=== PATIENT | female | born 1980 | race Caucasian/White ===

== ENCOUNTER → 2016-05-17 | Outpatient (CLI) | payer OTHER, MEDICARE ==
[~2016-05-17] MED LIST: /AMIT10TA PO; /CELE20CA OR; /CELE20CA PO; /DIVA12TA OR; /ESCI20TA PO; /ESOM40CA PO; /FEXO18TA OR; /OMEP10CA OR; /QUET25TA OR; ABIL5TAB5 PO; ACET-654 PO; ADVAIR INH; ALBU83IN INH; ALBUPOW25 NEB; ALBUTEROL XX; ALLE12TA31 PO; AMIT10TA PO; AMIT1TAB10 PO; ASPI325T OR; ASPI81TA85 PO; ASPI81TA90 PO; ATIV2TAB PO; ATOR1TAB21 PO; ATOR40TA PO; Allegra-D PO; B-12100010 PO; BACL10TA PO; BACL10TA2 PO; CELE-19 PO; CELE40TA PO; CHOLPOW39 PO; CITA20TA4 PO; COLA50CA PO; DIAZ5TAB PO; DITR5TAB PO; DIVA500T9 PO; DOCU100C PO; DOCU10CA PO; EPIP0.3I2 IM; FEXO180T58 PO; HYDRPOW48 PO; IBUP800T PO; KEPP1000 PO; LIDO5DIS EX; LIPI20TA PO; LORTTAB5 PO; LYRI75CA PO; MACR100C3 PO; MAXA5TAB OR; MONT10TA2 PO; MORP15TA2 PO; MOVA1TAB2 PO; NAPR-26 PO; NAPR500T2 PO; NEXI40GR PO; NICO14PA EXT; NITR100C37 PO; OMEP20TA7 OR; OXYB5TAB80 PO; PERC10TA17 PO; PROP1TAB26 PO; PSYLPOW4 XX; ROBA750T4 PO; SENNA PO; SERO1TAB PO; SERO200T PO; SING10TA31 OR; SUMA100T2 PO; SUMATRIPTAN PO; SYMB16INH INH; SYNT25TA PO; TEMA30CA PO; TIZA4CAP3 PO; TOPA25TA10 PO; TOPA50TA7 PO; TOPAMAX INJ; TOPI25TA2 OR; TRAZADONE PO; TREX50TA PO; TYLE325T5 PO; ULTR50TA PO; VALI10TA PO; VALI5TAB PO; VENL100T PO; VENL75TA2 PO; VICO5TAB OR; VICO7.5T11 PO; VITA100037 PO; VITA10006 PO; VITA200T2 PO; ZANA4CAP OR; ZANT300T OR; ZONI100C2 PO; [UNRECOGNIZED DRUG - CODE] PO; [UNRECOGNIZED DRUG - CODE] PO; [UNRECOGNIZED DRUG - OTHER] INH; [UNRECOGNIZED DRUG - OTHER] INH; aspirin; astepro; epipen IM; mylicon PO; temazepam PO; xyzal PO
--- NOTE | 2016-06-05 01:55 | ECWPNPC ---
PATIENT NAME: PIYUSH FARNSWORTH : 1980 GENDER: FEMALE VISIT DATE: 05/17/2016 DISCHARGE DATE: 05/17/16 1003 VISIT LOCKED DATE TIME: PHYSICIAN: SHARON BRUCE RESOURCE: SHARON BRUCE REASON FOR APPOINTMENT 1. NECK/BACK HISTORY OF PRESENT ILLNESS HISTORY OF PRESENT ILLNESS: PAIN THE PATIENT DESCRIBES THE PAIN... FALL RISK SCREENING: SCREENING :NO FALLS IN THE PAST YEAR TODAY'S VISIT: NOTES: RATES PAIN TODAY 8/10. NOTES WORST PAIN OVER ENTIRE BACK. HAS BEEN HAVING SIGNIFIACNT COUGH AND THIS HAS AGGRAVATED PAIN. CURRENT MEDICATIONS TAKING LYRICA 150 MG CAPSULE 1 CAPSULE ORALLY THREE TIMES A DAY TAKING NEXIUM 40 MG CAPSULE DELAYED RELEASE 1 CAPSULE ORALLY TWICE A DAY TAKING SYNTHROID 25 50 TABLET 1 CAP ORAL DAILY TAKING ALBUTEROL SULFATE (2.5 MG/3ML) 0.083% NEBULIZATION SOLUTION 3 ML INHALATION THREE TIMES DAILY NEEDED TAKING ADVAIR DISKUS 100-50 MCG/DOSE AEROSOL POWDER BREATH ACTIVATED 1 PUFF INHALATION TWICE A DAY TAKING IMITREX 25 MG TABLET ORALLY DIRECTED TAKING TRAZODONE HCL 100 MG TABLET 2TABLETS AT BEDTIME ORALLY ONCE A DAY TAKING CYCLOBENZAPRINE HCL 10 MG TABLET 2 TABLET ORALLY BID TAKING FLUOXETINE 10 MG CAPSULE 3 CAPSULE IN THE MORNING ORALLY ONCE A DAY TAKING TOPAMAX 50 MG TABLET 1 TABLET ORALLY TWICE A DAY TAKING SUMATRIPTAN SUCCINATE 100 MG TABLET 1 TABLET NEEDED ORALLY DIRECTED TAKING SINGULAIR 10 MG TABLET 1 TABLET IN THE EVENING ORALLY ONCE A DAY TAKING EPIPEN 0.3 MG/0.3ML (1:1000) DEVICE INTRAMUSCULAR DIRECTED, NOTES: NONE TAKING LORATADINE 10 MG TABLET 1 TABLET ORALLY ONCE A DAY TAKING FLONASE 50 MCG/DOSE INHALER 2 SPRAY IN EACH NOSTRIL NASALLY ONCE A DAY TAKING CELEBREX 200 MG CAPSULE 1 CAPSULE ORALLY ONCE A DAY TAKING LIPITOR 40 MG TABLET 1 TABLET ORALLY ONCE A DAY TAKING MUCINEX 600 MG TABLET EXTENDED RELEASE 1 TABLET NEEDED ORALLY EVERY 12 HRS TAKING MOVANTIK 25 MG TABLET 1 TABLET IN THE MORNING ORALLY ONCE A DAY TAKING CYMBALTA 30 MG CAPSULE DELAYED RELEASE PARTICLES 1 CAPSULE ORALLY ONCE A DAY TAKING TESSALON PERLES 100 MG CAPSULE 1 CAPSULE NEEDED ORALLY THREE TIMES A DAY TAKING PERCOCET 10-325 MG TABLET 1 TABLET ORALLY EVERY 4 HRS PRN PAIN MDD = 6 TAKING SEROQUEL 300 MG TABLET 1 TABLET AT BEDTIME ORALLY ONCE A DAY NOT-TAKING ASPIRIN 81 MG TABLET 1 TABLET ORALLY ONCE A DAY NOT-TAKING TOPAMAX 50 MG TABLET 1 TABLET ORALLY TWICE A DAY NOT-TAKING CELEBREX 200 MG CAPSULE 1 CAPSULE ORALLY ONCE A DAY NOT-TAKING OXYBUTYNIN CHLORIDE 5 MG TABLET 1 TABLET ORALLY THREE TIMES A DAY NOT-TAKING AMITRIPTYLINE HCL 50 MG TABLET 1 TABLET AT BEDTIME ORALLY ONCE A DAY DISCONTINUED SEROQUEL 400 MG TABLET 1 TABLET ORALLY ONCE DAILY DISCONTINUED SEROQUEL XR 300 MG TABLET EXTENDED RELEASE 24 HOUR 1 TABLET IN THE EVENING ORALLY ONCE A DAY MEDICATION LIST REVIEWED AND RECONCILED WITH THE PATIENT PAST MEDICAL HISTORY HYPERTENSION HIGH CHOLESTEROL THYROID PROBLEM HERNIATED DISC DORSAL COLUMN STIMULATOR INTERSTIM BLADDER OAB EAR TUBES MASTOIDECTOMY X6 ALLERGIES PENICILLIN (FOR ALLERGIES USE ONLY): ANAPHALAXIS LEVAQUIN: ANAPHALAXIS AMOXICILLIN: ANAPHALAXIS MYRBETRIQ: BLISTERING MUSHROOMS: ANAPHALAXIS BEES: ANAPHALAXIS SOCIAL HISTORY GENERAL: TOBACCO USE ARE YOU A:CURRENT SMOKER HOW MANY CIGARETTES A DAY DO YOU SMOKE?5 OR LESS HOW SOON AFTER YOU WAKE UP DO YOU SMOKE YOUR FIRST CIGARETTE?AFTER 60 MIN HOW OFTEN DO YOU SMOKE CIGARETTES?SOME DAYS, BUT NOT EVERY DAY PATIENT COUNSELED ON THE DANGERS OF TOBACCO USE AND URGED TO QUIT: COUNCELED ON THE IMPORTANCE OF QUITTING--PATIENT STATES SHE IS NOT READY AT THIS TIME ARE YOU INTERESTED IN QUITTING?NOT READY TO QUIT LEARNING BARRIERS / SPECIAL NEEDS ORIENTED TO PLAN OF CARE: PATIENT, PAIN MANAGEMENT PATIENT, ORIENTED TO PLAN OF CARE: PATIENT, PAIN MANAGEMENT PATIENT. NEW PATIENT PAIN DIARY TODAY'S VISITNOTES FROM 0-10, WHAT LEVEL IS YOUR PAIN TODAY?0 PAIN CLINIC PFS, CLERGY, PUBLIC HEALTH REFERRALS PFS REFERRAL NEEDED?NO CLERGY REFERRAL NEEDED?NO PUBLIC HEALTH REFERRAL NEEDED?NO WAS THE PROVIDER NOTIFIED OF ANY PERTINENT INFO?NO PFS REFERRAL NEEDED?NO CLERGY REFERRAL NEEDED?NO PUBLIC HEALTH REFERRAL NEEDED?NO WAS THE PROVIDER NOTIFIED OF ANY PERTINENT INFO?NO REVIEW OF SYSTEMS CONSTITUTIONAL: ANY CHANGE IN YOUR MEDICAL CONDITION? NO . CHILLS NO . FEVER NO . INFECTION: DO YOU HAVE NEW INFECTIONS? NO . DO YOU HAVE HISTORY OF MRSA? NO . MUSCULOSKELETAL: ANY NEW PATTERNS OF PAIN OR NUMBNESS? NO . GASTROENTEROLOGY: ANY NEW CHANGE IN BOWEL CONTROL? NO . GENITOURINARY: ANY NEW CHANGE IN BLADDER CONTROL? NO . IS THERE A CHANCE YOU COULD BE ? NO . HEMATOLOGY/LYMPH: DO YOU TAKE ANY BLOOD THINNERS? (FOR EXAMPLE- COUMADIN, PLAVIX, AGGRENOX, PLATEL, PRADAXA, OR XARELTO) NO . WHEN WAS YOUR LAST DOSE? DATE: TIME: . NEUROLOGY: HAVE YOU FALLEN IN THE PAST 6 MONTHS? NO . ANY NEW EXTREMITY NUMBNESS OR WEAKNESS? NO . CARDIOLOGY: DO YOU HAVE A PACEMAKER OR DEFIBRILLATOR? NO . RESPIRATORY: HAVE YOU BEEN SICK IN THE PAST WEEK? YES COLD FOR APPROX 1 WEEK . FEVER NO . FLU LIKE SYMPTOMS? NO . COUGH YES, PRODUCTIVE RAISING GREEN MUCUS TREATED WITH Z PACK . INTEGUMENTARY: DO YOU HAVE ANY RASHES OR OPEN SORES? NO . ALLERGIC/IMMUNO: ARE YOU ALLERGIC TO SHELLFISH OR IV DYE? NO . ANY NEW ALLERGIES? NO . PSYCHIATRIC: DO YOU HAVE THOUGHTS OF HURTING YOURSELF OR SOMEONE ELSE? NO . ARE YOU ABUSED, NEGLECTED, OR IN AN UNSAFE ENVIRONMENT? NO . ENDOCRINOLOGY: ARE YOU DIABETIC? NO . OTHER: DO YOU NEED ANY PRESCRIPTIONS? NO . IF YES, PLEASE LIST: ____ . ANY NEW PROBLEMS WITH YOUR MEDICATIONS? NO . WHEN DID YOU LAST EAT? ____ . WHEN DID YOU LAST DRINK? ____ . WHAT DID YOU LAST DRINK? ____ . NAME OF PERSON DRIVING YOU HOME? ____ . DO YOU HAVE ANY OTHER QUESTIONS OR CONCERNS NO . PSYCHOLOGY: SLEEP DISTURBANCES BEING WEANED FROM SEROQUEL. NOT SLEEPING WELL DUE TO COUGH . REVIEWED BY: PROVIDER: SHARON HERNANDEZ . VITAL SIGNS WT 250 LBS, HT 67 IN, BMI 39.15 INDEX, BP 122/76 MM HG, HR 104 /MIN, RR 16 /MIN, TEMP 98.2 F, OXYGEN SAT % 96, REVIEWED BY: AD. EXAMINATION GENERAL EXAMINATION: PSYCHALERT , ORIENTED X 3 , APPROPRIATE MOOD AND AFFECT , APPEARS FATIGUED. LUNGS:BILATERAL WHEEZES AND RHONCHI. HEART:HEART RATE REGULAR. ABDOMEN:SOFT, BOWEL SOUNDS PRESENT, TENDER IN RIGHT UPPER QUADRANT. MUSCULOSKELETAL:MUSCLE STRENGTH TESTING 5/5 BILATERAL LOWER EXTREMITIES. , TRIGGER POINTS:, ELICITED WITH PALPATION OVER LUMBAR PARAVERTEBRAL MUSCLES AND INTO THE SECRUM. RESTRICTION OF ROM IN THIS AREA. . ASSESSMENTS CERVICAL DISC DISPLACEMENT - M50.20 (PRIMARY) MYALGIA - M79.1 CHRONICALLY ON OPIATE THERAPY - Z79.899 TREATMENT CERVICAL DISC DISPLACEMENT NOTES: CONTINUE CURRENT MEDS - CONSIDER CHANGE OF PAIN MEDS AT NEXT VISIT. CALL PRIMARY IF NOT GETTING BETTER WITH COUGH BY NEXT MONDAY.MUST BRING MEDS TO NEXT APPOINTMENT. CLINICAL NOTES: ISTOP REGISTRY REVIEWED AND DEMNOSTRATES COMPLLIANCE.LAST URINE TOXICOLOGY REVIEWED. NO UNAUTHORIZED MEDICATIONS. NO ILLICIT SUBSTANCES AND PRESCRIBED MEDICATIONS WERE PRESENT. PROCEDURE CODES FA211 ESTABILISHED PATIENT [facility] CHARGE DISPOSITION & COMMUNICATION FOLLOW UP BETWEEN 06/01- ELECTRONICALLY SIGNED BY DANNY GODFREY ON 06/02/2016 AT 02:01 PM EST DISCLAIMER : THIS IS A VISIT SUMMARY EXTRACTED FROM THE [employer] CHART. IT IS NOT A COPY OF THE [employer] PROGRESS NOTE. MARCIN
== END ==
LOC: M PAIN 09:00
PROVIDERS: ATTEND Nurse Practitioner Family
DX: Z09 Encounter for follow-up examination after completed treatment for conditions other than malignant neoplasm (principal); G89.29 Other chronic pain; M50.20 Other cervical disc displacement, unspecified cervical region; M79.1 Myalgia; I10 Essential (primary) hypertension; E78.00 Pure hypercholesterolemia, unspecified; E07.9 Disorder of thyroid, unspecified; F17.200 Nicotine dependence, unspecified, uncomplicated; Z88.0 Allergy status to penicillin; Z88.8 Allergy status to other drugs, medicaments and biological substances; Z88.3 Allergy status to other anti-infective agents; Z91.018 Allergy to other foods; Z91.030 Bee allergy status; Z79.891 Long term (current) use of opiate analgesic; Z79.899 Other long term (current) drug therapy

== ENCOUNTER → 2016-05-23 | Outpatient (REF) | payer OTHER, MEDICARE ==
[2016-05-23 16:54] LABS: ALBUMIN/GLOBULIN RATIO 1.21 (1.00-1.93); ALKALINE PHOSPHATASE 107 U/L (45-117); ALT/SGPT 40 U/L (12-78); ANION GAP 9 MEQ/L (8-16); AST/SGOT 24 U/L (15-37); BILIRUBIN,TOTAL 0.2 MG/DL (0.2-1.0); BLOOD UREA NITROGEN 11 MG/DL (7-18); CALCIUM LEVEL 8.9 MG/DL (8.5-10.1); CARBON DIOXIDE LEVEL 23 MEQ/L (21-32); CHLORIDE LEVEL 109 MEQ/L (98-107); CHOLESTEROL LEVEL 239 MG/DL (<200); CREATININE FOR GFR 1.02 MG/DL (0.55-1.02); GLOMERULAR FILTRATION RATE > 60.0 (>60); GLUCOSE, FASTING 92 MG/DL (70-105); POTASSIUM SERUM 3.8 MEQ/L (3.5-5.1); SODIUM LEVEL 141 MEQ/L (136-145); TOTAL PROTEIN 7.3 GM/DL (6.4-8.2); TRIGLYCERIDES LEVEL 524 MG/DL (<150)
== END | disposition home or self-care (01) ==
LOC: M LABDRAW1 15:41
PROVIDERS: ATTEND Family Medicine
DX: E78.2 Mixed hyperlipidemia (principal)

== ENCOUNTER → 2016-05-30 | Outpatient (REF) | payer OTHER | END | disposition home or self-care (01) | LOC: M LABDRAW1 12:07 | PROVIDERS: ATTEND Family Medicine | DX: R73.01 Impaired fasting glucose (principal) ==

== ENCOUNTER → 2016-06-03 | Outpatient (CLI) | payer OTHER, MEDICARE ==
--- NOTE | 2016-06-04 00:39 | ECWPNPC ---
PATIENT NAME: PIYUSH FARNSWORTH : 1980 GENDER: FEMALE VISIT DATE: 06/03/2016 DISCHARGE DATE: 06/03/16 1008 VISIT LOCKED DATE TIME: PHYSICIAN: SHARON BRUCE RESOURCE: SHARON BRUCE REASON FOR APPOINTMENT 1. NECK/BACK HISTORY OF PRESENT ILLNESS HISTORY OF PRESENT ILLNESS: PAIN THE PATIENT DESCRIBES THE PAIN... FALL RISK SCREENING: SCREENING :NO FALLS IN THE PAST YEAR TODAY'S VISIT: NOTES: RATES PAIN TODAY 7-8/10. PAIN IS CENTERED IN BASE OF NECK, BOTH ELBOWS AND FOREARMS, ACROSS LOW BACK AND INTO BOTH LEGS. FELL ONE WEEK AGO. AT THE END OF THE DAY CAN BARELY MOVE. LEGS GO NUMB IF SITS TOO LONG. HAS HAD RECURRENT UPPER RESPIRATORY INFECTION AND IS NOW ON ABX AND PREDNISONE. COUGH IS DEBILITATING BUT TESSALJUNIOR PERLES DO HELP. IS VERY WORRIED ABOUT WEIGHT AND THE EFFECT THSI HAS ON HER PAIN AND ABILITY TO FUNCTION. CURRENT MEDICATIONS TAKING LYRICA 150 MG CAPSULE 1 CAPSULE ORALLY THREE TIMES A DAY TAKING NEXIUM 40 MG CAPSULE DELAYED RELEASE 1 CAPSULE ORALLY TWICE A DAY TAKING SYNTHROID 25 25MCG TABLET 1 CAP ORAL DAILY TAKING ALBUTEROL SULFATE (2.5 MG/3ML) 0.083% NEBULIZATION SOLUTION 3 ML INHALATION THREE TIMES DAILY NEEDED TAKING ADVAIR DISKUS 100-50 MCG/DOSE AEROSOL POWDER BREATH ACTIVATED 1 PUFF INHALATION TWICE A DAY TAKING IMITREX 25 MG TABLET ORALLY DIRECTED TAKING TRAZODONE HCL 300 MG TABLET 1 TABLET AT BEDTIME ORALLY ONCE A DAY TAKING CYCLOBENZAPRINE HCL 10 MG TABLET 2 TABLET ORALLY BID TAKING FLUOXETINE 20 MG CAPSULE 2 CAPSULE IN THE MORNING ORALLY ONCE A DAY TAKING TOPAMAX 50 MG TABLET 1 TABLET ORALLY TWICE A DAY TAKING SUMATRIPTAN SUCCINATE 100 MG TABLET 1 TABLET NEEDED ORALLY DIRECTED TAKING SINGULAIR 10 MG TABLET 1 TABLET IN THE EVENING ORALLY ONCE A DAY TAKING EPIPEN 0.3 MG/0.3ML (1:1000) DEVICE INTRAMUSCULAR DIRECTED, NOTES: NONE TAKING LORATADINE 10 MG TABLET 1 TABLET ORALLY ONCE A DAY TAKING FLONASE 50 MCG/DOSE INHALER 2 SPRAY IN EACH NOSTRIL NASALLY ONCE A DAY TAKING CELEBREX 200 MG CAPSULE 1 CAPSULE ORALLY ONCE A DAY TAKING LIPITOR 40 MG TABLET 1 TABLET ORALLY ONCE A DAY TAKING MUCINEX 600 MG TABLET EXTENDED RELEASE 1 TABLET NEEDED ORALLY EVERY 12 HRS TAKING MOVANTIK 25 MG TABLET 1 TABLET IN THE MORNING ORALLY ONCE A DAY TAKING CYMBALTA 30 MG CAPSULE DELAYED RELEASE PARTICLES 1 CAPSULE ORALLY ONCE A DAY TAKING TESSALON PERLES 100 MG CAPSULE 1 CAPSULE NEEDED ORALLY THREE TIMES A DAY TAKING PERCOCET 10-325 MG TABLET 1 TABLET ORALLY EVERY 4 HRS PRN PAIN MDD = 6 TAKING SEROQUEL 200 MG TABLET 1 TABLET AT BEDTIME ORALLY ONCE A DAY TAKING PREDNISONE TAPER 1 TAB ORAL TAPERING DOSE OVER 3 WEEKS DIRECTED TAKING MELATONIN 3 MG TABLET 1 TABLET AT BEDTIME NEEDED WITH FOOD ORALLY ONCE A DAY NOT-TAKING ASPIRIN 81 MG TABLET 1 TABLET ORALLY ONCE A DAY NOT-TAKING TOPAMAX 50 MG TABLET 1 TABLET ORALLY TWICE A DAY NOT-TAKING CELEBREX 200 MG CAPSULE 1 CAPSULE ORALLY ONCE A DAY NOT-TAKING OXYBUTYNIN CHLORIDE 5 MG TABLET 1 TABLET ORALLY THREE TIMES A DAY NOT-TAKING AMITRIPTYLINE HCL 50 MG TABLET 1 TABLET AT BEDTIME ORALLY ONCE A DAY MEDICATION LIST REVIEWED AND RECONCILED WITH THE PATIENT PAST MEDICAL HISTORY HYPERTENSION HIGH CHOLESTEROL THYROID PROBLEM HERNIATED DISC DORSAL COLUMN STIMULATOR INTERSTIM BLADDER OAB EAR TUBES MASTOIDECTOMY X6 ALLERGIES PENICILLIN (FOR ALLERGIES USE ONLY): ANAPHALAXIS LEVAQUIN: ANAPHALAXIS AMOXICILLIN: ANAPHALAXIS MYRBETRIQ: BLISTERING MUSHROOMS: ANAPHALAXIS BEES: ANAPHALAXIS SOCIAL HISTORY GENERAL: TOBACCO USE VAPORYES LEARNING BARRIERS / SPECIAL NEEDS ORIENTED TO PLAN OF CARE: PATIENT, PAIN MANAGEMENT PATIENT, ORIENTED TO PLAN OF CARE: PATIENT, PAIN MANAGEMENT PATIENT. NEW PATIENT PAIN DIARY TODAY'S VISITNOTES FROM 0-10, WHAT LEVEL IS YOUR PAIN TODAY?0 PAIN CLINIC PFS, CLERGY, PUBLIC HEALTH REFERRALS PFS REFERRAL NEEDED?NO CLERGY REFERRAL NEEDED?NO PUBLIC HEALTH REFERRAL NEEDED?NO WAS THE PROVIDER NOTIFIED OF ANY PERTINENT INFO?NO PFS REFERRAL NEEDED?NO CLERGY REFERRAL NEEDED?NO PUBLIC HEALTH REFERRAL NEEDED?NO WAS THE PROVIDER NOTIFIED OF ANY PERTINENT INFO?NO REVIEW OF SYSTEMS CONSTITUTIONAL: LEVEL OF ENERGY WANTS TO LOSE WEIGHT, IS ON STRICT DIET BUT HAS NOT BEEN ABLE TO LOSE WEIGHT. DISCUSSED WITH PCP OPTION OF GASTRIC BYPASS BUT THE PCP WAS NOT IN FAVOR. . ANY CHANGE IN YOUR MEDICAL CONDITION? NO . CHILLS NO . FEVER NO . INFECTION: DO YOU HAVE NEW INFECTIONS? NO . DO YOU HAVE HISTORY OF MRSA? NO . MUSCULOSKELETAL: ANY NEW PATTERNS OF PAIN OR NUMBNESS? NO . GASTROENTEROLOGY: GENERAL CONSTIPATION UNDER GOOD CONTROL WITH MOVANTIK. STILL WITH RUQ ABD WALL WEAKNESS AND PAIN . ANY NEW CHANGE IN BOWEL CONTROL? NO . GENITOURINARY: ANY NEW CHANGE IN BLADDER CONTROL? NO . IS THERE A CHANCE YOU COULD BE ? NO . HEMATOLOGY/LYMPH: DO YOU TAKE ANY BLOOD THINNERS? (FOR EXAMPLE- COUMADIN, PLAVIX, AGGRENOX, PLATEL, PRADAXA, OR XARELTO) NO . WHEN WAS YOUR LAST DOSE? DATE: TIME: . NEUROLOGY: HAVE YOU FALLEN IN THE PAST 6 MONTHS? YES, FELL ON ICE 1 WEEK AGO, NO INJURY . ANY NEW EXTREMITY NUMBNESS OR WEAKNESS? YES, NUMBNESS AND PAIN LOW BACK GOING DOWN LEFT HIP AND LEG TO KNEE . CARDIOLOGY: DO YOU HAVE A PACEMAKER OR DEFIBRILLATOR? NO . RESPIRATORY: HAVE YOU BEEN SICK IN THE PAST WEEK? YES, URI--ON PREDNISONE TAPERING DOSE . FEVER NO . FLU LIKE SYMPTOMS? NO . COUGH YES, PRODUCTIVE, RAISING GREEN MUCUS . INTEGUMENTARY: DO YOU HAVE ANY RASHES OR OPEN SORES? NO . ALLERGIC/IMMUNO: ARE YOU ALLERGIC TO SHELLFISH OR IV DYE? NO . ANY NEW ALLERGIES? NO . PSYCHIATRIC: DO YOU HAVE THOUGHTS OF HURTING YOURSELF OR SOMEONE ELSE? NO . ARE YOU ABUSED, NEGLECTED, OR IN AN UNSAFE ENVIRONMENT? NO . ENDOCRINOLOGY: ARE YOU DIABETIC? NO - RECENT A1C = 5.4 . OTHER: DO YOU NEED ANY PRESCRIPTIONS? YES, NEW PAIN MEDS . IF YES, PLEASE LIST: ____ . ANY NEW PROBLEMS WITH YOUR MEDICATIONS? NO . WHEN DID YOU LAST EAT? ____ . WHEN DID YOU LAST DRINK? ____ . WHAT DID YOU LAST DRINK? ____ . NAME OF PERSON DRIVING YOU HOME? ____ . DO YOU HAVE ANY OTHER QUESTIONS OR CONCERNS NO . PSYCHOLOGY: SLEEP DISTURBANCES STILL IN PROCESS OF BEING WEANED FROM SEROQUEL AND SLEEP IS DISRUPTED . REVIEWED BY: PROVIDER: SHARON HERNANDEZ . VITAL SIGNS WT 259.2 LBS, HT 67 IN, BMI 40.59 INDEX, BP 130/74 MM HG, HR 109 /MIN, RR 18 /MIN, TEMP 96.0 F, OXYGEN SAT % 96, NA INITIALS TL 0913, REVIEWED BY: AD. EXAMINATION GENERAL EXAMINATION: PSYCHALERT , ORIENTED X 3 , TALKATIVE. STAYS ON SUBJECT WITHOUT DIFFICULTY. INTENSE AND FOCUSED. FACE:FLUSHED. LUNGS:BILATERAL RHONCHI, CLEARED WITH COUGH. DEEP BREATH INDUCES COUGH. HEART:HEART RATE REGULAR, RAPID. ABDOMEN:SOFT, BOWEL SOUNDS PRESENT, SOMEWHAT DISTENDED. MUSCULOSKELETAL:MUSCLE STRENGTH TESTING 5/5 BILATERAL UPPER AND LOWER EXTREMITIES. , TRIGGER POINTS:, ELICITED WITH PALPATION OVER CERVICAL SPINOUS PROCESSES AND ACROSS THE TRAPEZIUS MUSCLES BILATERALLY. RESTRICTION OF ROM IS NOTED. , ELICITED WITH PALPATION OVER MID THORACIC MUSCLES WITH RESTRICITON OF RESPIRATORY EXCURCIOM NOTED. , ELICITED WITH PALPATION OVER LUMBAR PARAVERTEBRAL MUSCLES AND INTO THE SECRUM. RESTRICTION OF ROM IN THIS AREA. SLOW TO RISE TO STANDING POSITION. GAIT SLOW, NONANTALGIC. TENDER WITH PALPATION OVER WRIST AND BILATERAL SHOULDER JOINTS. ROM MOVEMENT PRODUCES PAIN AT SHOULDER JOINTS.. NEUROLOGIC EXAM:HIGH FREQ TREMOR IN UPPER AND LOWER EXTREMITIES., CN'S II-XII GROSSLY INTACT. SPEACH CLEAR, NONDYSARTHRIC. EOMS INTACT WITHOUT NYSTAGMUS. ASSESSMENTS CERVICAL DISC DISPLACEMENT - M50.20 (PRIMARY) MYALGIA - M79.1 CHRONICALLY ON OPIATE THERAPY - Z79.899 TREATMENT CERVICAL DISC DISPLACEMENT START BUTRANS PATCH WEEKLY, 10 MCG/HR, 1 PATCH TO SKIN, TRANSDERMAL, APPLY 1 PATCH EVERY 7 DAYS MDD=1, 30 DAY(S), 4, REFILLS 1 REFILL PERCOCET TABLET, 10-325 MG, 1 TABLET, ORALLY, EVERY 4 HRS PRN PAIN MDD = 6, 30 DAY(S), 180, REFILLS 0 NOTES: REVIEWED WITH PIYUSH TO ALTERNATE PATCHES FROM SIDE TO SIDE EVERY WEEK. INSTRUCTED PT TO DECREASE PERCOCET TO MAX 4/DAY WITH BUTRANS IN PLACE. CLINICAL NOTES: ISTOP REGISTRY REVIEWED AND DEMNOSTRATES COMPLLIANCE. BRINGS IN MEDICATIONS WHICH IS APPROPRIATE FOR WHAT WAS DISPENSED. RECENT URINE TOXICOLOGY REVIEWED. NO UNAUTHORIZED MEDICATIONS. NO ILLICIT SUBSTANCES AND PRESCRIBED MEDICATIONS WERE PRESENT. REFERRAL TO:[facility] REASON:PERSISTANT URI'S. FAMILY HX OF HYPOGAMMAGLOBULINEMIA PROCEDURE CODES FA211 ESTABILISHED PATIENT THE [facility] FACILITY CHARGE DISPOSITION & COMMUNICATION FOLLOW UP 26-28 DAYS ELECTRONICALLY SIGNED BY DANNY GODFREY ON 06/03/2016 AT 11:55 AM EST DISCLAIMER : THIS IS A VISIT SUMMARY EXTRACTED FROM THE [employer] CHART. IT IS NOT A COPY OF THE [employer] PROGRESS NOTE. MTDD
== END ==
LOC: M PAIN 09:00
PROVIDERS: ATTEND Nurse Practitioner Family
DX: Z09 Encounter for follow-up examination after completed treatment for conditions other than malignant neoplasm (principal); G89.29 Other chronic pain; M50.20 Other cervical disc displacement, unspecified cervical region; M79.1 Myalgia; I10 Essential (primary) hypertension; E78.00 Pure hypercholesterolemia, unspecified; E07.9 Disorder of thyroid, unspecified; M51.26 Other intervertebral disc displacement, lumbar region; M54.14 Radiculopathy, thoracic region; M54.12 Radiculopathy, cervical region; M96.1 Postlaminectomy syndrome, not elsewhere classified; Z79.899 Other long term (current) drug therapy; Z79.51 Long term (current) use of inhaled steroids; Z91.018 Allergy to other foods; Z91.030 Bee allergy status; Z88.0 Allergy status to penicillin; Z88.1 Allergy status to other antibiotic agents; Z88.8 Allergy status to other drugs, medicaments and biological substances; F17.200 Nicotine dependence, unspecified, uncomplicated

== ENCOUNTER → 2016-06-23 | Outpatient (CLI) | payer OTHER, MEDICARE ==
--- NOTE | 2016-06-25 00:37 | ECWPNPC ---
PATIENT NAME: PIYUSH FARNSWORTH : 1980 GENDER: FEMALE VISIT DATE: 06/23/2016 DISCHARGE DATE: 06/23/16 0946 VISIT LOCKED DATE TIME: PHYSICIAN: SHARON BRUCE RESOURCE: SHARON BRUCE REASON FOR APPOINTMENT 1. NECK/BACK HISTORY OF PRESENT ILLNESS HISTORY OF PRESENT ILLNESS: PAIN THE PATIENT DESCRIBES THE PAIN... FALL RISK SCREENING: SCREENING :NO FALLS IN THE PAST YEAR TODAY'S VISIT: NOTES: REPORTS PAIN LEVEL OF PAIN IS 9/10. PAIN IS OVER ENTIRE BACK. IS INTERESTED IN MOVING FORWARD WITH DCS. TO SEE SENIOR DATABASE ADMINISTRATOR 06/28/16. HARSH COUGH WITH PRODUCTION. OXYCODONE HELPS KEEP PAIN MANAGED AND DENIES ANY ADVERSE REACTION. REPORTS MOVANTIK HAS CONTINUED TO HELP WITH ABDMINAL PAIN AND BLOATING.. . CURRENT MEDICATIONS TAKING LYRICA 150 MG CAPSULE 1 CAPSULE ORALLY THREE TIMES A DAY TAKING NEXIUM 40 MG CAPSULE DELAYED RELEASE 1 CAPSULE ORALLY TWICE A DAY TAKING SYNTHROID 25 25MCG TABLET 1 CAP ORAL DAILY TAKING ALBUTEROL SULFATE (2.5 MG/3ML) 0.083% NEBULIZATION SOLUTION 3 ML INHALATION THREE TIMES DAILY NEEDED TAKING ADVAIR DISKUS 100-50 MCG/DOSE AEROSOL POWDER BREATH ACTIVATED 1 PUFF INHALATION TWICE A DAY TAKING IMITREX 25 MG TABLET ORALLY DIRECTED TAKING TRAZODONE HCL 300 MG TABLET 1 TABLET AT BEDTIME ORALLY ONCE A DAY TAKING CYCLOBENZAPRINE HCL 10 MG TABLET 2 TABLET ORALLY BID TAKING FLUOXETINE 20 MG CAPSULE 2 CAPSULE IN THE MORNING ORALLY ONCE A DAY TAKING TOPAMAX 50 MG TABLET 1 TABLET ORALLY TWICE A DAY TAKING SUMATRIPTAN SUCCINATE 100 MG TABLET 1 TABLET NEEDED ORALLY DIRECTED TAKING SINGULAIR 10 MG TABLET 1 TABLET IN THE EVENING ORALLY ONCE A DAY TAKING EPIPEN 0.3 MG/0.3ML (1:1000) DEVICE INTRAMUSCULAR DIRECTED, NOTES: NONE TAKING LORATADINE 10 MG TABLET 1 TABLET ORALLY ONCE A DAY TAKING FLONASE 50 MCG/DOSE INHALER 2 SPRAY IN EACH NOSTRIL NASALLY ONCE A DAY TAKING CELEBREX 200 MG CAPSULE 1 CAPSULE ORALLY ONCE A DAY TAKING LIPITOR 40 MG TABLET 1 TABLET ORALLY ONCE A DAY TAKING MUCINEX 600 MG TABLET EXTENDED RELEASE 1 TABLET NEEDED ORALLY EVERY 12 HRS TAKING MOVANTIK 25 MG TABLET 1 TABLET IN THE MORNING ORALLY ONCE A DAY TAKING CYMBALTA 30 MG CAPSULE DELAYED RELEASE PARTICLES 1 CAPSULE ORALLY ONCE A DAY TAKING TESSALON PERLES 100 MG CAPSULE 1 CAPSULE NEEDED ORALLY THREE TIMES A DAY TAKING SEROQUEL 200 MG TABLET 1 TABLET AT BEDTIME ORALLY ONCE A DAY TAKING MELATONIN 3 MG TABLET 1 TABLET AT BEDTIME NEEDED WITH FOOD ORALLY ONCE A DAY TAKING PERCOCET 10-325 MG TABLET 1 TABLET ORALLY EVERY 4 HRS PRN PAIN MDD = 6 TAKING AZITHROMYCIN 250 MG TABLET 2 TABLETS ON THE FIRST DAY, THEN 1 TABLET DAILY FOR 4 DAYS ORALLY ONCE A DAY NOT-TAKING BUTRANS 10 MCG/HR PATCH WEEKLY 1 PATCH TO SKIN TRANSDERMAL APPLY 1 PATCH EVERY 7 DAYS MDD=1, NOTES: NEEDS AUTHORIZATION FROM INSURANCE NOT-TAKING ASPIRIN 81 MG TABLET 1 TABLET ORALLY ONCE A DAY NOT-TAKING TOPAMAX 50 MG TABLET 1 TABLET ORALLY TWICE A DAY NOT-TAKING CELEBREX 200 MG CAPSULE 1 CAPSULE ORALLY ONCE A DAY NOT-TAKING OXYBUTYNIN CHLORIDE 5 MG TABLET 1 TABLET ORALLY THREE TIMES A DAY NOT-TAKING AMITRIPTYLINE HCL 50 MG TABLET 1 TABLET AT BEDTIME ORALLY ONCE A DAY DISCONTINUED PREDNISONE TAPER 1 TAB ORAL TAPERING DOSE OVER 3 WEEKS DIRECTED MEDICATION LIST REVIEWED AND RECONCILED WITH THE PATIENT PAST MEDICAL HISTORY HYPERTENSION HIGH CHOLESTEROL THYROID PROBLEM HERNIATED DISC DORSAL COLUMN STIMULATOR INTERSTIM BLADDER OAB EAR TUBES MASTOIDECTOMY X6 ALLERGIES PENICILLIN (FOR ALLERGIES USE ONLY): ANAPHALAXIS LEVAQUIN: ANAPHALAXIS AMOXICILLIN: ANAPHALAXIS MYRBETRIQ: BLISTERING MUSHROOMS: ANAPHALAXIS BEES: ANAPHALAXIS SOCIAL HISTORY GENERAL: TOBACCO USE ARE YOU A:NONSMOKER LEARNING BARRIERS / SPECIAL NEEDS ORIENTED TO PLAN OF CARE: PATIENT, PAIN MANAGEMENT PATIENT, ORIENTED TO PLAN OF CARE: PATIENT, PAIN MANAGEMENT PATIENT. NEW PATIENT PAIN DIARY TODAY'S VISITNOTES FROM 0-10, WHAT LEVEL IS YOUR PAIN TODAY?0 PAIN CLINIC PFS, CLERGY, PUBLIC HEALTH REFERRALS PFS REFERRAL NEEDED?NO CLERGY REFERRAL NEEDED?NO PUBLIC HEALTH REFERRAL NEEDED?NO WAS THE PROVIDER NOTIFIED OF ANY PERTINENT INFO?NO PFS REFERRAL NEEDED?NO CLERGY REFERRAL NEEDED?NO PUBLIC HEALTH REFERRAL NEEDED?NO WAS THE PROVIDER NOTIFIED OF ANY PERTINENT INFO?NO REVIEW OF SYSTEMS CONSTITUTIONAL: ANY CHANGE IN YOUR MEDICAL CONDITION? YES CURRENTLY BEING TREATED FOR EAR INFECTION, BRONCHITIS WITH A Z-PACK,STARTED YESTERDAY . CHILLS NO . FEVER NO . INFECTION: DO YOU HAVE NEW INFECTIONS? YES EAR INFECTION, BRONCHITIS . DO YOU HAVE HISTORY OF MRSA? NO . MUSCULOSKELETAL: ANY NEW PATTERNS OF PAIN OR NUMBNESS? NO . GASTROENTEROLOGY: ANY NEW CHANGE IN BOWEL CONTROL? NO . GENITOURINARY: ANY NEW CHANGE IN BLADDER CONTROL? NO . IS THERE A CHANCE YOU COULD BE ? NO . HEMATOLOGY/LYMPH: DO YOU TAKE ANY BLOOD THINNERS? (FOR EXAMPLE- COUMADIN, PLAVIX, AGGRENOX, PLATEL, PRADAXA, OR XARELTO) NO . WHEN WAS YOUR LAST DOSE? DATE: TIME: . NEUROLOGY: HAVE YOU FALLEN IN THE PAST 6 MONTHS? NO . ANY NEW EXTREMITY NUMBNESS OR WEAKNESS? NO . CARDIOLOGY: DO YOU HAVE A PACEMAKER OR DEFIBRILLATOR? NO . RESPIRATORY: HAVE YOU BEEN SICK IN THE PAST WEEK? YES, ON ANTIBIOTICS FOR BRONCHITIS AND AN EAR INFECTION . FEVER NO . FLU LIKE SYMPTOMS? NO . COUGH YES . INTEGUMENTARY: DO YOU HAVE ANY RASHES OR OPEN SORES? NO . ALLERGIC/IMMUNO: ARE YOU ALLERGIC TO SHELLFISH OR IV DYE? NO . ANY NEW ALLERGIES? NO . PSYCHIATRIC: DO YOU HAVE THOUGHTS OF HURTING YOURSELF OR SOMEONE ELSE? NO . ARE YOU ABUSED, NEGLECTED, OR IN AN UNSAFE ENVIRONMENT? NO . ENDOCRINOLOGY: ARE YOU DIABETIC? NO . OTHER: DO YOU NEED ANY PRESCRIPTIONS? YES MOVANTIK . IF YES, PLEASE LIST: ____ . ANY NEW PROBLEMS WITH YOUR MEDICATIONS? NO . WHEN DID YOU LAST EAT? ____ . WHEN DID YOU LAST DRINK? ____ . WHAT DID YOU LAST DRINK? ____ . NAME OF PERSON DRIVING YOU HOME? ____ . DO YOU HAVE ANY OTHER QUESTIONS OR CONCERNS YES PT HAS BEEN UNABLE TO FILL PRESCRIPTION FOR BUTRANS. SHE HAS A QUESTION REGARDING THE NEED FOR PSYCH EVAL SINCE SHE HAD A DCS LAST YEAR . REVIEWED BY: PROVIDER: SHARON HERNANDEZ . VITAL SIGNS WT 255.4 LBS, HT 67 IN, BMI 40.00 INDEX, BP 127/75 MM HG, HR 110 /MIN, RR 16 /MIN, TEMP 96.4 F, OXYGEN SAT % 97%, SAFE IN ENV? (Y/N) YES, REVIEWED BY: JOYCE. EXAMINATION GENERAL EXAMINATION: PSYCHALERT , ORIENTED X 3 , TALKATIVE. STAYS ON SUBJECT WITHOUT DIFFICULTY. INTENSE AND FOCUSED. LUNGS:BILATERAL RHONCHI, CLEARED WITH COUGH. DEEP BREATH INDUCES COUGH. HEART:HEART RATE REGULAR, RAPID. ABDOMEN:SOFT, BOWEL SOUNDS PRESENT, SOMEWHAT DISTENDED. MUSCULOSKELETAL:MUSCLE STRENGTH TESTING 5/5 BILATERAL UPPER AND LOWER EXTREMITIES. , TRIGGER POINTS:, ELICITED WITH PALPATION OVER CERVICAL SPINOUS PROCESSES AND ACROSS THE TRAPEZIUS MUSCLES BILATERALLY. RESTRICTION OF ROM IS NOTED. , ELICITED WITH PALPATION OVER MID THORACIC MUSCLES WITH RESTRICITON OF RESPIRATORY EXCURCIOM NOTED. , ELICITED WITH PALPATION OVER LUMBAR PARAVERTEBRAL MUSCLES AND INTO THE SECRUM. RESTRICTION OF ROM IN THIS AREA. SLOW TO RISE TO STANDING POSITION. GAIT SLOW, NONANTALGIC. TENDER WITH PALPATION OVER WRIST AND BILATERAL SHOULDER JOINTS. ROM MOVEMENT PRODUCES PAIN AT SHOULDER JOINTS.. NEUROLOGIC EXAM:HIGH FREQ TREMOR IN UPPER AND LOWER EXTREMITIES., CN'S II-XII GROSSLY INTACT. SPEACH CLEAR, NONDYSARTHRIC. EOMS INTACT WITHOUT NYSTAGMUS. ASSESSMENTS CERVICAL DISC DISPLACEMENT - M50.20 (PRIMARY) MYALGIA - M79.1 CHRONICALLY ON OPIATE THERAPY - Z79.899 TREATMENT CERVICAL DISC DISPLACEMENT REFILL MOVANTIK TABLET, 25 MG, 1 TABLET IN THE MORNING, ORALLY, ONCE A DAY, 30 DAY(S), 30, REFILLS 2 NOTES: WILL CHECK ON PSYCH EVAL FOR DCS. PROCEDURE CODES FA211 ESTABILISHED PATIENT [facility] CHARGE DISPOSITION & COMMUNICATION FOLLOW UP 1 MONTH ELECTRONICALLY SIGNED BY DANNY GODFREY ON 06/24/2016 AT 06:24 PM EST DISCLAIMER : THIS IS A VISIT SUMMARY EXTRACTED FROM THE [employer] CHART. IT IS NOT A COPY OF THE [employer] PROGRESS NOTE. MTDD
== END ==
LOC: M PAIN 09:00
PROVIDERS: ATTEND Nurse Practitioner Family
DX: Z09 Encounter for follow-up examination after completed treatment for conditions other than malignant neoplasm (principal); G89.29 Other chronic pain; M50.20 Other cervical disc displacement, unspecified cervical region; M79.1 Myalgia; I10 Essential (primary) hypertension; E78.00 Pure hypercholesterolemia, unspecified; E07.9 Disorder of thyroid, unspecified; N32.81 Overactive bladder; H66.90 Otitis media, unspecified, unspecified ear; Z88.0 Allergy status to penicillin; Z88.1 Allergy status to other antibiotic agents; Z88.8 Allergy status to other drugs, medicaments and biological substances; Z91.030 Bee allergy status; Z91.018 Allergy to other foods; Z79.52 Long term (current) use of systemic steroids; Z79.891 Long term (current) use of opiate analgesic; Z79.2 Long term (current) use of antibiotics; Z79.899 Other long term (current) drug therapy

== ENCOUNTER → 2016-08-24 | Outpatient (REF) | payer OTHER, MEDICARE ==
[2016-08-24 16:03] LABS: BASO % 0.5 % (0.0-1.0); EOS # 0.1 K/mm3 (0.0-0.50); EOS % 2.4 % (0.0-3.0); LYMPH # 2.1 K/mm3 (1.5-4.5); LYMPH % 36.6 % (24.0-44.0); MEAN CORPUSCULAR HEMOGLOBIN 32.6 pg (27.0-33.0); MEAN CORPUSCULAR HGB CONC 34.8 g/dl (32.0-36.5); MEAN CORPUSCULAR VOLUME 93.6 fl (80.0-96.0); MONO # 0.3 K/mm3 (0.0-0.8); MONO % 5.5 % (0.0-5.0); NEUTROPHILS % 53.9 % (36.0-66.0); RED CELL DISTRIBUTION WIDTH 12.5 % (11.5-14.5); WHITE BLOOD COUNT 5.6 K/mm3 (4.0-10.0)
[2016-08-24 16:19] LABS: IMMUNOGLOBULIN G 977 MG/DL (681-1648); IMMUNOGLOBULIN M 74.8 MG/DL (40-230)
[2016-08-24 16:41] LABS: IMMUNOGLOBULIN E < 3.6 IU/ML (<100)
[2016-08-27 08:08] LABS: IgG SERUM (part of Subclasses) 936 mg/dL (700-1600); IgG Subclass 1 597 mg/dL (422-1292); IgG Subclass 2 226 mg/dL (117-747); IgG Subclass 3 132 mg/dL (41-129); IgG Subclass 4 16 mg/dL (1-291)
== END ==
LOC: M LABDRAW1 15:35
PROVIDERS: ATTEND Allergy & Immunology Allergy
DX: Z13.9 Encounter for screening, unspecified (principal)

== ENCOUNTER → 2016-09-06 | Outpatient (CLI) | payer OTHER, MEDICARE ==
--- NOTE | 2016-09-22 01:41 | ECWPNPC ---
PATIENT NAME: PIYUSH FARNSWORTH : 1980 GENDER: FEMALE VISIT DATE: 09/06/2016 DISCHARGE DATE: 09/06/16 1025 VISIT LOCKED DATE TIME: PHYSICIAN: SHARON BRUCE RESOURCE: SHARON BRUCE REASON FOR APPOINTMENT 1. NECK/BACK HISTORY OF PRESENT ILLNESS HISTORY OF PRESENT ILLNESS: PAIN THE PATIENT DESCRIBES THE PAIN... THE PATIENT DESCRIBES THE PAIN... PAIN THE PATIENT DESCRIBES THE PAIN... THE PATIENT DESCRIBES THE PAIN... FALL RISK SCREENING: SCREENING :NO FALLS IN THE PAST YEAR :NO FALLS IN THE PAST YEAR SCREENING :NO FALLS IN THE PAST YEAR :NO FALLS IN THE PAST YEAR TODAY'S VISIT: NOTES: RATES PAIN TODAYAS 8-10. REPORTS SHE IS HAVING SEVERE PAIN IN FEET, UP BACK AND AT BASE OF NECK. 2 1/2 WEEKS HAD NEW ONSET OF PAIN IN FEET. PAIN IS SHARP AND RADIATES UP THE FOOT WHEN FIRST STANDING UP. FEET WERE SWELLING. IS FEELING SHAKEY. IS DROPPING ITEMS FROM HANDS. NOTES INTENSE PAIN AND HEAVINESS ON RIGHT SIDE AND RIGHT ARM. SAW [employer] AND SHE DID LABS - STATES THE "TITERS" ARE LOW AND WANTS TO GIVE PT AN PNEUMONIA 23 INJECTION AND THE CHECK. IS EXCESSIVELY TIRED.. CURRENT MEDICATIONS TAKING LYRICA 150 MG CAPSULE 1 CAPSULE ORALLY THREE TIMES A DAY TAKING NEXIUM 40 MG CAPSULE DELAYED RELEASE 1 CAPSULE ORALLY TWICE A DAY TAKING SYNTHROID 25 25MCG TABLET 1 CAP ORAL DAILY TAKING ALBUTEROL SULFATE (2.5 MG/3ML) 0.083% NEBULIZATION SOLUTION 3 ML INHALATION THREE TIMES DAILY NEEDED TAKING ADVAIR DISKUS 100-50 MCG/DOSE AEROSOL POWDER BREATH ACTIVATED 1 PUFF INHALATION TWICE A DAY TAKING IMITREX 25 MG TABLET ORALLY DIRECTED TAKING TRAZODONE HCL 300 MG TABLET 1 TABLET AT BEDTIME ORALLY ONCE A DAY TAKING CYCLOBENZAPRINE HCL 10 MG TABLET 2 TABLET ORALLY BID TAKING FLUOXETINE 20 MG CAPSULE 2 CAPSULE IN THE MORNING ORALLY ONCE A DAY TAKING TOPAMAX 50 MG TABLET 1 TABLET ORALLY TWICE A DAY TAKING SUMATRIPTAN SUCCINATE 100 MG TABLET 1 TABLET NEEDED ORALLY DIRECTED TAKING SINGULAIR 10 MG TABLET 1 TABLET IN THE EVENING ORALLY ONCE A DAY TAKING EPIPEN 0.3 MG/0.3ML (1:1000) DEVICE INTRAMUSCULAR DIRECTED, NOTES: NONE TAKING LORATADINE 10 MG TABLET 1 TABLET ORALLY ONCE A DAY TAKING FLONASE 50 MCG/DOSE INHALER 2 SPRAY IN EACH NOSTRIL NASALLY ONCE A DAY TAKING LIPITOR 40 MG TABLET 1 TABLET ORALLY ONCE A DAY TAKING MUCINEX 600 MG TABLET EXTENDED RELEASE 1 TABLET NEEDED ORALLY EVERY 12 HRS TAKING CYMBALTA 30 MG CAPSULE DELAYED RELEASE PARTICLES 1 CAPSULE ORALLY ONCE A DAY TAKING TESSALON PERLES 100 MG CAPSULE 1 CAPSULE NEEDED ORALLY THREE TIMES A DAY TAKING SEROQUEL 200 MG TABLET 1 TABLET AT BEDTIME ORALLY ONCE A DAY TAKING MELATONIN 3 MG TABLET 1 TABLET AT BEDTIME NEEDED WITH FOOD ORALLY ONCE A DAY TAKING MOVANTIK 25 MG TABLET 1 TABLET IN THE MORNING ORALLY ONCE A DAY TAKING CELEBREX 200 MG CAPSULE 1 CAPSULE ORALLY ONCE A DAY TAKING PERCOCET 10-325 MG TABLET 1 TABLET ORALLY EVERY 4 HRS PRN PAIN MDD = 6 NOT-TAKING CLINDAMYCIN HCL 300 MG CAPSULE 1 CAPSULE ORALLY EVERY 8 HRS NOT-TAKING AZITHROMYCIN 250 MG TABLET 2 TABLETS ON THE FIRST DAY, THEN 1 TABLET DAILY FOR 4 DAYS ORALLY ONCE A DAY NOT-TAKING BUTRANS 10 MCG/HR PATCH WEEKLY 1 PATCH TO SKIN TRANSDERMAL APPLY 1 PATCH EVERY 7 DAYS MDD=1, NOTES: NEEDS AUTHORIZATION FROM INSURANCE NOT-TAKING ASPIRIN 81 MG TABLET 1 TABLET ORALLY ONCE A DAY NOT-TAKING TOPAMAX 50 MG TABLET 1 TABLET ORALLY TWICE A DAY NOT-TAKING CELEBREX 200 MG CAPSULE 1 CAPSULE ORALLY ONCE A DAY NOT-TAKING OXYBUTYNIN CHLORIDE 5 MG TABLET 1 TABLET ORALLY THREE TIMES A DAY NOT-TAKING AMITRIPTYLINE HCL 50 MG TABLET 1 TABLET AT BEDTIME ORALLY ONCE A DAY MEDICATION LIST REVIEWED AND RECONCILED WITH THE PATIENT PAST MEDICAL HISTORY HYPERTENSION HIGH CHOLESTEROL THYROID PROBLEM HERNIATED DISC DORSAL COLUMN STIMULATOR INTERSTIM BLADDER OAB EAR TUBES MASTOIDECTOMY X6 ALLERGIES PENICILLIN (FOR ALLERGIES USE ONLY): ANAPHALAXIS LEVAQUIN: ANAPHALAXIS AMOXICILLIN: ANAPHALAXIS MYRBETRIQ: BLISTERING MUSHROOMS: ANAPHALAXIS BEES: ANAPHALAXIS REVIEW OF SYSTEMS CONSTITUTIONAL: ANY CHANGE IN YOUR MEDICAL CONDITION? NO, NO . CHILLS NO, NO . FEVER NO, NO . INFECTION: DO YOU HAVE NEW INFECTIONS? NO, NO . DO YOU HAVE HISTORY OF MRSA? NO, NO . MUSCULOSKELETAL: ANY NEW PATTERNS OF PAIN OR NUMBNESS? YES . GASTROENTEROLOGY: ANY NEW CHANGE IN BOWEL CONTROL? NO, NO . GENITOURINARY: ANY NEW CHANGE IN BLADDER CONTROL? NO, NO . IS THERE A CHANCE YOU COULD BE ? NO, NO . HEMATOLOGY/LYMPH: DO YOU TAKE ANY BLOOD THINNERS? (FOR EXAMPLE- COUMADIN, PLAVIX, AGGRENOX, PLATEL, PRADAXA, OR XARELTO) NO, NO . WHEN WAS YOUR LAST DOSE? DATE: TIME: , DATE: TIME: . NEUROLOGY: HAVE YOU FALLEN IN THE PAST 6 MONTHS? YES . ANY NEW EXTREMITY NUMBNESS OR WEAKNESS? NO, NO . CARDIOLOGY: DO YOU HAVE A PACEMAKER OR DEFIBRILLATOR? NO, NO . RESPIRATORY: HAVE YOU BEEN SICK IN THE PAST WEEK? NO, NO . FEVER NO, NO . FLU LIKE SYMPTOMS? NO, NO . COUGH NO, NO . INTEGUMENTARY: DO YOU HAVE ANY RASHES OR OPEN SORES? NO, NO . ALLERGIC/IMMUNO: ARE YOU ALLERGIC TO SHELLFISH OR IV DYE? NO, NO . ANY NEW ALLERGIES? NO, NO . PSYCHIATRIC: DO YOU HAVE THOUGHTS OF HURTING YOURSELF OR SOMEONE ELSE? NO, NO . ARE YOU ABUSED, NEGLECTED, OR IN AN UNSAFE ENVIRONMENT? NO, NO . ENDOCRINOLOGY: ARE YOU DIABETIC? NO, NO . OTHER: DO YOU NEED ANY PRESCRIPTIONS? NO, NO . IF YES, PLEASE LIST: ____, ____ . ANY NEW PROBLEMS WITH YOUR MEDICATIONS? NO, NO . WHEN DID YOU LAST EAT? ____, ____ . WHEN DID YOU LAST DRINK? ____, ____ . WHAT DID YOU LAST DRINK? ____, ____ . NAME OF PERSON DRIVING YOU HOME? ____, ____ . DO YOU HAVE ANY OTHER QUESTIONS OR CONCERNS NO, NO . REVIEWED BY: PROVIDER: SHARON BRUCE PIN SETTER, . VITAL SIGNS WT 256.8 LBS, HT 67 IN, BMI 40.22 INDEX, BP 124/84 MM HG, HR 70 /MIN, RR 16 /MIN, TEMP 97.4 F, OXYGEN SAT % 95%, NA INITIALS TL 1000, REVIEWED BY: CL. EXAMINATION GENERAL EXAMINATION: PSYCHALERT , ORIENTED X 3 , TALKATIVE. STAYS ON SUBJECT WITHOUT DIFFICULTY. INTENSE AND FOCUSED. LUNGS:SCATTERED WHEEZES, NO RHONCHI. NO COUGH TODAY. HEART:HEART RATE REGULAR, RAPID. ABDOMEN:SOFT, BOWEL SOUNDS PRESENT,MINIMAL TENDERNESS RIGHT UPPER QUADRANT. MUSCULOSKELETAL:MUSCLE STRENGTH TESTING 5/5 BILATERAL UPPER AND LOWER EXTREMITIES. , TRIGGER POINTS:, ELICITED WITH PALPATION OVER CERVICAL SPINOUS PROCESSES AND ACROSS THE TRAPEZIUS MUSCLES BILATERALLY. RESTRICTION OF ROM IS NOTED. GAIT SLOW, NONANTALGIC. . NEUROLOGIC EXAM:HIGH FREQ TREMOR IN UPPER EXTREMITIES., CN'S II-XII GROSSLY INTACT. SPEACH CLEAR, NONDYSARTHRIC. EOMS INTACT WITHOUT NYSTAGMUS. ASSESSMENTS CERVICAL DISC DISPLACEMENT - M50.20 (PRIMARY) MYALGIA - M79.1 CHRONICALLY ON OPIATE THERAPY - Z79.899 TREATMENT CERVICAL DISC DISPLACEMENT NOTES: TAKE LORATADINE TWICE A DAY. DECREASE WATER TO NO MORE THAN 6 GLASSES PER DAY. DO PLANTAR FASCITIS STRETCHES. ICE TO FEET WHEN NEEDED. CALL WHEN MEDS NEEDED. STILL NEEDS TO DO PSYCH EVAL FOR DSC. STILL WISHES TO MOVE FORWARD WITH DORSAL COLUMN STIMULATOR. CLINICAL NOTES: ISTOP REGISTRY REVIEWED AND DEMNOSTRATES COMPLLIANCE. BRINGS IN MEDICATIONS WHICH IS APPROPRIATE FOR WHAT WAS DISPENSED. RECENT URINE TOXICOLOGY REVIEWED. NO UNAUTHORIZED MEDICATIONS. NO ILLICIT SUBSTANCES AND PRESCRIBED MEDICATIONS WERE PRESENT. PROCEDURE CODES FA211 ESTABILISHED PATIENT [facility] CHARGE DISPOSITION & COMMUNICATION FOLLOW UP 6 WEEKS ELECTRONICALLY SIGNED BY DANNY GODFREY ON 09/20/2016 AT 08:53 AM EDT DISCLAIMER : THIS IS A VISIT SUMMARY EXTRACTED FROM THE [employer] CHART. IT IS NOT A COPY OF THE [email or web address] PROGRESS NOTE. MTDD
== END ==
LOC: M PAIN 09:00
PROVIDERS: ATTEND Nurse Practitioner Family
DX: G89.29 Other chronic pain (principal); M50.20 Other cervical disc displacement, unspecified cervical region; M79.1 Myalgia; I10 Essential (primary) hypertension; E78.00 Pure hypercholesterolemia, unspecified; N32.81 Overactive bladder; M79.672 Pain in left foot; M79.671 Pain in right foot; E07.9 Disorder of thyroid, unspecified; Z88.0 Allergy status to penicillin; Z88.1 Allergy status to other antibiotic agents; Z79.51 Long term (current) use of inhaled steroids; Z79.891 Long term (current) use of opiate analgesic; Z91.030 Bee allergy status; Z91.018 Allergy to other foods; Z79.899 Other long term (current) drug therapy

== ENCOUNTER → 2016-10-24 | Outpatient (CLI) | payer OTHER ==
[~2016-10-24] MED LIST changes: +ABIL1TAB11 PO; -ABIL5TAB5 PO; -ACET-654 PO; +ACET1TAB17 PO; -ATOR40TA PO; +ATOR40TA75 PO; -BACL10TA PO; +BACL1TAB8 PO; -CELE-19 PO; +CELE1CAP4 PO; -DOCU100C PO; +DOCU100C16 PO; +KEPP10002 PO; -MACR100C3 PO; +MACR100C43 PO; -NAPR-26 PO; +NAPR500T3 PO; -NITR100C37 PO; +NITR100C39 PO; -PERC10TA17 PO; +PERC10TA26 PO; +TOPA1TAB PO; -TOPA25TA10 PO; -TOPA50TA7 PO; +TOPA50TA8 PO; +VITA100067 PO; +[UNRECOGNIZED DRUG - CODE] PO
[2016-10-29 18:14] LABS: STREP PNEUMO TYPE 12F <0.3 ug/mL (>1.3); STREP PNEUMO TYPE 18C 1.1 ug/mL (>1.3); STREP PNEUMO TYPE 19A 4.2 ug/mL (>1.3); STREP PNEUMO TYPE 19F 8.8 ug/mL (>1.3); STREP PNEUMO TYPE 23F 1.2 ug/mL (>1.3); STREP PNEUMO TYPE 6B 7.4 ug/mL (>1.3); STREP PNEUMO TYPE 7F 1.4 ug/mL (>1.3); STREP PNEUMO TYPE 9N 2.2 ug/mL (>1.3)
== END ==
LOC: M SMT 08:25
PROVIDERS: ATTEND Allergy & Immunology Allergy
DX: D84.9 Immunodeficiency, unspecified (principal)

== ENCOUNTER → 2016-10-25 | Outpatient (CLI) | payer OTHER, MEDICARE ==
--- NOTE | 2016-11-18 01:59 | ECWPNPC ---
PATIENT NAME: PIYUSH FARNSWORTH : 1980 GENDER: FEMALE VISIT DATE: 10/25/2016 DISCHARGE DATE: 10/25/16 1000 VISIT LOCKED DATE TIME: PHYSICIAN: SHARON BRUCE RESOURCE: SHARON BRUCE REASON FOR APPOINTMENT 1. FOLLOWUP HISTORY OF PRESENT ILLNESS HISTORY OF PRESENT ILLNESS: PAIN THE PATIENT DESCRIBES THE PAIN... FALL RISK SCREENING: SCREENING :NO FALLS IN THE PAST YEAR TODAY'S VISIT: NOTES: RATES PAIN TODAY 9/10. DESCRIBES PAIN CONSTANT, SHARP, STABBING, AND TROBBING. PAIN IS CENTERED AT NECK AND SHOULDERS, LOW BACK RIGHT SIDE AND IN THE FEET. HAS BEEN HAVING INTERMITTANT SEVERE RIGHT SCIATIC AREA PAIN. ABD PAIN HAS INCREASED SHE IS OUT OF MOVANTIK.. CURRENT MEDICATIONS TAKING LYRICA 150 MG CAPSULE 1 CAPSULE ORALLY THREE TIMES A DAY TAKING NEXIUM 40 MG CAPSULE DELAYED RELEASE 1 CAPSULE ORALLY TWICE A DAY TAKING SYNTHROID 25 25MCG TABLET 1 CAP ORAL DAILY TAKING ALBUTEROL SULFATE (2.5 MG/3ML) 0.083% NEBULIZATION SOLUTION 3 ML INHALATION THREE TIMES DAILY NEEDED TAKING ADVAIR DISKUS 100-50 MCG/DOSE AEROSOL POWDER BREATH ACTIVATED 1 PUFF INHALATION TWICE A DAY TAKING IMITREX 25 MG TABLET ORALLY DIRECTED TAKING TRAZODONE HCL 300 MG TABLET 1 TABLET AT BEDTIME ORALLY ONCE A DAY TAKING CYCLOBENZAPRINE HCL 10 MG TABLET 2 TABLET ORALLY BID TAKING FLUOXETINE 20 MG CAPSULE 2 CAPSULE IN THE MORNING ORALLY ONCE A DAY TAKING TOPAMAX 50 MG TABLET 1 TABLET ORALLY TWICE A DAY TAKING SUMATRIPTAN SUCCINATE 100 MG TABLET 1 TABLET NEEDED ORALLY DIRECTED TAKING SINGULAIR 10 MG TABLET 1 TABLET IN THE EVENING ORALLY ONCE A DAY TAKING EPIPEN 0.3 MG/0.3ML (1:1000) DEVICE INTRAMUSCULAR DIRECTED, NOTES: NONE TAKING LORATADINE 10 MG TABLET 1 TABLET ORALLY ONCE A DAY TAKING FLONASE 50 MCG/DOSE INHALER 2 SPRAY IN EACH NOSTRIL NASALLY ONCE A DAY TAKING LIPITOR 80 MG TABLET 1 TABLET ORALLY ONCE A DAY TAKING MUCINEX 600 MG TABLET EXTENDED RELEASE 1 TABLET NEEDED ORALLY EVERY 12 HRS TAKING CYMBALTA 30 MG CAPSULE DELAYED RELEASE PARTICLES 1 CAPSULE ORALLY ONCE A DAY TAKING TESSALON PERLES 100 MG CAPSULE 1 CAPSULE NEEDED ORALLY THREE TIMES A DAY TAKING SEROQUEL 100 MG TABLET 1 TABLET AT BEDTIME ORALLY ONCE A DAY TAKING MELATONIN 3 MG TABLET 1 TABLET AT BEDTIME NEEDED WITH FOOD ORALLY ONCE A DAY TAKING CELEBREX 200 MG CAPSULE 1 CAPSULE ORALLY ONCE A DAY TAKING PERCOCET 10-325 MG TABLET 1 TABLET ORALLY EVERY 4 HRS PRN PAIN MDD = 6 TAKING MOVANTIK 25 MG TABLET 1 TABLET IN THE MORNING ORALLY ONCE A DAY TAKING TOPAMAX 50 MG TABLET 1 TABLET ORALLY TWICE A DAY TAKING POTASSIUM CHLORIDE 20 MEQ TABLET EXTENDED RELEASE 1 CAPSULE WITH FOOD ORALLY TWICE A DAY NOT-TAKING CLINDAMYCIN HCL 300 MG CAPSULE 1 CAPSULE ORALLY EVERY 8 HRS NOT-TAKING AZITHROMYCIN 250 MG TABLET 2 TABLETS ON THE FIRST DAY, THEN 1 TABLET DAILY FOR 4 DAYS ORALLY ONCE A DAY NOT-TAKING BUTRANS 10 MCG/HR PATCH WEEKLY 1 PATCH TO SKIN TRANSDERMAL APPLY 1 PATCH EVERY 7 DAYS MDD=1, NOTES: NEEDS AUTHORIZATION FROM INSURANCE NOT-TAKING ASPIRIN 81 MG TABLET 1 TABLET ORALLY ONCE A DAY NOT-TAKING CELEBREX 200 MG CAPSULE 1 CAPSULE ORALLY ONCE A DAY NOT-TAKING OXYBUTYNIN CHLORIDE 5 MG TABLET 1 TABLET ORALLY THREE TIMES A DAY NOT-TAKING AMITRIPTYLINE HCL 50 MG TABLET 1 TABLET AT BEDTIME ORALLY ONCE A DAY MEDICATION LIST REVIEWED AND RECONCILED WITH THE PATIENT PAST MEDICAL HISTORY HYPERTENSION HIGH CHOLESTEROL THYROID PROBLEM HERNIATED DISC DORSAL COLUMN STIMULATOR INTERSTIM BLADDER OAB EAR TUBES MASTOIDECTOMY X6 ALLERGIES PENICILLIN (FOR ALLERGIES USE ONLY): ANAPHALAXIS LEVAQUIN: ANAPHALAXIS AMOXICILLIN: ANAPHALAXIS MYRBETRIQ: BLISTERING MUSHROOMS: ANAPHALAXIS BEES: ANAPHALAXIS REVIEW OF SYSTEMS REVIEWED BY: PROVIDER: SHARON HERNANDEZ . CONSTITUTIONAL: ANY CHANGE IN YOUR MEDICAL CONDITION? NO . CHILLS NO . FEVER NO . INFECTION: DO YOU HAVE NEW INFECTIONS? NO . DO YOU HAVE HISTORY OF MRSA? NO . MUSCULOSKELETAL: ANY NEW PATTERNS OF PAIN OR NUMBNESS? NO . GASTROENTEROLOGY: ANY NEW CHANGE IN BOWEL CONTROL? NO . ADDOMINAL PAIN INCREASED WITH BLOATING AND CONSTIPATIO WITH DELAY IN MED COMING FROM [place]. REPORTS MOVANTIK WORKS TO DECREASE PAIN IN ABD. . GENITOURINARY: ANY NEW CHANGE IN BLADDER CONTROL? NO . IS THERE A CHANCE YOU COULD BE ? NO . HEMATOLOGY/LYMPH: DO YOU TAKE ANY BLOOD THINNERS? (FOR EXAMPLE- COUMADIN, PLAVIX, AGGRENOX, PLATEL, PRADAXA, OR XARELTO) NO . WHEN WAS YOUR LAST DOSE? DATE: TIME: . NEUROLOGY: HAVE YOU FALLEN IN THE PAST 6 MONTHS? NO . ANY NEW EXTREMITY NUMBNESS OR WEAKNESS? NO . CARDIOLOGY: DO YOU HAVE A PACEMAKER OR DEFIBRILLATOR? NO . CHEST PAIN PATIENT DENIES . RESPIRATORY: HAVE YOU BEEN SICK IN THE PAST WEEK? NO . FEVER NO . FLU LIKE SYMPTOMS? NO . COUGH NO . INTEGUMENTARY: DO YOU HAVE ANY RASHES OR OPEN SORES? NO . ALLERGIC/IMMUNO: ARE YOU ALLERGIC TO SHELLFISH OR IV DYE? NO . ANY NEW ALLERGIES? NO . PSYCHIATRIC: DO YOU HAVE THOUGHTS OF HURTING YOURSELF OR SOMEONE ELSE? NO . ARE YOU ABUSED, NEGLECTED, OR IN AN UNSAFE ENVIRONMENT? NO . ENDOCRINOLOGY: ARE YOU DIABETIC? NO . OTHER: DO YOU NEED ANY PRESCRIPTIONS? YES . IF YES, PLEASE LIST: MOVANTAX, PERCOCET . ANY NEW PROBLEMS WITH YOUR MEDICATIONS? NO . WHEN DID YOU LAST EAT? ____ . WHEN DID YOU LAST DRINK? ____ . WHAT DID YOU LAST DRINK? ____ . NAME OF PERSON DRIVING YOU HOME? ____ . DO YOU HAVE ANY OTHER QUESTIONS OR CONCERNS NO . VITAL SIGNS WT 252.2 LBS, HT 67 IN, BMI 39.50 INDEX, BP 126/69 MM HG, HR 119 /MIN, RR 18 /MIN, TEMP 97.1 F, OXYGEN SAT % 94%, NA INITIALS SC 09:22, REVIEWED BY: NL. EXAMINATION GENERAL EXAMINATION: PSYCHALERT , ORIENTED X 3 , TALKATIVE. STAYS ON SUBJECT WITHOUT DIFFICULTY. INTENSE AND FOCUSED. LUNGS:SCATTERED WHEEZES, NO RHONCHI. NO COUGH TODAY. HEART:HEART RATE REGULAR, RAPID. ABDOMEN:SOFT, BOWEL SOUNDS PRESENT,MINIMAL TENDERNESS RIGHT UPPER QUADRANT. MUSCULOSKELETAL:MUSCLE STRENGTH TESTING 5/5 BILATERAL UPPER AND LOWER EXTREMITIES. , TRIGGER POINTS:, ELICITED WITH PALPATION OVER CERVICAL SPINOUS PROCESSES AND ACROSS THE TRAPEZIUS MUSCLES BILATERALLY. RESTRICTION OF ROM IS NOTED. GAIT SLOW, NONANTALGIC. . NEUROLOGIC EXAM:HIGH FREQ TREMOR IN UPPER EXTREMITIES., CN'S II-XII GROSSLY INTACT. SPEACH CLEAR, NONDYSARTHRIC. EOMS INTACT WITHOUT NYSTAGMUS. ASSESSMENTS CERVICAL DISC DISPLACEMENT - M50.20 (PRIMARY) ABDOMINAL PAIN - R10.9 CHRONIC PRESCRIPTION OPIATE USE - Z79.891 SACROILIITIS - M46.1 TREATMENT CERVICAL DISC DISPLACEMENT REFILL PERCOCET TABLET, 10-325 MG, 1 TABLET, ORALLY, EVERY 4 HRS PRN PAIN MDD = 6, 30 DAY(S), 180, REFILLS 0 REFILL MOVANTIK TABLET, 25 MG, 1 TABLET IN THE MORNING, ORALLY, ONCE A DAY, 15 DAYS, 15 TABLET, REFILLS 0 INJECTION ANESTHETIC SACROILIAC JOINTDOTTIESHARON ALFARO 10/25/2016 9:50:45 AM > RIGHT NOTES: UTOX TODAY. CONTINUE EXERCISES AND STRETCHES. CALL IF [place] SCRIPTS DO NOT COME,ANATOMY OF THE SACROILIAC JOINT MATERIAL WAS PRINTED. CLINICAL NOTES: ISTOP REGISTRY REVIEWED AND DEMNOSTRATES COMPLLIANCE. BRINGS IN MEDICATIONS WHICH IS APPROPRIATE FOR WHAT WAS DISPENSED. RECENT URINE TOXICOLOGY REVIEWED. NO UNAUTHORIZED MEDICATIONS. NO ILLICIT SUBSTANCES AND PRESCRIBED MEDICATIONS WERE PRESENT. PREVENTIVE MEDICINE DISCUSSED PRE PROCEDURE CARE WITH PT EXPRESSING UNDERSTANDING. PROCEDURE CODES FA211 ESTABILISHED PATIENT [facility] FACILITY CHARGE DISPOSITION & COMMUNICATION FOLLOW UP 1 MONTH (REASON: ABD PAIN/BACK PAIN) ELECTRONICALLY SIGNED BY DANNY GODFREY ON 11/17/2016 AT 06:31 PM EDT DISCLAIMER : THIS IS A VISIT SUMMARY EXTRACTED FROM THE [employer] CHART. IT IS NOT A COPY OF THE [facility] PROGRESS NOTE. MARCIN
== END ==
LOC: M PAIN 09:00
PROVIDERS: ATTEND Nurse Practitioner Family
DX: G89.29 Other chronic pain (principal); M50.20 Other cervical disc displacement, unspecified cervical region; R10.9 Unspecified abdominal pain; M46.1 Sacroiliitis, not elsewhere classified; I10 Essential (primary) hypertension; E78.00 Pure hypercholesterolemia, unspecified; E07.9 Disorder of thyroid, unspecified; N32.81 Overactive bladder; Z88.0 Allergy status to penicillin; Z88.1 Allergy status to other antibiotic agents; Z79.891 Long term (current) use of opiate analgesic; Z91.018 Allergy to other foods; Z91.030 Bee allergy status; Z88.8 Allergy status to other drugs, medicaments and biological substances; Z79.899 Other long term (current) drug therapy

== ENCOUNTER → 2016-11-04 | Outpatient (CLI) | payer OTHER, MEDICARE ==
[~2016-11-04] MED LIST changes: +BUPIVACAINE HCL 0.25% 30 ML VIAL As Ordered ONE; +ISOVUE-M 300 61% 15ML VIAL (Q9967) As Ordered ONE; +LIDOCAINE 1% SDV INJ 30 ML VIAL As Ordered ONE; +TRIAMCINOLONE ACETONIDE SUSP 40 MG/ML VIAL (J3301) As Ordered ONE; +diazePAM 5 MG TAB As Ordered ONE; +oxyCODONE 5MG TAB As Ordered ONE
--- NOTE | 2016-11-04 13:29 | REP ---
Bilateral SI joint: Four views. History: Injection procedure for pain. 22 seconds of fluoroscopy time is reported. Findings: A sequence of four fluoroscopically obtained last image hold spot radiographs of the SI joints document bilateral needle positions and contrast injections associated with SI joint injection procedure. A tubal ligation bands visible in the left pelvis and the patient is apparently status post embolotherapy for left gonadal vein. There is a transsacral nerve stimulator device on the right. Signed by Carlos Eduardo Pearce MD 11/04/2016 01:49 P
--- NOTE | 2016-11-13 23:29 | ECWPNPC ---
PATIENT NAME: PIYUSH FARNSWORTH : 1980 GENDER: FEMALE VISIT DATE: 11/04/2016 DISCHARGE DATE: 11/04/16 1306 VISIT LOCKED DATE TIME: PHYSICIAN: KRISTINA MAZARIEGOS RESOURCE: KRISTINA MAZARIEGOS REASON FOR APPOINTMENT 1. RKasey SIJ HISTORY OF PRESENT ILLNESS HISTORY OF PRESENT ILLNESS: PAIN THE PATIENT DESCRIBES THE PAIN... FALL RISK SCREENING: SCREENING :NO FALLS IN THE PAST YEAR CURRENT MEDICATIONS TAKING LYRICA 150 MG CAPSULE 1 CAPSULE ORALLY THREE TIMES A DAY, NOTES: 11-04-16629 TAKING SYNTHROID 25 25MCG TABLET 1 CAP ORAL DAILY, NOTES: 11-04-16629 TAKING ALBUTEROL SULFATE (2.5 MG/3ML) 0.083% NEBULIZATION SOLUTION 3 ML INHALATION THREE TIMES DAILY NEEDED, NOTES: NONE TAKING ADVAIR DISKUS 100-50 MCG/DOSE AEROSOL POWDER BREATH ACTIVATED 1 PUFF INHALATION TWICE A DAY, NOTES: 11-04-16629 TAKING IMITREX 25 MG TABLET ORALLY DIRECTED, NOTES: NONE TAKING TRAZODONE HCL 300 MG TABLET 1 TABLET AT BEDTIME ORALLY ONCE A DAY, NOTES: 11-03-162099 TAKING FLUOXETINE 20 MG CAPSULE 2 CAPSULE IN THE MORNING ORALLY ONCE A DAY, NOTES: 11-04-16629 TAKING TOPAMAX 50 MG TABLET 1 TABLET ORALLY TWICE A DAY, NOTES: 11-04-16629 TAKING SUMATRIPTAN SUCCINATE 100 MG TABLET 1 TABLET NEEDED ORALLY DIRECTED, NOTES: NONE TAKING SINGULAIR 10 MG TABLET 1 TABLET IN THE EVENING ORALLY ONCE A DAY, NOTES: 11-03-162099 TAKING EPIPEN 0.3 MG/0.3ML (1:1000) DEVICE INTRAMUSCULAR DIRECTED, NOTES: NONE TAKING LORATADINE 10 MG TABLET 1 TABLET ORALLY ONCE A DAY, NOTES: 11-03-162099 TAKING FLONASE 50 MCG/DOSE INHALER 2 SPRAY IN EACH NOSTRIL NASALLY ONCE A DAY, NOTES: 11-04-16629 TAKING LIPITOR 80 MG TABLET 1 TABLET ORALLY ONCE A DAY, NOTES: 11-04-16629 TAKING MUCINEX 600 MG TABLET EXTENDED RELEASE 1 TABLET NEEDED ORALLY EVERY 12 HRS, NOTES: NONE TAKING CYMBALTA 30 MG CAPSULE DELAYED RELEASE PARTICLES 1 CAPSULE ORALLY ONCE A DAY, NOTES: 11-04-16629 TAKING TESSALON PERLES 100 MG CAPSULE 1 CAPSULE NEEDED ORALLY THREE TIMES A DAY, NOTES: NONE TAKING MELATONIN 3 MG TABLET 1 TABLET AT BEDTIME NEEDED WITH FOOD ORALLY ONCE A DAY, NOTES: 11-03-162099 TAKING SEROQUEL 100 MG TABLET 1 TABLET AT BEDTIME ORALLY ONCE A DAY, NOTES: 11-03-162099 TAKING CELEBREX 200 MG CAPSULE 1 CAPSULE ORALLY ONCE A DAY, NOTES: 11-04-16629 TAKING POTASSIUM CHLORIDE 20 MEQ TABLET EXTENDED RELEASE 1 CAPSULE WITH FOOD ORALLY TWICE A DAY, NOTES: 11-04-16629 TAKING PERCOCET 10-325 MG TABLET 1 TABLET ORALLY EVERY 4 HRS PRN PAIN MDD = 6, NOTES: 11-03-162099 TAKING MOVANTIK 25 MG TABLET 1 TABLET IN THE MORNING ORALLY ONCE A DAY, NOTES: 11-04-16629 TAKING OMEPRAZOLE 40 MG CAPSULE DELAYED RELEASE 1 CAPSULE ORALLY TWICE A DAY, NOTES: 11-04-16629 NOT-TAKING CLINDAMYCIN HCL 300 MG CAPSULE 1 CAPSULE ORALLY EVERY 8 HRS NOT-TAKING AZITHROMYCIN 250 MG TABLET 2 TABLETS ON THE FIRST DAY, THEN 1 TABLET DAILY FOR 4 DAYS ORALLY ONCE A DAY NOT-TAKING BUTRANS 10 MCG/HR PATCH WEEKLY 1 PATCH TO SKIN TRANSDERMAL APPLY 1 PATCH EVERY 7 DAYS MDD=1, NOTES: NEEDS AUTHORIZATION FROM INSURANCE NOT-TAKING ASPIRIN 81 MG TABLET 1 TABLET ORALLY ONCE A DAY NOT-TAKING CELEBREX 200 MG CAPSULE 1 CAPSULE ORALLY ONCE A DAY NOT-TAKING OXYBUTYNIN CHLORIDE 5 MG TABLET 1 TABLET ORALLY THREE TIMES A DAY NOT-TAKING AMITRIPTYLINE HCL 50 MG TABLET 1 TABLET AT BEDTIME ORALLY ONCE A DAY DISCONTINUED NEXIUM 40 MG CAPSULE DELAYED RELEASE 1 CAPSULE ORALLY TWICE A DAY DISCONTINUED CYCLOBENZAPRINE HCL 10 MG TABLET 2 TABLET ORALLY BID DISCONTINUED TOPAMAX 50 MG TABLET 1 TABLET ORALLY TWICE A DAY MEDICATION LIST REVIEWED AND RECONCILED WITH THE PATIENT PAST MEDICAL HISTORY HYPERTENSION HIGH CHOLESTEROL THYROID PROBLEM HERNIATED DISC DORSAL COLUMN STIMULATOR INTERSTIM BLADDER OAB EAR TUBES MASTOIDECTOMY X6 ALLERGIES PENICILLIN (FOR ALLERGIES USE ONLY): ANAPHALAXIS LEVAQUIN: ANAPHALAXIS AMOXICILLIN: ANAPHALAXIS MUSHROOMS: ANAPHALAXIS BEES: ANAPHALAXIS SURGICAL HISTORY HYSTERECTOMY 2011 APENDIX OUT 2001 HEMROHDECTOMY 2011 BUNIONS REMOVED ON BOTH FEET 2013 RIGHT KNEE ARTHROSCOPY 1993 MULTIPLE LAPAROSCOPY FOR ENDOMETRIOSIS TONSILS AND ADNOIDS OUT 1979 KIDNEY STONES 08/2014 HOSPITALIZATION/MAJOR DIAGNOSTIC PROCEDURE SEIZURES PNEUMONIA MINI STROKE 2009 REVIEW OF SYSTEMS REVIEWED BY: PROVIDER: . CONSTITUTIONAL: ANY CHANGE IN YOUR MEDICAL CONDITION? NO . CHILLS NO . FEVER NO . INFECTION: DO YOU HAVE NEW INFECTIONS? NO . DO YOU HAVE HISTORY OF MRSA? NO . MUSCULOSKELETAL: ANY NEW PATTERNS OF PAIN OR NUMBNESS? YES, LEFT SIDE LOW BACK PAIN RADIATES UP INTO SHOULDER AND 2 FINGERS ON LEFT HAND NUMB. . GASTROENTEROLOGY: ANY NEW CHANGE IN BOWEL CONTROL? NO . GENITOURINARY: ANY NEW CHANGE IN BLADDER CONTROL? YES, INNER STIM FOR BLADDER- NOT WORKING? IS GOING TO SEE UROLOGISTS IN NOVEMBER, AND GOING TO HAVE THE [employer] CHECK THE STIM. . IS THERE A CHANCE YOU COULD BE ? NO . HEMATOLOGY/LYMPH: DO YOU TAKE ANY BLOOD THINNERS? (FOR EXAMPLE- COUMADIN, PLAVIX, AGGRENOX, PLATEL, PRADAXA, OR XARELTO) NO . WHEN WAS YOUR LAST DOSE? DATE: TIME: . NEUROLOGY: HAVE YOU FALLEN IN THE PAST 6 MONTHS? NO . ANY NEW EXTREMITY NUMBNESS OR WEAKNESS? NO . CARDIOLOGY: DO YOU HAVE A PACEMAKER OR DEFIBRILLATOR? NO . RESPIRATORY: HAVE YOU BEEN SICK IN THE PAST WEEK? NO . FEVER NO . FLU LIKE SYMPTOMS? NO . COUGH NO . INTEGUMENTARY: DO YOU HAVE ANY RASHES OR OPEN SORES? NO . ALLERGIC/IMMUNO: ARE YOU ALLERGIC TO SHELLFISH OR IV DYE? NO . ANY NEW ALLERGIES? NO . PSYCHIATRIC: DO YOU HAVE THOUGHTS OF HURTING YOURSELF OR SOMEONE ELSE? NO . ARE YOU ABUSED, NEGLECTED, OR IN AN UNSAFE ENVIRONMENT? NO . ENDOCRINOLOGY: ARE YOU DIABETIC? NO . OTHER: DO YOU NEED ANY PRESCRIPTIONS? NO . IF YES, PLEASE LIST: ____ . ANY NEW PROBLEMS WITH YOUR MEDICATIONS? NO . WHEN DID YOU LAST EAT? 11-03-161944 . WHEN DID YOU LAST DRINK? 11-04-16629 . WHAT DID YOU LAST DRINK? WATER . NAME OF PERSON DRIVING YOU HOME? HEATHER MITCHELL . DO YOU HAVE ANY OTHER QUESTIONS OR CONCERNS YES, &QUOT;WHAT CAN I TAKE FOR SPASMS AND MIGRAINES? . VITAL SIGNS WT 254.6 LBS, HT 67 IN, BMI 39.87 INDEX, BP 121/68 MM HG, HR 106 /MIN, RR 16 /MIN, TEMP 97.6 F, OXYGEN SAT % 96%, NA INITIALS TL 1036, REVIEWED BY: CM. ASSESSMENTS SACROILIITIS, NOT ELSEWHERE CLASSIFIED - M46.1 (PRIMARY) PROCEDURES PN SI PRE PROCEDURE DIAGNOSIS SACROILIITIS, SACROILIAC JOINT DYSFUNCTION POST PROCEDURE DIAGNOSIS SACROILIITIS, SACROILIAC JOINT DYSFUNCTION PROCEDURE BILATERAL SACROILIAC JOINT BLOCK SURGEON DR. KRISTINA MAZARIEGOS MEDIA MONITOR NONE ANESTHESIA LOCAL PRE PROCEDURE NOTE PATIENT WITH HISTORY OF CHRONIC LOW BACK PAIN. I EVALUATED THE PATIENT AND REVIEWED THE CHART. I WENT OVER THE RISKS, ALTERNATIVES, AND BENEFITS ASSOCIATED WITH THIS PROCEDURE. THE PATIENT WOULD LIKE TO PROCEED AND GAVE CONSENT TO PERFORM THE PROCEDURE. THE PATIENT DENIES UNEXPLAINABLE WEIGHT LOSS, FEVER, CHILLS, OR NEW CHANGES IN URINARY OR BOWEL CONTROL DESCRIPTION OF PROCEDURE THE PATIENT WAS BROUGHT TO THE PROCEDURE ROOM AND PLACED IN THE PRONE POSITION. THE LUMBOSACRAL AREA WAS CLEANED WITH CHLORAPREP SOLUTION AND DRAPED ASEPTICALLY. THE PROCEDURE WAS DONE UNDER STERILE CONDITIONS. I CHECKED LATERALITY AND THE LEVEL WHERE THE PROCEDURE WAS GOING TO BE PERFORMED WITH THE PATIENT AND THE SUPPORTING STAFF AT THE MOMENT OF THE TIME OUT IN THE PROCEDURE ROOM. UNDER FLUOROSCOPIC GUIDANCE, TARGET POINT WAS SELECTED AT THE LOWER BORDER OF THE RIGHT AND LEFT SACROILIAC JOINT. TARGET POINT WAS SELECTED AFTER MEDIAL ROTATION AND TILT OF THE MAGNIFIER OF THE C-ARM. LIDOCAINE WAS USED TO NUMB THE SKIN AND SUBCUTANEOUS TISSUE BELOW IT. A SPINAL NEEDLE, 22-GAUGE, WAS ADVANCED UNDER FLUOROSCOPIC GUIDANCE AND FOLLOWING PATIENT FEEDBACK UNTIL THE TARGET AREA WAS TOUCHED. THE POSITION OF THE NEEDLE WAS VERIFIED WITH AP AND LATERAL VIEWS. AFTER PROPER POSITION OF THE NEEDLE WAS ACHIEVED, ISOVUE M DYE 30%, 0.25 ML, WAS INJECTED SHOWING SPREAD OF THE DYE. THEN, A SOLUTION OF 20 MG OF KENALOG WAS INJECTED IN RIGHT JOINT WITH 3 ML OF BUPIVACAINE 0.125%. THERE WAS NO EVIDENCE OF BLOOD, PARESTHESIA OR CEREBROSPINAL FLUID DURING THE PROCEDURE. THE PATIENT WAS SENT TO THE RECOVERY ROOM. THE PATIENT WAS MOVING THE EXTREMITIES AND DOING WELL. THERE WAS NO COMPLICATION DURING THE PROCEDURE. FLUOROSCOPY TIME WAS 22 SECONDS POST PROCEDURE NOTE THE PATIENT WILL BE SEEN IN A FOLLOW UP IN THE NEXT FEW WEEKS. INSTRUCTIONS WERE GIVEN, QUESTIONS WERE ANSWERED, AND THE PATIENT EXPRESSED UNDERSTANDING AND AGREED WITH THE PLAN. I, HALLE BARRIOS, DOCUMENTED THE ABOVE INFORMATION ACTING A SCRIBE FOR DR. MAZARIEGOS. I HAVE REVIEWED THE ABOVE DOCUMENT, WRITTEN BY HALLE AMIN AND I VERIFY THAT IT IS [facility] FLUORO GUIDANCE (PAIN)[id number] PROCEDURE CODES 18862 INJECT SACROILIAC JOINT 6045F RADXPS IN END [id number] PXD DISPOSITION & COMMUNICATION FOLLOW UP 3 WEEKS ELECTRONICALLY SIGNED BY KRISTINA MAZARIEGOS MD ON 11/13/2016 AT 08:06 PM EDT DISCLAIMER : THIS IS A VISIT SUMMARY EXTRACTED FROM THE [employer] CHART. IT IS NOT A COPY OF THE [employer] PROGRESS NOTE. MTDD
== END ==
LOC: M PAIN 10:20
PROVIDERS: ATTEND Anesthesiology
DX: G89.29 Other chronic pain (principal); M46.1 Sacroiliitis, not elsewhere classified; I10 Essential (primary) hypertension; E78.00 Pure hypercholesterolemia, unspecified; E07.9 Disorder of thyroid, unspecified; N32.81 Overactive bladder; Z88.0 Allergy status to penicillin; Z88.1 Allergy status to other antibiotic agents; Z91.030 Bee allergy status; Z91.018 Allergy to other foods
CPT/HCPCS: G0260; J3301; Q9967

== ENCOUNTER → 2016-12-09 | Outpatient (CLI) | payer OTHER, MEDICARE ==
[~2016-12-09] MED LIST changes: -BUPIVACAINE HCL 0.25% 30 ML VIAL As Ordered ONE; -ISOVUE-M 300 61% 15ML VIAL (Q9967) As Ordered ONE; -LIDOCAINE 1% SDV INJ 30 ML VIAL As Ordered ONE; -TRIAMCINOLONE ACETONIDE SUSP 40 MG/ML VIAL (J3301) As Ordered ONE; -diazePAM 5 MG TAB As Ordered ONE; -oxyCODONE 5MG TAB As Ordered ONE
== END ==
LOC: M PAIN 11:15
PROVIDERS: ATTEND Nurse Practitioner Family
DX: G89.29 Other chronic pain (principal)

== ENCOUNTER → 2016-12-28 | Outpatient (CLI) | payer OTHER, MEDICARE ==
--- NOTE | 2017-01-12 00:41 | ECWPNPC ---
PATIENT NAME: PIYUSH FARNSWORTH : 1980 GENDER: FEMALE VISIT DATE: 12/28/2016 DISCHARGE DATE: 12/28/16 1419 VISIT LOCKED DATE TIME: PHYSICIAN: SHARON BRUCE RESOURCE: SHARON BRUCE REASON FOR APPOINTMENT 1. POST PROCEDURE HISTORY OF PRESENT ILLNESS FALL RISK SCREENING: SCREENING :NO FALLS IN THE PAST YEAR PAIN SCREENING: PATIENT HAS A COMPLAINT OF ACUTE OR CHRONIC PAIN :YES TODAY'S VISIT: NOTES: S/P BILATERAL SIJ COMPLETED ON 11/04/16. NOTES PAIN IN THIS AREA HAS IMPROVED 50-75% AND IS STILL AT A 4/10. SOME NIGHTS THIS AREA CAN INCREASE ESPECIALLY IF ON FEET ALL DAY. NOTES HER WORST PAIN AREA IS AT THE NECK AND SHOULDERS AND SHE IS RATING THIS A 8/10.CAN TUR HEAD BUT EVERYTHING HURTS. HAD CERVICAL EPIDURAL 1 YEAR AGO.HAS BEEN HAVING SWELLING AND PAIN IN BACK OF WRIST AND LEFT HAND. WAS SEEN IN ER WHO WAS CONCERNED ABOUT CELLULITIS.STILL WITH SOME SWELLING BUT NO CURRENT REDDNESS.. CURRENT MEDICATIONS TAKING LYRICA 150 MG CAPSULE 1 CAPSULE ORALLY THREE TIMES A DAY TAKING SYNTHROID 25 25MCG TABLET 1 CAP ORAL DAILY TAKING ALBUTEROL SULFATE (2.5 MG/3ML) 0.083% NEBULIZATION SOLUTION 3 ML INHALATION THREE TIMES DAILY NEEDED TAKING ADVAIR DISKUS 100-50 MCG/DOSE AEROSOL POWDER BREATH ACTIVATED 1 PUFF INHALATION TWICE A DAY TAKING IMITREX 25 MG TABLET ORALLY DIRECTED TAKING TRAZODONE HCL 100 MG TABLET 5 TABLET AT BEDTIME ORALLY ONCE A DAY TAKING FLUOXETINE 20 MG CAPSULE 3 CAPSULE IN THE MORNING ORALLY ONCE A DAY TAKING TOPAMAX 50 MG TABLET 1 TABLET ORALLY TWICE A DAY TAKING SUMATRIPTAN SUCCINATE 100 MG TABLET 1 TABLET NEEDED ORALLY DIRECTED TAKING SINGULAIR 10 MG TABLET 1 TABLET IN THE EVENING ORALLY ONCE A DAY TAKING EPIPEN 0.3 MG/0.3ML (1:1000) DEVICE INTRAMUSCULAR DIRECTED TAKING LORATADINE 10 MG TABLET 1 TABLET ORALLY ONCE A DAY TAKING FLONASE 50 MCG/DOSE INHALER 2 SPRAY IN EACH NOSTRIL NASALLY ONCE A DAY TAKING LIPITOR 80 MG TABLET 1 TABLET ORALLY ONCE A DAY TAKING MUCINEX 600 MG TABLET EXTENDED RELEASE 1 TABLET NEEDED ORALLY EVERY 12 HRS TAKING CYMBALTA 30 MG CAPSULE DELAYED RELEASE PARTICLES 1 CAPSULE ORALLY ONCE A DAY TAKING TESSALON PERLES 100 MG CAPSULE 1 CAPSULE NEEDED ORALLY THREE TIMES A DAY TAKING MELATONIN 3 MG TABLET 1 TABLET AT BEDTIME NEEDED WITH FOOD ORALLY ONCE A DAY TAKING CELEBREX 200 MG CAPSULE 1 CAPSULE ORALLY ONCE A DAY TAKING POTASSIUM CHLORIDE 20 MEQ TABLET EXTENDED RELEASE 1 CAPSULE WITH FOOD ORALLY TWICE A DAY TAKING MOVANTIK 25 MG TABLET 1 TABLET IN THE MORNING ORALLY ONCE A DAY TAKING PERCOCET 10-325 MG TABLET 1 TABLET ORALLY EVERY 4 HRS PRN PAIN MDD = 6 TAKING OXYBUTYNIN CHLORIDE ER 10 MG TABLET EXTENDED RELEASE 24 HOUR 1 TABLET ORALLY BID TAKING LANSOPRAZOLE 15 MG CAPSULE DELAYED RELEASE 1 CAPSULE ORALLY ONCE A DAY NOT-TAKING SEROQUEL 100 MG TABLET 1 TABLET AT BEDTIME ORALLY ONCE A DAY NOT-TAKING OMEPRAZOLE 40 MG CAPSULE DELAYED RELEASE 1 CAPSULE ORALLY TWICE A DAY NOT-TAKING CLINDAMYCIN HCL 300 MG CAPSULE 1 CAPSULE ORALLY EVERY 8 HRS NOT-TAKING AZITHROMYCIN 250 MG TABLET 2 TABLETS ON THE FIRST DAY, THEN 1 TABLET DAILY FOR 4 DAYS ORALLY ONCE A DAY NOT-TAKING BUTRANS 10 MCG/HR PATCH WEEKLY 1 PATCH TO SKIN TRANSDERMAL APPLY 1 PATCH EVERY 7 DAYS MDD=1, NOTES: NEEDS AUTHORIZATION FROM INSURANCE NOT-TAKING ASPIRIN 81 MG TABLET 1 TABLET ORALLY ONCE A DAY NOT-TAKING CELEBREX 200 MG CAPSULE 1 CAPSULE ORALLY ONCE A DAY NOT-TAKING OXYBUTYNIN CHLORIDE 5 MG TABLET 1 TABLET ORALLY THREE TIMES A DAY NOT-TAKING AMITRIPTYLINE HCL 50 MG TABLET 1 TABLET AT BEDTIME ORALLY ONCE A DAY MEDICATION LIST REVIEWED AND RECONCILED WITH THE PATIENT PAST MEDICAL HISTORY HYPERTENSION HIGH CHOLESTEROL THYROID PROBLEM HERNIATED DISC DORSAL COLUMN STIMULATOR INTERSTIM BLADDER OAB EAR TUBES MASTOIDECTOMY X6 ALLERGIES PENICILLIN (FOR ALLERGIES USE ONLY): ANAPHALAXIS LEVAQUIN: ANAPHALAXIS AMOXICILLIN: ANAPHALAXIS MUSHROOMS: ANAPHALAXIS BEES: ANAPHALAXIS SOCIAL HISTORY GENERAL: TOBACCO USE ARE YOU A:CURRENT SMOKER PATIENT COUNSELED ON THE DANGERS OF TOBACCO USE AND URGED TO QUIT:12/28/2016 ARE YOU INTERESTED IN QUITTING?NOT READY TO QUIT COUNSELED THE PATIENT ON SMOKING EFFECTS, EDUCATION [id number] CAFFEINE CAFFEINE USE?YES HOW OFTEN AND HOW MUCH? 2 CUPS PER DAY LEARNING BARRIERS / SPECIAL NEEDS CHANGE FROM LAST VISIT?NO BARRIERS TO LEARNING?NO READINESS TO LEARN?YES INDUSTRIAL MAINTENANCE MANAGER NEEDED?NO PAIN CLINIC PFS, CLERGY, PUBLIC HEALTH REFERRALS PFS REFERRAL NEEDED?NO CLERGY REFERRAL NEEDED?NO PUBLIC HEALTH REFERRAL NEEDED?NO WAS THE PROVIDER NOTIFIED OF ANY PERTINENT INFO?YES HAS THE PATIENT BEEN EDUCATED REGARDING HIS/HER PLAN OF CARE?YES HAS THE PATIENT BEEN EDUCATED REGARDING PAIN, THE RISK FOR PAIN, THE IMPORTANCE OF EFFECTIVE PAIN MANAGEMENT, AND THE PAIN ASSESSMENT PROCESS?YES REVIEWED BY: JOAO. PATIENT: ____. REVIEW OF SYSTEMS REVIEWED BY: PROVIDER: SHARON HERNANDEZ . CONSTITUTIONAL: ANY CHANGE IN YOUR MEDICAL CONDITION? NO . CHILLS NO . FEVER NO . INFECTION: DO YOU HAVE NEW INFECTIONS? NO . DO YOU HAVE HISTORY OF MRSA? NO . MUSCULOSKELETAL: ANY NEW PATTERNS OF PAIN OR NUMBNESS? NO . SYTEMIC LUPUS NO . GASTROENTEROLOGY: ANY NEW CHANGE IN BOWEL CONTROL? NO . BARRETTS ESOPHAGUS NO . CIRRHOSIS NO . HEPATITIS NO . LIVER FAILURE NO . ACID REFLUX NO . UNEXPLAINED WEIGHT LOSS NO . GENITOURINARY: ANY NEW CHANGE IN BLADDER CONTROL? NO . IS THERE A CHANCE YOU COULD BE ? NO . HEMATOLOGY/LYMPH: DO YOU TAKE ANY BLOOD THINNERS? (FOR EXAMPLE- COUMADIN, PLAVIX, AGGRENOX, PLATEL, PRADAXA, OR XARELTO) NO . WHEN WAS YOUR LAST DOSE? DATE: TIME: . LOW PLATELET COUNT NO . SICKLE CELL DISEASE NO . VON WILLIEBRANDS NO . FACTOR V LEIDEN NO . THALLASEMIA NO . ANEMIA NO . EASY BRUISING NO . NEUROLOGY: HAVE YOU FALLEN IN THE PAST 6 MONTHS? NO . ANY NEW EXTREMITY NUMBNESS OR WEAKNESS? NO . HEAD INJURY NO . DEMENTIA NO . CEREBRAL PALSY NO . MULTIPLE SCLEROSIS NO . DIZZINESS NO . HEADACHE NO . STROKES NO . VERTIGO NO . CARDIOLOGY: DO YOU HAVE A PACEMAKER OR DEFIBRILLATOR? NO . ANGINA NO . HEART ATTACK NO . HEART SURGERY NO . CONGESTIVE HEART FAILURE/FLUID OVERLOAD NO . CHEST PAIN NO . HIGH BLOOD PRESSURE NO . IRREGULAR HEART BEAT NO . RESPIRATORY: HAVE YOU BEEN SICK IN THE PAST WEEK? NO . FEVER NO . FLU LIKE SYMPTOMS? NO . CPAP NO . BYPAP NO . ASTHMA NO . EMPHYSEMA NO . CHRONIC LUNG DISEASES NO . SHORTNESS OF BREATH ON EXERTION NO . COUGH NO . SNORING NO . INTEGUMENTARY: DO YOU HAVE ANY RASHES OR OPEN SORES? NO . ALLERGIC/IMMUNO: ARE YOU ALLERGIC TO SHELLFISH OR IV DYE? NO . ANY NEW ALLERGIES? NO . PSYCHIATRIC: DO YOU HAVE THOUGHTS OF HURTING YOURSELF OR SOMEONE ELSE? NO . ARE YOU ABUSED, NEGLECTED, OR IN AN UNSAFE ENVIRONMENT? NO . ENDOCRINOLOGY: ARE YOU DIABETIC? NO . THYROID DISORDER NO . OTHER: DO YOU NEED ANY PRESCRIPTIONS? NO . IF YES, PLEASE LIST: ____ . ANY NEW PROBLEMS WITH YOUR MEDICATIONS? NO . WHEN DID YOU LAST EAT? ____ . WHEN DID YOU LAST DRINK? ____ . WHAT DID YOU LAST DRINK? ____ . NAME OF PERSON DRIVING YOU HOME? ____ . DO YOU HAVE ANY OTHER QUESTIONS OR CONCERNS PT STATES THAT SHE IS A CURRENT SMOKER, REFUSING ANY SMOKING CESSATION COUSELING AT THIS TIME. . VITAL SIGNS WT 252 LBS, HT 67 IN, BMI 39.46 INDEX, BP 128/82 MM HG, HR 115 /MIN, RR 16 /MIN, TEMP 98.4 F, OXYGEN SAT % 96%, SAFE IN ENV? (Y/N) Y, NA INITIALS [id number], REVIEWED BY: JOAO. EXAMINATION GENERAL EXAMINATION: PSYCHALERT , ORIENTED X 3 , APPROPRIATE MOOD AND AFFECT , GOOD EYE CONTACT. HEART:RAPID, REGULAR . ABDOMEN:SOME DISTENSION, BOWEL SOUNDS ACTIVE, TENDER OVER RIGHT UPPER QUADRANT. MUSCULOSKELETAL:POINT TENDERNESS OVER CERVICAL SPINOUS PROCESSES. , TRIGGER POINTS AND TIGHT FIBROUS BANDS OVER BILATERAL TRAPEZIUS MUSCLES AND OVER THE MIDTHORACIC PARAVERTEBRAL MUSCLES.TENDER TO PALPATION OVER LUMBOSACRAL AXIS.. ASSESSMENTS CERVICAL DISC DISPLACEMENT - M50.20 (PRIMARY) MYALGIA - M79.1 CHRONICALLY ON OPIATE THERAPY - Z79.899 LUMBAR DISC DISPLACEMENT WITHOUT MYELOPATHY - M51.26 TREATMENT CERVICAL DISC DISPLACEMENT CERVICAL EPIDURAL SHARON SINGER 12/28/2016 1:56:54 PM > PER DR MAZARIEGOS - NEEDS IV SEDATION NOTES: CONTINUE CURRENT MEDS. CALL IF SCRIPTS NEEDED. CLINICAL NOTES: ISTOP REGISTRY REVIEWED AND DEMNOSTRATES COMPLLIANCE. (#[id number]) BRINGS IN MEDICATIONS WHICH IS APPROPRIATE FOR WHAT WAS DISPENSED. RECENT URINE TOXICOLOGY REVIEWED. NO UNAUTHORIZED MEDICATIONS. NO ILLICIT SUBSTANCES AND PRESCRIBED MEDICATIONS WERE PRESENT. PROCEDURE CODES FA211 ESTABILISHED PATIENT [facility] FACILITY CHARGE DISPOSITION & COMMUNICATION FOLLOW UP AFTER INJECTION (REASON: CHECK AUTH FOR CERVICAL STEVEN WITH IV SEDATION, AIDAN - GET RECENT XRAYS RIGHT HAND/ARM FROM [facility]) ELECTRONICALLY SIGNED BY DANNY GODFREY ON 01/11/2017 AT 01:11 PM EDT DISCLAIMER : THIS IS A VISIT SUMMARY EXTRACTED FROM THE [employer] CHART. IT IS NOT A COPY OF THE [employer] PROGRESS NOTE. MARCIN
== END ==
LOC: M PAIN 13:00
PROVIDERS: ATTEND Nurse Practitioner Family
DX: G89.29 Other chronic pain (principal); M50.20 Other cervical disc displacement, unspecified cervical region; M51.26 Other intervertebral disc displacement, lumbar region; M79.1 Myalgia; I10 Essential (primary) hypertension; E78.00 Pure hypercholesterolemia, unspecified; E07.9 Disorder of thyroid, unspecified; F17.200 Nicotine dependence, unspecified, uncomplicated; Z88.0 Allergy status to penicillin; Z88.1 Allergy status to other antibiotic agents; Z91.09 Other allergy status, other than to drugs and biological substances; Z91.030 Bee allergy status; Z79.891 Long term (current) use of opiate analgesic; Z79.899 Other long term (current) drug therapy

== ENCOUNTER → 2017-01-11 | Outpatient (CLI) | payer OTHER, MEDICARE ==
[~2017-01-11] MED LIST changes: +ISOVUE-M 300 61% 15ML VIAL (Q9967) As Ordered ONE; +LIDOCAINE 1% SDV INJ 30 ML VIAL As Ordered ONE; +MIDAZOLAM INJ 2 MG/2 ML VIAL (J2250) As Ordered ONE; +fentaNYL 100 MCG/2 ML INJECTION (J3010) As Ordered ONE; +methylPREDNISolone SUSP 40 MG/ML (DEPO-medrol) VIAL (J1030) As Ordered ONE
--- NOTE | 2017-01-12 09:10 | REP ---
CERVICAL EPIDURAL INJECTION: All imaging was reviewed with Dr. Goldman prior to dictation. The portable C-arm was provided in the OR for Dr. Chavez for fluoroscopic guidance. One intraoperative fluoroscopic spot film was obtained using last image hold technology for needle placement verification for cervical epidural injection. The films are on the PACS system and are available for review. 16 seconds of fluoroscopy time were utilized for this procedure. Reviewed by ODALIS Mckeon 01/12/2017 09:46 AEdited and Signed by Corey Goldman MD 01/12/2017 08:00 P
--- NOTE | 2017-01-24 01:12 | ECWPNPC ---
PATIENT NAME: PIYUSH FARNSWORTH : 1980 GENDER: FEMALE VISIT DATE: 01/11/2017 DISCHARGE DATE: 01/11/17 1619 VISIT LOCKED DATE TIME: PHYSICIAN: KRISTINA MAZARIEGOS RESOURCE: KRISTINA MAZARIEGOS REASON FOR APPOINTMENT 1. JAMES/IV SED HISTORY OF PRESENT ILLNESS HISTORY OF PRESENT ILLNESS: PAIN THE PATIENT DESCRIBES THE PAIN... THE PATIENT DESCRIBES THE PAIN... PAIN THE PATIENT DESCRIBES THE PAIN... THE PATIENT DESCRIBES THE PAIN... FALL RISK SCREENING: SCREENING :NO FALLS IN THE PAST YEAR :NO FALLS IN THE PAST YEAR SCREENING :NO FALLS IN THE PAST YEAR :NO FALLS IN THE PAST YEAR CURRENT MEDICATIONS TAKING LYRICA 150 MG CAPSULE 1 CAPSULE ORALLY THREE TIMES A DAY, NOTES: 01-11-17799 TAKING SYNTHROID 25 25MCG TABLET 1 CAP ORAL DAILY, NOTES: 01-11-17799 TAKING ALBUTEROL SULFATE (2.5 MG/3ML) 0.083% NEBULIZATION SOLUTION 3 ML INHALATION THREE TIMES DAILY NEEDED, NOTES: NOTNLATELY TAKING ADVAIR DISKUS 100-50 MCG/DOSE AEROSOL POWDER BREATH ACTIVATED 1 PUFF INHALATION TWICE A DAY, NOTES: 01-11-17799 TAKING IMITREX 25 MG TABLET ORALLY DIRECTED, NOTES: 21-00 TAKING TRAZODONE HCL 100 MG TABLET 5 TABLET AT BEDTIME ORALLY ONCE A DAY, NOTES: 01-10-172099 TAKING FLUOXETINE 20 MG CAPSULE 3 CAPSULE IN THE MORNING ORALLY ONCE A DAY, NOTES: 01-11-17799 TAKING TOPAMAX 50 MG TABLET 1 TABLET ORALLY TWICE A DAY, NOTES: 01-11-17799 TAKING SUMATRIPTAN SUCCINATE 100 MG TABLET 1 TABLET NEEDED ORALLY DIRECTED, NOTES: COUPLE WEEKS TAKING SINGULAIR 10 MG TABLET 1 TABLET IN THE EVENING ORALLY ONCE A DAY, NOTES: 01-11-17799 TAKING EPIPEN 0.3 MG/0.3ML (1:1000) DEVICE INTRAMUSCULAR DIRECTED TAKING LORATADINE 10 MG TABLET 1 TABLET ORALLY ONCE A DAY, NOTES: 01-11-17 TAKING FLONASE 50 MCG/DOSE INHALER 2 SPRAY IN EACH NOSTRIL NASALLY ONCE A DAY, NOTES: 01-11-17799 TAKING LIPITOR 80 MG TABLET 1 TABLET ORALLY ONCE A DAY, NOTES: 01-10-172099 TAKING MUCINEX 600 MG TABLET EXTENDED RELEASE 1 TABLET NEEDED ORALLY EVERY 12 HRS, NOTES: NOT LSTELY TAKING CYMBALTA 30 MG CAPSULE DELAYED RELEASE PARTICLES 1 CAPSULE ORALLY ONCE A DAY, NOTES: 01-10-172099 TAKING TESSALON PERLES 100 MG CAPSULE 1 CAPSULE NEEDED ORALLY THREE TIMES A DAY, NOTES: NOT LATELY TAKING MELATONIN 3 MG TABLET 1 TABLET AT BEDTIME NEEDED WITH FOOD ORALLY ONCE A DAY, NOTES: 01-10-172099 TAKING CELEBREX 200 MG CAPSULE 1 CAPSULE ORALLY ONCE A DAY, NOTES: 01-10-172099 TAKING POTASSIUM CHLORIDE 20 MEQ TABLET EXTENDED RELEASE 1 CAPSULE WITH FOOD ORALLY TWICE A DAY, NOTES: 01-11-17799 TAKING MOVANTIK 25 MG TABLET 1 TABLET IN THE MORNING ORALLY ONCE A DAY, NOTES: 01-11-17799 TAKING PERCOCET 10-325 MG TABLET 1 TABLET ORALLY EVERY 4 HRS PRN PAIN MDD = 6, NOTES: 01-11-17799 TAKING OXYBUTYNIN CHLORIDE ER 10 MG TABLET EXTENDED RELEASE 24 HOUR 1 TABLET ORALLY BID, NOTES: 01-11-17899 TAKING LANSOPRAZOLE 15 MG CAPSULE DELAYED RELEASE 1 CAPSULE ORALLY ONCE A DAY, NOTES: 01-11-17799 NOT-TAKING SEROQUEL 100 MG TABLET 1 TABLET AT BEDTIME ORALLY ONCE A DAY NOT-TAKING OMEPRAZOLE 40 MG CAPSULE DELAYED RELEASE 1 CAPSULE ORALLY TWICE A DAY NOT-TAKING CLINDAMYCIN HCL 300 MG CAPSULE 1 CAPSULE ORALLY EVERY 8 HRS NOT-TAKING AZITHROMYCIN 250 MG TABLET 2 TABLETS ON THE FIRST DAY, THEN 1 TABLET DAILY FOR 4 DAYS ORALLY ONCE A DAY NOT-TAKING BUTRANS 10 MCG/HR PATCH WEEKLY 1 PATCH TO SKIN TRANSDERMAL APPLY 1 PATCH EVERY 7 DAYS MDD=1, NOTES: NEEDS AUTHORIZATION FROM INSURANCE NOT-TAKING ASPIRIN 81 MG TABLET 1 TABLET ORALLY ONCE A DAY NOT-TAKING CELEBREX 200 MG CAPSULE 1 CAPSULE ORALLY ONCE A DAY NOT-TAKING OXYBUTYNIN CHLORIDE 5 MG TABLET 1 TABLET ORALLY THREE TIMES A DAY NOT-TAKING AMITRIPTYLINE HCL 50 MG TABLET 1 TABLET AT BEDTIME ORALLY ONCE A DAY MEDICATION LIST REVIEWED AND RECONCILED WITH THE PATIENT PAST MEDICAL HISTORY HYPERTENSION HIGH CHOLESTEROL THYROID PROBLEM HERNIATED DISC DORSAL COLUMN STIMULATOR INTERSTIM BLADDER OAB EAR TUBES MASTOIDECTOMY X6 ALLERGIES PENICILLIN (FOR ALLERGIES USE ONLY): ANAPHALAXIS LEVAQUIN: ANAPHALAXIS AMOXICILLIN: ANAPHALAXIS MUSHROOMS: ANAPHALAXIS BEES: ANAPHALAXIS SURGICAL HISTORY HYSTERECTOMY 2011 APENDIX OUT 2001 HEMROHDECTOMY 2011 BUNIONS REMOVED ON BOTH FEET 2013 RIGHT KNEE ARTHROSCOPY 1993 MULTIPLE LAPAROSCOPY FOR ENDOMETRIOSIS TONSILS AND ADNOIDS OUT 1979 KIDNEY STONES 08/2014 HOSPITALIZATION/MAJOR DIAGNOSTIC PROCEDURE SEIZURES PNEUMONIA MINI STROKE 2008 REVIEW OF SYSTEMS REVIEWED BY: PROVIDER: , . CONSTITUTIONAL: ANY CHANGE IN YOUR MEDICAL CONDITION? NO, NO . CHILLS NO, NO . FEVER NO, NO . INFECTION: DO YOU HAVE NEW INFECTIONS? NO, NO . DO YOU HAVE HISTORY OF MRSA? NO, NO . MUSCULOSKELETAL: ANY NEW PATTERNS OF PAIN OR NUMBNESS? NO, NO . GASTROENTEROLOGY: ANY NEW CHANGE IN BOWEL CONTROL? NO, NO . GENITOURINARY: ANY NEW CHANGE IN BLADDER CONTROL? NO, NO . IS THERE A CHANCE YOU COULD BE ? NO, NO . HEMATOLOGY/LYMPH: DO YOU TAKE ANY BLOOD THINNERS? (FOR EXAMPLE- COUMADIN, PLAVIX, AGGRENOX, PLATEL, PRADAXA, OR XARELTO) NO, NO . WHEN WAS YOUR LAST DOSE? DATE: TIME: , DATE: TIME: . NEUROLOGY: HAVE YOU FALLEN IN THE PAST 6 MONTHS? NO, NO . ANY NEW EXTREMITY NUMBNESS OR WEAKNESS? NO, NO . CARDIOLOGY: DO YOU HAVE A PACEMAKER OR DEFIBRILLATOR? NO, NO . RESPIRATORY: HAVE YOU BEEN SICK IN THE PAST WEEK? NO, NO . FEVER NO, NO . FLU LIKE SYMPTOMS? NO, NO . COUGH NO, NO . INTEGUMENTARY: DO YOU HAVE ANY RASHES OR OPEN SORES? NO, NO . ALLERGIC/IMMUNO: ARE YOU ALLERGIC TO SHELLFISH OR IV DYE? NO, NO . ANY NEW ALLERGIES? NO, NO . PSYCHIATRIC: DO YOU HAVE THOUGHTS OF HURTING YOURSELF OR SOMEONE ELSE? NO, NO . ARE YOU ABUSED, NEGLECTED, OR IN AN UNSAFE ENVIRONMENT? NO, NO . ENDOCRINOLOGY: ARE YOU DIABETIC? NO, NO . OTHER: DO YOU NEED ANY PRESCRIPTIONS? NO, NO . IF YES, PLEASE LIST: ____, ____ . ANY NEW PROBLEMS WITH YOUR MEDICATIONS? NO, NO . WHEN DID YOU LAST EAT? ____, ____LAST NIGHT AT 945 PM . WHEN DID YOU LAST DRINK? ____, ____WATER . WHAT DID YOU LAST DRINK? ____, ____THIS MORNING AT 1045 . NAME OF PERSON DRIVING YOU HOME? ____, ____KEIRY FARNSWORTH . DO YOU HAVE ANY OTHER QUESTIONS OR CONCERNS NO, NO . VITAL SIGNS WT 249.8 LBS, HT 67 IN, BMI 39.12 INDEX, BP 109/58 MM HG, HR 113 /MIN, RR 116 /MIN, TEMP 98.7 F, OXYGEN SAT % 93, NA INITIALS MP 1417. ASSESSMENTS CERVICAL DISC DISORDER WITH RADICULOPATHY OF CERVICOTHORACIC REGION - M50.13 (PRIMARY) PROCEDURES PN CERVICAL EPIDURAL PRE PROCEDURE DIAGNOSIS CERVICAL DISC DISORDER WITH RADICULOPATHY POST PROCEDURE DIAGNOSIS CERVICAL DISC DISORDER WITH RADICULOPATHY PROCEDURE CERVICAL EPIDURAL STEROID INJECTION UNDER FLUOROSCOPIC GUIDANCE SURGEON DR. KRISTINA MAZARIEGOS STEAMFITTER APPRENTICE NONE ANESTHESIA LOCAL WITH IV SEDATION PRE PROCEDURE NOTE THE PATIENT HAS A HISTORY OF CHRONIC CERVICAL PAIN. I EVALUATE THE PATIENT AND REVIEWED THE CHART. I WENT OVER THE RISKS, ALTERNATIVES, AND BENEFITS ASSOCIATED WITH THIS PROCEDURE. THE PATIENT WANTS TO HAVE IV SEDATION DUE TO ANXIETY AND DISCOMFORT THAT THIS PROCEDURE WILL CAUSE TO HER. THE PATIENT WOULD LIKE TO PROCEED AND GIVE CONSENT TO PERFORMED THE PROCEDURE. THE PATIENT DENIES UNEXPLAINABLE WEIGHT LOSS, FEVER, CHILLS, OR NEW CHANGES IN URINARY OR BOWEL CONTROL DESCRIPTION OF PROCEDURE THE PATIENT WAS BROUGHT TO THE PROCEDURE ROOM AND PLACED IN THE PRONE POSITION. THE CERVICOTHORACIC AREA WAS CLEANED WITH BETADINE SOLUTION AND DRAPED ASEPTICALLY. THE PROCEDURE WAS DONE UNDER STERILE CONDITIONS. I CHECKED LATERALITY AND THE LEVEL WHERE THE PROCEDURE WAS GOING TO BE PERFORMED WITH THE PATIENT AND THE SUPPORTING STAFF AT THE MOMENT OF THE TIME OUT IN THE PROCEDURE ROOM. UNDER FLUOROSCOPIC GUIDANCE, THE TARGET WAS SELECTED AT THE INTERLAMINAR LEVEL OF C7-T1. LIDOCAINE WAS USED TO NUMB THE SKIN AND THE SUBCUTANEOUS TISSUE BELOW IT. EPIDURAL TUOHY NEEDLE 17-GAUGE WAS ADVANCED UNDER FLUOROSCOPIC GUIDANCE AND FOLLOWING PATIENT FEEDBACK UNTIL THE EPIDURAL SPACE WAS REACHED 6 CM DEEP INTO THE SKIN BY THE LOSS OF RESISTANCE TECHNIQUE. ISOVUE M DYE 30%, 0.25 ML, WAS INJECTED SHOWING ADEQUATE SPREAD OF THE DYE. THEN, A SOLUTION OF 3 ML OF NORMAL SALINE WITH DEPO-MEDROL 60 MG WAS INJECTED SLOWLY FOLLOWING PATIENT FEEDBACK. THE PATIENT RECEIVED FENTANYL 200 MCG IV AND VERSED 2 MG IV IN DIVIDED DOSES. THERE WAS NO EVIDENCE OF BLOOD, PARESTHESIA OR CEREBROSPINAL FLUID DURING THE PROCEDURE. THE PATIENT WAS SENT TO THE RECOVERY ROOM. THE PATIENT WAS MOVING THE EXTREMITIES AND DOING WELL. THERE WAS NO COMPLICATION DURING THE PROCEDURE. FLUOROSCOPY TIME WAS 16 SECONDS. FACE TO FACE TIME WAS 22 MINUTES POST PROCEDURE NOTE THE PATIENT WILL BE SEEN IN A FOLLOW UP IN THE NEXT FEW WEEKS. INSTRUCTIONS WERE GIVEN, QUESTIONS WERE ANSWERED, AND THE PATIENT EXPRESSED UNDERSTANDING AND AGREES WITH THE PLAN. I, HALLE BARRIOS, DOCUMENTED THE ABOVE INFORMATION ACTING A SCRIBE FOR DR. MAZARIEGOS. I, DR. MAZARIEGOS, HAVE REVIEWED THE ABOVE DOCUMENT, SCRIBED BY HALLE BARRIOS, AND I VERIFY THAT IT IS ACCURATE DIAGNOSTIC IMAGING [facility] FLUORO GUIDE SPINE INJECTION (PAIN)[id number] PROCEDURE CODES 32451 CERVICAL/THORACIC W/ IMAGING 6045F RADXPS IN END [id number] PXD [id number] MOD SED SAME PHYS/QHP 5/>YRS DISPOSITION & COMMUNICATION FOLLOW UP 3 WEEKS ELECTRONICALLY SIGNED BY KRISTINA MAZARIEGOS MD ON 01/23/2017 AT 03:36 PM EDT DISCLAIMER : THIS IS A VISIT SUMMARY EXTRACTED FROM THE [employer] CHART. IT IS NOT A COPY OF THE [employer] PROGRESS NOTE. ELIJAHD
== END ==
LOC: M PAIN 14:00
PROVIDERS: ATTEND Anesthesiology
DX: G89.29 Other chronic pain (principal); M50.13 Cervical disc disorder with radiculopathy, cervicothoracic region; I10 Essential (primary) hypertension; E78.00 Pure hypercholesterolemia, unspecified; E07.9 Disorder of thyroid, unspecified; Z88.0 Allergy status to penicillin; Z88.1 Allergy status to other antibiotic agents; Z88.8 Allergy status to other drugs, medicaments and biological substances; Z91.030 Bee allergy status; Z91.018 Allergy to other foods; Z79.891 Long term (current) use of opiate analgesic; Z79.899 Other long term (current) drug therapy
CPT/HCPCS: 62321; 99152; J1030; J2250; J3010; Q9967

== ENCOUNTER → 2017-02-28 | Outpatient (CLI) | payer OTHER, MEDICARE ==
[~2017-02-28] MED LIST changes: +CYMB1CAP4 PO; -ISOVUE-M 300 61% 15ML VIAL (Q9967) As Ordered ONE; -LIDOCAINE 1% SDV INJ 30 ML VIAL As Ordered ONE; -MIDAZOLAM INJ 2 MG/2 ML VIAL (J2250) As Ordered ONE; +PROZ20CA11 PO; +TRAZ300T2 PO; -fentaNYL 100 MCG/2 ML INJECTION (J3010) As Ordered ONE; -methylPREDNISolone SUSP 40 MG/ML (DEPO-medrol) VIAL (J1030) As Ordered ONE
--- NOTE | 2017-03-16 01:25 | ECWPNPC ---
PATIENT NAME: PIYUSH FARNSWORTH : 1980 GENDER: FEMALE VISIT DATE: 02/28/2017 DISCHARGE DATE: 02/28/17 0933 VISIT LOCKED DATE TIME: PHYSICIAN: SHARON BRUCE RESOURCE: SHARON BRUCE REASON FOR APPOINTMENT 1. POST PROCEDURE HISTORY OF PRESENT ILLNESS HISTORY OF PRESENT ILLNESS: PAIN THE PATIENT DESCRIBES THE PAIN... FALL RISK SCREENING: SCREENING :NO FALLS IN THE PAST YEAR TODAY'S VISIT: NOTES: RATES PAIN TODAY 8/10. NOTES PAIN IS CENTERED FROM BASE OF NECK ACROSS THE SHOULDERS AND ALONG THE SPINE TO THE LOW BACK. IS S/P CESB COMPLETED ON 01/11/17. NOTES THAT THIS PROVIDED 50% RELIEF BUT AT RTC IS NOTING PAIN AT NEAR RETURN TO BASELINE. NO SPECIFIC WEAKNESS.IS HAVING NUMBNESS IN LEFT LOWER EXTREMITY FROM INSTEP TO BACK OF CALF. IS ALSO REPORTING INTENSE BILATERAL SCIATIC PAIN. CURRENT MEDICATIONS TAKING LYRICA 150 MG CAPSULE 1 CAPSULE ORALLY THREE TIMES A DAY TAKING SYNTHROID 25 25MCG TABLET 1 CAP ORAL DAILY TAKING ALBUTEROL SULFATE (2.5 MG/3ML) 0.083% NEBULIZATION SOLUTION 3 ML INHALATION THREE TIMES DAILY NEEDED TAKING ADVAIR DISKUS 100-50 MCG/DOSE AEROSOL POWDER BREATH ACTIVATED 1 PUFF INHALATION TWICE A DAY TAKING IMITREX 25 MG TABLET ORALLY DIRECTED TAKING TRAZODONE HCL 100 MG TABLET 5 TABLET AT BEDTIME ORALLY ONCE A DAY TAKING FLUOXETINE 20 MG CAPSULE 3 CAPSULE IN THE MORNING ORALLY ONCE A DAY TAKING TOPAMAX 50 MG TABLET 1 TABLET ORALLY TWICE A DAY TAKING SUMATRIPTAN SUCCINATE 100 MG TABLET 1 TABLET NEEDED ORALLY DIRECTED TAKING SINGULAIR 10 MG TABLET 1 TABLET IN THE EVENING ORALLY ONCE A DAY TAKING EPIPEN 0.3 MG/0.3ML (1:1000) DEVICE INTRAMUSCULAR DIRECTED TAKING LORATADINE 10 MG TABLET 1 TABLET ORALLY ONCE A DAY TAKING FLONASE 50 MCG/DOSE INHALER 2 SPRAY IN EACH NOSTRIL NASALLY ONCE A DAY TAKING LIPITOR 80 MG TABLET 1 TABLET ORALLY ONCE A DAY TAKING MUCINEX 600 MG TABLET EXTENDED RELEASE 1 TABLET NEEDED ORALLY EVERY 12 HRS TAKING CYMBALTA 30 MG CAPSULE DELAYED RELEASE PARTICLES 1 CAPSULE ORALLY ONCE A DAY TAKING TESSALON PERLES 100 MG CAPSULE 1 CAPSULE NEEDED ORALLY THREE TIMES A DAY TAKING MELATONIN 3 MG TABLET 1 TABLET AT BEDTIME NEEDED WITH FOOD ORALLY ONCE A DAY TAKING CELEBREX 200 MG CAPSULE 1 CAPSULE ORALLY ONCE A DAY TAKING POTASSIUM CHLORIDE 20 MEQ TABLET EXTENDED RELEASE 1 CAPSULE WITH FOOD ORALLY TWICE A DAY TAKING MOVANTIK 25 MG TABLET 1 TABLET IN THE MORNING ORALLY ONCE A DAY TAKING OXYBUTYNIN CHLORIDE ER 10 MG TABLET EXTENDED RELEASE 24 HOUR 1 TABLET ORALLY BID TAKING LANSOPRAZOLE 15 MG CAPSULE DELAYED RELEASE 1 CAPSULE ORALLY ONCE A DAY TAKING PERCOCET 10-325 MG TABLET 1 TABLET ORALLY EVERY 4 HRS PRN PAIN MDD = 6 UNKNOWN SEROQUEL 100 MG TABLET 1 TABLET AT BEDTIME ORALLY ONCE A DAY UNKNOWN OMEPRAZOLE 40 MG CAPSULE DELAYED RELEASE 1 CAPSULE ORALLY TWICE A DAY UNKNOWN CLINDAMYCIN HCL 300 MG CAPSULE 1 CAPSULE ORALLY EVERY 8 HRS UNKNOWN AZITHROMYCIN 250 MG TABLET 2 TABLETS ON THE FIRST DAY, THEN 1 TABLET DAILY FOR 4 DAYS ORALLY ONCE A DAY UNKNOWN BUTRANS 10 MCG/HR PATCH WEEKLY 1 PATCH TO SKIN TRANSDERMAL APPLY 1 PATCH EVERY 7 DAYS MDD=1, NOTES: NEEDS AUTHORIZATION FROM INSURANCE UNKNOWN ASPIRIN 81 MG TABLET 1 TABLET ORALLY ONCE A DAY UNKNOWN CELEBREX 200 MG CAPSULE 1 CAPSULE ORALLY ONCE A DAY UNKNOWN OXYBUTYNIN CHLORIDE 5 MG TABLET 1 TABLET ORALLY THREE TIMES A DAY UNKNOWN AMITRIPTYLINE HCL 50 MG TABLET 1 TABLET AT BEDTIME ORALLY ONCE A DAY MEDICATION LIST REVIEWED AND RECONCILED WITH THE PATIENT PAST MEDICAL HISTORY HYPERTENSION HIGH CHOLESTEROL THYROID PROBLEM HERNIATED DISC DORSAL COLUMN STIMULATOR INTERSTIM BLADDER OAB EAR TUBES MASTOIDECTOMY X6 ALLERGIES PENICILLIN (FOR ALLERGIES USE ONLY): ANAPHALAXIS LEVAQUIN: ANAPHALAXIS AMOXICILLIN: ANAPHALAXIS MUSHROOMS: ANAPHALAXIS BEES: ANAPHALAXIS SOCIAL HISTORY GENERAL: TOBACCO USE ARE YOU A:CURRENT SMOKER ARE YOU INTERESTED IN QUITTING?READY TO QUIT COUNSELED THE PATIENT ON TOBACCO USE, CESSATION [id number]/14/2017 HOW SOON AFTER YOU WAKE UP DO YOU SMOKE YOUR FIRST CIGARETTE? PT HAS NOT SMOKED IN 4 MONTHS!! PATIENT COUNSELED ON THE DANGERS OF TOBACCO USE AND URGED TO QUIT:12/28/2016 CAFFEINE CAFFEINE USE?YES HOW OFTEN AND HOW MUCH? 2 CUPS PER DAY CONFUCIANISM [id number] NONE NO UATSDIN BELIEFS THAT WOULD IMPACT HEALTH CARE. 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 PATIENT: ____. ADVANCE DIRECTIVES HEALTH CARE PROXY?YES NAME OF HCP KEIRY FARNSWORTH DO YOU HAVE A COPY WITH YOU?NO LIVING WILL?YES DO YOU HAVE A COPY WITH YOU?NO REVIEW OF SYSTEMS REVIEWED BY: PROVIDER: . CONSTITUTIONAL: ANY CHANGE IN YOUR MEDICAL CONDITION? QUIT SMOKING 4 MONTHS AGO AND HAS LOST WEIGHT!! . CHILLS NO . FEVER NO . INFECTION: DO YOU HAVE NEW INFECTIONS? NO . DO YOU HAVE HISTORY OF MRSA? NO . MUSCULOSKELETAL: ANY NEW PATTERNS OF PAIN OR NUMBNESS? NO - TO SEE GASTROENTEROLOGY AT THE [place]. [facility] CONTINUE TO WORK WELL . GASTROENTEROLOGY: ANY NEW CHANGE IN BOWEL CONTROL? NO . GENITOURINARY: ANY NEW CHANGE IN BLADDER CONTROL? NO . IS THERE A CHANCE YOU COULD BE ? NO . HEMATOLOGY/LYMPH: DO YOU TAKE ANY BLOOD THINNERS? (FOR EXAMPLE- COUMADIN, PLAVIX, AGGRENOX, PLATEL, PRADAXA, OR XARELTO) NO . WHEN WAS YOUR LAST DOSE? DATE: TIME: . NEUROLOGY: HAVE YOU FALLEN IN THE PAST 6 MONTHS? NO . ANY NEW EXTREMITY NUMBNESS OR WEAKNESS? LEFT LEG AND FOOT . HEADACHE TO SEE NEUROLOGY AT [facility] IN [place]ARCH . CARDIOLOGY: DO YOU HAVE A PACEMAKER OR DEFIBRILLATOR? NO - HAS 30 DAY HOLTER MONITOR FOR FURTHER EVAL OF RAPID HEART RATE . RESPIRATORY: HAVE YOU BEEN SICK IN THE PAST WEEK? NO . FEVER NO . FLU LIKE SYMPTOMS? NO . COUGH NO . INTEGUMENTARY: DO YOU HAVE ANY RASHES OR OPEN SORES? NO . ALLERGIC/IMMUNO: ARE YOU ALLERGIC TO SHELLFISH OR IV DYE? NO . ANY NEW ALLERGIES? NO . PSYCHIATRIC: DO YOU HAVE THOUGHTS OF HURTING YOURSELF OR SOMEONE ELSE? NO . ARE YOU ABUSED, NEGLECTED, OR IN AN UNSAFE ENVIRONMENT? NO . ENDOCRINOLOGY: ARE YOU DIABETIC? NO . OTHER: DO YOU NEED ANY PRESCRIPTIONS? YES . IF YES, PLEASE LIST: MOVANTIX . ANY NEW PROBLEMS WITH YOUR MEDICATIONS? NO . WHEN DID YOU LAST EAT? ____ . WHEN DID YOU LAST DRINK? ____ . WHAT DID YOU LAST DRINK? ____ . NAME OF PERSON DRIVING YOU HOME? ____ . DO YOU HAVE ANY OTHER QUESTIONS OR CONCERNS NO . HEENT: GENERAL FOR FULL MOUTH EXODONTIA IN MARCH . VITAL SIGNS WT 243.8 LBS, HT 67 IN, BMI 38.18 INDEX, BP 134/93 MM HG, HR 121 /MIN, RR 18 /MIN, TEMP 96.3 F, OXYGEN SAT % 98%, NA INITIALS SC 08:59, REVIEWED BY: NL. EXAMINATION GENERAL EXAMINATION: MUSCULOSKELETAL:LEFT PLANTAR WEAKNESS, PAIN WITH HIP FLEXION. . ASSESSMENTS CERVICAL DISC DISPLACEMENT - M50.20 (PRIMARY) MYALGIA - M79.1 CHRONICALLY ON OPIATE THERAPY - Z79.899 LUMBAR DISC DISPLACEMENT WITHOUT MYELOPATHY - M51.26 TREATMENT CERVICAL DISC DISPLACEMENT REFILL MOVANTIK TABLET, 25 MG, 1 TABLET IN THE MORNING, ORALLY, ONCE A DAY, 30 DAY(S), 30 TABLET, REFILLS 2 NOTES: EMG/NCS DO AT [facility] NEUROLOGY. PROCEDURE CODES FA211 ESTABILISHED PATIENT [facility] CHARGE DISPOSITION & COMMUNICATION FOLLOW UP MID APR (REASON: NECK AND BACK PAIN) ELECTRONICALLY SIGNED BY DANNY GODFREY ON 03/14/2017 AT 08:49 AM EST DISCLAIMER : THIS IS A VISIT SUMMARY EXTRACTED FROM THE [employer] CHART. IT IS NOT A COPY OF THE [email or web address] PROGRESS NOTE. MARCIN
== END | disposition home or self-care (01) ==
LOC: M PAIN 08:45
PROVIDERS: ATTEND Nurse Practitioner Family
DX: G89.29 Other chronic pain (principal); M50.20 Other cervical disc displacement, unspecified cervical region; M79.1 Myalgia; M51.26 Other intervertebral disc displacement, lumbar region; I10 Essential (primary) hypertension; E78.00 Pure hypercholesterolemia, unspecified; E07.9 Disorder of thyroid, unspecified; Z96.9 Presence of functional implant, unspecified; N32.81 Overactive bladder; Z79.899 Other long term (current) drug therapy; Z79.51 Long term (current) use of inhaled steroids; Z88.0 Allergy status to penicillin; Z88.1 Allergy status to other antibiotic agents; Z91.018 Allergy to other foods; Z91.030 Bee allergy status; F17.210 Nicotine dependence, cigarettes, uncomplicated

== ENCOUNTER 2017-03-05 16:18 | Emergency (ER) | payer MEDICARE, OTHER ==
[~2017-03-05] VITALS: Ht 170.2 cm; Wt 108.2 kg
[~2017-03-05 16:18] MED LIST changes: -CYMB1CAP4 PO; -PROZ20CA11 PO; -TRAZ300T2 PO
[2017-03-05] MEDS ORDERED: CYMB1CAP4 PO (16:33)
[2017-03-05] MEDS ORDERED: TRAZ300T2 PO (16:33)
[2017-03-05] MEDS ORDERED: MOVA1TAB2 PO (16:33)
[2017-03-05] MEDS ORDERED: PROZ20CA11 PO (16:33)
[2017-03-05 19:09] VITALS: BP 122/86
--- NOTE | 2017-03-06 06:38 | REP ---
LEFT ANKLE, FOUR VIEWS: There is no evidence of an acute fracture, dislocation or intrinsic bone disease. The ankle mortise is anatomic. IMPRESSION: No fracture or dislocation. Signed by Corey Goldman MD 03/06/2017 09:06 A
--- NOTE | 2017-03-06 06:39 | REP ---
LEFT FOOT: Four views of the left foot performed. There is no acute fracture or dislocation. Two metallic pins are seen in the distal first metatarsal. IMPRESSION: No acute fracture or dislocation. Signed by Corey Goldman MD 03/06/2017 09:07 A
== END 2017-03-05 19:13 | disposition home or self-care (01) ==
LOC: M ED 16:18
DX: M65.872 Other synovitis and tenosynovitis, left ankle and foot (principal); I10 Essential (primary) hypertension; J45.909 Unspecified asthma, uncomplicated; G40.909 Epilepsy, unspecified, not intractable, without status epilepticus; E03.9 Hypothyroidism, unspecified; E78.00 Pure hypercholesterolemia, unspecified; F17.210 Nicotine dependence, cigarettes, uncomplicated; G83.84 Todd's paralysis (postepileptic); F33.9 Major depressive disorder, recurrent, unspecified; F41.9 Anxiety disorder, unspecified; F43.10 Post-traumatic stress disorder, unspecified; Z79.899 Other long term (current) drug therapy; Z79.82 Long term (current) use of aspirin; Z91.030 Bee allergy status; Z88.0 Allergy status to penicillin; Z88.1 Allergy status to other antibiotic agents; Z91.018 Allergy to other foods; L23.1 Allergic contact dermatitis due to adhesives; Z96.9 Presence of functional implant, unspecified; Z87.820 Personal history of traumatic brain injury

== ENCOUNTER 2017-04-11 14:08 | Emergency (ER) | payer MEDICARE, OTHER ==
[~2017-04-11] VITALS: Ht 170.2 cm; Wt 110.2 kg
[~2017-04-11 14:08] MED LIST changes: +CYMB1CAP4 PO; +PROZ20CA11 PO; +TRAZ300T2 PO
[2017-04-11 14:09] VITALS: BP 132/68
== END 2017-04-11 16:57 | disposition left against medical advice (07) ==
LOC: M ED 14:08
DX: Z53.21 Procedure and treatment not carried out due to patient leaving prior to being seen by health care provider (principal)

== ENCOUNTER → 2017-05-02 | Outpatient (CLI) | payer OTHER, MEDICARE | LOC: M PAIN 08:45 | DX: M50.20 Other cervical disc displacement, unspecified cervical region (principal); M79.1 Myalgia; M51.26 Other intervertebral disc displacement, lumbar region; I10 Essential (primary) hypertension; E78.00 Pure hypercholesterolemia, unspecified; E03.9 Hypothyroidism, unspecified; F17.210 Nicotine dependence, cigarettes, uncomplicated; Z79.891 Long term (current) use of opiate analgesic; Z79.899 Other long term (current) drug therapy | CPT/HCPCS: G0463 ==

== ENCOUNTER → 2017-05-27 | Outpatient (REF) | payer OTHER, MEDICARE ==
[2017-05-27 14:43] LABS: INFLUENZA A AMPLIFICATION NEGATIVE (NEGATIVE); INFLUENZA B AMPLIFICATION NEGATIVE (NEGATIVE); RSV AMPLIFICATION NEGATIVE (NEGATIVE)
== END ==
LOC: M LAB REF 13:38
DX: J11.1 Influenza due to unidentified influenza virus with other respiratory manifestations (principal)

== ENCOUNTER → 2017-07-21 | Outpatient (CLI) | payer OTHER, MEDICARE | LOC: M PAIN 10:15 | DX: M50.20 Other cervical disc displacement, unspecified cervical region (principal); M79.1 Myalgia; M51.26 Other intervertebral disc displacement, lumbar region; K59.03 Drug induced constipation; I10 Essential (primary) hypertension; E78.00 Pure hypercholesterolemia, unspecified; E07.9 Disorder of thyroid, unspecified; Z79.891 Long term (current) use of opiate analgesic; Z79.899 Other long term (current) drug therapy; Z88.0 Allergy status to penicillin; Z88.1 Allergy status to other antibiotic agents; Z88.8 Allergy status to other drugs, medicaments and biological substances; Z91.030 Bee allergy status; Z91.018 Allergy to other foods | CPT/HCPCS: G0463 ==

== ENCOUNTER → 2017-10-16 | Outpatient (CLI) | payer OTHER, MEDICARE | LOC: M PAIN 08:30 | DX: M79.1 Myalgia (principal); M51.26 Other intervertebral disc displacement, lumbar region; M54.12 Radiculopathy, cervical region; I10 Essential (primary) hypertension; E78.00 Pure hypercholesterolemia, unspecified; E07.9 Disorder of thyroid, unspecified; F17.210 Nicotine dependence, cigarettes, uncomplicated; Z79.891 Long term (current) use of opiate analgesic; Z79.899 Other long term (current) drug therapy; Z88.0 Allergy status to penicillin; Z88.8 Allergy status to other drugs, medicaments and biological substances; Z91.018 Allergy to other foods; Z91.030 Bee allergy status | CPT/HCPCS: G0463 ==

== ENCOUNTER → 2017-11-30 | Outpatient (CLI) | payer OTHER, MEDICARE | LOC: M PAIN 10:15 | DX: M50.20 Other cervical disc displacement, unspecified cervical region (principal); M79.1 Myalgia; M51.26 Other intervertebral disc displacement, lumbar region; Z79.891 Long term (current) use of opiate analgesic; I10 Essential (primary) hypertension; E78.00 Pure hypercholesterolemia, unspecified; N32.81 Overactive bladder; G43.909 Migraine, unspecified, not intractable, without status migrainosus; E07.9 Disorder of thyroid, unspecified; Z79.899 Other long term (current) drug therapy; Z88.0 Allergy status to penicillin; Z88.1 Allergy status to other antibiotic agents; Z91.030 Bee allergy status; Z91.018 Allergy to other foods | CPT/HCPCS: G0463 ==

== ENCOUNTER → 2018-02-14 | Outpatient (CLI) | payer OTHER, MEDICARE | LOC: M PAIN 13:30 | DX: M50.20 Other cervical disc displacement, unspecified cervical region (principal); M79.18 Myalgia, other site; M51.26 Other intervertebral disc displacement, lumbar region; I10 Essential (primary) hypertension; E78.00 Pure hypercholesterolemia, unspecified; E07.9 Disorder of thyroid, unspecified; G43.909 Migraine, unspecified, not intractable, without status migrainosus; F17.210 Nicotine dependence, cigarettes, uncomplicated; R56.9 Unspecified convulsions; Z88.0 Allergy status to penicillin; Z88.1 Allergy status to other antibiotic agents; Z88.8 Allergy status to other drugs, medicaments and biological substances; Z91.030 Bee allergy status; Z91.018 Allergy to other foods; Z79.891 Long term (current) use of opiate analgesic; Z79.899 Other long term (current) drug therapy; Z86.73 Personal history of transient ischemic attack (TIA), and cerebral infarction without residual deficits | CPT/HCPCS: G0463 ==

== ENCOUNTER → 2018-07-16 | Outpatient (CLI) | payer OTHER ==
[~2018-07-16] MED LIST changes: -ACET1TAB17 PO; +ACET1TAB55 PO; +NAPR-885 PO; -NAPR500T3 PO; +TIZA4CAP PO; -TIZA4CAP3 PO
--- NOTE | 2018-07-19 21:08 | SLEEPCENT ---
DATE OF PROCEDURE: 07/16/2018 ORDERED BY: Dr. Arizmendi Nocturnal polysomnography was performed for evaluation of sleep physiology in this patient with a history of excessive somnolence, irregular breathing in sleep and nonrestorative sleep. 8 hours and 3 minutes of data were reviewed. There were 437 minutes of sleep identified. Sleep latency was normal at 8.5 minutes. Rapid eye movement (REM) sleep was delayed at 350 minutes. Sleep architecture showed poor progression with minimal fragmentation. There were two REM cycles noted. Overall sleep efficiency was 91%. The electrocardiogram showed a sinus rhythm with an average heart rate of 70 beats per minute. EEG was normal for sleep and wake. There were only 10 obstructive respiratory events identified of 10 seconds in duration or greater for an apnea-hypopnea index within normal limits at 1.4. Significant snoring was noted; however, respiratory related arousals in total occurred one time per hour. There were no significant oxygen desaturations. There was some minor limb activity. Limb movement arousal index was 2.2 per hour. IMPRESSION: Normal nocturnal polysomnography with snoring.
== END ==
LOC: M SLEEP 19:58
PROVIDERS: ATTEND Internal Medicine Pulmonary Disease
DX: R06.83 Snoring (principal)

== ENCOUNTER → 2018-08-07 | Outpatient (CLI) | payer OTHER, MEDICARE ==
[~2018-08-07] MED LIST changes: -/AMIT10TA PO; -/CELE20CA OR; -/CELE20CA PO; -/DIVA12TA OR; -/ESCI20TA PO; -/ESOM40CA PO; -/QUET25TA OR; +CELE1CAP4 OR; -CITA20TA4 PO; +CITA20TA6 PO; +DEPA1TAB OR; +LEXA1TAB2 PO; +NEXI1CAP3 PO; +NICO14DI20 EXT; -NICO14PA EXT; +SERO1TAB3 OR
--- NOTE | 2018-08-08 02:01 | ECWPNPC ---
PATIENT NAME: PIYUSH FARNSWORTH : 1980 GENDER: FEMALE VISIT DATE: 08/07/2018 DISCHARGE DATE: 08/07/18 1035 VISIT LOCKED DATE TIME: PHYSICIAN: DM PAN RESOURCE: DM PAN REASON FOR APPOINTMENT 1. BACK HISTORY OF PRESENT ILLNESS HISTORY OF PRESENT ILLNESS: PAIN THE PATIENT DESCRIBES THE PAIN... 38 YR OLD FEMALE HERE FOR F/U ON CHRONIC LOWER BACK, NECK AND SHOULDER PAIN.PATIENT ALSO STATES SHE HAS NOTICED NUMBNESS AT THE LEFT SHOULDER, THAT TRAVELS DOWN TO HER FINGERS. SHE SAYS SHE HAS HAD THESE SYMPTOMS SINCE LAST YEAR.VAS 8/10 TODAY. SHE HAS REFILLS ON HER MEDICATIONS. FALL RISK SCREENING: SCREENING :NO FALLS REPORTED IN THE LAST YEAR CURRENT MEDICATIONS TAKING LYRICA 150 MG CAPSULE 1 CAPSULE ORALLY THREE TIMES A DAY TAKING SYNTHROID 25 25MCG TABLET 1 CAP ORAL DAILY TAKING ALBUTEROL SULFATE (2.5 MG/3ML) 0.083% NEBULIZATION SOLUTION 3 ML INHALATION THREE TIMES DAILY NEEDED TAKING TRAZODONE HCL 100 MG TABLET 4 TABLET AT BEDTIME ORALLY ONCE A DAY TAKING SUMATRIPTAN SUCCINATE 100 MG TABLET 1 TABLET NEEDED ORALLY DIRECTED TAKING EPIPEN 0.3 MG/0.3ML (1:1000) DEVICE INTRAMUSCULAR DIRECTED TAKING FLONASE 50 MCG/DOSE INHALER 2 SPRAY IN EACH NOSTRIL NASALLY ONCE A DAY TAKING MUCINEX 600 MG TABLET EXTENDED RELEASE 1 TABLET NEEDED ORALLY EVERY 12 HRS TAKING POTASSIUM CHLORIDE 20 MEQ TABLET EXTENDED RELEASE 1 CAPSULE WITH FOOD ORALLY TID TAKING IMITREX 6 MG/0.5ML SOLUTION 0.5 ML NEEDED SUBCUTANEOUS TWICE A DAY TAKING NEXIUM 40 MG CAPSULE DELAYED RELEASE 1 CAPSULE ORALLY TWICE A DAY TAKING ROSUVASTATIN CALCIUM 40 MG TABLET 1 CAP ORALLY DAILY TAKING NARCAN 4 MG/0.1ML LIQUID DIRECTED NASALLY FOR SYMPTOMS OF OVERDOSE OR RESP DEPRESSION - CALL 911 TAKING MOVANTIK 25 MG TABLET 1 TABLET IN THE MORNING ORALLY ONCE A DAY TAKING CARISOPRODOL 350 MG TABLET 1 TABLET NEEDED ORALLY BID FOR SEVERE SPASM MDD=2 CODE D CHRONIC PAIN TAKING TROSPIUM CHLORIDE 20 MG TABLET 1 TABLET AT BEDTIME ON AN EMPTY STOMACH ORALLY ONCE A DAY TAKING CYMBALTA 60 MG CAPSULE DELAYED RELEASE PARTICLES 1 CAPSULE ORALLY ONCE A DAY TAKING CELEBREX 200 MG CAPSULE 1 CAPSULE ORALLY ONCE A DAY TAKING TOPAMAX 50 MG TABLET 1 TABLET ORALLY TWICE A DAY TAKING PERCOCET 10-325 MG TABLET 1 TABLET ORALLY EVERY 4 HRS PRN PAIN MDD = 6 TAKING ASMANEX 120 METERED DOSES 220 MCG/INH AEROSOL POWDER BREATH ACTIVATED 1 PUFF IN THE EVENING INHALATION BID TAKING CLARITIN 10 MG TABLET 1 TABLET ORALLY ONCE A DAY TAKING RANITIDINE 1 TAB ORAL DAILY TAKING BUSPIRONE HCL 15 MG TABLET 1 TABLET ORALLY TWICE A DAY TAKING HYDROXYZINE HCL 25 MG TABLET 1 TABLET ORALLY DAILY TAKING PREDNISONE TAPER 1 TAB ORAL TAKING CEFDINIR 300 MG CAPSULE DIRECTED ORALLY BID NOT-TAKING FLUOXETINE 20 MG CAPSULE 2 CAPSULE IN THE MORNING ORALLY ONCE A DAY NOT-TAKING SINGULAIR 10 MG TABLET 1 TABLET IN THE EVENING ORALLY ONCE A DAY NOT-TAKING ADVAIR DISKUS 100-50 MCG/DOSE AEROSOL POWDER BREATH ACTIVATED 1 PUFF INHALATION TWICE A DAY NOT-TAKING LORATADINE 10 MG TABLET 1 TABLET ORALLY ONCE A DAY NOT-TAKING TESSALON PERLES 100 MG CAPSULE 1 CAPSULE NEEDED ORALLY THREE TIMES A DAY MEDICATION LIST REVIEWED AND RECONCILED WITH THE PATIENT PAST MEDICAL HISTORY HYPERTENSION HIGH CHOLESTEROL THYROID PROBLEM HERNIATED DISC DORSAL COLUMN STIMULATOR INTERSTIM BLADDER OAB EAR TUBES MASTOIDECTOMY X6 MIGRAINES ASTHMA ALLERGIES PENICILLIN (FOR ALLERGIES USE ONLY): ANAPHALAXIS - ALLERGY LEVAQUIN: ANAPHALAXIS - ALLERGY AMOXICILLIN: ANAPHALAXIS - ALLERGY MUSHROOMS: ANAPHALAXIS - ALLERGY BEES: ANAPHALAXIS - ALLERGY SURGICAL HISTORY HYSTERECTOMY 2011 APENDIX OUT 2001 HEMROHDECTOMY 2010 BUNIONS REMOVED ON BOTH FEET 2013 RIGHT KNEE ARTHROSCOPY 1993 MULTIPLE LAPAROSCOPY FOR ENDOMETRIOSIS TONSILS AND ADNOIDS OUT 1979 KIDNEY STONES 08/2014 FAMILY HISTORY FATHER: ALIVE, DIAGNOSED WITH HYPERTENSION, CANCER MOTHER: ALIVE, OTHER, HYPERTENSION, CANCER 2 SON(S) , 1 DAUGHTER(S) . SON WITH SEVERE CROHNS DISEASE AND PYLODERMA GANGERINEOSA\NDAD-PROSTATE CA\NMOM-HIGH CHOLESTEROL AND BREAST CA. SOCIAL HISTORY GENERAL: TOBACCO USE ARE YOU A:CURRENT SMOKER ARE YOU INTERESTED IN QUITTING?READY TO QUIT STATES CUTTING BACK, IN THE PROCESS OF CUTTING BACK. COUNSELED THE PATIENT ON TOBACCO USE, CESSATION [id number]/2019 HOW MANY CIGARETTES A DAY DO YOU SMOKE?6-10 PATIENT COUNSELED ON THE DANGERS OF TOBACCO USE AND URGED TO QUIT:08/07/2018 SMOKING CESSATION INFORMATION GIVEN03/19/2018 LATEX QUESTIONNAIRE LATEX ALLERGY : HAVE YOU EVER DEVELOPED ANY TYPE OF REACTION AFTER HANDLING LATEX PRODUCTS SUCH RUBBER GLOVES, CONDOMS, DIAPHRAGMS, BALLOONS, SOCKS, OR UNDERWEAR?NO LATEX ALLERGY : HAVE YOU EVER DEVELOPED ANY TYPE OF REACTION DURING OR AFTER DENTAL APPOINTMENT, VAGINAL/RECTAL EXAMINATION, SURGICAL PROCEDURE, OR ANY OTHER EXPOSURE?NO LATEX RISK : HAVE YOU EVER HAD ANY DIFFICULTY BREATHING OR HIVES AFTER EATING OR HANDLING ANY FRUITS, OR VEGETABLES; SUCH KIWI, BANANAS, STONE FRUITS, OR CHESTNUTSNO LATEX RISK : DO YOU HAVE A PREVIOUS PERSONAL HISTORY OF MORE THAN NINE SURGERIES, SPINA BIFIDA, OR REPEATED CATHERTIZATIONS? YES - PLEASE INDICATE : > 9 SURGERIES LATEX RISK : ARE YOU FREQUENTLY EXPOSED TO LATEX PRODUCTS IN YOUR OCCUPATION?NO DATE ASKED : 08/07/2018 BMI CARE GOAL FOLLOW-UP ABOVE NORMAL BMI FOLLOW-UPDIETARY MANAGEMENT EDUCATION, GUIDANCE, AND COUNSELING ALCOHOL SCREENING DID YOU HAVE A DRINK CONTAINING ALCOHOL IN THE PAST YEAR?NO POINTS0 INTERPRETATIONNEGATIVE RECREATIONAL DRUG USE DRUG USE?NO CAFFEINE CAFFEINE USE?YES HOW OFTEN AND HOW MUCH? 2 CUPS PER DAY SEXUAL HX HAD SEX IN THE LAST 12 MONTHS (VAGINAL, ORAL, OR ANAL)?YES WITHMEN ONLY USE PROTECTION?NO HAVE YOU EVER HAD AN STD?YES CHLAMYDIA?YES HIV / HEP-C SCREENING HIV TEST OFFERED TO PATIENT:YES DATE OFFERED:03/19/2018 TEST ACCEPTED:NO HEP-C TEST OFFERED TO PATIENT:NO REASON:PATIENT DECLINED BROCHURE PROVIDED TO PATIENTYES BUDDHIST [id number] NONE LANGUAGE LANGUAGES SPOKEN:CAPE VERDEAN EDUCATION LEVEL OF EDUCATION:COLLEGE LEARNING BARRIERS / SPECIAL NEEDS CHANGE FROM LAST VISIT?NO BARRIERS TO LEARNING?NO HEARING IMPAIRED?NO VISION IMPAIRED?NO COGNITIVELY IMPAIRED?NO READINESS TO LEARN?YES LEARNING PREFERENCES?NO LEARNING CAPABILITIES PRESENT?YES EMOTIONAL BARRIERS?NO SPECIAL DEVICES?NO ELECTROLYSIS ENGINEER NEEDED?NO DOMESTIC VIOLENCE DO YOU FEEL SAFE IN YOUR ENVIRONMENT?YES OCCUPATION: RETIRED. DIET: REGULAR. EXERCISE: NO REGULAR EXERCISE. MARITAL STATUS: . OTHERS AT HOME: SPOUSE, CHILDREN. PAIN CLINIC PFS, CLERGY, PUBLIC HEALTH REFERRALS PFS REFERRAL NEEDED?NO CLERGY REFERRAL NEEDED?NO PUBLIC HEALTH REFERRAL NEEDED?NO WAS THE PROVIDER NOTIFIED OF ANY PERTINENT INFO?NO N/A HAS THE PATIENT BEEN EDUCATED REGARDING HIS/HER PLAN OF CARE?YES HAS THE PATIENT BEEN EDUCATED REGARDING PAIN, THE RISK FOR PAIN, THE IMPORTANCE OF EFFECTIVE PAIN MANAGEMENT, AND THE PAIN ASSESSMENT PROCESS?YES ADVANCE DIRECTIVE ADVANCE DIRECTIVE DISCUSSED WITH PATIENT:YES HCP--KEIRY FARNSWORTH [phone] REVIEWED WITH PATIENT 08/07/18 0943 JS. HOSPITALIZATION/MAJOR DIAGNOSTIC PROCEDURE SEIZURES PNEUMONIA MINI STROKE 2009 REVIEW OF SYSTEMS REVIEWED BY: PROVIDER: ANA . CONSTITUTIONAL: ANY CHANGE IN YOUR MEDICAL CONDITION? NO . CHILLS NO . FEVER NO . INFECTION: DO YOU HAVE NEW INFECTIONS? YES, STATES EAR AND SINUS INFECTION, STILL TAKING THE ANTIBIOTICS, HAS A FEW DAYS LEFT . DO YOU HAVE HISTORY OF MRSA? NO . MUSCULOSKELETAL: ANY NEW PATTERNS OF PAIN OR NUMBNESS? NO . GASTROENTEROLOGY: ANY NEW CHANGE IN BOWEL CONTROL? NO . GENITOURINARY: ANY NEW CHANGE IN BLADDER CONTROL? YES, INTERSTIM IN BLADDER NOT WORKING PROPERLY . IS THERE A CHANCE YOU COULD BE ? NO . HEMATOLOGY/LYMPH: DO YOU TAKE ANY BLOOD THINNERS? (FOR EXAMPLE- COUMADIN, PLAVIX, AGGRENOX, PLATEL, PRADAXA, OR XARELTO) NO . WHEN WAS YOUR LAST DOSE? DATE: TIME: . NEUROLOGY: HAVE YOU FALLEN IN THE PAST 12 MONTHS? YES, STATES FALL IN JUNE WALKING DOWN THE STAIRS. STATES NO INJURIES, NO ED VISIT . ANY NEW EXTREMITY NUMBNESS OR WEAKNESS? NO . CARDIOLOGY: DO YOU HAVE A PACEMAKER OR DEFIBRILLATOR? NO . RESPIRATORY: HAVE YOU BEEN SICK IN THE PAST WEEK? YES, EAR AND SINUS INFECTION . FEVER NO . FLU LIKE SYMPTOMS? NO . COUGH NO . INTEGUMENTARY: DO YOU HAVE ANY RASHES OR OPEN SORES? NO . ALLERGIC/IMMUNO: ARE YOU ALLERGIC TO IV DYE? NO . ANY NEW ALLERGIES? NO . PSYCHIATRIC: DO YOU HAVE THOUGHTS OF HURTING YOURSELF OR SOMEONE ELSE? NO . ARE YOU ABUSED, NEGLECTED, OR IN AN UNSAFE ENVIRONMENT? NO . ENDOCRINOLOGY: ARE YOU DIABETIC? NO . OTHER: DO YOU NEED ANY PRESCRIPTIONS? YES . IF YES, PLEASE LIST: ____MOVANTIK . ANY NEW PROBLEMS WITH YOUR MEDICATIONS? NO . WHEN DID YOU LAST EAT? ____ . WHEN DID YOU LAST DRINK? ____ . WHAT DID YOU LAST DRINK? ____ . NAME OF PERSON DRIVING YOU HOME? ____ . DO YOU HAVE ANY OTHER QUESTIONS OR CONCERNS NO . VITAL SIGNS WT 260.4 LBS, HT 67 IN, BMI 40.78 INDEX, BP 121/88 MM HG, HR 107 /MIN, RR 18 /MIN, TEMP 98.2 F, OXYGEN SAT % 97%, SAFE IN ENV? (Y/N) YES, REVIEWED BY: JS. EXAMINATION GENERAL EXAMINATION: GENERAL APPEARANCE:NO ACUTE DISTRESS, WELL NOURISHED AND HYDRATED. PSYCHAPPROPRIATE MOOD AND AFFECT . NECK:LIMITED ROM TRIGGER POINT ALONG PARACERVICAL MUSCLES BANDS OF TISSUE NOTED TENDER ALONG THE TRAPEZIUS SPURLING TEST L SIDE +. LUNGS:CLEAR TO AUSCULTATION BILATERALLY, NO WHEEZES, RHONCHI, RALES. HEART:NO MURMURS, REGULAR RATE AND RHYTHM. BACK: LIMITED ROM , LUMBAR PARASPINAL TENDERNESS TRIGGER POINT AND BANDS OF TISSUE ON LUMBAR SPINE. PAIN WITH EXTENSION AND ROTATION OF LUMBAR SPINE. 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 CLINICAL NOTES: ISTOP REGISTRY REVIEWED AND DEMONSTRATES COMPLLIANCE. (REF # [id number]) BRINGS IN MEDICATIONS WHICH IS APPROPRIATE FOR WHAT WAS DISPENSED. RECENT URINE TOXICOLOGY REVIEWED. NO UNAUTHORIZED MEDICATIONS. NO ILLICIT SUBSTANCES AND PRESCRIBED MEDICATIONS WERE PRESENT. , [facility] NARCOTIC AGREEMENT WAS REVIEWED AND SIGNED TODAY BY THE PATIENT. SEE ATTACHED DOCUMENT FOR FULL DETAILS; SPECIFIC ISSUES WERE REVIEWED: 1) KEEP PAIN MEDS IN THEIR ORIGINAL BOTTLES AND ANY WEEKLY PLANNERS ARE TO BE BROUGHT TO THE PAIN CENTER AT EVERY VISIT. 2) THE PATIENT IS NOT TO INCREASE DOSING OR TIMING OF THEIR PAIN MEDICATION WITHOUT SPECIFIC DIRECTION OF THEIR PAIN CENTERPROVIDER (NOT ER OR OTHER PROVIDERS). 3) ALL PAIN MEDS ARE TO BE KEPT SECURED, IN A LOCKED BOX. 4) NO PAIN MEDS ARE TO BE SHARED WITH ANY OTHER PERSON FOR ANY REASON. 5) NO PAIN MEDS MAY BE TAKEN FROM ANY FRIENDS OR RELATIVES FOR ANY REASON 6) NO MEDS OR SUBSTANCES WHICH ARE NOT LEGAL ARE TO BE USED- NO MARIJUANA, NO COCAINE, AMPHETAMINES, HEROIN, OR OTHERS ARE EVER TO BE USED. 7)URINE TESTING IS DONE TO ACCOUNT FOR MEDS AND SUBSTANCES BEING TAKEN AND WILL BE DONE RANDOMLY.URINE TOX TODAY. POSTLAMINECTOMY SYNDROME, NOT ELSEWHERE CLASSIFIED CONTINUE MOVANTIK TABLET, 25 MG, 1 TABLET IN THE MORNING, ORALLY, ONCE A DAY, 90 DAYS, 90 TABLET, REFILLS 0 CERVICAL DISC DISORDER WITH RADICULOPATHY OF CERVICOTHORACIC REGION [facility] CT SPINE,CERVICAL W/O [id number] CLINICAL NOTES: REFERRAL TO NEUROLOGY- DR FUNEZ . LUMBAR DISC DISPLACEMENT WITHOUT MYELOPATHY CLINICAL NOTES: TPI LUMBAR SPINE AND NECK/SHOULDERS. PREVENTIVE MEDICINE PAIN CLINIC TEACHING: PROCEDURE TEACHING PRINTED AND REVIEWED INFORMATION ON TRIGGER POINT INJECTION PROCEDURE WITH PATIENT. ALSO REVIEWED PRE-PROCEDURE INSTRUCTIONS. PATIENT VERBALIZED AN UNDERSTANDING. AUSTIN VAIL 08/07/2018 10:36:06 AM > . PROCEDURE CODES FA211 ESTABILISHED PATIENT [facility] CHARGE DISPOSITION & COMMUNICATION FOLLOW UP POST PROCEDURE (REASON: TPI LUMBAR SPINE AND NECK/SHOULDERS) ELECTRONICALLY SIGNED BY MARY ARRIOLA ON 08/07/2018 AT 04:14 PM EDT DISCLAIMER : THIS IS A VISIT SUMMARY EXTRACTED FROM THE [employer] CHART. IT IS NOT A COPY OF THE [employer] PROGRESS NOTE. MARCIN
== END ==
LOC: M PAIN 09:15
PROVIDERS: ATTEND Nurse Practitioner Family
DX: M79.10 Myalgia, unspecified site (principal); M96.1 Postlaminectomy syndrome, not elsewhere classified; M50.13 Cervical disc disorder with radiculopathy, cervicothoracic region; M51.26 Other intervertebral disc displacement, lumbar region; I10 Essential (primary) hypertension; E78.00 Pure hypercholesterolemia, unspecified; J45.909 Unspecified asthma, uncomplicated; F17.210 Nicotine dependence, cigarettes, uncomplicated; E66.01 Morbid (severe) obesity due to excess calories; Z68.41 Body mass index [BMI] 40.0-44.9, adult; Z79.891 Long term (current) use of opiate analgesic; Z79.899 Other long term (current) drug therapy; Z88.0 Allergy status to penicillin; Z88.1 Allergy status to other antibiotic agents; Z88.8 Allergy status to other drugs, medicaments and biological substances; Z91.030 Bee allergy status; Z91.018 Allergy to other foods; Z86.69 Personal history of other diseases of the nervous system and sense organs

== ENCOUNTER 2018-09-05 11:50 | Emergency (ER) | payer OTHER, MEDICARE ==
[~2018-09-05] VITALS: Ht 175.3 cm; Wt 117.7 kg
[2018-09-05] MEDS ORDERED: ALBUTEROL SULFATE 2.5 MG/0.5 ML INH NEB SOLN INH ONE (12:45)
[2018-09-05] MEDS ORDERED: dexameTHASONE 20 MG/5 ML VIAL (J1100) IV ONE (12:45)
[2018-09-05] MEDS ORDERED: NS 1,000 ML IV ONE (12:45)
[2018-09-05] MEDS ORDERED: IPRATROPIUM 0.5MG/ALBUTEROL 2.5MG INH SOL UD 3ML (DUONEB)(J7620) NEB ONE (12:45)
[2018-09-05 13:05] LABS: BASO # 0.1 10^3/uL (0.0-0.2); BASO % 0.4 % (0.0-1.0); EOS # 0.2 10^3/uL (0.0-0.50); EOS % 1.1 % (0.0-3.0); HEMOGLOBIN 13.1 g/dl (12.0-15.5); LYMPH # 2.4 10^3/uL (1.5-4.5); LYMPH % 17.3 % (24.0-44.0); MEAN CORPUSCULAR HEMOGLOBIN 30.6 pg (27.0-33.0); MEAN CORPUSCULAR HGB CONC 33.6 g/dl (32.0-36.5); MEAN CORPUSCULAR VOLUME 91.1 fl (80.0-96.0); MONO # 0.9 10^3/uL (0.0-0.8); MONO % 6.2 % (0.0-5.0); NEUTROPHILS # 10.4 10^3/uL (1.8-7.7); NEUTROPHILS % 74.6 % (36.0-66.0); PLATELET COUNT, AUTOMATED 306 10^3/uL (150-450); RED BLOOD COUNT 4.28 10^6/uL (4.00-5.40); WHITE BLOOD COUNT 13.9 10^3/uL (4.0-10.0)
[2018-09-05 13:19] LABS: INR 0.91; PROTHROMBIN TIME 12.4 SECONDS (12.1-14.4)
--- NOTE | 2018-09-05 13:34 | REP ---
Clinical: cough and dyspnea. Comparison: 08/02/2018. Findings: The mediastinum and cardiac silhouette are stable and within normal limits for portable technique. The lung alfaro are clear without acute consolidation, effusion, or pneumothorax. Skeletal structures are intact. Impression: No acute cardiopulmonary process appreciated. Electronically Signed by Estiven Montenegro MD 09/05/2018 01:26 P
[2018-09-05 13:37] LABS: ALBUMIN 3.8 GM/DL (3.2-5.2); ALT/SGPT 36 U/L (12-78); BILIRUBIN,DIRECT < 0.1 MG/DL (0.0-0.2); BILIRUBIN,TOTAL 0.2 MG/DL (0.2-1.0); BLOOD UREA NITROGEN 8 MG/DL (7-18); CALCIUM LEVEL 8.9 MG/DL (8.5-10.1); CARBON DIOXIDE LEVEL 25 MEQ/L (21-32); CHLORIDE LEVEL 106 MEQ/L (98-107); CPK CREATINE PHOSPHOKINASE 193 U/L (26-192); CREATININE FOR GFR 1.01 MG/DL (0.55-1.30); GLOMERULAR FILTRATION RATE > 60.0 (>58); GLUCOSE, FASTING 110 MG/DL (70-100); MB/CK RELATIVE INDEX 0.67 (< OR =4); POTASSIUM SERUM 4.2 MEQ/L (3.5-5.1); SODIUM LEVEL 139 MEQ/L (136-145); TROPONIN I < 0.02 NG/ML (< 0.10)
[2018-09-05 13:39] LABS: INFLUENZA A AMPLIFICATION NEGATIVE (NEGATIVE); INFLUENZA B AMPLIFICATION NEGATIVE (NEGATIVE)
[2018-09-05 14:26] LABS: D-DIMER QUANT 675.95 ng/ml (<500)
[2018-09-05] MEDS ORDERED: KETOROLAC 30 MG/ML VIAL (J1885) IV ONE (14:30)
[2018-09-05 14:53] LABS: VENOUS BASE EXCESS -6.1 (-2.0-2.0); VENOUS HCO3 19.1 MEQ/L (23.0-27.0); VENOUS O2 SATURATION 97.1 % (60.0-80.0); VENOUS PARTIAL PRESSURE CO2 36.8 mmHg (38.0-50.0); VENOUS PARTIAL PRESSURE O2 91.8 mmHg (30.0-50.0); VENOUS PH 7.333 UNITS (7.330-7.430); VENOUS STANDARD HCO3 19.5 MEQ/L; VENOUS TOTAL CO2 20.2 MEQ/L (24.0-28.0)
[2018-09-05] MEDS ORDERED: ISOVUE-370 76% 100ML VIAL (Q9967) As Ordered ONE (15:14)
--- NOTE | 2018-09-05 15:40 | REP ---
Clinical: Shortness of breath. Technique: Axial contrast enhanced images from the thoracic inlet to the upper abdomen with multiplanar re-formations using 100 ml Isovue 370 intravenous contrast material. Findings: Suboptimal enhancement of the pulmonary vasculature may be secondary to timing of image acquisition in relation to the contrast bolus. Evaluation for pulmonary emboli is significantly limited, but no obvious main or second order pulmonary emboli are not definitively identified. Thoracic aorta is normal in appearance and without aneurysm or dissection. Heart and pericardium are normal. The bilateral lung alfaro are relatively well aerated and without consolidation, nodule or mass. No effusion. No pneumothorax. Tracheobronchial tree is patent. No obvious adenopathy. Musculoskeletal structures are intact. Impression: 1. Suboptimal evaluation for pulmonary embolus. No obvious main or second order pulmonary emboli identified. 2. No acute mediastinal or pleuroparenchymal process appreciated. Electronically Signed by Estiven Montenegro MD 09/05/2018 03:32 P
[2018-09-05] MEDS ORDERED: AZIT500T2 PO (16:38)
[2018-09-05] MEDS ORDERED: PRED20TA PO (16:38)
[2018-09-05] MEDS ORDERED: AZITHROMYCIN 250 MG TAB PO ONE (16:45)
[2018-09-05 17:12] VITALS: BP 131/76
--- NOTE | 2018-09-06 07:20 | ECGEPIP ---
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
== END 2018-09-05 17:08 | disposition home or self-care (01) ==
LOC: M ED 11:50
DX: J98.01 Acute bronchospasm (principal); J44.0 Chronic obstructive pulmonary disease with (acute) lower respiratory infection; J45.909 Unspecified asthma, uncomplicated; K21.9 Gastro-esophageal reflux disease without esophagitis; Z79.899 Other long term (current) drug therapy; Z88.0 Allergy status to penicillin; Z88.1 Allergy status to other antibiotic agents; Z91.018 Allergy to other foods; Z91.030 Bee allergy status; Z91.048 Other nonmedicinal substance allergy status; F17.210 Nicotine dependence, cigarettes, uncomplicated
CPT/HCPCS: 36415; 71045; 71275; 80048; 80076; 82550; 82553; 82803; 84484; 85025; 85379; 85610; 87040; 87070; 87205; 87502; 93005; 93041; 94640; 96361; 96374; 96375; 99285; J1100; J1885; Q9967

== ENCOUNTER → 2018-09-17 | Outpatient (REF) | payer OTHER, MEDICARE ==
[~2018-09-17] MED LIST changes: +ADV500INH; +AZIT500T2 PO; +BENZ-18; +BUSP15TA47; +CARI1TAB7; +FLUT1BLS6; +HYDR-3363 PO; +LORA-674; +PRED20TA PO; +RANI150T14; +ROSU40TA4 PO; +SPIR1AER; +SULF1TAB93; +TROS20TA3 PO
[2018-09-17 17:26] LABS: HEMATOCRIT 42.4 % (36.0-47.0); HEMOGLOBIN 13.5 g/dl (12.0-15.5); MEAN CORPUSCULAR HEMOGLOBIN 30.7 pg (27.0-33.0); MEAN CORPUSCULAR HGB CONC 31.8 g/dl (32.0-36.5); MEAN CORPUSCULAR VOLUME 96.4 fl (80.0-96.0); PLATELET COUNT, AUTOMATED 301 10^3/uL (150-450)
[2018-09-17 17:36] LABS: WHITE BLOOD COUNT 17.4 10^3/uL (4.0-10.0)
[2018-09-17 21:08] LABS: ATYPICAL LYMPH 3 % (0-5); EOSINOPHILS 1 % (0-5); LYMPHOCYTES 34 % (16-52); MONOCYTES 5 % (0-8); NEUTROPHILS 57 % (35-75); PLATELET ESTIMATE NORMAL (NORMAL)
== END ==
LOC: M SFHCLERA 12:54
PROVIDERS: ATTEND Nurse Practitioner Family
DX: J45.901 Unspecified asthma with (acute) exacerbation (principal)
CPT/HCPCS: 85025; 96372; G0463; J1885

== ENCOUNTER → 2018-09-19 | Outpatient (CLI) | payer OTHER, MEDICARE ==
[~2018-09-19] MED LIST changes: -ADV500INH; -BENZ-18; -BUSP15TA47; -CARI1TAB7; -FLUT1BLS6; -HYDR-3363 PO; -LORA-674; -RANI150T14; -ROSU40TA4 PO; -SPIR1AER; -SULF1TAB93; -TROS20TA3 PO
== END ==
LOC: M LAB 09:28
PROVIDERS: ATTEND Nurse Practitioner Family
DX: D72.820 Lymphocytosis (symptomatic) (principal)

== ENCOUNTER 2018-09-24 19:31 | Emergency (ER) | payer OTHER, MEDICARE ==
[~2018-09-24] VITALS: Ht 170.2 cm; Wt 118.2 kg
[2018-09-24 19:32] VITALS: BP 130/67
== END 2018-09-24 21:54 | disposition left against medical advice (07) ==
LOC: M ED 19:31
DX: Z53.29 Procedure and treatment not carried out because of patient's decision for other reasons (principal)

== ENCOUNTER → 2018-09-27 | Outpatient (REF) | payer OTHER, MEDICARE ==
[2018-09-27 17:17] LABS: BASO # 0.1 10^3/uL (0.0-0.2); BASO % 0.5 % (0.0-1.0); EOS # 0.3 10^3/uL (0.0-0.50); EOS % 3.4 % (0.0-3.0); HEMATOCRIT 40.8 % (36.0-47.0); LYMPH # 3.4 10^3/uL (1.5-4.5); LYMPH % 36.7 % (24.0-44.0); MEAN CORPUSCULAR HEMOGLOBIN 30.4 pg (27.0-33.0); MEAN CORPUSCULAR HGB CONC 31.9 g/dl (32.0-36.5); MEAN CORPUSCULAR VOLUME 95.6 fl (80.0-96.0); MONO # 0.5 10^3/uL (0.0-0.8); MONO % 5.7 % (0.0-5.0); NEUTROPHILS # 4.9 10^3/uL (1.8-7.7); NEUTROPHILS % 53.2 % (36.0-66.0); PLATELET COUNT, AUTOMATED 261 10^3/uL (150-450); RED BLOOD COUNT 4.27 10^6/uL (4.00-5.40); WHITE BLOOD COUNT 9.3 10^3/uL (4.0-10.0)
== END ==
LOC: M SFHCLERA 11:00
PROVIDERS: ATTEND Nurse Practitioner Family
DX: D72.829 Elevated white blood cell count, unspecified (principal)

== ENCOUNTER → 2018-10-02 | Outpatient (CLI) | payer OTHER ==
--- NOTE | 2018-10-03 08:45 | REP ---
Maxillofacial CT study without contrast: History: Sinusitis. Comparison is made with head CT images from a April. Findings: The patient is edentulous. The frontal sinuses are small and clear. Ethmoid and sphenoid aeration is normal. The maxillary sinuses are clear. The patient is status post left mastoidectomy. The right mastoid sinus is aerated, although small. No other petrous bone abnormality is appreciated. No intraorbital abnormality is seen. The visualized intracranial and deep facial soft tissues are unremarkable. Nasal turbinate soft tissues are normal and symmetric. There is no evidence of nasal polyp. Bony nasal septum is midline. Ostiomeatal complexes are patent. Impression: Patient status post left mastoidectomy. Otherwise normal maxillofacial CT study. Electronically Signed by Carlos Eduardo Pearce MD 10/03/2018 08:37 A
== END ==
LOC: M RAD 16:55
PROVIDERS: ATTEND Internal Medicine Pulmonary Disease
DX: Z87.09 Personal history of other diseases of the respiratory system (principal); Z86.69 Personal history of other diseases of the nervous system and sense organs

== ENCOUNTER → 2018-10-11 | Outpatient (CLI) | payer OTHER ==
[~2018-10-11] MED LIST changes: +ADV500INH; +BENZ-18; +BUSP15TA47; +CARI1TAB7; +FLUT1BLS6; +HYDR-3363 PO; +LORA-674; +RANI150T14; +ROSU40TA3 PO; +SPIR1AER; +SULF1TAB93; +TROS20TA3 PO
--- NOTE | 2018-10-11 09:51 | REP ---
Clinical: Cough . Comparison: 09/05/2018 . Technique: PA and lateral. Findings: The mediastinum and cardiac silhouette are normal. The lung alfaro are clear and without acute consolidation, effusion, or pneumothorax. The skeletal structures are intact and normal. Impression: 1. No acute cardiopulmonary process. Electronically Signed by Estiven Montenegro MD 10/11/2018 09:41 A
== END ==
LOC: M LAB 09:15
PROVIDERS: ATTEND Internal Medicine Pulmonary Disease
DX: R05 Cough (principal)

== ENCOUNTER 2018-10-12 15:46 | Emergency (ER) | payer OTHER ==
[~2018-10-12] VITALS: Ht 172.7 cm; Wt 119.7 kg
[~2018-10-12 15:46] MED LIST changes: -ADV500INH; -AZIT500T2 PO; +AZIT500T5 PO; -BENZ-18; -BUSP15TA47; -CARI1TAB7; -FLUT1BLS6; -HYDR-3363 PO; -LORA-674; -RANI150T14; -ROSU40TA3 PO; -SPIR1AER; -SULF1TAB93; -TROS20TA3 PO; +ZONI100C17 PO
[2018-10-12] MEDS ORDERED: HYDR-3363 PO (16:18)
[2018-10-12] MEDS ORDERED: RANI150T14 (16:18)
[2018-10-12] MEDS ORDERED: LORA-674 (16:18)
[2018-10-12] MEDS ORDERED: FLUT1BLS6 (16:18)
[2018-10-12] MEDS ORDERED: BUSP15TA47 (16:18)
[2018-10-12] MEDS ORDERED: SULF1TAB93 (16:18)
[2018-10-12] MEDS ORDERED: TROS20TA3 PO (16:18)
[2018-10-12] MEDS ORDERED: SPIR1AER (16:18)
[2018-10-12] MEDS ORDERED: CARI1TAB7 (16:18)
[2018-10-12] MEDS ORDERED: ADV500INH (16:18)
[2018-10-12] MEDS ORDERED: ROSU40TA4 PO (16:18)
[2018-10-12] MEDS ORDERED: BENZ-18 (16:18)
--- NOTE | 2018-10-12 16:20 | REP ---
CT of the brain without IV contrast: Comparisons are 03/25/2010 and 05/05/2014. There is no hemorrhage. There is no edema, mass effect or midline shift. The cortical stripe is unremarkable. Ventricles are normal size and midline. The visualized paranasal sinuses are unremarkable. The mastoids are sclerotic bilaterally, however this is unchanged from both prior studies. There is a left mastoidectomy. This is unchanged from both prior studies. Impression: There is no hemorrhage, acute infarct or mass. The mastoids are chronically sclerotic, unchanged. There is a left mastoidectomy, unchanged. Electronically Signed by Corey Ford MD 10/12/2018 04:12 P
[2018-10-12] MEDS ORDERED: KETOROLAC 30 MG/ML VIAL (J1885) IV ONE (16:30)
[2018-10-12] MEDS ORDERED: METOCLOPRAMIDE INJ 10MG/2ML VIAL (J2765) IV ONE (16:30)
[2018-10-12 17:49] VITALS: BP 112/58
[2019-02-08] MEDS ORDERED: NEXI20CA PO (11:32)
[2019-02-08] MEDS ORDERED: VITA-199 PO (11:32)
== END 2018-10-12 17:54 | disposition home or self-care (01) ==
LOC: M ED 15:46
DX: G43.109 Migraine with aura, not intractable, without status migrainosus (principal); G89.29 Other chronic pain; M54.12 Radiculopathy, cervical region; I10 Essential (primary) hypertension; N80.9 Endometriosis, unspecified; J45.909 Unspecified asthma, uncomplicated; E66.9 Obesity, unspecified; E07.9 Disorder of thyroid, unspecified; F32.9 Major depressive disorder, single episode, unspecified; F41.9 Anxiety disorder, unspecified; Z87.442 Personal history of urinary calculi; Z88.0 Allergy status to penicillin; Z88.8 Allergy status to other drugs, medicaments and biological substances; Z91.018 Allergy to other foods; Z91.030 Bee allergy status; Z91.048 Other nonmedicinal substance allergy status; Z79.899 Other long term (current) drug therapy; Z79.51 Long term (current) use of inhaled steroids; Z96.9 Presence of functional implant, unspecified
CPT/HCPCS: 70450; 96374; 96375; 99284; J1885; J2765

== ENCOUNTER → 2018-10-12 | Outpatient (REF) | payer OTHER | LOC: M LAB REF 11:57 | PROVIDERS: ATTEND Internal Medicine Pulmonary Disease | DX: R05 Cough (principal) ==

== ENCOUNTER → 2018-11-14 | Outpatient (REF) | payer OTHER, MEDICARE ==
[~2018-11-14] MED LIST changes: +ADV500INH; +AZIT500T2 PO; -AZIT500T5 PO; +BENZ-18; +BUSP15TA47; +CARI1TAB7; +FLUT1BLS6; +HYDR-3363 PO; +LORA-674; +RANI150T14; +ROSU40TA4 PO; +SPIR1AER; +SULF1TAB93; +TROS20TA3 PO; -ZONI100C17 PO
[2018-11-14 12:58] LABS: BASO # 0.1 10^3/uL (0.0-0.2); BASO % 0.8 % (0.0-1.0); EOS # 0.3 10^3/uL (0.0-0.50); EOS % 3.6 % (0.0-3.0); HEMATOCRIT 38.8 % (36.0-47.0); HEMOGLOBIN 12.9 g/dl (12.0-15.5); LYMPH % 39.6 % (24.0-44.0); MEAN CORPUSCULAR HEMOGLOBIN 30.8 pg (27.0-33.0); MEAN CORPUSCULAR HGB CONC 33.2 g/dl (32.0-36.5); MEAN CORPUSCULAR VOLUME 92.6 fl (80.0-96.0); MONO # 0.7 10^3/uL (0.0-0.8); MONO % 9.1 % (0.0-5.0); NEUTROPHILS # 3.5 10^3/uL (1.8-7.7); NEUTROPHILS % 46.5 % (36.0-66.0); PLATELET COUNT, AUTOMATED 289 10^3/uL (150-450); RED BLOOD COUNT 4.19 10^6/uL (4.00-5.40); WHITE BLOOD COUNT 7.6 10^3/uL (4.0-10.0)
[2018-11-14 13:13] LABS: ALBUMIN 3.5 GM/DL (3.2-5.2); ALT/SGPT 35 U/L (12-78); BILIRUBIN,TOTAL 0.1 MG/DL (0.2-1.0); BLOOD UREA NITROGEN 10 MG/DL (7-18); CALCIUM LEVEL 8.6 MG/DL (8.5-10.1); CARBON DIOXIDE LEVEL 26 MEQ/L (21-32); CHLORIDE LEVEL 109 MEQ/L (98-107); CHOLESTEROL LEVEL 165 MG/DL (<200); CHOLESTEROL RISK RATIO 4.714 (<5); CREATININE FOR GFR 0.93 MG/DL (0.55-1.30); FREE T4 0.89 NG/DL (0.76-1.46); GLOMERULAR FILTRATION RATE > 60.0 (>58); GLUCOSE, FASTING 108 MG/DL (70-100); HDL CHOLESTEROL 35 MG/DL (>40); LDL CHOLESTEROL 69 MG/DL (<100); NON-HDL-C 130 MG/DL; POTASSIUM SERUM 3.9 MEQ/L (3.5-5.1); SODIUM LEVEL 140 MEQ/L (136-145); TOTAL 25(OH) VITAMIN D 26.2 NG/ML (30.0-100.0); TOTAL PROTEIN 6.9 GM/DL (6.4-8.2); TRIGLYCERIDES LEVEL 306 MG/DL (<150)
== END ==
LOC: M SFHCLERA 08:36
PROVIDERS: ATTEND Nurse Practitioner Family
DX: Z13.220 Encounter for screening for lipoid disorders (principal); Z13.1 Encounter for screening for diabetes mellitus; E03.9 Hypothyroidism, unspecified; Z86.39 Personal history of other endocrine, nutritional and metabolic disease

== ENCOUNTER → 2018-12-06 | Outpatient (CLI) | payer OTHER, MEDICARE ==
--- NOTE | 2018-12-07 16:32 | REP ---
LEFT SHOULDER SERIES: Left shoulder series performed, three total views obtained. The study is performed 12/06/2018 at 12:06 pm and is submitted for interpretation at 4:00 pm 12/07/2018 for reasons unknown to me. There is no acute fracture or dislocation. There is mild narrowing of the acromioclavicular joint. No bone lesions are seen. IMPRESSION: Mild degenerative changes AC joint. Electronically Signed by Corey Goldman MD 12/09/2018 11:06 P
== END ==
LOC: M LRY 11:42
PROVIDERS: ATTEND Nurse Practitioner Family
DX: M19.011 Primary osteoarthritis, right shoulder (principal)

== ENCOUNTER → 2018-12-11 | Outpatient (REF) | payer MEDICARE, OTHER | LOC: M SFHCLERA 09:10 | PROVIDERS: ATTEND Nurse Practitioner Family | DX: Z01.419 Encounter for gynecological examination (general) (routine) without abnormal findings (principal) ==

== ENCOUNTER → 2018-12-12 | Outpatient (CLI) | payer OTHER, MEDICARE ==
[~2018-12-12] MED LIST changes: +BUPIVACAINE HCL 0.25% 10 ML VIAL As Ordered ONE; +BUPIVACAINE HCL 0.25% 30 ML VIAL As Ordered ONE; +TRIAMCINOLONE ACETONIDE SUSP 40 MG/ML VIAL (J3301) As Ordered ONE; +diazePAM 5 MG TAB As Ordered ONE
--- NOTE | 2018-12-20 02:16 | ECWPNPC ---
PATIENT NAME: PIYUSH FARNSWORTH : 1980 GENDER: FEMALE VISIT DATE: 12/12/2018 DISCHARGE DATE: 12/12/18 1123 VISIT LOCKED DATE TIME: PHYSICIAN: KRISTINA MAZARIEGOS MD RESOURCE: KRISTINA MAZARIEGOS MD REASON FOR APPOINTMENT 1. TPI NECK/SHOULDERS/THORACIC HISTORY OF PRESENT ILLNESS HISTORY OF PRESENT ILLNESS: PAIN THE PATIENT DESCRIBES THE PAIN... FALL RISK SCREENING: SCREENING :NO FALLS REPORTED IN THE LAST YEAR CURRENT MEDICATIONS TAKING LYRICA 150 MG CAPSULE 1 CAPSULE ORALLY THREE TIMES A DAY TAKING SYNTHROID 25 25MCG TABLET 1 CAP ORAL DAILY TAKING ALBUTEROL SULFATE (2.5 MG/3ML) 0.083% NEBULIZATION SOLUTION 3 ML INHALATION EVERY 4 HOURS NEEDED TAKING TRAZODONE HCL 100 MG TABLET 4 TABLET AT BEDTIME ORALLY ONCE A DAY TAKING SUMATRIPTAN SUCCINATE 100 MG TABLET 1 TABLET NEEDED ORALLY DIRECTED TAKING EPIPEN 0.3 MG/0.3ML (1:1000) DEVICE INTRAMUSCULAR DIRECTED TAKING FLONASE 50 MCG/DOSE INHALER 2 SPRAY IN EACH NOSTRIL NASALLY ONCE A DAY TAKING POTASSIUM CHLORIDE 20 MEQ TABLET EXTENDED RELEASE 1 CAPSULE WITH FOOD ORALLY TID TAKING IMITREX 6 MG/0.5ML SOLUTION 0.5 ML NEEDED SUBCUTANEOUS TWICE A DAY TAKING NEXIUM 40 MG CAPSULE DELAYED RELEASE 1 CAPSULE ORALLY TWICE A DAY TAKING ROSUVASTATIN CALCIUM 40 MG TABLET 1 CAP ORALLY DAILY TAKING NARCAN 4 MG/0.1ML LIQUID DIRECTED NASALLY FOR SYMPTOMS OF OVERDOSE OR RESP DEPRESSION - CALL 911 TAKING TROSPIUM CHLORIDE 20 MG TABLET 1 TABLET AT BEDTIME ON AN EMPTY STOMACH ORALLY BID, NOTES: [facility] TAKING CYMBALTA 60 MG CAPSULE DELAYED RELEASE PARTICLES 1 CAPSULE ORALLY TWICE A DAY, NOTES: [facility] T[facility]ING CELEBREX 200 MG CAPSULE 1 CAPSULE ORALLY ONCE A DAY TAKING TOPAMAX 50 MG TABLET 1 TABLET ORALLY TWICE A DAY TAKING CLARITIN 10 MG TABLET 1 TABLET ORALLY ONCE A DAY TAKING RANITIDINE 1 TAB ORAL DAILY TAKING BUSPIRONE HCL 15 MG TABLET 1 TABLET ORALLY TWICE A DAY TAKING HYDROXYZINE HCL 25 MG TABLET 1 TABLET ORALLY DAILY TAKING MOVANTIK 25 MG TABLET 1 TABLET IN THE MORNING ORALLY ONCE A DAY TAKING ADVAIR DISKUS 500-50 MCG/DOSE MISCELLANEOUS 1 PUFF INHALATION TWICE A DAY TAKING CARISOPRODOL 350 MG TABLET 1 TABLET NEEDED ORALLY BID FOR SEVERE SPASM MDD=2 CODE D CHRONIC PAIN TAKING SPIRIVA HANDIHALER 1 CAPSULE INHALATION TWICE A DAY TAKING PERCOCET 10-325 MG TABLET 1 TABLET ORALLY EVERY 4 HRS PRN PAIN MDD = 6 NOT-TAKING MUCINEX 600 MG TABLET EXTENDED RELEASE 1 TABLET NEEDED ORALLY EVERY 12 HRS NOT-TAKING PREDNISONE 10 MG TABLET 4TAB X 3DAYS, 3TABS X 3DAYS, 2TABS X 3DAYS, 1TAB X 3DAYS ORALLY ONCE A DAY NOT-TAKING TESSALON PERLES 100 MG CAPSULE 1 CAPSULE NEEDED ORALLY BEFORE BEDTIME NOT-TAKING DOXYCYCLINE MONOHYDRATE 100 MG CAPSULE 1 CAPSULE ORALLY BID NOT-TAKING ASMANEX 120 METERED DOSES 220 MCG/INH AEROSOL POWDER BREATH ACTIVATED 1 PUFF IN THE EVENING INHALATION BID NOT-TAKING PREDNISONE 20 MG TABLET 1 TABLET ORALLY BID FOR 5 DAYS, NOTES: 09-06-18 NOT-TAKING AZITHROMYCIN (5 DAY) 250 MG TABLET 2 TABLET ORALLY ONCE A DAY/ 4 DAYS, NOTES: 09-06-18 NOT-TAKING PREDNISONE TAPER 1 TAB ORAL NOT-TAKING CEFDINIR 300 MG CAPSULE DIRECTED ORALLY BID NOT-TAKING FLUOXETINE 20 MG CAPSULE 2 CAPSULE IN THE MORNING ORALLY ONCE A DAY NOT-TAKING SINGULAIR 10 MG TABLET 1 TABLET IN THE EVENING ORALLY ONCE A DAY NOT-TAKING ADVAIR DISKUS 100-50 MCG/DOSE AEROSOL POWDER BREATH ACTIVATED 1 PUFF INHALATION TWICE A DAY NOT-TAKING LORATADINE 10 MG TABLET 1 TABLET ORALLY ONCE A DAY NOT-TAKING TESSALON PERLES 100 MG CAPSULE 1 CAPSULE NEEDED ORALLY THREE TIMES A DAY MEDICATION LIST REVIEWED AND RECONCILED WITH THE PATIENT PAST MEDICAL HISTORY HYPERTENSION HIGH CHOLESTEROL THYROID PROBLEM HERNIATED DISC DORSAL COLUMN STIMULATOR INTERSTIM BLADDER OAB EAR TUBES MASTOIDECTOMY X6 MIGRAINES ASTHMA ALLERGIES PENICILLIN (FOR ALLERGIES USE ONLY): ANAPHALAXIS - ALLERGY LEVAQUIN: ANAPHALAXIS - ALLERGY AMOXICILLIN: ANAPHALAXIS - ALLERGY MUSHROOMS: ANAPHALAXIS - ALLERGY BEES: ANAPHALAXIS - ALLERGY DOXYCYCLINE: RASH - ALLERGY SURGICAL HISTORY HYSTERECTOMY 2011 APENDIX OUT 2001 HEMROHDECTOMY 2010 BUNIONS REMOVED ON BOTH FEET 2013 RIGHT KNEE ARTHROSCOPY 1993 MULTIPLE LAPAROSCOPY FOR ENDOMETRIOSIS TONSILS AND ADNOIDS OUT 1979 KIDNEY STONES 08/2014 FAMILY HISTORY FATHER: ALIVE, DIAGNOSED WITH HYPERTENSION, CANCER MOTHER: ALIVE, OTHER, HYPERTENSION, CANCER 2 SON(S) , 1 DAUGHTER(S) . SON WITH SEVERE CROHNS DISEASE AND PYLODERMA GANGERINEOSA\NDAD-PROSTATE CA\NMOM-HIGH CHOLESTEROL AND BREAST CA. SOCIAL HISTORY GENERAL: TOBACCO USE ARE YOU A:CURRENT SMOKER HOW MANY CIGARETTES A DAY DO YOU SMOKE?6-10 HOW SOON AFTER YOU WAKE UP DO YOU SMOKE YOUR FIRST CIGARETTE?6-30 MIN HOW OFTEN DO YOU SMOKE CIGARETTES?SOME DAYS, BUT NOT EVERY DAY PATIENT COUNSELED ON THE DANGERS OF TOBACCO USE AND URGED TO QUIT:12/12/2018 SMOKING CESSATION INFORMATION GIVEN12/11/2018 HIV / HEP-C SCREENING HIV TEST OFFERED TO PATIENT:YES DATE OFFERED:03/19/2018 TEST ACCEPTED:NO HEP-C TEST OFFERED TO PATIENT:NO REASON:PATIENT DECLINED BROCHURE PROVIDED TO PATIENTYES OTHERS AT HOME: SPOUSE, CHILDREN. EDUCATION LEVEL OF EDUCATION:COLLEGE DIET: REGULAR. LANGUAGE LANGUAGES SPOKEN:MICRONESIAN DOMESTIC VIOLENCE DO YOU FEEL SAFE IN YOUR ENVIRONMENT?YES BMI CARE GOAL FOLLOW-UP ABOVE NORMAL BMI FOLLOW-UPDIETARY MANAGEMENT EDUCATION, GUIDANCE, AND COUNSELING RECREATIONAL DRUG USE DRUG USE?NO EXERCISE: NO REGULAR EXERCISE. LEARNING BARRIERS / SPECIAL NEEDS CHANGE FROM LAST VISIT?NO BARRIERS TO LEARNING?NO HEARING IMPAIRED?NO VISION IMPAIRED?NO COGNITIVELY IMPAIRED?NO READINESS TO LEARN?YES LEARNING PREFERENCES?NO LEARNING CAPABILITIES PRESENT?YES EMOTIONAL BARRIERS?NO SPECIAL DEVICES?NO UNIFORM CAP OPERATOR NEEDED?NO PAIN CLINIC PFS, CLERGY, PUBLIC HEALTH REFERRALS PFS REFERRAL NEEDED?NO CLERGY REFERRAL NEEDED?NO PUBLIC HEALTH REFERRAL NEEDED?NO WAS THE PROVIDER NOTIFIED OF ANY PERTINENT INFO?NO N/A HAS THE PATIENT BEEN EDUCATED REGARDING HIS/HER PLAN OF CARE?YES HAS THE PATIENT BEEN EDUCATED REGARDING PAIN, THE RISK FOR PAIN, THE IMPORTANCE OF EFFECTIVE PAIN MANAGEMENT, AND THE PAIN ASSESSMENT PROCESS?YES LATEX QUESTIONNAIRE LATEX ALLERGY : HAVE YOU EVER DEVELOPED ANY TYPE OF REACTION AFTER HANDLING LATEX PRODUCTS SUCH RUBBER GLOVES, CONDOMS, DIAPHRAGMS, BALLOONS, SOCKS, OR UNDERWEAR?NO LATEX ALLERGY : HAVE YOU EVER DEVELOPED ANY TYPE OF REACTION DURING OR AFTER DENTAL APPOINTMENT, VAGINAL/RECTAL EXAMINATION, SURGICAL PROCEDURE, OR ANY OTHER EXPOSURE?NO DATE ASKED : 08/07/2018 LATEX RISK : HAVE YOU EVER HAD ANY DIFFICULTY BREATHING OR HIVES AFTER EATING OR HANDLING ANY FRUITS, OR VEGETABLES; SUCH KIWI, BANANAS, STONE FRUITS, OR CHESTNUTSNO LATEX RISK : DO YOU HAVE A PREVIOUS PERSONAL HISTORY OF MORE THAN NINE SURGERIES, SPINA BIFIDA, OR REPEATED CATHERIZATIONS? YES - PLEASE INDICATE : > 9 SURGERIES LATEX RISK : ARE YOU FREQUENTLY EXPOSED TO LATEX PRODUCTS IN YOUR OCCUPATION?NO CAFFEINE CAFFEINE USE?YES HOW OFTEN AND HOW MUCH? 2 CUPS PER DAY ADVANCE DIRECTIVE ADVANCE DIRECTIVE DISCUSSED WITH PATIENT:YES HCP--KEIRY FARNSWORTH [phone] MANDAEN [id number] NONE MARITAL STATUS: . ALCOHOL SCREENING DID YOU HAVE A DRINK CONTAINING ALCOHOL IN THE PAST YEAR?NO POINTS0 INTERPRETATIONNEGATIVE OCCUPATION: RETIRED. SEXUAL HX HAD SEX IN THE LAST 12 MONTHS (VAGINAL, ORAL, OR ANAL)?YES WITHMEN ONLY USE PROTECTION?NO HAVE YOU EVER HAD AN STD?YES CHLAMYDIA?YES REVIEWED WITH PATIENT 08/07/18 0964 JS. HOSPITALIZATION/MAJOR DIAGNOSTIC PROCEDURE SEIZURES PNEUMONIA MINI STROKE 2009 REVIEW OF SYSTEMS REVIEWED BY: PROVIDER: . CONSTITUTIONAL: ANY CHANGE IN YOUR MEDICAL CONDITION? YES, NOT SURE, MAYBE ENVIRONMENTAL ALLERGIES? . CHILLS NO . FEVER NO . INFECTION: DO YOU HAVE NEW INFECTIONS? NO . DO YOU HAVE HISTORY OF MRSA? NO . MUSCULOSKELETAL: ANY NEW PATTERNS OF PAIN OR NUMBNESS? YES, LEFT ARM PAIN . GASTROENTEROLOGY: ANY NEW CHANGE IN BOWEL CONTROL? YES, INCONTINENCE, PCP AWARE, HAS APPT W GASTRO THIS MONTH . GENITOURINARY: ANY NEW CHANGE IN BLADDER CONTROL? YES, INCONTINENCE, PCP AWARE . IS THERE A CHANCE YOU COULD BE ? NO . HEMATOLOGY/LYMPH: DO YOU TAKE ANY BLOOD THINNERS? (FOR EXAMPLE- COUMADIN, PLAVIX, AGGRENOX, PLATEL, PRADAXA, OR XARELTO) NO . WHEN WAS YOUR LAST DOSE? DATE: TIME: . NEUROLOGY: HAVE YOU FALLEN IN THE PAST 12 MONTHS? NO . ANY NEW EXTREMITY NUMBNESS OR WEAKNESS? YES, LEFT ARM . CARDIOLOGY: DO YOU HAVE A PACEMAKER OR DEFIBRILLATOR? YES, INTERSTIM FOR BLADDER . RESPIRATORY: HAVE YOU BEEN SICK IN THE PAST WEEK? NO . FEVER NO . FLU LIKE SYMPTOMS? NO . COUGH NO . INTEGUMENTARY: DO YOU HAVE ANY RASHES OR OPEN SORES? NO . ALLERGIC/IMMUNO: ARE YOU ALLERGIC TO IV DYE? NO . ANY NEW ALLERGIES? NO . PSYCHIATRIC: DO YOU HAVE THOUGHTS OF HURTING YOURSELF OR SOMEONE ELSE? NO . ARE YOU ABUSED, NEGLECTED, OR IN AN UNSAFE ENVIRONMENT? NO . ENDOCRINOLOGY: ARE YOU DIABETIC? BORDERLINE, FS 12/12/18 @ 0800 77 . OTHER: DO YOU NEED ANY PRESCRIPTIONS? NO . IF YES, PLEASE LIST: ____ . ANY NEW PROBLEMS WITH YOUR MEDICATIONS? NO . WHEN DID YOU LAST EAT? 12/11/18 1930 . WHEN DID YOU LAST DRINK? 12/12/18 0600 . WHAT DID YOU LAST DRINK? WATER . NAME OF PERSON DRIVING YOU HOME? KEIRY . DO YOU HAVE ANY OTHER QUESTIONS OR CONCERNS NO . VITAL SIGNS WT 271.6 LBS, HT 67 IN, BMI 42.53 INDEX, BP 136/82 MM HG, HR 113 /MIN, RR 18 /MIN, TEMP 96.9 F, OXYGEN SAT % 97%, NA INITIALS SC 09:27, REVIEWED BY: EM. ASSESSMENTS MYALGIA, OTHER SITE - M79.18 (PRIMARY) PROCEDURES PN TRIGGER POINT INJECTION WITH STEROIDS PRE PROCEDURE DIAGNOSIS 1. MYALGIA 2. PAIN AT BILATERAL NECK AREA, BILATERAL SHOULDER AREA, AND BILATERAL THORACIC AREA. POST PROCEDURE DIAGNOSIS 1. MYALGIA 2. PAIN AT BILATERAL NECK AREA, BILATERAL SHOULDER AREA, AND BILATERAL THORACIC AREA. PROCEDURE TRIGGER POINT INJECTION AT RIGHT AND LEFT NECK AREA, RIGHT AND LEFT SHOULDER AREA, AND RIGHT AND LEFT THORACIC AREA. SURGEON DR. KRISTINA MAZARIEGOS LEASING SALES CONSULTANT NONE ANESTHESIA LOCAL PRE PROCEDURE NOTE THE PATIENT HAS A HISTORY OF CHRONIC PAIN AT THE RIGHT AND LEFT NECK AREA, RIGHT AND LEFT SHOULDER AREA, AND RIGHT AND LEFT THORACIC AREA. I EVALUATED THE PATIENT AND REVIEWED THE CHART. THERE IS EVIDENCE OF BANDS OF TISSUE WITH RESTRICTION OF MOVEMENT AND PRESENCE OF TRIGGER POINT AT THE AFFECTED AREA. I WENT OVER THE RISKS, ALTERNATIVES, AND BENEFITS ASSOCIATED WITH THIS PROCEDURE. THE PATIENT WOULD LIKE TO PROCEED AND GIVES CONSENT TO PERFORM THE PROCEDURE. THE PATIENT DENIES UNEXPLAINABLE WEIGHT LOSS, FEVER, CHILLS, OR NEW CHANGES IN URINARY OR BOWEL CONTROL DESCRIPTION OF PROCEDURE THE PATIENT WAS BROUGHT TO THE PROCEDURE ROOM AND PLACED IN THE SITTING POSITION. THE AREA WAS CLEANED WITH ALCOHOL. THE PROCEDURE WAS DONE USING ASEPTIC STERILE TECHNIQUE. I CHECKED LATERALITY AND THE LEVEL WHERE THE PROCEDURE WAS GOING TO BE PERFORMED WITH THE PATIENT AND THE SUPPORTING STAFF AT THE MOMENT OF THE TIME OUT IN THE PROCEDURE ROOM. USING A 25-GAUGE NEEDLE, TRIGGER POINTS WERE INJECTED AT THE RIGHT AND LEFT NECK AREA, RIGHT AND LEFT SHOULDER AREA, AND RIGHT AND LEFT THORACIC AREA WITH A TOTAL OF 40 ML OF BUPIVACAINE 0.25% AND KENALOG 40 MG. THERE WAS NO EVIDENCE OF BLOOD, PARESTHESIA OR CEREBROSPINAL FLUID DURING THE PROCEDURE. THE PATIENT WAS SENT TO THE RECOVERY ROOM. THE PATIENT WAS MOVING THE EXTREMITIES AND DOING WELL. THERE WAS NO COMPLICATION DURING THE PROCEDURE POST PROCEDURE NOTE THE PATIENT WILL BE SEEN IN A FOLLOW UP IN THE NEXT FEW WEEKS. INSTRUCTIONS WERE GIVEN, QUESTIONS WERE ANSWERED, AND THE PATIENT EXPRESSED UNDERSTANDING AND AGREES WITH THE PLAN. I, JACOB BARRERA, DOCUMENTED THE ABOVE INFORMATION ACTING A SCRIBE FOR DR. MAZARIEGOS. I HAVE REVIEWED THE ABOVE DOCUMENT, WRITTEN BY JACOB BARRERA SCRIBParveen AND I VERIFY THAT IT IS ACCURATE. PROCEDURE CODES [id number] INJECT TRIGGER POINTS 3/> DISPOSITION & COMMUNICATION FOLLOW UP 3 WEEKS ELECTRONICALLY SIGNED BY KRISTINA MAZARIEGOS MD, MD ON 12/19/2018 AT 04:21 PM EDT DISCLAIMER : THIS IS A VISIT SUMMARY EXTRACTED FROM THE [employer] CHART. IT IS NOT A COPY OF THE [employer] PROGRESS NOTE. MARCIN
== END ==
LOC: M PAIN 09:30
PROVIDERS: ATTEND Anesthesiology
DX: G89.29 Other chronic pain (principal); M79.18 Myalgia, other site; M54.2 Cervicalgia; M54.6 Pain in thoracic spine; M25.519 Pain in unspecified shoulder; F17.210 Nicotine dependence, cigarettes, uncomplicated; Z79.891 Long term (current) use of opiate analgesic; Z79.899 Other long term (current) drug therapy; Z91.018 Allergy to other foods; Z91.030 Bee allergy status
CPT/HCPCS: 20553; J3301

== ENCOUNTER → 2018-12-20 | Outpatient (CLI) | payer OTHER, MEDICARE ==
[~2018-12-20] MED LIST changes: -AZIT500T2 PO; +AZIT500T5 PO; -BUPIVACAINE HCL 0.25% 10 ML VIAL As Ordered ONE; -BUPIVACAINE HCL 0.25% 30 ML VIAL As Ordered ONE; +FASE30IN SC; +NEXI20CA PO; -TRIAMCINOLONE ACETONIDE SUSP 40 MG/ML VIAL (J3301) As Ordered ONE; +VITA-199 PO; +ZONI100C17 PO; -diazePAM 5 MG TAB As Ordered ONE
--- NOTE | 2018-12-27 02:05 | ECWPNPC ---
PATIENT NAME: PIYUSH FARNSWORTH : 1980 GENDER: FEMALE VISIT DATE: 12/20/2018 DISCHARGE DATE: 12/20/18 1200 VISIT LOCKED DATE TIME: PHYSICIAN: MEHREEN DONNELLY RESOURCE: MEHREEN DONNELLY REASON FOR APPOINTMENT 1. POST TPI LUMBAR SPINE AND NECK/SHOULDERS HISTORY OF PRESENT ILLNESS HISTORY OF PRESENT ILLNESS: PAIN THE PATIENT DESCRIBES THE PAIN... 38-YEAR-OLD FEMALE IN FOR POST TPI FOLLOW-UP. SHE FEELS THE PROCEDURE WORKED WELL SHE RATED HER PAIN PREPROCEDURE AT A 9 OUT OF 10 AND POSTPROCEDURE AT A 5-6 OUT OF 10. SHE RATES HER PAIN CURRENTLY AT AN 8/10 AND DESCRIBES IT SHARP, STABBING, SORE, TENDER, AND THROBBING. PATIENT DOES ADMIT TO INCREASED PAIN IN HER THORACIC AND LOW BACK AND IS QUESTIONING IF SHE CAN GET TRIGGER POINT INJECTIONS IN THESE LOCATIONS. SHE ALSO ADMITS TO RADICULAR SYMPTOMS IN HER LEFT ARM. FALL RISK SCREENING: SCREENING :NO FALLS REPORTED IN THE LAST YEAR CURRENT MEDICATIONS TAKING LYRICA 150 MG CAPSULE 1 CAPSULE ORALLY THREE TIMES A DAY TAKING SYNTHROID 25 25MCG TABLET 1 CAP ORAL DAILY TAKING ALBUTEROL SULFATE (2.5 MG/3ML) 0.083% NEBULIZATION SOLUTION 3 ML INHALATION EVERY 4 HOURS NEEDED TAKING TRAZODONE HCL 100 MG TABLET 4 TABLET AT BEDTIME ORALLY ONCE A DAY TAKING SUMATRIPTAN SUCCINATE 100 MG TABLET 1 TABLET NEEDED ORALLY DIRECTED TAKING EPIPEN 0.3 MG/0.3ML (1:1000) DEVICE INTRAMUSCULAR DIRECTED TAKING FLONASE 50 MCG/DOSE INHALER 2 SPRAY IN EACH NOSTRIL NASALLY ONCE A DAY TAKING POTASSIUM CHLORIDE 20 MEQ TABLET EXTENDED RELEASE 1 CAPSULE WITH FOOD ORALLY TID TAKING IMITREX 6 MG/0.5ML SOLUTION 0.5 ML NEEDED SUBCUTANEOUS TWICE A DAY TAKING NEXIUM 40 MG CAPSULE DELAYED RELEASE 1 CAPSULE ORALLY TWICE A DAY TAKING ROSUVASTATIN CALCIUM 40 MG TABLET 1 CAP ORALLY DAILY TAKING NARCAN 4 MG/0.1ML LIQUID DIRECTED NASALLY FOR SYMPTOMS OF OVERDOSE OR RESP DEPRESSION - CALL 911 TAKING CYMBALTA 60 MG CAPSULE DELAYED RELEASE PARTICLES 1 CAPSULE ORALLY TWICE A DAY, NOTES: CT CLINIC TAKING CELEBREX 200 MG CAPSULE 1 CAPSULE ORALLY ONCE A DAY TAKING TOPAMAX 50 MG TABLET 1 TABLET ORALLY TWICE A DAY TAKING CLARITIN 10 MG TABLET 1 TABLET ORALLY ONCE A DAY TAKING RANITIDINE 1 TAB ORAL DAILY TAKING BUSPIRONE HCL 15 MG TABLET 1 TABLET ORALLY TWICE A DAY TAKING HYDROXYZINE HCL 25 MG TABLET 1 TABLET ORALLY DAILY TAKING MOVANTIK 25 MG TABLET 1 TABLET IN THE MORNING ORALLY ONCE A DAY TAKING ADVAIR DISKUS 500-50 MCG/DOSE MISCELLANEOUS 1 PUFF INHALATION TWICE A DAY TAKING CARISOPRODOL 350 MG TABLET 1 TABLET NEEDED ORALLY BID FOR SEVERE SPASM MDD=2 CODE D CHRONIC PAIN TAKING SPIRIVA HANDIHALER 1 CAPSULE INHALATION TWICE A DAY TAKING PERCOCET 10-325 MG TABLET 1 TABLET ORALLY EVERY 4 HRS PRN PAIN MDD = 6 TAKING VITAMIN D (ERGOCALCIFEROL) 07450 UNIT CAPSULE 1 CAPSULE ORALLY WEEKLY TAKING TOBRADEX 0.3-0.1 % OINTMENT 1 APPLICATION OPHTHALMIC BEFORE BEDTIME NOT-TAKING TROSPIUM CHLORIDE 20 MG TABLET 1 TABLET AT BEDTIME ON AN EMPTY STOMACH ORALLY BID, NOTES: CT CLINIC NOT-TAKING MUCINEX 600 MG TABLET EXTENDED RELEASE 1 TABLET NEEDED ORALLY EVERY 12 HRS NOT-TAKING PREDNISONE 10 MG TABLET 4TAB X 3DAYS, 3TABS X 3DAYS, 2TABS X 3DAYS, 1TAB X 3DAYS ORALLY ONCE A DAY NOT-TAKING TESSALON PERLES 100 MG CAPSULE 1 CAPSULE NEEDED ORALLY BEFORE BEDTIME NOT-TAKING DOXYCYCLINE MONOHYDRATE 100 MG CAPSULE 1 CAPSULE ORALLY BID NOT-TAKING ASMANEX 120 METERED DOSES 220 MCG/INH AEROSOL POWDER BREATH ACTIVATED 1 PUFF IN THE EVENING INHALATION BID NOT-TAKING PREDNISONE 20 MG TABLET 1 TABLET ORALLY BID FOR 5 DAYS, NOTES: 09-06-18 NOT-TAKING AZITHROMYCIN (5 DAY) 250 MG TABLET 2 TABLET ORALLY ONCE A DAY/ 4 DAYS, NOTES: 09-06-18 NOT-TAKING PREDNISONE TAPER 1 TAB ORAL NOT-TAKING CEFDINIR 300 MG CAPSULE DIRECTED ORALLY BID NOT-TAKING FLUOXETINE 20 MG CAPSULE 2 CAPSULE IN THE MORNING ORALLY ONCE A DAY NOT-TAKING SINGULAIR 10 MG TABLET 1 TABLET IN THE EVENING ORALLY ONCE A DAY NOT-TAKING ADVAIR DISKUS 100-50 MCG/DOSE AEROSOL POWDER BREATH ACTIVATED 1 PUFF INHALATION TWICE A DAY NOT-TAKING LORATADINE 10 MG TABLET 1 TABLET ORALLY ONCE A DAY NOT-TAKING TESSALON PERLES 100 MG CAPSULE 1 CAPSULE NEEDED ORALLY THREE TIMES A DAY MEDICATION LIST REVIEWED AND RECONCILED WITH THE PATIENT PAST MEDICAL HISTORY HYPERTENSION HIGH CHOLESTEROL THYROID PROBLEM HERNIATED DISC DORSAL COLUMN STIMULATOR INTERSTIM BLADDER OAB EAR TUBES MASTOIDECTOMY X6 MIGRAINES ASTHMA ALLERGIES PENICILLIN (FOR ALLERGIES USE ONLY): ANAPHALAXIS - ALLERGY LEVAQUIN: ANAPHALAXIS - ALLERGY AMOXICILLIN: ANAPHALAXIS - ALLERGY MUSHROOMS: ANAPHALAXIS - ALLERGY BEES: ANAPHALAXIS - ALLERGY DOXYCYCLINE: RASH - ALLERGY SURGICAL HISTORY HYSTERECTOMY 2011 APENDIX OUT 2001 HEMROHDECTOMY 2010 BUNIONS REMOVED ON BOTH FEET 2013 RIGHT KNEE ARTHROSCOPY 1993 MULTIPLE LAPAROSCOPY FOR ENDOMETRIOSIS TONSILS AND ADNOIDS OUT 1979 KIDNEY STONES 08/2014 FAMILY HISTORY FATHER: ALIVE, DIAGNOSED WITH HYPERTENSION, CANCER MOTHER: ALIVE, HYPERTENSION, CANCER, OTHER 2 SON(S) , 1 DAUGHTER(S) . SON WITH SEVERE CROHNS DISEASE AND PYLODERMA GANGERINEOSA\\NDAD-PROSTATE CA\\NMOM-HIGH CHOLESTEROL AND BREAST CA. SOCIAL HISTORY GENERAL: TOBACCO USE ARE YOU A:CURRENT SMOKER HOW MANY CIGARETTES A DAY DO YOU SMOKE?6-10 HOW SOON AFTER YOU WAKE UP DO YOU SMOKE YOUR FIRST CIGARETTE?6-30 MIN HOW OFTEN DO YOU SMOKE CIGARETTES?SOME DAYS, BUT NOT EVERY DAY PATIENT COUNSELED ON THE DANGERS OF TOBACCO USE AND URGED TO QUIT:12/12/2018 SMOKING CESSATION INFORMATION GIVEN12/20/2018 HIV / HEP-C SCREENING HIV TEST OFFERED TO PATIENT:YES DATE OFFERED:03/19/2018 TEST ACCEPTED:NO HEP-C TEST OFFERED TO PATIENT:NO REASON:PATIENT DECLINED BROCHURE PROVIDED TO PATIENTYES OTHERS AT HOME: SPOUSE, CHILDREN. EDUCATION LEVEL OF EDUCATION:COLLEGE DIET: REGULAR. LANGUAGE LANGUAGES SPOKEN:GREENLANDIC DOMESTIC VIOLENCE DO YOU FEEL SAFE IN YOUR ENVIRONMENT?YES BMI CARE GOAL FOLLOW-UP ABOVE NORMAL BMI FOLLOW-UPDIETARY MANAGEMENT EDUCATION, GUIDANCE, AND COUNSELING RECREATIONAL DRUG USE DRUG USE?NO EXERCISE: NO REGULAR EXERCISE. LEARNING BARRIERS / SPECIAL NEEDS CHANGE FROM LAST VISIT?NO BARRIERS TO LEARNING?NO HEARING IMPAIRED?NO VISION IMPAIRED?NO COGNITIVELY IMPAIRED?NO READINESS TO LEARN?YES LEARNING PREFERENCES?NO LEARNING CAPABILITIES PRESENT?YES EMOTIONAL BARRIERS?NO SPECIAL DEVICES?NO REGISTERED MAIL CLERK NEEDED?NO PAIN CLINIC PFS, CLERGY, PUBLIC HEALTH REFERRALS PFS REFERRAL NEEDED?NO CLERGY REFERRAL NEEDED?NO PUBLIC HEALTH REFERRAL NEEDED?NO WAS THE PROVIDER NOTIFIED OF ANY PERTINENT INFO?NO N/A HAS THE PATIENT BEEN EDUCATED REGARDING HIS/HER PLAN OF CARE?YES HAS THE PATIENT BEEN EDUCATED REGARDING PAIN, THE RISK FOR PAIN, THE IMPORTANCE OF EFFECTIVE PAIN MANAGEMENT, AND THE PAIN ASSESSMENT PROCESS?YES LATEX QUESTIONNAIRE LATEX ALLERGY : HAVE YOU EVER DEVELOPED ANY TYPE OF REACTION AFTER HANDLING LATEX PRODUCTS SUCH RUBBER GLOVES, CONDOMS, DIAPHRAGMS, BALLOONS, SOCKS, OR UNDERWEAR?NO LATEX ALLERGY : HAVE YOU EVER DEVELOPED ANY TYPE OF REACTION DURING OR AFTER DENTAL APPOINTMENT, VAGINAL/RECTAL EXAMINATION, SURGICAL PROCEDURE, OR ANY OTHER EXPOSURE?NO DATE ASKED : 08/07/2018 LATEX RISK : HAVE YOU EVER HAD ANY DIFFICULTY BREATHING OR HIVES AFTER EATING OR HANDLING ANY FRUITS, OR VEGETABLES; SUCH KIWI, BANANAS, STONE FRUITS, OR CHESTNUTSNO LATEX RISK : DO YOU HAVE A PREVIOUS PERSONAL HISTORY OF MORE THAN NINE SURGERIES, SPINA BIFIDA, OR REPEATED CATHERIZATIONS? YES - PLEASE INDICATE : > 9 SURGERIES LATEX RISK : ARE YOU FREQUENTLY EXPOSED TO LATEX PRODUCTS IN YOUR OCCUPATION?NO CAFFEINE CAFFEINE USE?YES HOW OFTEN AND HOW MUCH? 2 CUPS PER DAY ADVANCE DIRECTIVE ADVANCE DIRECTIVE DISCUSSED WITH PATIENT:YES HCP--KEIRY FARNSWORTH [phone] ISLAM [id number] NONE MARITAL STATUS: . ALCOHOL SCREENING DID YOU HAVE A DRINK CONTAINING ALCOHOL IN THE PAST YEAR?NO POINTS0 INTERPRETATIONNEGATIVE OCCUPATION: RETIRED. SEXUAL HX HAD SEX IN THE LAST 12 MONTHS (VAGINAL, ORAL, OR ANAL)?YES WITHMEN ONLY USE PROTECTION?NO HAVE YOU EVER HAD AN STD?YES CHLAMYDIA?YES REVIEWED WITH PATIENT 08/07/18 0943 JSREVIEWED WITH PATIENT 12/20/18 1123 [facility], [facility]. HOSPITALIZATION/MAJOR DIAGNOSTIC PROCEDURE SEIZURES PNEUMONIA MINI STROKE 2008 REVIEW OF SYSTEMS REVIEWED BY: PROVIDER: RAFA HERNANDEZ-Ignacio . CONSTITUTIONAL: ANY CHANGE IN YOUR MEDICAL CONDITION? NO . CHILLS NO . FEVER NO . INFECTION: DO YOU HAVE NEW INFECTIONS? NO . DO YOU HAVE HISTORY OF MRSA? NO . MUSCULOSKELETAL: ANY NEW PATTERNS OF PAIN OR NUMBNESS? YES- STATES TPI WORKED " FOR WHERE THEY WERE PUT" STATES UPPER BACK FEELS GREAT, STATES SHE HAS BACK THORACIC BACK TO LUMBAR BACK AND HER LOWER NECK AND BETWEEN SHOULDER BLADES HURTS REALLY BAD, STATES SHE HAS NUMBNESS AND TINGLING DOWN LEFT ARM . GASTROENTEROLOGY: ANY NEW CHANGE IN BOWEL CONTROL? NO . GENITOURINARY: ANY NEW CHANGE IN BLADDER CONTROL? YES- HAS OVERACTIVE BLADDER, HAS AN INTERSTIM, BUT STATES SHE IS HAVING INCONTINENCE RIGHT NOW, WILL BE HAVING TESTING REALTED TO INCONTINENCE AND INTERSTIM . IS THERE A CHANCE YOU COULD BE ? NO . HEMATOLOGY/LYMPH: DO YOU TAKE ANY BLOOD THINNERS? (FOR EXAMPLE- COUMADIN, PLAVIX, AGGRENOX, PLATEL, PRADAXA, OR XARELTO) NO . WHEN WAS YOUR LAST DOSE? DATE: TIME: . NEUROLOGY: HAVE YOU FALLEN IN THE PAST 12 MONTHS? NO . ANY NEW EXTREMITY NUMBNESS OR WEAKNESS? YES- STATES SHE HAS WEAKNESS AND NUMBNESS/TINGLING IN LEFT ARM . CARDIOLOGY: DO YOU HAVE A PACEMAKER OR DEFIBRILLATOR? YES- HAS AN INTERSTIM IN HER BLADDER . RESPIRATORY: HAVE YOU BEEN SICK IN THE PAST WEEK? NO . FEVER NO . FLU LIKE SYMPTOMS? NO . COUGH YES- STATES SHE HAS HAD A COUGH FOR A COULE OF ONTHS AND IS UNDER THE CARE OF PULMONOLOGY . INTEGUMENTARY: DO YOU HAVE ANY RASHES OR OPEN SORES? NO . ALLERGIC/IMMUNO: ARE YOU ALLERGIC TO IV DYE? NO . ANY NEW ALLERGIES? NO . PSYCHIATRIC: DO YOU HAVE THOUGHTS OF HURTING YOURSELF OR SOMEONE ELSE? NO . ARE YOU ABUSED, NEGLECTED, OR IN AN UNSAFE ENVIRONMENT? NO . ENDOCRINOLOGY: ARE YOU DIABETIC? NO . OTHER: DO YOU NEED ANY PRESCRIPTIONS? YES . IF YES, PLEASE LIST: ____MOVNATIK, TOPAMAX, CELEBREX, SOMA- NEED THEM CALLED INTO MAIL ORDER WITH [employer] . ANY NEW PROBLEMS WITH YOUR MEDICATIONS? NO . WHEN DID YOU LAST EAT? ____ . WHEN DID YOU LAST DRINK? ____ . WHAT DID YOU LAST DRINK? ____ . NAME OF PERSON DRIVING YOU HOME? ____ . DO YOU HAVE ANY OTHER QUESTIONS OR CONCERNS YES- STATES SHE WOULD LIKE TO KNOW IF SHE CAN GET TPI IN LOWER BACK, AND WHY ARE NERVE TESTINGS NOT GETTING DONE? . VITAL SIGNS WT 269.4 LBS, HT 67 IN, BMI 42.19 INDEX, BP 123/79 MM HG, HR 96 /MIN, RR 18 /MIN, TEMP 96.3 F, OXYGEN SAT % 93%, SAFE IN ENV? (Y/N) YES, NA INITIALS CT 11:19, REVIEWED BY: QING. EXAMINATION GENERAL EXAMINATION: GENERALNO ACUTE DISTRESS, WELL NOURISHED AND HYDRATED. PSYCHAPPROPRIATE MOOD AND AFFECT . LUNGS:CLEAR TO AUSCULTATION BILATERALLY, NO WHEEZES, RHONCHI, RALES. HEART:NO MURMURS, REGULAR RATE AND RHYTHM. BACK: POINT TENDER OVER THORACIC AND LOW BACK, SURROUNDING SKIN SHOWS NO ERYTHEMA, ECCHYMOSIS, INCREASED WARMTH, AND/OR SKIN ERUPTIONS. . ASSESSMENTS MYALGIA, OTHER SITE - M79.18 (PRIMARY) CERVICAL DISC DISPLACEMENT - M50.20 POSTLAMINECTOMY SYNDROME, NOT ELSEWHERE CLASSIFIED - M96.1 TREATMENT CERVICAL DISC DISPLACEMENT REFILL CELEBREX CAPSULE, 200 MG, 1 CAPSULE, ORALLY, ONCE A DAY, 90 DAY(S), 90 CAPSULE, REFILLS 1 REFILL CARISOPRODOL TABLET, 350 MG, 1 TABLET NEEDED, ORALLY, BID FOR SEVERE SPASM MDD=2 CODE D CHRONIC PAIN, 90 DAY(S), 180, REFILLS 0 POSTLAMINECTOMY SYNDROME, NOT ELSEWHERE CLASSIFIED REFILL MOVANTIK TABLET, 25 MG, 1 TABLET IN THE MORNING, ORALLY, ONCE A DAY, 90 DAYS, 90 TABLET, REFILLS 0 OTHERS REFILL TOPAMAX TABLET, 50 MG, 1 TABLET, ORALLY, TWICE A DAY, 90 DAY(S), 180 TABLET, REFILLS 1 NOTES: TPI BILATERAL THORACIC AND LOW BACK. CLINICAL NOTES: 38-YEAR-OLD FEMALE IN FOR POST TPI FOLLOW-UP. GIVEN PRESENTING SYMPTOMS AND RESULTED PHYSICAL EXAMINATION RECOMMENDED TPI OF THE THORACIC AND LOW BACK BILATERALLY WITH FOLLOW-UP. DISCUSSED PATIENT'S LEFT ARM RADICULAR SYMPTOMS AND SHE STATES SHE WILL BE SEEING ORTHOPEDICS FOR THIS. PATIENT HAS EXPRESSED UNDERSTANDING OF AND WAS IN AGREEMENT WITH TREATMENT PLAN. GIVEN TIME TO ASK QUESTIONS AND EXPRESS CONCERNS., ISTOP REGISTRY REVIEWED AND DEMONSTRATES COMPLLIANCE. (REF __# [id number] ) BRINGS IN MEDICATIONS WHICH IS APPROPRIATE FOR WHAT WAS DISPENSED. RECENT URINE TOXICOLOGY REVIEWED. NO UNAUTHORIZED MEDICATIONS. NO ILLICIT SUBSTANCES AND PRESCRIBED MEDICATIONS WERE PRESENT. PREVENTIVE MEDICINE PAIN CLINIC TEACHING: PROCEDURE TEACHING TRIGGER POINT INJECTION INFORMATION PRINTED AND REVIEWED WITH PATIENT 12/20/18 1154 NLJ. PROCEDURE CODES FA211 ESTABILISHED PATIENT [facility] CHARGE DISPOSITION & COMMUNICATION FOLLOW UP POSTPROCEDURE (REASON: TPI BILATERAL THORACIC AND LOW BACK) ELECTRONICALLY SIGNED BY MARY CARLIN ON 12/21/2018 AT 08:46 AM EDT DISCLAIMER : THIS IS A VISIT SUMMARY EXTRACTED FROM THE [employer] CHART. IT IS NOT A COPY OF THE [employer] PROGRESS NOTE. MTDD
== END ==
LOC: M PAIN 11:00
PROVIDERS: ATTEND Family Medicine
DX: M79.18 Myalgia, other site (principal); M50.20 Other cervical disc displacement, unspecified cervical region; M96.1 Postlaminectomy syndrome, not elsewhere classified; I10 Essential (primary) hypertension; E78.00 Pure hypercholesterolemia, unspecified; G43.909 Migraine, unspecified, not intractable, without status migrainosus; J45.909 Unspecified asthma, uncomplicated; F17.210 Nicotine dependence, cigarettes, uncomplicated; Z88.0 Allergy status to penicillin; Z88.1 Allergy status to other antibiotic agents; Z88.8 Allergy status to other drugs, medicaments and biological substances; Z91.018 Allergy to other foods; Z91.040 Latex allergy status; E66.01 Morbid (severe) obesity due to excess calories; Z68.41 Body mass index [BMI] 40.0-44.9, adult; Z79.891 Long term (current) use of opiate analgesic; Z79.899 Other long term (current) drug therapy

== ENCOUNTER 2018-12-24 16:06 | Outpatient (CLI) | payer OTHER, MEDICARE ==
[~2018-12-24] VITALS: Ht 170.2 cm; Wt 120.9 kg
[~2018-12-24 16:06] MED LIST changes: +AZIT500T2 PO; -AZIT500T5 PO; -FASE30IN SC; -NEXI20CA PO; -VITA-199 PO; -ZONI100C17 PO
[2018-12-24 16:10] VITALS: BP 119/55
[2018-12-24] MEDS ORDERED: BENRALIZUMAB (FASENRA) 30MG/ML SYRINGE (J0517 PER 1MG) SC ONE (16:30)
[2018-12-24 17:15] VITALS: BP 127/72
== END 2018-12-24 17:25 | disposition home or self-care (01) ==
LOC: M INFU 16:06
PROVIDERS: ATTEND Internal Medicine Pulmonary Disease
DX: J45.50 Severe persistent asthma, uncomplicated (principal); Z88.0 Allergy status to penicillin; Z88.8 Allergy status to other drugs, medicaments and biological substances; Z79.899 Other long term (current) drug therapy
CPT/HCPCS: 96372; J0517

== ENCOUNTER 2019-01-21 10:03 | Outpatient (CLI) | payer OTHER ==
[~2019-01-21] VITALS: Ht 170.2 cm; Wt 120.9 kg
[~2019-01-21 10:03] MED LIST changes: -AZIT500T2 PO; +AZIT500T5 PO; +ZONI100C17 PO
[2019-01-21 10:05] VITALS: BP 126/84
[2019-01-21] MEDS ORDERED: BENRALIZUMAB (FASENRA) 30MG/ML SYRINGE (J0517 PER 1MG) SC ONE (11:45)
[2019-01-21 12:20] VITALS: BP 114/68
[2019-02-08] MEDS ORDERED: NEXI20CA PO (11:32)
[2019-02-08] MEDS ORDERED: VITA-199 PO (11:32)
== END 2019-01-21 12:20 | disposition home or self-care (01) ==
LOC: M INFU 10:03
PROVIDERS: ATTEND Internal Medicine Pulmonary Disease
DX: J45.50 Severe persistent asthma, uncomplicated (principal); Z79.899 Other long term (current) drug therapy; Z88.0 Allergy status to penicillin; Z88.8 Allergy status to other drugs, medicaments and biological substances
CPT/HCPCS: 96372; J0517

== ENCOUNTER 2019-02-15 05:57 | Day surgery (SDC) | payer OTHER ==
[~2019-02-15] VITALS: Ht 170.2 cm; Wt 120.7 kg
[~2019-02-15 05:57] MED LIST changes: +NEXI20CA PO; +VITA-199 PO; -ZONI100C17 PO
[2019-02-15] MEDS ORDERED: ROPIvacaine 0.5% 30 ML INJECTION (J2795 PER 1MG) ONE (05:58)
[2019-02-15] MEDS ORDERED: EPINEPHrine INJ 1 MG/ML 1ML AMP ONE (05:58)
[2019-02-15] MEDS ORDERED: LR 1,000 ML IV ONE (06:00)
[2019-02-15] MEDS ORDERED: MIDAZOLAM INJ 2 MG/2 ML VIAL (J2250) As Ordered ONE ×2 (06:49→07:09)
[2019-02-15] MEDS ORDERED: fentaNYL 100 MCG/2 ML INJECTION (J3010) As Ordered ONE ×2 (06:49→07:09)
[2019-02-15] MEDS ORDERED: EPINEPHrine 1MG/ML INJ 30ML MD-VIAL As Ordered ONE (06:53)
[2019-02-15] MEDS ORDERED: FASE30IN SC (06:53)
[2019-02-15] MEDS ORDERED: SCOPOLAMINE 1MG TRANSDERMAL PATCH As Ordered ONE (06:56)
[2019-02-15] MEDS ORDERED: PROPOFOL 200 MG/20 ML VIAL As Ordered ONE (07:08)
[2019-02-15] MEDS ORDERED: KETOROLAC 60 MG/2 ML VIAL (J1885) As Ordered ONE (07:08)
[2019-02-15] MEDS ORDERED: ROCURONIUM BROMIDE 50 MG/5 ML VIAL As Ordered ONE (07:08)
[2019-02-15] MEDS ORDERED: dexameTHASONE 4 MG/ML 1ML VIAL (J1100) As Ordered ONE (07:08)
[2019-02-15] MEDS ORDERED: ONDANSETRON 4MG/2ML VIAL (J2405) As Ordered ONE (07:08)
[2019-02-15] MEDS ORDERED: SUGAMMADEX SODIUM 500 MG/5 ML VIAL (BRIDION) As Ordered ONE (07:08)
[2019-02-15] MEDS ORDERED: LIDOCAINE 2% INJ 100 MG/5 ML SDV (FOR ANES.) As Ordered ONE (07:08)
[2019-02-15] MEDS ORDERED: SCOPOLAMINE 1MG TRANSDERMAL PATCH TOP ONE (07:15)
[2019-02-15] MEDS ORDERED: CLINDAMYCIN 900 MG/50 ML PREMIX BAG As Ordered ONE (07:24)
[2019-02-15] MEDS ORDERED: CLINDAMYCIN 900 MG in IV 1 EA IV ONE (07:45)
[2019-02-15] MEDS ORDERED: MIDAZOLAM INJ 2 MG/2 ML VIAL (J2250) IV ONE ×2 (08:15→10:00)
[2019-02-15] MEDS ORDERED: fentaNYL 100 MCG/2 ML INJECTION (J3010) IV ONE (08:15)
[2019-02-15] MEDS ORDERED: PHENYLephrine HCL 500 MCG/5 ML (100MCG/ML) SYRINGE (J2370) As Ordered ONE (08:36)
[2019-02-15] MEDS ORDERED: ePHEDrine SULFATE 25 MG/5 ML(5MG/ML) SYRINGE As Ordered ONE (08:36)
[2019-02-15] MEDS ORDERED: CALCIUM CHLORIDE 10% 1 GM/10 ML SYR As Ordered ONE (08:37)
[2019-02-15] MEDS ORDERED: ONDANSETRON 4MG/2ML VIAL (J2405) IV PRN (10:00)
[2019-02-15] MEDS ORDERED: fentaNYL 100 MCG/2 ML INJECTION (J3010) IV PRN (10:00)
[2019-02-15] MEDS ORDERED: oxyCODONE 5MG TAB PO PRN ×3 (10:00)
[2019-02-15] MEDS ORDERED: MORPHINE 2 MG/ML 1ML VIAL (J2270) IV PRN (10:00)
[2019-02-15] MEDS ORDERED: LR 1,000 ML IV SCH (10:00)
--- NOTE | 2019-02-15 11:46 | RO ---
DATE OF PROCEDURE: 02/15/2019 PREOPERATIVE DIAGNOSIS: Left shoulder impingement syndrome. POSTOPERATIVE DIAGNOSIS: Left shoulder impingement syndrome. PROCEDURE: SURGEON: Vik Lugo MD SMOKE JUMPER SUPERVISOR: Denise Haynes PA-C who was instrumental for instrument handling and assistance during this procedure during noel portions. ANESTHESIA: General. INDICATION: This is a 39-year-old female who has been suffering with chronic impingement syndrome that failed nonoperative treatment. She had a preoperative CT arthrogram and I discussed with the patient that it did not show large rotator cuff tear or biceps injury, however we could do a decompressive procedure. The patient expressed understanding and agreed with this plan. She understood the risks and benefits included, but not limited to infection, damage to surrounding structures, incomplete relief and wished to proceed. PREOPERATIVE ANTIBIOTICS: 500 mg of clindamycin. BLOOD LOSS: Minimal. COMPLICATIONS: None. SPECIMENS: None. OPERATIVE DESCRIPTION: This is a 39-year-old female who was taken back to the operating room in supine position, underwent general anesthesia, then she was placed into the beach chair. At this point, the left arm was prepped and draped in the usual fashion. Once we were all set, we had a time out confirming site and side of surgery. Once all in agreement we made a posterior based incision for our viewing portal. We entered the shoulder joint itself that demonstrated minimal osteoarthritic change of both the glenoid and the humerus, mild fraying, stage 1 SLAP tear, intact rotator cuff and biceps tendon that appeared healthy, well located within the groove. At this point, we established our anterior portal, used a 7 x 7 Arthrex cannula and used the shaver to debride the tissue that was fraying. At which point we turned our attention to the subacromial space. We did extensive synovectomy at this time. We established our lateral portal to accomplish this, at which point we identified the CA ligament, preserved its most anterior attachments, the anterolateral edge of the acromion we encountered a large anterolateral spur along with impingement in the rotator cuff and distal clavicle. We then used the bur to do an acromioplasty, making a nice sheath, flat surface with the anterolateral acromion extending toward the AC joint. At this point we used our anterior portal to assist with a distal clavicle resection of approximately 1.1 cm at which point we were able to see more further impingement on the rotator cuff and plenty of room. We controlled our bleeding, irrigated thoroughly and suctioned out as much as we could at which point we closed the portals with #3-0 nylon, dressed the wound with Adaptic gauze and ABD. The patient was placed in a sling. She was awakened from general anesthesia and taken to the postanesthesia care unit (PACU) in stable condition. POSTOPERATIVE PLAN: At this point, the patient will work on pain control which may be an issue. She had a peripheral nerve block preoperatively, however she is a chronic pain patient. We discussed this prior to the procedure how to manage her postop pain, but if she requires further management she will have to return to her pain management doctor. I will start her in therapy right away at the 2 week visit. She will have no limitations on lifting, pushing or pulling as we do not have to do any repair more of a decompressive procedure. The patient understands this ahead of time.
[2019-02-15 12:00] VITALS: BP 134/74
== END 2019-02-15 12:00 | disposition home or self-care (01) ==
LOC: M SDC 05:57
PROVIDERS: ATTEND Orthopaedic Surgery Hand Surgery
DX: M75.42 Impingement syndrome of left shoulder (principal); E03.9 Hypothyroidism, unspecified; I10 Essential (primary) hypertension; E78.5 Hyperlipidemia, unspecified; J45.909 Unspecified asthma, uncomplicated; M79.7 Fibromyalgia; K21.9 Gastro-esophageal reflux disease without esophagitis; F43.10 Post-traumatic stress disorder, unspecified; F41.9 Anxiety disorder, unspecified; F32.9 Major depressive disorder, single episode, unspecified; Z79.899 Other long term (current) drug therapy; Z79.51 Long term (current) use of inhaled steroids; Z88.0 Allergy status to penicillin; Z91.030 Bee allergy status; Z88.1 Allergy status to other antibiotic agents; F17.218 Nicotine dependence, cigarettes, with other nicotine-induced disorders
CPT/HCPCS: 29822; 29824; 29826; 64415; J1100; J2250; J2370; J2405; J2795; J3010

== ENCOUNTER 2019-03-05 08:05 | Outpatient (CLI) | payer OTHER ==
[~2019-03-05] VITALS: Ht 170.2 cm; Wt 120.9 kg
[~2019-03-05 08:05] MED LIST changes: +FASE30IN SC
[2019-03-05 08:15] VITALS: BP 125/89
[2019-03-05] MEDS ORDERED: BENRALIZUMAB (FASENRA) 30MG/ML SYRINGE (J0517 PER 1MG) SC ONE (09:00)
[2019-03-05 09:05] VITALS: BP 122/74
== END 2019-03-05 09:05 | disposition home or self-care (01) ==
LOC: M INFU 08:05
PROVIDERS: ATTEND Internal Medicine Pulmonary Disease
DX: J45.50 Severe persistent asthma, uncomplicated (principal); Z88.0 Allergy status to penicillin; Z88.1 Allergy status to other antibiotic agents; Z79.899 Other long term (current) drug therapy
CPT/HCPCS: 96372; J0517

== ENCOUNTER → 2019-05-17 | Outpatient (CLI) | payer OTHER ==
[~2019-05-17] MED LIST changes: +ZONI100C17 PO
--- NOTE | 2019-05-17 11:48 | REPVR ---
PROCEDURE INFORMATION: Exam: CT Abdomen And Pelvis Without Contrast Exam date and time: 05/17/2019 10:54 AM Age: 39 years old Clinical indication: Condition or disease; Hernia; Without gangrene; Ventral; Prior surgery; Surgery date: 6+ months; Surgery type: Hysterectomy, appy; Additional info: Ventral hernia w/o obstruction TECHNIQUE: Imaging protocol: Computed tomography of the abdomen and pelvis without contrast. Radiation optimization: All CT scans at this facility use at least one of these dose optimization techniques: automated exposure control; mA and/or kV adjustment per patient size (includes targeted exams where dose is matched to clinical indication); or iterative reconstruction. COMPARISON: CT ABD PELVIS W/O CONTRAST 06/22/2015 3:30 PM FINDINGS: Lungs: There is a 2 mm nodule within the lingula, more conspicuous than prior study but probably unchanged. Impression. Please correlate clinically. Liver: Normal. No mass. Gallbladder and bile ducts: The patient is status post cholecystectomy. Pancreas: Normal. No ductal dilation. Spleen: There is accessory splenic tissue. Adrenals: Normal. No mass. Kidneys and ureters: Normal. No hydronephrosis. Stomach and bowel: Unremarkable. No obstruction. No mucosal thickening. Appendix: No evidence of appendicitis. Intraperitoneal space: Unremarkable. No free air. No significant fluid collection. Vasculature: Unremarkable. No abdominal aortic aneurysm. Lymph nodes: Unremarkable. No enlarged lymph nodes. Bladder: There is moderate urinary bladder wall thickening. This is nonspecific but can be seen in the setting of cystitis. Reproductive: The patient is status post hysterectomy. Patient is status post coiling of the left ovarian vein, please correlate with surgical history. Bones/joints: Postsurgical changes are noted involving the lower thoracic spine, please correlate with surgical history. Soft tissues: Unremarkable. IMPRESSION: There is significant urinary bladder wall thickening. This is nonspecific but can be seen in the setting of cystitis. Electronically signed by: Randy Bal On 05/17/2019 11:48:43 AM
== END ==
LOC: M RAD 10:34
PROVIDERS: ATTEND Surgery
DX: H65.22 Chronic serous otitis media, left ear (principal)

== ENCOUNTER → 2019-05-17 | Outpatient (CLI) | payer OTHER ==
--- NOTE | 2019-05-17 11:25 | REPVR ---
PROCEDURE INFORMATION: Exam: CT Temporal Bones Without Contrast. Exam date and time: 05/17/2019 10:53 AM Age: 39 years old Clinical indication: Other: Otitis media; Prior surgery; Surgery date: 6+ months; Surgery type: Mastoids; Additional info: Chronic serou otitis media, left ear TECHNIQUE: Imaging protocol: Computed tomography images of the temporal bones without contrast. Radiation optimization: All CT scans at this facility use at least one of these dose optimization techniques: automated exposure control; mA and/or kV adjustment per patient size (includes targeted exams where dose is matched to clinical indication); or iterative reconstruction. COMPARISON: CT Head without contrast 10/12/2018 4:02 PM FINDINGS: Right inner ear: Normal. Right ossicles and middle ear: There is thickening of the right tympanic membrane. This Right facial nerve canal: Normal. Right external auditory canal: Normal. Right carotid canal: Normal. Right jugular foramen: Right mastoid air cells: Normal. No mastoid effusions. Patient has had prior left mastoid surgery, please correlate with surgical history. Since prior exam there is new opacification of the left middle ear with soft tissue/debris surrounding the ossicles and filling the surgical defect. An active inflammatory/infectious process is suspected. IMPRESSION: Patient has had prior left mastoid surgery, please correlate with surgical history. Since prior exam there is new opacification of the left middle ear with soft tissue/debris surrounding the ossicles and filling the surgical defect. An active inflammatory/infectious process is suspected. ENT consultation is recommended. Electronically signed by: Randy Bal On 05/17/2019 11:25:35 AM
== END ==
LOC: M RAD 10:42
PROVIDERS: ATTEND Otolaryngology
DX: H65.22 Chronic serous otitis media, left ear (principal)

== ENCOUNTER 2019-07-08 10:08 | Outpatient (CLI) | payer OTHER ==
[~2019-07-08] VITALS: Ht 170.2 cm; Wt 120.6 kg
[~2019-07-08 10:08] MED LIST changes: -MONT10TA2 PO; +MONT10TA4 PO
[2019-07-08 10:35] VITALS: BP 124/61
--- NOTE | 2019-07-08 10:41 | REP ---
Clinical: Cough . Comparison: 10/11/2018 . Technique: PA and lateral. Findings: The mediastinum and cardiac silhouette are normal. The lung alfaro are clear and without acute consolidation, effusion, or pneumothorax. The skeletal structures are intact and normal. Impression: 1. No acute cardiopulmonary process. Electronically Signed by Estiven Montenegro MD 07/08/2019 10:33 A
[2019-07-08 10:55] VITALS: BP 128/88
[2019-07-08] MEDS ORDERED: BENRALIZUMAB (FASENRA) 30MG/ML SYRINGE (J0517 PER 1MG) SC ONE (11:00)
== END 2019-07-08 10:55 | disposition home or self-care (01) ==
LOC: M INFU 10:08
PROVIDERS: ATTEND Internal Medicine Pulmonary Disease
DX: J45.40 Moderate persistent asthma, uncomplicated (principal); H65.22 Chronic serous otitis media, left ear; H95.02 Recurrent cholesteatoma of postmastoidectomy cavity, left ear; R05 Cough; Z88.0 Allergy status to penicillin; Z88.1 Allergy status to other antibiotic agents; Z91.048 Other nonmedicinal substance allergy status; Z91.040 Latex allergy status; Z91.018 Allergy to other foods
CPT/HCPCS: 71046; 96372; J0517

== ENCOUNTER → 2019-07-30 | Outpatient (CLI) | payer OTHER, MEDICARE ==
--- NOTE | 2019-07-31 23:50 | ECWPNPC ---
PATIENT NAME: PIYUSH FARNSWORTH : 1980 GENDER: FEMALE VISIT DATE: 07/30/2019 DISCHARGE DATE: 07/30/19 1037 VISIT LOCKED DATE TIME: PHYSICIAN: MEHREEN DONNELLY RESOURCE: MEHREEN DONNELLY REASON FOR APPOINTMENT 1. MED MGMT HISTORY OF PRESENT ILLNESS HISTORY OF PRESENT ILLNESS: PAIN THE PATIENT DESCRIBES THE PAINDURING THE LAST MONTH SEVERITY - PAIN SCORE OF9/10 LOCATIONSNECK, LOWER BACK QUALITYACHING , BURNING, SHARP, STABBING, TENDER, THROBBING, SORE, SHOOTING DURATIONCONTINUOUS, CONSTANT, ALL DAY, MAINLY DURING THE DAY, AWAKENS FROM SLEEEP PAIN IS INCREASED BY:ACTIVITIES 39-YEAR-OLD FEMALE IN FOR CHRONIC PAIN FOLLOW-UP. SHE RATES HER PAIN CURRENTLY AT A 9 OUT OF 10 AND DESCRIBES IT ACHING, BURNING, SHARP, STABBING, TENDER, THROBBING, SORE, AND SHOOTING. SHE FEELS HER MEDICATIONS ARE WORKING WELL AND DENIES MED SIDE EFFECTS AT THIS TIME. FALL RISK SCREENING: SCREENING :NO FALLS REPORTED IN THE LAST YEAR CURRENT MEDICATIONS TAKING LYRICA 150 MG CAPSULE 1 CAPSULE ORALLY THREE TIMES A DAY TAKING SYNTHROID 25 25MCG TABLET 1 CAP ORAL DAILY TAKING ALBUTEROL SULFATE (2.5 MG/3ML) 0.083% NEBULIZATION SOLUTION 3 ML INHALATION EVERY 4 HOURS NEEDED TAKING TRAZODONE HCL 100 MG TABLET 4 TABLET AT BEDTIME ORALLY ONCE A DAY TAKING SUMATRIPTAN SUCCINATE 100 MG TABLET 1 TABLET NEEDED ORALLY DIRECTED TAKING EPIPEN 0.3 MG/0.3ML (1:1000) DEVICE INTRAMUSCULAR DIRECTED TAKING FLONASE 50 MCG/DOSE INHALER 2 SPRAY IN EACH NOSTRIL NASALLY ONCE A DAY TAKING POTASSIUM CHLORIDE 20 MEQ TABLET EXTENDED RELEASE 1 CAPSULE WITH FOOD ORALLY TID TAKING IMITREX 6 MG/0.5ML SOLUTION 0.5 ML NEEDED SUBCUTANEOUS TWICE A DAY TAKING NEXIUM 40 MG CAPSULE DELAYED RELEASE 1 CAPSULE ORALLY TWICE A DAY TAKING ROSUVASTATIN CALCIUM 40 MG TABLET 1 CAP ORALLY DAILY TAKING NARCAN 4 MG/0.1ML LIQUID DIRECTED NASALLY FOR SYMPTOMS OF OVERDOSE OR RESP DEPRESSION - CALL 911 TAKING CYMBALTA 60 MG CAPSULE DELAYED RELEASE PARTICLES 1 CAPSULE ORALLY TWICE A DAY, NOTES: [facility] TAKING CLARITIN 10 MG TABLET 1 TABLET ORALLY ONCE A DAY TAKING RANITIDINE 1 TAB ORAL DAILY TAKING BUSPIRONE HCL 15 MG TABLET 1 TABLET ORALLY TWICE A DAY TAKING HYDROXYZINE HCL 25 MG TABLET 1 TABLET ORALLY DAILY TAKING ADVAIR DISKUS 500-50 MCG/DOSE MISCELLANEOUS 1 PUFF INHALATION TWICE A DAY TAKING SPIRIVA HANDIHALER 1 CAPSULE INHALATION TWICE A DAY TAKING VITAMIN D (ERGOCALCIFEROL) [id number] UNIT CAPSULE 1 CAPSULE ORALLY WEEKLY TAKING TOPAMAX 50 MG TABLET 1 TABLET ORALLY TWICE A DAY TAKING FASENRA 30 MG/ML SOLUTION PREFILLED SYRINGE 1 NULL SUBCUTANEOUS TAKING LIDODERM 5 % PATCH 1 PATCH TO SKIN REMOVE AFTER 12 HOURS EXTERNALLY ONCE A DAY TAKING CIPRODEX 0.3-0.1 % SUSPENSION 4 DROPS INTO AFFECTED EAR OTIC THREE TIMES A DAY, NOTES: [facility] CL[facility] TAKING ROBITUSSIN DM 100-10 MG/5ML SYRUP 10 ML NEEDED ORALLY EVERY 4 HRS TAKING CEFDINIR 300 MG CAPSULE 1 CAP ORALLY BID TAKING TESSALON PERLES 100 MG CAPSULE 1 CAPSULE NEEDED ORALLY THREE TIMES A DAY TAKING MOVANTIK 25 MG TABLET 1 TABLET IN THE MORNING ORALLY ONCE A DAY TAKING CARISOPRODOL 350 MG TABLET 1 TABLET NEEDED ORALLY BID FOR SEVERE SPASM MDD=2 CODE D CHRONIC PAIN TAKING CELEBREX 200 MG CAPSULE 1 CAPSULE ORALLY ONCE A DAY TAKING PERCOCET 10-325 MG TABLET 1 TABLET ORALLY EVERY 4 HRS PRN PAIN MDD = 6 NOT-TAKING DIFLUCAN 150 MG TABLET 1 TABLET, REPEAT IN 72 HOURS ORALLY DAILY NOT-TAKING CEFDINIR 300 MG CAPSULE DIRECTED ORALLY TWICE DAILY NOT-TAKING TOBRADEX 0.3-0.1 % OINTMENT 1 APPLICATION OPHTHALMIC BEFORE BEDTIME NOT-TAKING TROSPIUM CHLORIDE 20 MG TABLET 1 TABLET AT BEDTIME ON AN EMPTY STOMACH ORALLY BID, NOTES: [facility] NOT-TAKING MUCINEX 600 MG TABLET EXTENDED RELEASE 1 TABLET NEEDED ORALLY EVERY 12 HRS NOT-TAKING PREDNISONE 10 MG TABLET 4TAB X 3DAYS, 3TABS X 3DAYS, 2TABS X 3DAYS, 1TAB X 3DAYS ORALLY ONCE A DAY NOT-TAKING TESSALON PERLES 100 MG CAPSULE 1 CAPSULE NEEDED ORALLY BEFORE BEDTIME NOT-TAKING DOXYCYCLINE MONOHYDRATE 100 MG CAPSULE 1 CAPSULE ORALLY BID NOT-TAKING ASMANEX 120 METERED DOSES 220 MCG/INH AEROSOL POWDER BREATH ACTIVATED 1 PUFF IN THE EVENING INHALATION BID NOT-TAKING PREDNISONE 20 MG TABLET 1 TABLET ORALLY BID FOR 5 DAYS, NOTES: 09-06-18 NOT-TAKING AZITHROMYCIN (5 DAY) 250 MG TABLET 2 TABLET ORALLY ONCE A DAY/ 4 DAYS, NOTES: 09-06-18 NOT-TAKING PREDNISONE TAPER 1 TAB ORAL NOT-TAKING CEFDINIR 300 MG CAPSULE DIRECTED ORALLY BID NOT-TAKING FLUOXETINE 20 MG CAPSULE 2 CAPSULE IN THE MORNING ORALLY ONCE A DAY NOT-TAKING SINGULAIR 10 MG TABLET 1 TABLET IN THE EVENING ORALLY ONCE A DAY NOT-TAKING ADVAIR DISKUS 100-50 MCG/DOSE AEROSOL POWDER BREATH ACTIVATED 1 PUFF INHALATION TWICE A DAY NOT-TAKING LORATADINE 10 MG TABLET 1 TABLET ORALLY ONCE A DAY NOT-TAKING TESSALON PERLES 100 MG CAPSULE 1 CAPSULE NEEDED ORALLY THREE TIMES A DAY MEDICATION LIST REVIEWED AND RECONCILED WITH THE PATIENT PAST MEDICAL HISTORY HYPERTENSION HYPOTHYROID LUMBAR SPONDYLOSIS INTERSTIM BLADDER OAB MASTOIDECTOMY X6 MIGRAINES ASTHMA ALLERGIES PENICILLIN (FOR ALLERGIES USE ONLY): ANAPHALAXIS - ALLERGY LEVAQUIN: ANAPHALAXIS - ALLERGY AMOXICILLIN: ANAPHALAXIS - ALLERGY MUSHROOMS: ANAPHALAXIS - ALLERGY BEES: ANAPHALAXIS - ALLERGY DOXYCYCLINE: RASH - ALLERGY LATEX (FOR ALLERGY USE ONLY): HIVES - ALLERGY SURGICAL HISTORY HYSTERECTOMY 2011 APENDIX OUT 2001 HEMROHDECTOMY 2010 BUNIONS REMOVED ON BOTH FEET 2013 RIGHT KNEE ARTHROSCOPY 1993 MULTIPLE LAPAROSCOPY FOR ENDOMETRIOSIS TONSILS AND ADNOIDS OUT 1979 KIDNEY STONES 08/2014 FAMILY HISTORY FATHER: ALIVE, DIAGNOSED WITH HYPERTENSION, OTHER MALIGNANT NEOPLASM OF UNSPECIFIED SITE MOTHER: ALIVE, HYPERTENSION, OTHER MALIGNANT NEOPLASM OF UNSPECIFIED SITE, OTHER SPECIFIED CONDITIONS INFLUENCING HEALTH STATUS 2 SON(S) , 1 DAUGHTER(S) . SON WITH SEVERE CROHNS DISEASE AND PYLODERMA GANGERINEOSA\NDAD-PROSTATE CA\NMOM-HIGH CHOLESTEROL AND BREAST CA. SOCIAL HISTORY GENERAL: TOBACCO USE ARE YOU A:FORMER SMOKER 2 WEEKS VAPORNO E-CIGARETTENO HIV / HEP-C SCREENING HIV TEST OFFERED TO PATIENT:YES DATE OFFERED:02/07/2019 TEST ACCEPTED:NO HEP-C TEST OFFERED TO PATIENT:NO REASON:PATIENT DECLINED BROCHURE PROVIDED TO PATIENTNO OTHERS AT HOME: SPOUSE, CHILDREN. EDUCATION LEVEL OF EDUCATION:COLLEGE DIET: REGULAR. LANGUAGE LANGUAGES SPOKEN:TELUGU DOMESTIC VIOLENCE DO YOU FEEL SAFE IN YOUR ENVIRONMENT?YES BMI CARE GOAL FOLLOW-UP ABOVE NORMAL BMI FOLLOW-UPDIETARY MANAGEMENT EDUCATION, GUIDANCE, AND COUNSELING RECREATIONAL DRUG USE DRUG USE?NO EXERCISE: NO REGULAR EXERCISE. LEARNING BARRIERS / SPECIAL NEEDS CHANGE FROM LAST VISIT?NO BARRIERS TO LEARNING?NO HEARING IMPAIRED?NO VISION IMPAIRED?NO COGNITIVELY IMPAIRED?NO READINESS TO LEARN?YES LEARNING PREFERENCES?NO LEARNING CAPABILITIES PRESENT?YES EMOTIONAL BARRIERS?NO SPECIAL DEVICES?NO FINISHED GOODS INSPECTOR NEEDED?NO PAIN CLINIC PFS, CLERGY, PUBLIC HEALTH REFERRALS PFS REFERRAL NEEDED?NO CLERGY REFERRAL NEEDED?NO PUBLIC HEALTH REFERRAL NEEDED?NO WAS THE PROVIDER NOTIFIED OF ANY PERTINENT INFO?NO N/A HAS THE PATIENT BEEN EDUCATED REGARDING HIS/HER PLAN OF CARE?YES HAS THE PATIENT BEEN EDUCATED REGARDING PAIN, THE RISK FOR PAIN, THE IMPORTANCE OF EFFECTIVE PAIN MANAGEMENT, AND THE PAIN ASSESSMENT PROCESS?YES LATEX QUESTIONNAIRE LATEX ALLERGY : HAVE YOU EVER DEVELOPED ANY TYPE OF REACTION AFTER HANDLING LATEX PRODUCTS SUCH RUBBER GLOVES, CONDOMS, DIAPHRAGMS, BALLOONS, SOCKS, OR UNDERWEAR?NO LATEX ALLERGY : HAVE YOU EVER DEVELOPED ANY TYPE OF REACTION DURING OR AFTER DENTAL APPOINTMENT, VAGINAL/RECTAL EXAMINATION, SURGICAL PROCEDURE, OR ANY OTHER EXPOSURE?YES - PLEASE INDICATE :SURGICAL PROCEDURE DATE ASKED : 08/07/2018 LATEX RISK : HAVE YOU EVER HAD ANY DIFFICULTY BREATHING OR HIVES AFTER EATING OR HANDLING ANY FRUITS, OR VEGETABLES; SUCH KIWI, BANANAS, STONE FRUITS, OR CHESTNUTSNO LATEX RISK : DO YOU HAVE A PREVIOUS PERSONAL HISTORY OF MORE THAN NINE SURGERIES, SPINA BIFIDA, OR REPEATED CATHERIZATIONS? YES - PLEASE INDICATE : > 9 SURGERIES LATEX RISK : ARE YOU FREQUENTLY EXPOSED TO LATEX PRODUCTS IN YOUR OCCUPATION?NO CAFFEINE CAFFEINE USE?YES HOW OFTEN AND HOW MUCH? 2 CUPS PER DAY ADVANCE DIRECTIVE ADVANCE DIRECTIVE DISCUSSED WITH PATIENT:YES HCP--KEIRY FARNSWORTH [phone] DENOMINATIONAL [id number] NONE MARITAL STATUS: . ALCOHOL SCREENING DID YOU HAVE A DRINK CONTAINING ALCOHOL IN THE PAST YEAR?NO POINTS0 INTERPRETATIONNEGATIVE OCCUPATION: RETIRED. SEXUAL HX HAD SEX IN THE LAST 12 MONTHS (VAGINAL, ORAL, OR ANAL)?YES WITHMEN ONLY USE PROTECTION?NO HAVE YOU EVER HAD AN STD?YES CHLAMYDIA?YES HOSPITALIZATION/MAJOR DIAGNOSTIC PROCEDURE SEIZURES PNEUMONIA MINI STROKE 2008 REVIEW OF SYSTEMS REVIEWED BY: PROVIDER: RAFA ENGP-Ignacio . CONSTITUTIONAL: ANY CHANGE IN YOUR MEDICAL CONDITION? NO . CHILLS NO . FEVER NO . INFECTION: DO YOU HAVE NEW INFECTIONS? NO . DO YOU HAVE HISTORY OF MRSA? NO . MUSCULOSKELETAL: ANY NEW PATTERNS OF PAIN OR NUMBNESS? NO . GASTROENTEROLOGY: ANY NEW CHANGE IN BOWEL CONTROL? NO . GENITOURINARY: ANY NEW CHANGE IN BLADDER CONTROL? YES, INCONTINENCE . IS THERE A CHANCE YOU COULD BE ? NO . HEMATOLOGY/LYMPH: DO YOU TAKE ANY BLOOD THINNERS? (FOR EXAMPLE- COUMADIN, PLAVIX, AGGRENOX, PLATEL, PRADAXA, OR XARELTO) NO . WHEN WAS YOUR LAST DOSE? DATE: TIME: . NEUROLOGY: HAVE YOU FALLEN IN THE PAST 12 MONTHS? NO . ANY NEW EXTREMITY NUMBNESS OR WEAKNESS? NO . CARDIOLOGY: DO YOU HAVE A PACEMAKER OR DEFIBRILLATOR? NO . RESPIRATORY: HAVE YOU BEEN SICK IN THE PAST WEEK? YES, ALLERGIES . FEVER NO . FLU LIKE SYMPTOMS? NO . COUGH YES, PRODUCTIVE . INTEGUMENTARY: DO YOU HAVE ANY RASHES OR OPEN SORES? NO . ALLERGIC/IMMUNO: ARE YOU ALLERGIC TO IV DYE? NO . ANY NEW ALLERGIES? NO . PSYCHIATRIC: DO YOU HAVE THOUGHTS OF HURTING YOURSELF OR SOMEONE ELSE? NO . ARE YOU ABUSED, NEGLECTED, OR IN AN UNSAFE ENVIRONMENT? NO . ENDOCRINOLOGY: ARE YOU DIABETIC? NO . OTHER: DO YOU NEED ANY PRESCRIPTIONS? YES, PERCOCET, SOMA, TOPAMAX . IF YES, PLEASE LIST: ____ . ANY NEW PROBLEMS WITH YOUR MEDICATIONS? NO . WHEN DID YOU LAST EAT? ____ . WHEN DID YOU LAST DRINK? ____ . WHAT DID YOU LAST DRINK? ____ . NAME OF PERSON DRIVING YOU HOME? ____ . DO YOU HAVE ANY OTHER QUESTIONS OR CONCERNS NO . VITAL SIGNS WT 275.0 LBS, HT 67 IN, BMI 43.07 INDEX, BP 134/75 MM HG, HR 119 /MIN, RR 18 /MIN, TEMP 97.7 F, OXYGEN SAT % 95%, SAFE IN ENV? (Y/N) YES, NA INITIALS AW [id number], REVIEWED BY: EDGARDO PENDLETON LPN. EXAMINATION GENERAL EXAMINATION: GENERALNO ACUTE DISTRESS, WELL NOURISHED AND HYDRATED. PSYCHAPPROPRIATE MOOD AND AFFECT . LUNGS:CLEAR TO AUSCULTATION BILATERALLY, NO WHEEZES, RHONCHI, RALES. HEART:NO MURMURS, REGULAR RATE AND RHYTHM. ASSESSMENTS CERVICAL DISC DISPLACEMENT - M50.20 (PRIMARY) TREATMENT CERVICAL DISC DISPLACEMENT REFILL PERCOCET TABLET, 10-325 MG, 1 TABLET, ORALLY, EVERY 4 HRS PRN PAIN MDD = 6, 30 DAYS, 180 REFILL TOPAMAX TABLET, 50 MG, 1 TABLET, ORALLY, TWICE A DAY, 90 DAY(S), 180 TABLET, REFILLS 1 REFILL CARISOPRODOL TABLET, 350 MG, 1 TABLET NEEDED, ORALLY, BID FOR SEVERE SPASM MDD=2 CODE D CHRONIC PAIN, 90 DAY(S), 180, REFILLS 0 CLINICAL NOTES: 39-YEAR-OLD FEMALE IN FOR CHRONIC PAIN FOLLOW-UP. GIVEN PRESENTING SYMPTOMS AND RESULTS PHYSICAL EXAMINATION RECOMMENDED CONTINUATION OF CURRENT MEDICATION REGIMEN WITH FOLLOW-UP IN 3 MONTHS. PATIENT HAS EXPRESSED UNDERSTANDING OF AND WAS IN AGREEMENT WITH TREATMENT PLAN. GIVEN TIME TO ASK QUESTIONS AND EXPRESS CONCERNS., ISTOP REGISTRY REVIEWED AND DEMONSTRATES COMPLLIANCE. (REF # [id number] ) BRINGS IN MEDICATIONS WHICH IS APPROPRIATE FOR WHAT WAS DISPENSED. RECENT URINE TOXICOLOGY REVIEWED. NO UNAUTHORIZED MEDICATIONS. NO ILLICIT SUBSTANCES AND PRESCRIBED MEDICATIONS WERE PRESENT. PROCEDURE CODES [id number] ESTABILISHED PATIENT [facility] CHARGE DISPOSITION & COMMUNICATION FOLLOW UP 3 MONTHS (REASON: BACK PAIN) ELECTRONICALLY SIGNED BY MARY CRALIN ON 07/31/2019 AT 09:12 AM EDT DISCLAIMER : THIS IS A VISIT SUMMARY EXTRACTED FROM THE [employer] CHART. IT IS NOT A COPY OF THE [employer] PROGRESS NOTE. MARCIN
== END ==
LOC: M PAIN 09:45
PROVIDERS: ATTEND Family Medicine
DX: M50.20 Other cervical disc displacement, unspecified cervical region (principal)

== ENCOUNTER 2019-08-05 09:52 | Outpatient (CLI) | payer OTHER ==
[~2019-08-05] VITALS: Ht 170.2 cm; Wt 120.7 kg
[2019-08-05 09:55] VITALS: BP 149/87
[2019-08-05] MEDS ORDERED: BENRALIZUMAB (FASENRA) 30MG/ML SYRINGE (J0517 PER 1MG) SC ONE (10:00)
[2019-08-05 10:39] VITALS: BP 124/82
== END 2019-08-05 10:40 | disposition home or self-care (01) ==
LOC: M INFU 09:52
PROVIDERS: ATTEND Internal Medicine Pulmonary Disease
DX: J45.40 Moderate persistent asthma, uncomplicated (principal); H66.22 Chronic atticoantral suppurative otitis media, left ear; H95.02 Recurrent cholesteatoma of postmastoidectomy cavity, left ear; Z79.891 Long term (current) use of opiate analgesic; Z79.899 Other long term (current) drug therapy; Z88.0 Allergy status to penicillin; Z88.1 Allergy status to other antibiotic agents; Z88.8 Allergy status to other drugs, medicaments and biological substances; Z91.040 Latex allergy status
CPT/HCPCS: 96372; J0517

== ENCOUNTER → 2019-08-23 | Outpatient (CLI) | payer OTHER | LOC: M LABSMTC 09:25 | PROVIDERS: ATTEND Anesthesiology | DX: Z11.59 Encounter for screening for other viral diseases (principal); Z20.828 Contact with and (suspected) exposure to other viral communicable diseases ==

== ENCOUNTER 2019-08-28 14:13 | Emergency (ER) | payer OTHER, MEDICARE ==
[~2019-08-28] VITALS: Ht 170.2 cm; Wt 123.0 kg
[~2019-08-28 14:13] MED LIST changes: -IMIP10TA PO; -IMIT6KIT SC; -NARC1SPR NARES; -OXYC10TA3 PO; -PEPC1TAB5 PO; -POTA20TA6 PO; -PRED10TA2 PO; -SING10TA32 PO
[2019-08-28] MEDS ORDERED: IMIP10TA PO (14:36)
[2019-08-28] MEDS ORDERED: MORPHINE 4 MG/ML 1ML VIAL/SYRINGE (J2270) IV ONE (15:15)
[2019-08-28 15:41] LABS: BASO % 0.3 % (0.0-1.0); HEMATOCRIT 38.1 % (36.0-47.0); HEMOGLOBIN 12.7 g/dl (12.0-15.5); LYMPH # 2.2 10^3/uL (1.5-5.0); LYMPH % 32.5 % (24.0-44.0); MEAN CORPUSCULAR HEMOGLOBIN 30.5 pg (27.0-33.0); MEAN CORPUSCULAR HGB CONC 33.3 g/dl (32.0-36.5); MEAN CORPUSCULAR VOLUME 91.4 fl (80.0-96.0); MONO # 0.5 10^3/uL (0.0-0.8); MONO % 7.6 % (0.0-5.0); NEUTROPHILS # 4.1 10^3/uL (1.5-8.5); NEUTROPHILS % 59.3 % (36.0-66.0); PLATELET COUNT, AUTOMATED 264 10^3/uL (150-450); RED BLOOD COUNT 4.17 10^6/uL (4.00-5.40); WHITE BLOOD COUNT 6.9 10^3/uL (4.0-10.0)
[2019-08-28 16:01] LABS: ALBUMIN 3.6 GM/DL (3.2-5.2); ALT/SGPT 35 U/L (12-78); BILIRUBIN,TOTAL 0.3 MG/DL (0.2-1.0); BLOOD UREA NITROGEN 8 MG/DL (7-18); C REACTIVE PROTEIN QUANTITATIV 0.77 MG/DL (0.00-0.30); CALCIUM LEVEL 8.2 MG/DL (8.5-10.1); CARBON DIOXIDE LEVEL 26 MEQ/L (21-32); CHLORIDE LEVEL 112 MEQ/L (98-107); GLOMERULAR FILTRATION RATE > 60.0 (>58); GLUCOSE, FASTING 110 MG/DL (70-100); POTASSIUM SERUM 4.6 MEQ/L (3.5-5.1); SODIUM LEVEL 141 MEQ/L (136-145); TOTAL PROTEIN 6.9 GM/DL (6.4-8.2)
[2019-08-28 16:13] VITALS: BP 100/58
[2019-08-28 16:37] LABS: ERYTHROCYTE SEDIMENTATION RATE 33 mm/hr (0-20)
--- NOTE | 2019-08-28 17:26 | REP ---
CT LUMBAR SPINE WITHOUT CONTRAST: HISTORY: Loss of bowel and bladder control. COMPARISON: lumbar spine radiographs, March 28, 2012. CT FINDINGS: Lumbar vertebral body heights are preserved. Alignment is normal. No bony destructive lesion is seen. There is embolic coil material visible along the course of the left gonadal vein. A transsacral neurostimulator lead is seen at the bottom of the imaging field of view. There is no evidence of spondylolysis or spondylolisthesis. No bony foraminal narrowing is seen. No evidence of congenital central canal stenosis or lumbar disc protrusion. IMPRESSION: No acute abnormality. Trans-sacral neurostimulator lead on the right at the bottom of the imaging field of view. Embolic coil material along the course of the gonadal vein on the left. No evidence of disc herniation or bony destructive lesion. Electronically Signed by Carlos Eduardo Pearce MD 08/28/2019 07:37 P
== END 2019-08-28 17:15 | disposition home or self-care (01) ==
LOC: M ED 14:13
DX: M96.1 Postlaminectomy syndrome, not elsewhere classified (principal); J45.909 Unspecified asthma, uncomplicated; I10 Essential (primary) hypertension; E03.9 Hypothyroidism, unspecified; G43.909 Migraine, unspecified, not intractable, without status migrainosus; E78.5 Hyperlipidemia, unspecified; F33.9 Major depressive disorder, recurrent, unspecified; F41.9 Anxiety disorder, unspecified; F43.10 Post-traumatic stress disorder, unspecified; K21.9 Gastro-esophageal reflux disease without esophagitis; Z88.0 Allergy status to penicillin; Z88.1 Allergy status to other antibiotic agents; Z88.8 Allergy status to other drugs, medicaments and biological substances; Z91.018 Allergy to other foods; Z91.030 Bee allergy status; Z91.040 Latex allergy status; E66.01 Morbid (severe) obesity due to excess calories; Z68.41 Body mass index [BMI] 40.0-44.9, adult; Z79.890 Hormone replacement therapy; Z79.899 Other long term (current) drug therapy; F17.210 Nicotine dependence, cigarettes, uncomplicated
CPT/HCPCS: 72131; 80053; 85025; 85652; 86140; 96374; 99283; G0463; J2270

== ENCOUNTER → 2019-08-28 | Outpatient (CLI) | payer MEDICARE, OTHER ==
[~2019-08-28] MED LIST changes: -BUSP15TA47; +BUSP15TA47 PO; +IMIP10TA PO; +IMIT6KIT SC; -LORA-674; +LORA-674 PO; +NARC1SPR NARES; +OXYC10TA3 PO; +PEPC1TAB5 PO; +POTA20TA6 PO; +PRED10TA2 PO; +SING10TA32 PO
--- NOTE | 2019-08-29 23:16 | ECWPNPC ---
PATIENT NAME: PIYUSH FARNSWORTH : 1980 GENDER: FEMALE VISIT DATE: 08/28/2019 DISCHARGE DATE: 08/28/19 0000 VISIT LOCKED DATE TIME: PHYSICIAN: MEHREEN DONNELLY RESOURCE: MEHREEN DONNELLY REASON FOR APPOINTMENT 1. INCREASED PAIN- PER DR Nur HISTORY OF PRESENT ILLNESS HISTORY OF PRESENT ILLNESS: PAIN THE PATIENT DESCRIBES THE PAIN... 39-YEAR-OLD FEMALE IN FOR COMPLAINTS OF INCREASED PAIN SHE IS RATING HER PAIN CURRENTLY AT A 10 OUT OF 10 AND DESCRIBING IT SHARP, STABBING, TENDER, THROBBING, AND SORE. SHE FEELS THE PAIN IS LOCATED IN THE LUMBAR REGION AND FURTHER ADMITS TO LOSS OF BOWEL AND BLADDER CONTROL OF THE PAST WEEK. FALL RISK SCREENING: SCREENING :NO FALLS REPORTED IN THE LAST YEAR CURRENT MEDICATIONS TAKING LYRICA 150 MG CAPSULE 1 CAPSULE ORALLY THREE TIMES A DAY TAKING SYNTHROID 25 25MCG TABLET 1 CAP ORAL DAILY TAKING ALBUTEROL SULFATE (2.5 MG/3ML) 0.083% NEBULIZATION SOLUTION 3 ML INHALATION EVERY 4 HOURS NEEDED TAKING TRAZODONE HCL 100 MG TABLET 4 TABLET AT BEDTIME ORALLY ONCE A DAY TAKING SUMATRIPTAN SUCCINATE 100 MG TABLET 1 TABLET NEEDED ORALLY DIRECTED TAKING EPIPEN 0.3 MG/0.3ML (1:1000) DEVICE INTRAMUSCULAR DIRECTED TAKING FLONASE 50 MCG/DOSE INHALER 2 SPRAY IN EACH NOSTRIL NASALLY ONCE A DAY TAKING POTASSIUM CHLORIDE 20 MEQ TABLET EXTENDED RELEASE 1 CAPSULE WITH FOOD ORALLY TID TAKING IMITREX 6 MG/0.5ML SOLUTION 0.5 ML NEEDED SUBCUTANEOUS TWICE A DAY TAKING NEXIUM 40 MG CAPSULE DELAYED RELEASE 1 CAPSULE ORALLY TWICE A DAY TAKING ROSUVASTATIN CALCIUM 40 MG TABLET 1 CAP ORALLY DAILY TAKING NARCAN 4 MG/0.1ML LIQUID DIRECTED NASALLY FOR SYMPTOMS OF OVERDOSE OR RESP DEPRESSION - CALL 911 TAKING CYMBALTA 60 MG CAPSULE DELAYED RELEASE PARTICLES 1 CAPSULE ORALLY TWICE A DAY, NOTES: [facility] TAKING CLARITIN 10 MG TABLET 1 TABLET ORALLY ONCE A DAY TAKING RANITIDINE 1 TAB ORAL DAILY TAKING BUSPIRONE HCL 15 MG TABLET 1 TABLET ORALLY TWICE A DAY TAKING HYDROXYZINE HCL 25 MG TABLET 1 TABLET ORALLY DAILY TAKING ADVAIR DISKUS 500-50 MCG/DOSE MISCELLANEOUS 1 PUFF INHALATION TWICE A DAY TAKING SPIRIVA HANDIHALER 1 CAPSULE INHALATION TWICE A DAY TAKING VITAMIN D (ERGOCALCIFEROL) [id number] UNIT CAPSULE 1 CAPSULE ORALLY WEEKLY TAKING FASENRA 30 MG/ML SOLUTION PREFILLED SYRINGE 1 NULL SUBCUTANEOUS , NOTES: 08/05/2019 TAKING LIDODERM 5 % PATCH 1 PATCH TO SKIN REMOVE AFTER 12 HOURS EXTERNALLY ONCE A DAY TAKING CIPRODEX 0.3-0.1 % SUSPENSION 4 DROPS INTO AFFECTED EAR OTIC THREE TIMES A DAY, NOTES: [facility] TAKING CELEBREX 200 MG CAPSULE 1 CAPSULE ORALLY ONCE A DAY TAKING TOPAMAX 50 MG TABLET 1 TABLET ORALLY TWICE A DAY TAKING CARISOPRODOL 350 MG TABLET 1 TABLET NEEDED ORALLY BID FOR SEVERE SPASM MDD=2 CODE D CHRONIC PAIN TAKING PERCOCET 10-325 MG TABLET 1 TABLET ORALLY EVERY 4 HRS PRN PAIN MDD = 6 TAKING MOVANTIK 25 MG TABLET 1 TABLET IN THE MORNING ORALLY ONCE A DAY NOT-TAKING ROBITUSSIN DM 100-10 MG/5ML SYRUP 10 ML NEEDED ORALLY EVERY 4 HRS NOT-TAKING CEFDINIR 300 MG CAPSULE 1 CAP ORALLY BID NOT-TAKING TESSALON PERLES 100 MG CAPSULE 1 CAPSULE NEEDED ORALLY THREE TIMES A DAY NOT-TAKING DIFLUCAN 150 MG TABLET 1 TABLET, REPEAT IN 72 HOURS ORALLY DAILY NOT-TAKING CEFDINIR 300 MG CAPSULE DIRECTED ORALLY TWICE DAILY NOT-TAKING TOBRADEX 0.3-0.1 % OINTMENT 1 APPLICATION OPHTHALMIC BEFORE BEDTIME NOT-TAKING TROSPIUM CHLORIDE 20 MG TABLET 1 TABLET AT BEDTIME ON AN EMPTY STOMACH ORALLY BID, NOTES: [facility] NOT-TAKING MUCINEX 600 MG TABLET EXTENDED RELEASE 1 TABLET NEEDED ORALLY EVERY 12 HRS NOT-TAKING PREDNISONE 10 MG TABLET 4TAB X 3DAYS, 3TABS X 3DAYS, 2TABS X 3DAYS, 1TAB X 3DAYS ORALLY ONCE A DAY NOT-TAKING TESSALON PERLES 100 MG CAPSULE 1 CAPSULE NEEDED ORALLY BEFORE BEDTIME NOT-TAKING DOXYCYCLINE MONOHYDRATE 100 MG CAPSULE 1 CAPSULE ORALLY BID NOT-TAKING ASMANEX 120 METERED DOSES 220 MCG/INH AEROSOL POWDER BREATH ACTIVATED 1 PUFF IN THE EVENING INHALATION BID NOT-TAKING PREDNISONE 20 MG TABLET 1 TABLET ORALLY BID FOR 5 DAYS, NOTES: 09-06-18 NOT-TAKING AZITHROMYCIN (5 DAY) 250 MG TABLET 2 TABLET ORALLY ONCE A DAY/ 4 DAYS, NOTES: 09-06-18 NOT-TAKING PREDNISONE TAPER 1 TAB ORAL NOT-TAKING CEFDINIR 300 MG CAPSULE DIRECTED ORALLY BID NOT-TAKING FLUOXETINE 20 MG CAPSULE 2 CAPSULE IN THE MORNING ORALLY ONCE A DAY NOT-TAKING SINGULAIR 10 MG TABLET 1 TABLET IN THE EVENING ORALLY ONCE A DAY NOT-TAKING ADVAIR DISKUS 100-50 MCG/DOSE AEROSOL POWDER BREATH ACTIVATED 1 PUFF INHALATION TWICE A DAY NOT-TAKING LORATADINE 10 MG TABLET 1 TABLET ORALLY ONCE A DAY NOT-TAKING TESSALON PERLES 100 MG CAPSULE 1 CAPSULE NEEDED ORALLY THREE TIMES A DAY MEDICATION LIST REVIEWED AND RECONCILED WITH THE PATIENT PAST MEDICAL HISTORY HYPERTENSION HYPOTHYROID LUMBAR SPONDYLOSIS INTERSTIM BLADDER OAB MASTOIDECTOMY X6 MIGRAINES ASTHMA ALLERGIES PENICILLIN (FOR ALLERGIES USE ONLY): ANAPHALAXIS - ALLERGY LEVAQUIN: ANAPHALAXIS - ALLERGY AMOXICILLIN: ANAPHALAXIS - ALLERGY MUSHROOMS: ANAPHALAXIS - ALLERGY BEES: ANAPHALAXIS - ALLERGY DOXYCYCLINE: RASH - ALLERGY LATEX (FOR ALLERGY USE ONLY): HIVES - ALLERGY SURGICAL HISTORY HYSTERECTOMY 2011 APENDIX OUT 2001 HEMROHDECTOMY 2010 BUNIONS REMOVED ON BOTH FEET 2013 RIGHT KNEE ARTHROSCOPY 1993 MULTIPLE LAPAROSCOPY FOR ENDOMETRIOSIS TONSILS AND ADNOIDS OUT 1979 KIDNEY STONES 08/2014 MASTOID TYPANO RECONSTRUCTION ON LEFT EAR 06/26/2019 FAMILY HISTORY FATHER: ALIVE, DIAGNOSED WITH OTHER MALIGNANT NEOPLASM OF UNSPECIFIED SITE, HYPERTENSION MOTHER: ALIVE, HYPERTENSION, OTHER MALIGNANT NEOPLASM OF UNSPECIFIED SITE, OTHER SPECIFIED CONDITIONS INFLUENCING HEALTH STATUS 2 SON(S) , 1 DAUGHTER(S) . SON WITH SEVERE CROHNS DISEASE AND PYLODERMA GANGERINEOSA\NDAD-PROSTATE CA\NMOM-HIGH CHOLESTEROL AND BREAST CA. SOCIAL HISTORY GENERAL: TOBACCO USE ARE YOU A:FORMER SMOKER 2 WEEKS VAPORNO E-CIGARETTENO LATEX QUESTIONNAIRE LATEX ALLERGY : HAVE YOU EVER DEVELOPED ANY TYPE OF REACTION AFTER HANDLING LATEX PRODUCTS SUCH RUBBER GLOVES, CONDOMS, DIAPHRAGMS, BALLOONS, SOCKS, OR UNDERWEAR?NO LATEX ALLERGY : HAVE YOU EVER DEVELOPED ANY TYPE OF REACTION DURING OR AFTER DENTAL APPOINTMENT, VAGINAL/RECTAL EXAMINATION, SURGICAL PROCEDURE, OR ANY OTHER EXPOSURE?YES - PLEASE INDICATE :SURGICAL PROCEDURE DATE ASKED : 08/23/2019 LATEX RISK : HAVE YOU EVER HAD ANY DIFFICULTY BREATHING OR HIVES AFTER EATING OR HANDLING ANY FRUITS, OR VEGETABLES; SUCH KIWI, BANANAS, STONE FRUITS, OR CHESTNUTSNO LATEX RISK : DO YOU HAVE A PREVIOUS PERSONAL HISTORY OF MORE THAN NINE SURGERIES, SPINA BIFIDA, OR REPEATED CATHERIZATIONS? YES - PLEASE INDICATE : > 9 SURGERIES LATEX RISK : ARE YOU FREQUENTLY EXPOSED TO LATEX PRODUCTS IN YOUR OCCUPATION?NO BMI CARE GOAL FOLLOW-UP ABOVE NORMAL BMI FOLLOW-UPDIETARY MANAGEMENT EDUCATION, GUIDANCE, AND COUNSELING ALCOHOL SCREENING DID YOU HAVE A DRINK CONTAINING ALCOHOL IN THE PAST YEAR?NO POINTS0 INTERPRETATIONNEGATIVE RECREATIONAL DRUG USE DRUG USE?NO CAFFEINE CAFFEINE USE?YES HOW OFTEN AND HOW MUCH? 2 CUPS PER DAY SEXUAL HX HAD SEX IN THE LAST 12 MONTHS (VAGINAL, ORAL, OR ANAL)?YES WITHMEN ONLY USE PROTECTION?NO HAVE YOU EVER HAD AN STD?YES CHLAMYDIA?YES HIV / HEP-C SCREENING HIV TEST OFFERED TO PATIENT:YES DATE OFFERED:02/07/2019 TEST ACCEPTED:NO HEP-C TEST OFFERED TO PATIENT:NO REASON:PATIENT DECLINED BROCHURE PROVIDED TO PATIENTNO YARSANISM [id number] NONE LANGUAGE LANGUAGES SPOKEN:BULGARIAN EDUCATION LEVEL OF EDUCATION:COLLEGE LEARNING BARRIERS / SPECIAL NEEDS CHANGE FROM LAST VISIT?NO BARRIERS TO LEARNING?NO HEARING IMPAIRED?NO VISION IMPAIRED?NO COGNITIVELY IMPAIRED?NO READINESS TO LEARN?YES LEARNING PREFERENCES?NO LEARNING CAPABILITIES PRESENT?YES EMOTIONAL BARRIERS?NO SPECIAL DEVICES?NO TRAVEL ASSISTANT NEEDED?NO DOMESTIC VIOLENCE DO YOU FEEL SAFE IN YOUR ENVIRONMENT?YES OCCUPATION: RETIRED. DIET: REGULAR. EXERCISE: NO REGULAR EXERCISE. MARITAL STATUS: . OTHERS AT HOME: SPOUSE, CHILDREN. NEW PATIENT PAIN DIARY TODAY'S VISIT 08/23/2019 PATIENT DESCRIBES PAIN :HAVE IT ALL THE TIME, SHARP, STABBING, TENDER, THROBBING, SORE FROM 0-10, WHAT LEVEL IS YOUR PAIN TODAY?10 PAIN CLINIC PFS, CLERGY, PUBLIC HEALTH REFERRALS PFS REFERRAL NEEDED?NO CLERGY REFERRAL NEEDED?NO PUBLIC HEALTH REFERRAL NEEDED?NO WAS THE PROVIDER NOTIFIED OF ANY PERTINENT INFO?YES N/A HAS THE PATIENT BEEN EDUCATED REGARDING HIS/HER PLAN OF CARE?YES HAS THE PATIENT BEEN EDUCATED REGARDING PAIN, THE RISK FOR PAIN, THE IMPORTANCE OF EFFECTIVE PAIN MANAGEMENT, AND THE PAIN ASSESSMENT PROCESS?YES ADVANCE DIRECTIVE ADVANCE DIRECTIVE DISCUSSED WITH PATIENT:YES HCP--KEIRY FARNSWORTH [phone] HOSPITALIZATION/MAJOR DIAGNOSTIC PROCEDURE SEIZURES PNEUMONIA MINI STROKE 2009 MASTOID TYPANO RECONSTRUCTION ON LEFT EAR 1 NIGHT 06/26/2019 REVIEW OF SYSTEMS REVIEWED BY: PROVIDER: RAFA DONNELLY [employer]ERNMENT [employer]PERATIONS CONSULTANT-C . CONSTITUTIONAL: ANY CHANGE IN YOUR MEDICAL CONDITION? NO . CHILLS NO . FEVER NO . INFECTION: DO YOU HAVE NEW INFECTIONS? NO . DO YOU HAVE HISTORY OF MRSA? NO . MUSCULOSKELETAL: ANY NEW PATTERNS OF PAIN OR NUMBNESS? NO . GASTROENTEROLOGY: ANY NEW CHANGE IN BOWEL CONTROL? NO . GENITOURINARY: ANY NEW CHANGE IN BLADDER CONTROL? NO . IS THERE A CHANCE YOU COULD BE ? NO . HEMATOLOGY/LYMPH: DO YOU TAKE ANY BLOOD THINNERS? (FOR EXAMPLE- COUMADIN, PLAVIX, AGGRENOX, PLATEL, PRADAXA, OR XARELTO) NO . WHEN WAS YOUR LAST DOSE? DATE: TIME: . NEUROLOGY: HAVE YOU FALLEN IN THE PAST 12 MONTHS? NO . ANY NEW EXTREMITY NUMBNESS OR WEAKNESS? NO . CARDIOLOGY: DO YOU HAVE A PACEMAKER OR DEFIBRILLATOR? NO . RESPIRATORY: HAVE YOU BEEN SICK IN THE PAST WEEK? NO . FEVER NO . FLU LIKE SYMPTOMS? NO . COUGH NO . INTEGUMENTARY: DO YOU HAVE ANY RASHES OR OPEN SORES? NO . ALLERGIC/IMMUNO: ARE YOU ALLERGIC TO IV DYE? NO . ANY NEW ALLERGIES? NO . PSYCHIATRIC: DO YOU HAVE THOUGHTS OF HURTING YOURSELF OR SOMEONE ELSE? NO . ARE YOU ABUSED, NEGLECTED, OR IN AN UNSAFE ENVIRONMENT? NO . ENDOCRINOLOGY: ARE YOU DIABETIC? NO . OTHER: DO YOU NEED ANY PRESCRIPTIONS? NO . IF YES, PLEASE LIST: ____ . ANY NEW PROBLEMS WITH YOUR MEDICATIONS? NO . WHEN DID YOU LAST EAT? ____ . WHEN DID YOU LAST DRINK? ____ . WHAT DID YOU LAST DRINK? ____ . NAME OF PERSON DRIVING YOU HOME? ____ . DO YOU HAVE ANY OTHER QUESTIONS OR CONCERNS NO . VITAL SIGNS WT 271.0 LBS, HT 67 IN, BMI 42.44 INDEX, BP 134/63 MM HG, HR 113 /MIN, RR 18 /MIN, TEMP 96.2 F, OXYGEN SAT % 98%, NA INITIALS AW 1341. EXAMINATION GENERAL EXAMINATION: GENERALNO ACUTE DISTRESS, WELL NOURISHED AND HYDRATED. PSYCHAPPROPRIATE MOOD AND AFFECT , ORIENTED X 3. ASSESSMENTS POSTLAMINECTOMY SYNDROME, NOT ELSEWHERE CLASSIFIED - M96.1 (PRIMARY) TREATMENT POSTLAMINECTOMY SYNDROME, NOT ELSEWHERE CLASSIFIED CLINICAL NOTES: 39 YEAR OLD FEMALE IN FOR COMPLAINTS OF INCREASED PAIN OVER THE PAST WEEK. GIVEN PRESENTING SYMPTOMS RECOMMEND TRANSFER TO THE ER FOR FURTHER EVALUATION FOR POSSIBLE CAUDA EQUINA SYNDROME. PATIENT HAS EXPRESSED UNDERSTANDING OF AND WAS IN AGREEMENT WITH TREATMENT PLAN. GIVEN TIME TO ASK QUESTIONS AND EXPRESS CONCERNS. THIS [employer] ASSESSOR CALLED AND GAVE REPORT TO CHARGE NURSE AND INFORMED HER OF THE INCOMING PATIENT. PROCEDURE CODES FA211 ESTABILISHED PATIENT [facility] CHARGE DISPOSITION & COMMUNICATION ELECTRONICALLY SIGNED BY MARY CARLIN ON 08/29/2019 AT 11:30 AM EDT DISCLAIMER : THIS IS A VISIT SUMMARY EXTRACTED FROM THE [employer] CHART. IT IS NOT A COPY OF THE [employer] PROGRESS NOTE. MARCIN
== END ==
LOC: M PAIN 13:30
PROVIDERS: ATTEND Family Medicine
DX: M96.1 Postlaminectomy syndrome, not elsewhere classified (principal); I10 Essential (primary) hypertension; E03.9 Hypothyroidism, unspecified; G43.909 Migraine, unspecified, not intractable, without status migrainosus; J45.909 Unspecified asthma, uncomplicated; F17.210 Nicotine dependence, cigarettes, uncomplicated; Z88.0 Allergy status to penicillin; Z88.1 Allergy status to other antibiotic agents; Z88.8 Allergy status to other drugs, medicaments and biological substances; Z91.018 Allergy to other foods; Z91.030 Bee allergy status; Z91.040 Latex allergy status; E66.01 Morbid (severe) obesity due to excess calories; Z68.41 Body mass index [BMI] 40.0-44.9, adult; Z79.891 Long term (current) use of opiate analgesic; Z79.899 Other long term (current) drug therapy

== ENCOUNTER 2019-09-03 14:00 | Outpatient (CLI) | payer OTHER, MEDICARE ==
[~2019-09-03] VITALS: Ht 170.2 cm; Wt 120.9 kg
[~2019-09-03 14:00] MED LIST changes: +IMIP10TA PO
[2019-09-03 14:10] VITALS: BP 130/63
[2019-09-03] MEDS ORDERED: BENRALIZUMAB (FASENRA) 30MG/ML SYRINGE (J0517 PER 1MG) SC ONE (14:30)
== END 2019-09-03 14:30 | disposition home or self-care (01) ==
LOC: M INFU 14:00
PROVIDERS: ATTEND Internal Medicine Pulmonary Disease
DX: J45.40 Moderate persistent asthma, uncomplicated (principal); Z79.891 Long term (current) use of opiate analgesic; Z79.899 Other long term (current) drug therapy; Z88.0 Allergy status to penicillin; Z88.8 Allergy status to other drugs, medicaments and biological substances; Z91.040 Latex allergy status
CPT/HCPCS: 96372; J0517

== ENCOUNTER 2019-09-09 13:54 | Emergency (ER) | payer OTHER, MEDICARE ==
[2019-09-09] MEDS ORDERED: FAMOTIDINE IV BAG 20 MG in IV 1 EA IV ONE (14:15)
[2019-09-09] MEDS ORDERED: NS 1,000 ML IV ONE (14:15)
[2019-09-09] MEDS ORDERED: PERCOCET 5MG/325MG TAB PO ONE (14:15)
[2019-09-09] MEDS ORDERED: NARC1SPR NARES (14:22)
[2019-09-09] MEDS ORDERED: SING10TA32 PO (14:22)
[2019-09-09] MEDS ORDERED: POTA20TA6 PO (14:22)
[2019-09-09] MEDS ORDERED: IMIT6KIT SC (14:22)
[2019-09-09] MEDS ORDERED: OXYC10TA3 PO (14:22)
[2019-09-09 14:31] LABS: BASO % 0.1 % (0.0-1.0); HEMATOCRIT 39.8 % (36.0-47.0); HEMOGLOBIN 13.1 g/dl (12.0-15.5); LYMPH # 3.2 10^3/uL (1.5-5.0); LYMPH % 42.1 % (24.0-44.0); MEAN CORPUSCULAR HEMOGLOBIN 30.1 pg (27.0-33.0); MEAN CORPUSCULAR HGB CONC 32.9 g/dl (32.0-36.5); MEAN CORPUSCULAR VOLUME 91.5 fl (80.0-96.0); MONO # 0.6 10^3/uL (0.0-0.8); MONO % 7.3 % (0.0-5.0); NEUTROPHILS # 3.8 10^3/uL (1.5-8.5); NEUTROPHILS % 50.4 % (36.0-66.0); PLATELET COUNT, AUTOMATED 281 10^3/uL (150-450); RED BLOOD COUNT 4.35 10^6/uL (4.00-5.40); WHITE BLOOD COUNT 7.6 10^3/uL (4.0-10.0)
[2019-09-09 15:06] LABS: ALBUMIN 3.6 GM/DL (3.2-5.2); ALT/SGPT 33 U/L (12-78); BILIRUBIN,TOTAL 0.2 MG/DL (0.2-1.0); BLOOD UREA NITROGEN 6 MG/DL (7-18); CALCIUM LEVEL 8.2 MG/DL (8.5-10.1); CARBON DIOXIDE LEVEL 25 MEQ/L (21-32); CHLORIDE LEVEL 110 MEQ/L (98-107); CREATININE FOR GFR 0.92 MG/DL (0.55-1.30); GLOMERULAR FILTRATION RATE > 60.0 (>58); GLUCOSE, FASTING 91 MG/DL (70-100); POTASSIUM SERUM 4.3 MEQ/L (3.5-5.1); SODIUM LEVEL 141 MEQ/L (136-145); TOTAL PROTEIN 7.2 GM/DL (6.4-8.2)
[2019-09-09 15:45] VITALS: BP 144/91
[2019-09-09] MEDS ORDERED: PRED10TA2 PO (15:51)
[2019-09-09] MEDS ORDERED: PEPC1TAB5 PO (15:51)
== END 2019-09-09 16:03 | disposition home or self-care (01) ==
LOC: EDBD 13:54 → EDSEX 13:54 → M ED 13:54
DX: G40.319 Generalized idiopathic epilepsy and epileptic syndromes, intractable, without status epilepticus (principal); T63.441A Toxic effect of venom of bees, accidental (unintentional), initial encounter; Y92.89 Other specified places as the place of occurrence of the external cause; I10 Essential (primary) hypertension; K21.9 Gastro-esophageal reflux disease without esophagitis; F43.10 Post-traumatic stress disorder, unspecified; Z91.030 Bee allergy status; Z88.0 Allergy status to penicillin; Z88.1 Allergy status to other antibiotic agents; Z91.040 Latex allergy status; Z91.018 Allergy to other foods; Z91.048 Other nonmedicinal substance allergy status; Z79.899 Other long term (current) drug therapy; Z79.51 Long term (current) use of inhaled steroids

== ENCOUNTER → 2019-09-25 | Outpatient (CLI) | payer OTHER, MEDICARE ==
[~2019-09-25] MED LIST changes: +IMIT6KIT SC; +NARC1SPR NARES; +OXYC10TA3 PO; +PEPC1TAB5 PO; +POTA20TA6 PO; +PRED10TA2 PO; +SING10TA32 PO
--- NOTE | 2019-09-27 | ECWPNPC ---
PATIENT NAME: PIYUSH FARNSWORTH : 1980 GENDER: FEMALE VISIT DATE: 09/25/2019 DISCHARGE DATE: 09/25/19956 VISIT LOCKED DATE TIME: PHYSICIAN: MEHREEN DONNELLY RESOURCE: MEHREEN DONNELLY REASON FOR APPOINTMENT 1. BACK/NECK HISTORY OF PRESENT ILLNESS GENERAL: - 39-YEAR-OLD FEMALE IN FOR CHRONIC PAIN FOLLOW-UP. SHE RATES HER PAIN CURRENTLY AT A 10 OUT OF 10 AND DESCRIBES IT ACHING, BURNING, CONTINUOUS, SHARP, STABBING, AND THROBBING. PATIENT REPORTS INCREASED PAIN IN THE LOW BACK WITH RADICULOPATHY. FALL RISK SCREENING: SCREENING :ONE FALL WITH INJURY IN THE PAST YEAR PT REPORTS TWO WEEKS AGO SHE FELL AND HIT HER HEAD DURING A SEIZURE, WENT TO ED PAIN SCREENING: PATIENT HAS A COMPLAINT OF ACUTE OR CHRONIC PAIN :YES INTENSITY OF PAIN (SCALE OF 1 TO 10):10 WHAT DOES YOUR PAIN FEEL LIKE:ACHING, BURNING, CONTINOUS, SHARP, STABBING, THROBBING PAIN IS INCREASED BY:ACTIVITIES, PROLONGED STANDING WALKING, ANY ACTIVITIES PAIN IS DECREASED BY:USE OF PAIN MEDICATIONS NURSING NOTE: -. PAIN CENTER INTAKE QUESTIONS: DO YOU HAVE A HISTORY OF MRSA? :NO DO YOU TAKE A BLOOD THINNERS? :NO DO YOU HAVE ANY BLEEDING DISORDERS? :NO ANY NEW NUMBNESS OR WEAKNESS IN YOUR LEGS OR ARMS? :YES PT REPORTS NEW NUMBNESS AND WEAKNESS IN BOTH LEGS. THIS HAS HAPPENED SINCE JUST PRIOR TO HER LAST VISIT WITH US WHEN SHE WENT TO THE ED. ANY PACEMAKER,DEFIBRILLATOR, OR DORSAL COLUMN STIMULATOR? :YES INTERSTIM IN BLADDER DO YOU HAVE ANY RASHES OR OPEN SORES? :NO ARE YOU ALLERGIC TO IV DYE? :NO ARE YOU DIABETIC? :NO ANY NEW PROBLEMS WITH YOUR MEDICATIONS? :NO HAVE YOU RECEIVED A VACCINE IN THE PAST 30 DAYS? :NO DO YOU PLAN TO RECEIVE A VACCINE IN THE NEXT 21 DAYS? :NO DO YOU NEED ANY PRESCRIPTION? :YES PERCOCET DO YOU TAKE ANY IMMUNOSUPPRESSIVE MEDICATIONS? :NO IS THERE A CHANCE YOU COULD BE ? :NO ARE YOU BREAST FEEDING? :NO CURRENT MEDICATIONS TAKING LYRICA 150 MG CAPSULE 1 CAPSULE ORALLY THREE TIMES A DAY TAKING SYNTHROID 25 25MCG TABLET 1 CAP ORAL DAILY TAKING ALBUTEROL SULFATE (2.5 MG/3ML) 0.083% NEBULIZATION SOLUTION 3 ML INHALATION EVERY 4 HOURS NEEDED TAKING TRAZODONE HCL 100 MG TABLET 4 TABLET AT BEDTIME ORALLY ONCE A DAY TAKING SUMATRIPTAN SUCCINATE 100 MG TABLET 1 TABLET NEEDED ORALLY DIRECTED TAKING EPIPEN 0.3 MG/0.3ML (1:1000) DEVICE INTRAMUSCULAR DIRECTED TAKING FLONASE 50 MCG/DOSE INHALER 2 SPRAY IN EACH NOSTRIL NASALLY ONCE A DAY TAKING POTASSIUM CHLORIDE 20 MEQ TABLET EXTENDED RELEASE 1 CAPSULE WITH FOOD ORALLY TID TAKING IMITREX 6 MG/0.5ML SOLUTION 0.5 ML NEEDED SUBCUTANEOUS TWICE A DAY TAKING NEXIUM 40 MG CAPSULE DELAYED RELEASE 1 CAPSULE ORALLY TWICE A DAY TAKING ROSUVASTATIN CALCIUM 40 MG TABLET 1 CAP ORALLY DAILY TAKING NARCAN 4 MG/0.1ML LIQUID DIRECTED NASALLY FOR SYMPTOMS OF OVERDOSE OR RESP DEPRESSION - CALL 911 TAKING CYMBALTA 60 MG CAPSULE DELAYED RELEASE PARTICLES 1 CAPSULE ORALLY TWICE A DAY, NOTES: [facility] TAKING CLARITIN 10 MG TABLET 1 TABLET ORALLY ONCE A DAY TAKING RANITIDINE 1 TAB ORAL DAILY TAKING HYDROXYZINE HCL 25 MG TABLET 1 TABLET ORALLY DAILY TAKING ADVAIR DISKUS 500-50 MCG/DOSE MISCELLANEOUS 1 PUFF INHALATION TWICE A DAY TAKING SPIRIVA HANDIHALER 1 CAPSULE INHALATION TWICE A DAY TAKING VITAMIN D (ERGOCALCIFEROL) 19722 UNIT CAPSULE 1 CAPSULE ORALLY WEEKLY TAKING FASENRA 30 MG/ML SOLUTION PREFILLED SYRINGE 1 NULL SUBCUTANEOUS , NOTES: 08/05/2019 TAKING LIDODERM 5 % PATCH 1 PATCH TO SKIN REMOVE AFTER 12 HOURS EXTERNALLY ONCE A DAY TAKING CELEBREX 200 MG CAPSULE 1 CAPSULE ORALLY ONCE A DAY TAKING TOPAMAX 50 MG TABLET 1 TABLET ORALLY TWICE A DAY TAKING CARISOPRODOL 350 MG TABLET 1 TABLET NEEDED ORALLY BID FOR SEVERE SPASM MDD=2 CODE D CHRONIC PAIN TAKING PERCOCET 10-325 MG TABLET 1 TABLET ORALLY EVERY 4 HRS PRN PAIN MDD = 6 TAKING MOVANTIK 25 MG TABLET 1 TABLET IN THE MORNING ORALLY ONCE A DAY TAKING LATUDA 40 MG TABLET 1 TABLET WITH FOOD ORALLY ONCE A DAY NOT-TAKING BUSPIRONE HCL 15 MG TABLET 1 TABLET ORALLY TWICE A DAY NOT-TAKING CIPRODEX 0.3-0.1 % SUSPENSION 4 DROPS INTO AFFECTED EAR OTIC THREE TIMES A DAY, NOTES: [facility] NOT-TAKING ROBITUSSIN DM 100-10 MG/5ML SYRUP 10 ML NEEDED ORALLY EVERY 4 HRS NOT-TAKING CEFDINIR 300 MG CAPSULE 1 CAP ORALLY BID NOT-TAKING TESSALON PERLES 100 MG CAPSULE 1 CAPSULE NEEDED ORALLY THREE TIMES A DAY NOT-TAKING DIFLUCAN 150 MG TABLET 1 TABLET, REPEAT IN 72 HOURS ORALLY DAILY NOT-TAKING CEFDINIR 300 MG CAPSULE DIRECTED ORALLY TWICE DAILY NOT-TAKING TOBRADEX 0.3-0.1 % OINTMENT 1 APPLICATION OPHTHALMIC BEFORE BEDTIME NOT-TAKING TROSPIUM CHLORIDE 20 MG TABLET 1 TABLET AT BEDTIME ON AN EMPTY STOMACH ORALLY BID, NOTES: [facility] NOT-TAKING MUCINEX 600 MG TABLET EXTENDED RELEASE 1 TABLET NEEDED ORALLY EVERY 12 HRS NOT-TAKING PREDNISONE 10 MG TABLET 4TAB X 3DAYS, 3TABS X 3DAYS, 2TABS X 3DAYS, 1TAB X 3DAYS ORALLY ONCE A DAY NOT-TAKING TESSALON PERLES 100 MG CAPSULE 1 CAPSULE NEEDED ORALLY BEFORE BEDTIME NOT-TAKING DOXYCYCLINE MONOHYDRATE 100 MG CAPSULE 1 CAPSULE ORALLY BID NOT-TAKING ASMANEX 120 METERED DOSES 220 MCG/INH AEROSOL POWDER BREATH ACTIVATED 1 PUFF IN THE EVENING INHALATION BID NOT-TAKING PREDNISONE 20 MG TABLET 1 TABLET ORALLY BID FOR 5 DAYS, NOTES: 09-06-18 NOT-TAKING AZITHROMYCIN (5 DAY) 250 MG TABLET 2 TABLET ORALLY ONCE A DAY/ 4 DAYS, NOTES: 09-06-18 NOT-TAKING PREDNISONE TAPER 1 TAB ORAL NOT-TAKING CEFDINIR 300 MG CAPSULE DIRECTED ORALLY BID NOT-TAKING FLUOXETINE 20 MG CAPSULE 2 CAPSULE IN THE MORNING ORALLY ONCE A DAY NOT-TAKING SINGULAIR 10 MG TABLET 1 TABLET IN THE EVENING ORALLY ONCE A DAY NOT-TAKING ADVAIR DISKUS 100-50 MCG/DOSE AEROSOL POWDER BREATH ACTIVATED 1 PUFF INHALATION TWICE A DAY NOT-TAKING LORATADINE 10 MG TABLET 1 TABLET ORALLY ONCE A DAY NOT-TAKING TESSALON PERLES 100 MG CAPSULE 1 CAPSULE NEEDED ORALLY THREE TIMES A DAY MEDICATION LIST REVIEWED AND RECONCILED WITH THE PATIENT PAST MEDICAL HISTORY HYPERTENSION HYPOTHYROID LUMBAR SPONDYLOSIS INTERSTIM BLADDER OAB MASTOIDECTOMY X6 MIGRAINES ASTHMA ALLERGIES PENICILLIN (FOR ALLERGIES USE ONLY): ANAPHALAXIS - ALLERGY LEVAQUIN: ANAPHALAXIS - ALLERGY AMOXICILLIN: ANAPHALAXIS - ALLERGY MUSHROOMS: ANAPHALAXIS - ALLERGY BEES: ANAPHALAXIS - ALLERGY DOXYCYCLINE: RASH - ALLERGY LATEX (FOR ALLERGY USE ONLY): HIVES - ALLERGY SURGICAL HISTORY HYSTERECTOMY 2011 APENDIX OUT 2002 HEMROHDECTOMY 2010 BUNIONS REMOVED ON BOTH FEET 2013 RIGHT KNEE ARTHROSCOPY 1993 MULTIPLE LAPAROSCOPY FOR ENDOMETRIOSIS TONSILS AND ADNOIDS OUT 1980 KIDNEY STONES 08/2014 MASTOID TYPANO RECONSTRUCTION ON LEFT EAR 06/26/2019 FAMILY HISTORY FATHER: ALIVE, DIAGNOSED WITH HYPERTENSION, OTHER MALIGNANT NEOPLASM OF UNSPECIFIED SITE MOTHER: ALIVE, HYPERTENSION, OTHER MALIGNANT NEOPLASM OF UNSPECIFIED SITE, OTHER SPECIFIED CONDITIONS INFLUENCING HEALTH STATUS 2 SON(S) , 1 DAUGHTER(S) . SON WITH SEVERE CROHNS DISEASE AND PYLODERMA GANGERINEOSA\NDAD-PROSTATE CA\NMOM-HIGH CHOLESTEROL AND BREAST CA. SOCIAL HISTORY GENERAL: TOBACCO USE ARE YOU A:CURRENT SMOKER ARE YOU INTERESTED IN QUITTING?NOT READY TO QUIT COUNSELED THE PATIENT ON SMOKING EFFECTS, EDUCATION [id number]/2020 HOW MANY CIGARETTES A DAY DO YOU SMOKE?6-10 HOW SOON AFTER YOU WAKE UP DO YOU SMOKE YOUR FIRST CIGARETTE?6-30 MIN HOW OFTEN DO YOU SMOKE CIGARETTES?EVERY DAY PATIENT COUNSELED ON THE DANGERS OF TOBACCO USE AND URGED TO QUIT:09/24/2019 VAPORNO E-CIGARETTENO LATEX QUESTIONNAIRE LATEX ALLERGY : HAVE YOU EVER DEVELOPED ANY TYPE OF REACTION AFTER HANDLING LATEX PRODUCTS SUCH RUBBER GLOVES, CONDOMS, DIAPHRAGMS, BALLOONS, SOCKS, OR UNDERWEAR?YES - PLEASE INDICATE :RUBBER GLOVES LATEX ALLERGY : HAVE YOU EVER DEVELOPED ANY TYPE OF REACTION DURING OR AFTER DENTAL APPOINTMENT, VAGINAL/RECTAL EXAMINATION, SURGICAL PROCEDURE, OR ANY OTHER EXPOSURE?YES - PLEASE INDICATE :SURGICAL PROCEDURE LATEX RISK : HAVE YOU EVER HAD ANY DIFFICULTY BREATHING OR HIVES AFTER EATING OR HANDLING ANY FRUITS, OR VEGETABLES; SUCH KIWI, BANANAS, STONE FRUITS, OR CHESTNUTSNO LATEX RISK : DO YOU HAVE A PREVIOUS PERSONAL HISTORY OF MORE THAN NINE SURGERIES, SPINA BIFIDA, OR REPEATED CATHERIZATIONS? YES - PLEASE INDICATE : > 9 SURGERIES LATEX RISK : ARE YOU FREQUENTLY EXPOSED TO LATEX PRODUCTS IN YOUR OCCUPATION?NO DATE ASKED : 08/23/2019 BMI CARE GOAL FOLLOW-UP ABOVE NORMAL BMI FOLLOW-UPDIETARY MANAGEMENT EDUCATION, GUIDANCE, AND COUNSELING ALCOHOL SCREENING DID YOU HAVE A DRINK CONTAINING ALCOHOL IN THE PAST YEAR?NO POINTS0 INTERPRETATIONNEGATIVE RECREATIONAL DRUG USE DRUG USE?NO CAFFEINE CAFFEINE USE?YES HOW OFTEN AND HOW MUCH? 2 CUPS PER DAY SEXUAL HX HAD SEX IN THE LAST 12 MONTHS (VAGINAL, ORAL, OR ANAL)?YES WITHMEN ONLY USE PROTECTION?NO HAVE YOU EVER HAD AN STD?YES CHLAMYDIA?YES HIV / HEP-C SCREENING HIV TEST OFFERED TO PATIENT:YES DATE OFFERED:02/07/2019 TEST ACCEPTED:NO HEP-C TEST OFFERED TO PATIENT:NO REASON:PATIENT DECLINED BROCHURE PROVIDED TO PATIENTNO RASTAFARIAN [id number] NONE LANGUAGE LANGUAGES SPOKEN:ANGOLAN EDUCATION LEVEL OF EDUCATION:COLLEGE LEARNING BARRIERS / SPECIAL NEEDS CHANGE FROM LAST VISIT?NO BARRIERS TO LEARNING?NO HEARING IMPAIRED?YES HEARING IMPAIRED LEFT EAR VISION IMPAIRED?NO COGNITIVELY IMPAIRED?NO READINESS TO LEARN?YES LEARNING PREFERENCES?NO LEARNING CAPABILITIES PRESENT?YES EMOTIONAL BARRIERS?NO SPECIAL DEVICES?NO MOTOR INSTALLER NEEDED?NO DOMESTIC VIOLENCE DO YOU FEEL SAFE IN YOUR ENVIRONMENT?YES OCCUPATION: RETIRED. DIET: REGULAR. EXERCISE: NO REGULAR EXERCISE. MARITAL STATUS: . OTHERS AT HOME: SPOUSE, CHILDREN. NEW PATIENT PAIN DIARY TODAY'S VISIT 08/23/2019, PATIENT DESCRIBES PAIN : HAVE IT ALL THE TIME, SHARP, STABBING, TENDER, THROBBING, SORE, FROM 0-10, WHAT LEVEL IS YOUR PAIN TODAY? 10. PAIN CLINIC PFS, CLERGY, PUBLIC HEALTH REFERRALS PFS REFERRAL NEEDED?NO CLERGY REFERRAL NEEDED?NO PUBLIC HEALTH REFERRAL NEEDED?NO WAS THE PROVIDER NOTIFIED OF ANY PERTINENT INFO?YES N/A HAS THE PATIENT BEEN EDUCATED REGARDING HIS/HER PLAN OF CARE?YES HAS THE PATIENT BEEN EDUCATED REGARDING PAIN, THE RISK FOR PAIN, THE IMPORTANCE OF EFFECTIVE PAIN MANAGEMENT, AND THE PAIN ASSESSMENT PROCESS?YES ADVANCE DIRECTIVE ADVANCE DIRECTIVE DISCUSSED WITH PATIENT:YES HCP--KEIRY FARNSWORTH [phone] PAT DONE 08/23/19 DS. HOSPITALIZATION/MAJOR DIAGNOSTIC PROCEDURE SEIZURES PNEUMONIA MINI STROKE 2008 MASTOID TYPANO RECONSTRUCTION ON LEFT EAR 1 NIGHT 06/26/2019 REVIEW OF SYSTEMS CONSTITUTIONAL: ANY RECENT FEVER OR ILLNESS NO . CHILLS NO . GASTROENTEROLOGY: BOWEL INCONTINENCE NO . ANY NEW CHANGE IN BOWEL CONTROL? NO . ABDOMINAL PAIN NO . CONSTIPATION NO . GENITOURINARY: ANY NEW CHANGE IN BLADDER CONTROL? NO . URINARY INCONTINENCE YES AT TIMES HAS BLADDER STIMULATOR . CARDIOLOGY: CHEST PRESSURE NO . CHEST PAIN NO . RESPIRATORY: COUGH NO . SHORTNESS OF BREATH NO . VITAL SIGNS WT 275.6 LBS, HT 67 IN, BMI 43.16 INDEX, BP 133/74 MM HG, HR 96 /MIN, RR 18 /MIN, TEMP 96.9 F, OXYGEN SAT % 96, SAFE IN ENV? (Y/N) YES, REVIEWED BY: EDGARDO PENDLETON LPN. EXAMINATION GENERAL EXAMINATION: GENERALNO ACUTE DISTRESS, WELL NOURISHED AND HYDRATED. PSYCHAPPROPRIATE MOOD AND AFFECT . LUNGS:CLEAR TO AUSCULTATION BILATERALLY, NO WHEEZES, RHONCHI, RALES. HEART:NO MURMURS, REGULAR RATE AND RHYTHM. BACK:POINT TENDER ALONG LUMBAR SPINE, SURROUNDING SKIN SHOWS NO ERYTHEMA, ECCHYMOSIS, INCREASED WARMTH, AND/OR SKIN ERUPTIONS NOTED. POSITIVE MODIFIED SLR BILATERALLY . MUSCULOSKELETAL:WEAKNESS OF THE LOWER EXTREMITIES IS NOTED . ASSESSMENTS INTERVERTEBRAL DISC DISEASE - M51.9 (PRIMARY) TREATMENT INTERVERTEBRAL DISC DISEASE NOTES: CAUDAL EPIDURAL WITH IV SEDATION. CLINICAL NOTES: 39-YEAR-OLD FEMALE IN FOR CHRONIC PAIN FOLLOW-UP. GIVEN PRESENTING SYMPTOMS AND RESULTS OF PHYSICAL EXAMINATION RECOMMEND CAUDAL EPIDURAL WITH IV SEDATION. PATIENT HAS EXPRESSED UNDERSTANDING OF AND WAS IN AGREEMENT WITH TREATMENT PLAN. GIVEN TIME TO ASK QUESTIONS AND EXPRESS CONCERNS. , ISTOP REGISTRY REVIEWED AND DEMONSTRATES COMPLLIANCE. (REF # [id number] ) BRINGS IN MEDICATIONS WHICH IS APPROPRIATE FOR WHAT WAS DISPENSED. RECENT URINE TOXICOLOGY REVIEWED. NO UNAUTHORIZED MEDICATIONS. NO ILLICIT SUBSTANCES AND PRESCRIBED MEDICATIONS WERE PRESENT. PROCEDURE CODES FA211 ESTABILISHED PATIENT [facility] FACILITY CHARGE DISPOSITION & COMMUNICATION FOLLOW UP POSTPROCEDURE (REASON: CAUDAL EPIDURAL WITH IV SEDATION) ELECTRONICALLY SIGNED BY MARY CARLIN ON 09/26/2019 AT 08:27 AM EDT DISCLAIMER : THIS IS A VISIT SUMMARY EXTRACTED FROM THE [facility] CHART. IT IS NOT A COPY OF THE [facility] PROGRESS NOTE. MARCIN
== END ==
LOC: M PAIN 09:15
PROVIDERS: ATTEND Family Medicine
DX: M51.9 Unspecified thoracic, thoracolumbar and lumbosacral intervertebral disc disorder (principal)

== ENCOUNTER → 2019-10-13 | Outpatient (CLI) | payer OTHER, MEDICARE | LOC: M LABSMTC 10:44 | PROVIDERS: ATTEND Anesthesiology | DX: Z01.818 Encounter for other preprocedural examination (principal); Z11.59 Encounter for screening for other viral diseases | CPT/HCPCS: C9803; U0003 ==

== ENCOUNTER → 2019-10-15 | Outpatient (CLI) | payer MEDICARE, OTHER ==
--- NOTE | 2019-10-22 23:52 | ECWPNPC ---
PATIENT NAME: PIYUSH FARNSWORTH : 1980 GENDER: FEMALE VISIT DATE: 10/15/2019 DISCHARGE DATE: 10/15/19924 VISIT LOCKED DATE TIME: PHYSICIAN: KRISTINA MAZARIEGOS MD RESOURCE: KRISTINA MAZARIEGOS MD REASON FOR APPOINTMENT 1. PRE SEDATE- PER MAR, THIS IS OK HISTORY OF PRESENT ILLNESS GENERAL: 39-YEAR-OLD FEMALE PATIENT WITH A HISTORY OF CHRONIC LOW BACK PAIN. THE PATIENT DESCRIBES THE PAIN ACHING, BURNING AND INTERMITTENT WITH A PAIN SCORE RANGING FROM 6-10/10 DEPENDING ON PHYSICAL ACTIVITY. THE PATIENT STATES THAT HER PAIN IS MAINLY LOCATED IN THE BACK AND DOWN THE RIGHT LEG. THE PATIENT HAS BEEN MANAGED BY A DCS THAT HAS BEEN TAKEN OUT AND MEDICATION; HOWEVER THE PAIN PERSISTS. THE PATIENT WAS SENT TO THE ER FROM OUR FACILITY ON HER LAST VISIT. THE PATIENT HAS HAD PROBLEMS WITH HER BLADDER AND LOSS OF URINARY CONTROL. PATIENT DENIES UNEXPLAINABLE WEIGHT LOSS, FEVER, CHILLS, NEW CHANGES IN HER BOWEL CONTROL. FALL RISK SCREENING: SCREENING :TWO OR MORE FALLS WITHOUT INJURY IN THE PAST YEAR PAIN SCREENING: PATIENT HAS A COMPLAINT OF ACUTE OR CHRONIC PAIN :YES LOCATION OF PAIN:LOW BACK INTENSITY OF PAIN (SCALE OF 1 TO 10):9 WHAT DOES YOUR PAIN FEEL LIKE:ACHING, BURNING, INTERMITTENT, SHARP, TENDER, THROBBING, SORE, SHOOTING, OTHER PULSATING DURATION:MAINLY DURING THE NIGHT, INTERMITTENT STARTS AFTER DINNER AND GOES ALL THROUGH THE NIGHT PAIN IS INCREASED BY:ACTIVITIES, PROLONGED STANDING PAIN IS DECREASED BY: MEDS, LYING ON HER SIDE NURSING NOTE: -. PAIN CENTER INTAKE QUESTIONS: DO YOU HAVE A HISTORY OF MRSA? :NO DO YOU TAKE A BLOOD THINNERS? :NO DO YOU HAVE ANY BLEEDING DISORDERS? :NO ANY NEW NUMBNESS OR WEAKNESS IN YOUR LEGS OR ARMS? :NO ANY PACEMAKER,DEFIBRILLATOR, OR DORSAL COLUMN STIMULATOR? :YES HAS INTERSTIM IN BLADDER-BATTERY ON RIGHT BUTTOCKS DO YOU HAVE ANY RASHES OR OPEN SORES? :NO ARE YOU ALLERGIC TO IV DYE? :NO ARE YOU DIABETIC? :NO ANY NEW PROBLEMS WITH YOUR MEDICATIONS? :NO HAVE YOU RECEIVED A VACCINE IN THE PAST 30 DAYS? :NO DO YOU PLAN TO RECEIVE A VACCINE IN THE NEXT 21 DAYS? :NO DO YOU NEED ANY PRESCRIPTION? :NO DO YOU TAKE ANY IMMUNOSUPPRESSIVE MEDICATIONS? :NO ANY HISTORY OF SEIZURES? :YES LAST SEIZURE WAS 4 YRS AGO-ON TOPAM[place] FOR THEM ANY HISTORY OF CARDIAC ISSUES OR EVENTS? :YES HAS HAD 1 MINI STROKE DO YOU HAVE SLEEP APNEA? :NO ANY RECENT HEAD INJURY? :NO DO YOU HAVE ANY NEW INFECTIONS? :NO IS THERE A CHANCE YOU COULD BE ? :NO ARE YOU BREAST FEEDING? :NO WHEN DID YOU LAST EAT? : - WHEN DID YOU LAST DRINK? : - WHAT DID YOU LAST DRINK? : - NAME OF PERSON DRIVING YOU HOME? : - DO YOU HAVE ANY OTHER QUESTIONS OR CONCERNS? : NONE CURRENT MEDICATIONS TAKING LYRICA 150 MG CAPSULE 1 CAPSULE ORALLY THREE TIMES A DAY TAKING SYNTHROID 25 25MCG TABLET 1 CAP ORAL DAILY TAKING ALBUTEROL SULFATE (2.5 MG/3ML) 0.083% NEBULIZATION SOLUTION 3 ML INHALATION EVERY 4 HOURS NEEDED TAKING TRAZODONE HCL 100 MG TABLET 4 TABLET AT BEDTIME ORALLY ONCE A DAY TAKING SUMATRIPTAN SUCCINATE 100 MG TABLET 1 TABLET NEEDED ORALLY DIRECTED TAKING EPIPEN 0.3 MG/0.3ML (1:1000) DEVICE INTRAMUSCULAR DIRECTED TAKING FLONASE 50 MCG/DOSE INHALER 2 SPRAY IN EACH NOSTRIL NASALLY ONCE A DAY TAKING POTASSIUM CHLORIDE 20 MEQ TABLET EXTENDED RELEASE 1 CAPSULE WITH FOOD ORALLY TID TAKING IMITREX 6 MG/0.5ML SOLUTION 0.5 ML NEEDED SUBCUTANEOUS TWICE A DAY TAKING NEXIUM 40 MG CAPSULE DELAYED RELEASE 1 CAPSULE ORALLY TWICE A DAY TAKING ROSUVASTATIN CALCIUM 40 MG TABLET 1 CAP ORALLY DAILY TAKING NARCAN 4 MG/0.1ML LIQUID DIRECTED NASALLY FOR SYMPTOMS OF OVERDOSE OR RESP DEPRESSION - CALL 911 TAKING CYMBALTA 60 MG CAPSULE DELAYED RELEASE PARTICLES 1 CAPSULE ORALLY TWICE A DAY, NOTES: [facility] TAKING CLARITIN 10 MG TABLET 1 TABLET ORALLY ONCE A DAY TAKING HYDROXYZINE HCL 25 MG TABLET 1 TABLET ORALLY DAILY TAKING ADVAIR DISKUS 500-50 MCG/DOSE MISCELLANEOUS 1 PUFF INHALATION TWICE A DAY TAKING SPIRIVA HANDIHALER 1 CAPSULE INHALATION TWICE A DAY TAKING VITAMIN D (ERGOCALCIFEROL) [id number] UNIT CAPSULE 1 CAPSULE ORALLY WEEKLY TAKING FASENRA 30 MG/ML SOLUTION PREFILLED SYRINGE 1 NULL SUBCUTANEOUS Q 2 MONTHS, NOTES: 08/29/19 TAKING LIDODERM 5 % PATCH 1 PATCH TO SKIN REMOVE AFTER 12 HOURS EXTERNALLY ONCE A DAY TAKING CELEBREX 200 MG CAPSULE 1 CAPSULE ORALLY ONCE A DAY TAKING TOPAMAX 50 MG TABLET 1 TABLET ORALLY TWICE A DAY TAKING CARISOPRODOL 350 MG TABLET 1 TABLET NEEDED ORALLY BID FOR SEVERE SPASM MDD=2 CODE D CHRONIC PAIN TAKING MOVANTIK 25 MG TABLET 1 TABLET IN THE MORNING ORALLY ONCE A DAY TAKING LATUDA 40 MG TABLET 1 TABLET WITH FOOD ORALLY ONCE A DAY TAKING PERCOCET 10-325 MG TABLET 1 TABLET ORALLY EVERY 4 HRS PRN PAIN MDD = 6 TAKING FAMOTIDINE 40 MG TABLET 1 TABLET AT BEDTIME ORALLY ONCE A DAY TAKING MUCINEX 600 MG TABLET EXTENDED RELEASE 1 TABLET NEEDED ORALLY DAILY TAKING ASMANEX 120 METERED DOSES 220 MCG/INH AEROSOL POWDER BREATH ACTIVATED 1 PUFF IN THE EVENING INHALATION BID TAKING SINGULAIR 10 MG TABLET 1 TABLET IN THE EVENING ORALLY ONCE A DAY TAKING ADVAIR DISKUS 100-50 MCG/DOSE AEROSOL POWDER BREATH ACTIVATED 1 PUFF INHALATION TWICE A DAY NOT-TAKING RANITIDINE 1 TAB ORAL DAILY NOT-TAKING BUSPIRONE HCL 15 MG TABLET 1 TABLET ORALLY TWICE A DAY NOT-TAKING CIPRODEX 0.3-0.1 % SUSPENSION 4 DROPS INTO AFFECTED EAR OTIC THREE TIMES A DAY, NOTES: [facility] NOT-TAKING ROBITUSSIN DM 100-10 MG/5ML SYRUP 10 ML NEEDED ORALLY EVERY 4 HRS NOT-TAKING CEFDINIR 300 MG CAPSULE 1 CAP ORALLY BID NOT-TAKING TESSALON PERLES 100 MG CAPSULE 1 CAPSULE NEEDED ORALLY THREE TIMES A DAY NOT-TAKING DIFLUCAN 150 MG TABLET 1 TABLET, REPEAT IN 72 HOURS ORALLY DAILY NOT-TAKING CEFDINIR 300 MG CAPSULE DIRECTED ORALLY TWICE DAILY NOT-TAKING TOBRADEX 0.3-0.1 % OINTMENT 1 APPLICATION OPHTHALMIC BEFORE BEDTIME NOT-TAKING TROSPIUM CHLORIDE 20 MG TABLET 1 TABLET AT BEDTIME ON AN EMPTY STOMACH ORALLY BID, NOTES: [facility] NOT-TAKING PREDNISONE 10 MG TABLET 4TAB X 3DAYS, 3TABS X 3DAYS, 2TABS X 3DAYS, 1TAB X 3DAYS ORALLY ONCE A DAY NOT-TAKING TESSALON PERLES 100 MG CAPSULE 1 CAPSULE NEEDED ORALLY BEFORE BEDTIME NOT-TAKING DOXYCYCLINE MONOHYDRATE 100 MG CAPSULE 1 CAPSULE ORALLY BID NOT-TAKING PREDNISONE 20 MG TABLET 1 TABLET ORALLY BID FOR 5 DAYS, NOTES: 09-06-18 NOT-TAKING AZITHROMYCIN (5 DAY) 250 MG TABLET 2 TABLET ORALLY ONCE A DAY/ 4 DAYS, NOTES: 09-06-18 NOT-TAKING PREDNISONE TAPER 1 TAB ORAL NOT-TAKING CEFDINIR 300 MG CAPSULE DIRECTED ORALLY BID NOT-TAKING FLUOXETINE 20 MG CAPSULE 2 CAPSULE IN THE MORNING ORALLY ONCE A DAY NOT-TAKING LORATADINE 10 MG TABLET 1 TABLET ORALLY ONCE A DAY NOT-TAKING TESSALON PERLES 100 MG CAPSULE 1 CAPSULE NEEDED ORALLY THREE TIMES A DAY MEDICATION LIST REVIEWED AND RECONCILED WITH THE PATIENT PAST MEDICAL HISTORY HYPERTENSION HYPOTHYROID LUMBAR SPONDYLOSIS INTERSTIM BLADDER OAB MASTOIDECTOMY X6 MIGRAINES ASTHMA PTSD FIBROMYALGIA URINARY INCONTINENCE ENDOMETRIOSIS SEIZURES PNEUMONIA MINI STROKE ALLERGIES PENICILLIN (FOR ALLERGIES USE ONLY): ANAPHALAXIS - ALLERGY LEVAQUIN: ANAPHALAXIS - ALLERGY AMOXICILLIN: ANAPHALAXIS - ALLERGY MUSHROOMS: ANAPHALAXIS - ALLERGY BEES: ANAPHALAXIS - ALLERGY DOXYCYCLINE: RASH - ALLERGY LATEX (FOR ALLERGY USE ONLY): HIVES - ALLERGY SURGICAL HISTORY HYSTERECTOMY 2011 APENDIX OUT 2001 HEMROHDECTOMY 2010 BUNIONS REMOVED ON BOTH FEET 2013 RIGHT KNEE ARTHROSCOPY 1993 MULTIPLE LAPAROSCOPY FOR ENDOMETRIOSIS TONSILS AND ADNOIDS OUT 1979 KIDNEY STONES 08/2014 MASTOID TYPANO RECONSTRUCTION ON LEFT EAR (6TH ONE) 06/26/2019 LEFT ROTATOR CUFF REPAIR 02/2019 DORSAL COLUMN STIMULATOR INSERTED AND REMOVED FAMILY HISTORY FATHER: ALIVE, DIAGNOSED WITH HYPERTENSION, OTHER MALIGNANT NEOPLASM OF UNSPECIFIED SITE MOTHER: ALIVE, HYPERTENSION, OTHER MALIGNANT NEOPLASM OF UNSPECIFIED SITE, OTHER SPECIFIED CONDITIONS INFLUENCING HEALTH STATUS 2 SON(S) , 1 DAUGHTER(S) . SON WITH SEVERE CROHNS DISEASE AND PYLODERMA GANGERINEOSA\NDAD-PROSTATE CA\NMOM-HIGH CHOLESTEROL AND BREAST CA. SOCIAL HISTORY GENERAL: TOBACCO USE ARE YOU A:CURRENT SMOKER ARE YOU INTERESTED IN QUITTING?NOT READY TO QUIT 10/15/19 PT. STATES HAS CUT DOWN AND IS TRYING TO QUIT BUT DUE TO STRESS IN HER LIFE SHE IS UNABLE TO AT THIS TIME COUNSELED THE PATIENT ON SMOKING EFFECTS, EDUCATION [id number]/2020 HOW MANY CIGARETTES A DAY DO YOU SMOKE?6-10 HOW SOON AFTER YOU WAKE UP DO YOU SMOKE YOUR FIRST CIGARETTE?6-30 MIN HOW OFTEN DO YOU SMOKE CIGARETTES?EVERY DAY PATIENT COUNSELED ON THE DANGERS OF TOBACCO USE AND URGED TO QUIT:10/15/2019 VAPORNO E-CIGARETTENO LATEX QUESTIONNAIRE LATEX ALLERGY : HAVE YOU EVER DEVELOPED ANY TYPE OF REACTION AFTER HANDLING LATEX PRODUCTS SUCH RUBBER GLOVES, CONDOMS, DIAPHRAGMS, BALLOONS, SOCKS, OR UNDERWEAR?YES KNOWN LATEX ALLERGY - PLEASE INDICATE :RUBBER GLOVES LATEX ALLERGY : HAVE YOU EVER DEVELOPED ANY TYPE OF REACTION DURING OR AFTER DENTAL APPOINTMENT, VAGINAL/RECTAL EXAMINATION, SURGICAL PROCEDURE, OR ANY OTHER EXPOSURE?YES - PLEASE INDICATE :SURGICAL PROCEDURE LATEX RISK : HAVE YOU EVER HAD ANY DIFFICULTY BREATHING OR HIVES AFTER EATING OR HANDLING ANY FRUITS, OR VEGETABLES; SUCH KIWI, BANANAS, STONE FRUITS, OR CHESTNUTSNO LATEX RISK : DO YOU HAVE A PREVIOUS PERSONAL HISTORY OF MORE THAN NINE SURGERIES, SPINA BIFIDA, OR REPEATED CATHERIZATIONS? YES - PLEASE INDICATE : > 9 SURGERIES LATEX RISK : ARE YOU FREQUENTLY EXPOSED TO LATEX PRODUCTS IN YOUR OCCUPATION?NO DATE ASKED : 10/15/2019 BMI CARE GOAL FOLLOW-UP ABOVE NORMAL BMI FOLLOW-UPDIETARY MANAGEMENT EDUCATION, GUIDANCE, AND COUNSELING ALCOHOL SCREENING DID YOU HAVE A DRINK CONTAINING ALCOHOL IN THE PAST YEAR?NO POINTS0 INTERPRETATIONNEGATIVE RECREATIONAL DRUG USE DRUG USE?NO CAFFEINE CAFFEINE USE?YES HOW OFTEN AND HOW MUCH? 2 CUPS PER DAY SEXUAL HX HAD SEX IN THE LAST 12 MONTHS (VAGINAL, ORAL, OR ANAL)?YES WITHMEN ONLY USE PROTECTION?NO HAVE YOU EVER HAD AN STD?YES CHLAMYDIA?YES HIV / HEP-C SCREENING HIV TEST OFFERED TO PATIENT:YES DATE OFFERED:02/07/2019 TEST ACCEPTED:NO HEP-C TEST OFFERED TO PATIENT:NO REASON:PATIENT DECLINED BROCHURE PROVIDED TO PATIENTNO [employer] [id number] NONE LANGUAGE LANGUAGES SPOKEN:SYRIAC EDUCATION LEVEL OF EDUCATION:COLLEGE LEARNING BARRIERS / SPECIAL NEEDS CHANGE FROM LAST VISIT?NO BARRIERS TO LEARNING?NO HEARING IMPAIRED?YES HEARING IMPAIRED LEFT EAR VISION IMPAIRED?YES :CORRECTIVE LENSES GLASSES OR CONTACTS COGNITIVELY IMPAIRED?NO READINESS TO LEARN?YES LEARNING PREFERENCES?NO LEARNING CAPABILITIES PRESENT?YES EMOTIONAL BARRIERS?NO SPECIAL DEVICES?YES :CANE DATA CONVERSION ANALYST NEEDED?NO DOMESTIC VIOLENCE DO YOU FEEL SAFE IN YOUR ENVIRONMENT?YES OCCUPATION: RETIRED. DIET: REGULAR. EXERCISE: NO REGULAR EXERCISE. MARITAL STATUS: . OTHERS AT HOME: SPOUSE, CHILDREN. PAIN CLINIC PFS, CLERGY, PUBLIC HEALTH REFERRALS PFS REFERRAL NEEDED?NO CLERGY REFERRAL NEEDED?NO PUBLIC HEALTH REFERRAL NEEDED?NO HAS THE PATIENT BEEN EDUCATED REGARDING HIS/HER PLAN OF CARE?YES HAS THE PATIENT BEEN EDUCATED REGARDING PAIN, THE RISK FOR PAIN, THE IMPORTANCE OF EFFECTIVE PAIN MANAGEMENT, AND THE PAIN ASSESSMENT PROCESS?YES ADVANCE DIRECTIVE ADVANCE DIRECTIVE DISCUSSED WITH PATIENT:YES HAS NITA, LIVING WILL, MOLDST FORM AND HCP--KEIRY FARNSWORTH [phone] HOSPITALIZATION/MAJOR DIAGNOSTIC PROCEDURE SEIZURES PNEUMONIA MINI STROKE 2009 MASTOID TYPANO RECONSTRUCTION ON LEFT EAR 1 NIGHT 06/26/2019 REVIEW OF SYSTEMS GLAUCOMA: NOTHYROID DISEASE: YES, ON MEDICATIONHYPERTENSION: NOHEART DISEASE: NOLUNG DISEASE: YES, ASTHMADIABETES: NOGI DISEASE: NO LIVER DISEASE: NO KIDNEY DISEASE: NOSTERIOD USE: NONEUROLOGICAL DISEASE: YES, LAST SEIZURE 4 YEARS AGO AND HAS MIGRAINES.BACK PROBLEMS: YES, PAINEXTREMITIES: YES, PAIN GENITOURINARY: NOBLEEDING DISORDER: NOASA CLASS: IIAIRWAY CLASS: II. VITAL SIGNS WT 276.2 LBS, HT 67 IN, BMI 43.25 INDEX, BP 136/90 MM HG, HR 108 /MIN, RR 18 /MIN, TEMP 97.1 F, OXYGEN SAT % 96%, SAFE IN ENV? (Y/N) Y, NA INITIALS SC 14:49, REVIEWED BY: EFRA. EXAMINATION GENERAL: THE PATIENT IS ALERT, ORIENTED TIMES THREE AND COOPERATIVE. HEART SHOWS REGULAR RHYTHM, NO MURMURS AND NO GALLOPS. LUNGS ARE CLEAR TO AUSCULTATION. THE PATIENT IS ALERT, ORIENTED TIMES THREE AND COOPERATIVE. THE RIGHT LEG IS WEAKER THAN THE LEFT ON EXTENSION AND FLEXION WITH RADICULOPATHY AT 30 DEGREES ON THE RIGHT. THE PATIENT HAS AN ANTALGIC GAIT WITH A LIMP TO THE ON RIGHT. CT OF THE LUMBAR SPINE DATED 08/28/2019 SHOWS SOME EMBOLIC COIL MATERIAL. CT OF THE LUMBAR SPINE DATED 10/19/2017 SHOWS BULGING DISC AT MULTIPLE LEVELS. ASSESSMENTS LUMBAR RADICULOPATHY - M54.16 (PRIMARY) INTERVERTEBRAL DISC DISORDERS WITH RADICULOPATHY, LUMBAR REGION - M51.16 INTERVERTEBRAL DISC DISORDER WITH RADICULOPATHY OF LUMBOSACRAL REGION - M51.17 TREATMENT LUMBAR RADICULOPATHY CLINICAL NOTES: WE DISCUSSED SEVERAL ALTERNATIVES WITH MS. FARNSWORTH REGARDING HER TREATMENT OPTIONS AND CARE. I PLAN TO DO AN EPIDURAL STEROID INJECTION WITH IV SEDATION DUE TO ANXIETY AND DISCOMFORT ASSOCIATED WITH THE PROCEDURE. I HAVE TO DISCUSS THIS CT WITH THE RADIOLOGIST BEFORE MOVING FORWARD WITH THE INJECTION ABOUT THE COILS. THE PATIENT UNDERSTANDS AND AGREES WITH THE PLAN. I, NIKA CASAREZ, DOCUMENTED THE ABOVE INFORMATION ACTING A SCRIBE FOR DR. MAZARIEGOS. I HAVE REVIEWED THE ABOVE DOCUMENT, WRITTEN BY NIKA CASAREZ [employer] FARM MANAGER, AND I VERIFY THAT IT IS ACCURATE . PROCEDURE CODES FA211 ESTABILISHED PATIENT [facility] CHARGE [id number] OFFICE/OUTPATIENT VISIT EST DISPOSITION & COMMUNICATION FOLLOW UP LESI (REASON: LESI WITH IV SED) ELECTRONICALLY SIGNED BY KRISTINA MAZARIEGOS MD, MD ON 10/22/2019 AT 06:27 PM EDT DISCLAIMER : THIS IS A VISIT SUMMARY EXTRACTED FROM THE [employer] CHART. IT IS NOT A COPY OF THE [employer] PROGRESS NOTE. MARCIN
== END ==
LOC: M PAIN 14:45
PROVIDERS: ATTEND Anesthesiology
DX: M54.16 Radiculopathy, lumbar region (principal); M51.16 Intervertebral disc disorders with radiculopathy, lumbar region; M51.17 Intervertebral disc disorders with radiculopathy, lumbosacral region

== ENCOUNTER → 2019-10-16 | Outpatient (CLI) | payer MEDICARE, OTHER ==
[~2019-10-16] MED LIST changes: +ISOVUE-M 300 61% 15ML VIAL As Ordered ONE; +LIDOCAINE 1% SDV 30ML VIAL As Ordered ONE; +MIDAZOLAM INJ 2MG/2ML VIAL (J2250 PER 1MG) As Ordered ONE; +diphenhydrAMINE 25MG CAP As Ordered ONE; +fentaNYL 100 MCG/2 ML INJECTION (J3010) As Ordered ONE; +methylPREDNISolone SUSP 40 MG/ML (DEPO-medrol) VIAL (J1030) As Ordered ONE
--- NOTE | 2019-10-16 10:59 | REP ---
Partial lumbar spine series: Four views . History: Injection procedure for pain. 18 seconds of fluoroscopy time is reported. Findings: A sequence of four fluoroscopically obtained last image hold procedural spot radiographs of the lumbar spine document needle position and contrast injection associated with injection procedure. Electronically Signed by Cralos Eduardo Pearce MD 10/16/2019 10:51 A
--- NOTE | 2019-10-23 01:00 | ECWPNPC ---
PATIENT NAME: PIYUSH FARNSWORTH : 1980 GENDER: FEMALE VISIT DATE: 10/16/2019 DISCHARGE DATE: 10/16/19 1116 VISIT LOCKED DATE TIME: PHYSICIAN: KRISTINA MAZARIEGOS MD RESOURCE: KRISTINA MAZARIEGOS MD REASON FOR APPOINTMENT 1. L4-L5 EPIDURAL W/ IV SEDATION 2. COVID TEST BOOKED FOR 10/12 @9:00 HISTORY OF PRESENT ILLNESS GENERAL: -. FALL RISK SCREENING: SCREENING :TWO OR MORE FALLS WITHOUT INJURY IN THE PAST YEAR PAIN SCREENING: PATIENT HAS A COMPLAINT OF ACUTE OR CHRONIC PAIN :YES LOCATION OF PAIN:MID BACK, LOW BACK, LEG(S) RIGHT LEG INTENSITY OF PAIN (SCALE OF 1 TO 10):9 WHAT DOES YOUR PAIN FEEL LIKE:ACHING, INTERMITTENT, SHARP, TENDER, THROBBING, SORE ALWAYS THERE BUT VARIES IN INTENSITY DURATION:CONTINOUS, CONSTANT, ALL DAY, AWAKENS FROM SLEEP PAIN IS INCREASED BY:ACTIVITIES, PROLONGED STANDING SITTING, WALKING, DOING DISHES PAIN IS DECREASED BY: HEAT,REST, PAIN MEDS NURSING NOTE: -. PAIN CENTER INTAKE QUESTIONS: DO YOU HAVE A HISTORY OF MRSA? :NO DO YOU TAKE A BLOOD THINNERS? :NO DO YOU HAVE ANY BLEEDING DISORDERS? :NO ANY NEW NUMBNESS OR WEAKNESS IN YOUR LEGS OR ARMS? :NO ANY PACEMAKER,DEFIBRILLATOR, OR DORSAL COLUMN STIMULATOR? :NO INTERSTEM AND COILS DO YOU HAVE ANY RASHES OR OPEN SORES? :NO ARE YOU ALLERGIC TO IV DYE? :NO ARE YOU DIABETIC? :NO ANY NEW PROBLEMS WITH YOUR MEDICATIONS? :NO HAVE YOU RECEIVED A VACCINE IN THE PAST 30 DAYS? :NO DO YOU PLAN TO RECEIVE A VACCINE IN THE NEXT 21 DAYS? :NO DO YOU TAKE ANY IMMUNOSUPPRESSIVE MEDICATIONS? :NO ANY HISTORY OF SEIZURES? :YES ON TOPAMAX, LAST >4 YRS AGO ANY HISTORY OF CARDIAC ISSUES OR EVENTS? :NO DO YOU HAVE SLEEP APNEA? :NO ANY RECENT HEAD INJURY? :NO DO YOU HAVE ANY NEW INFECTIONS? :NO IS THERE A CHANCE YOU COULD BE ? :NO ARE YOU BREAST FEEDING? :NO WHEN DID YOU LAST EAT? : 10/14 1700 WHEN DID YOU LAST DRINK? : 10/15 0530 WHAT DID YOU LAST DRINK? : WATER NAME OF PERSON DRIVING YOU HOME? : NIDIA DO YOU HAVE ANY OTHER QUESTIONS OR CONCERNS? : NO CURRENT MEDICATIONS TAKING LYRICA 150 MG CAPSULE 1 CAPSULE ORALLY THREE TIMES A DAY, NOTES: 10/15 529 TAKING SYNTHROID 25 25MCG TABLET 1 CAP ORAL DAILY, NOTES: 10/15 529 TAKING ALBUTEROL SULFATE (2.5 MG/3ML) 0.083% NEBULIZATION SOLUTION 3 ML INHALATION EVERY 4 HOURS NEEDED, NOTES: LAST WEEK TAKING TRAZODONE HCL 100 MG TABLET 4 TABLET AT BEDTIME ORALLY ONCE A DAY, NOTES: 10/14 1929 TAKING SUMATRIPTAN SUCCINATE 100 MG TABLET 1 TABLET NEEDED ORALLY DIRECTED, NOTES: NONE RECENT TAKING EPIPEN 0.3 MG/0.3ML (1:1000) DEVICE INTRAMUSCULAR DIRECTED, NOTES: 09/09/19 TAKING FLONASE 50 MCG/DOSE INHALER 2 SPRAY IN EACH NOSTRIL NASALLY ONCE A DAY, NOTES: 10/15 529 TAKING POTASSIUM CHLORIDE 20 MEQ TABLET EXTENDED RELEASE 1 CAPSULE WITH FOOD ORALLY TID, NOTES: 10/15 529 TAKING IMITREX 6 MG/0.5ML SOLUTION 0.5 ML NEEDED SUBCUTANEOUS TWICE A DAY, NOTES: 10/11 TAKING NEXIUM 40 MG CAPSULE DELAYED RELEASE 1 CAPSULE ORALLY TWICE A DAY, NOTES: 10/15 529 TAKING ROSUVASTATIN CALCIUM 40 MG TABLET 1 CAP ORALLY DAILY, NOTES: 10/14 1699 TAKING NARCAN 4 MG/0.1ML LIQUID DIRECTED NASALLY FOR SYMPTOMS OF OVERDOSE OR RESP DEPRESSION - CALL 911, NOTES: NEVER TAKING CYMBALTA 60 MG CAPSULE DELAYED RELEASE PARTICLES 1 CAPSULE ORALLY TWICE A DAY, NOTES: [facility]15 529 TAKING CLARITIN 10 MG TABLET 1 TABLET ORALLY ONCE A DAY, NOTES: 10/14 1929 TAKING HYDROXYZINE HCL 25 MG TABLET 1 TABLET ORALLY DAILY, NOTES: 10/14 1929 TAKING ADVAIR DISKUS 500-50 MCG/DOSE MISCELLANEOUS 1 PUFF INHALATION TWICE A DAY, NOTES: 10/15 529 TAKING SPIRIVA HANDIHALER 1 CAPSULE INHALATION TWICE A DAY, NOTES: 10/15 529 TAKING VITAMIN D (ERGOCALCIFEROL) 49626 UNIT CAPSULE 1 CAPSULE ORALLY WEEKLY, NOTES: 10/14 08 TAKING FASENRA 30 MG/ML SOLUTION PREFILLED SYRINGE 1 NULL SUBCUTANEOUS Q 2 MONTHS, NOTES: 08/29/19 TAKING LIDODERM 5 % PATCH 1 PATCH TO SKIN REMOVE AFTER 12 HOURS EXTERNALLY ONCE A DAY, NOTES: 10/13 TAKING CELEBREX 200 MG CAPSULE 1 CAPSULE ORALLY ONCE A DAY, NOTES: 10/14 1929 TAKING TOPAMAX 50 MG TABLET 1 TABLET ORALLY TWICE A DAY, NOTES: 10/15 529 TAKING CARISOPRODOL 350 MG TABLET 1 TABLET NEEDED ORALLY BID FOR SEVERE SPASM MDD=2 CODE D CHRONIC PAIN, NOTES: 10/15 529 TAKING MOVANTIK 25 MG TABLET 1 TABLET IN THE MORNING ORALLY ONCE A DAY, NOTES: 10/15 629 TAKING LATUDA 40 MG TABLET 1 TABLET WITH FOOD ORALLY ONCE A DAY, NOTES: 10/14 1699 TAKING PERCOCET 10-325 MG TABLET 1 TABLET ORALLY EVERY 4 HRS PRN PAIN MDD = 6, NOTES: 10/14 1929 TAKING FAMOTIDINE 40 MG TABLET 1 TABLET AT BEDTIME ORALLY ONCE A DAY, NOTES: 10/14 1929 TAKING MUCINEX 600 MG TABLET EXTENDED RELEASE 1 TABLET NEEDED ORALLY DAILY, NOTES: NONE RECENT TAKING ASMANEX 120 METERED DOSES 220 MCG/INH AEROSOL POWDER BREATH ACTIVATED 1 PUFF IN THE EVENING INHALATION BID, NOTES: 10/15 529 TAKING SINGULAIR 10 MG TABLET 1 TABLET IN THE EVENING ORALLY ONCE A DAY, NOTES: 10/14 1929 TAKING ADVAIR DISKUS 100-50 MCG/DOSE AEROSOL POWDER BREATH ACTIVATED 1 PUFF INHALATION TWICE A DAY, NOTES: 10/15 529 NOT-TAKING RANITIDINE 1 TAB ORAL DAILY NOT-TAKING BUSPIRONE HCL 15 MG TABLET 1 TABLET ORALLY TWICE A DAY NOT-TAKING CIPRODEX 0.3-0.1 % SUSPENSION 4 DROPS INTO AFFECTED EAR OTIC THREE TIMES A DAY, NOTES: [facility] NOT-TAKING ROBITUSSIN DM 100-10 MG/5ML SYRUP 10 ML NEEDED ORALLY EVERY 4 HRS NOT-TAKING CEFDINIR 300 MG CAPSULE 1 CAP ORALLY BID NOT-TAKING TESSALON PERLES 100 MG CAPSULE 1 CAPSULE NEEDED ORALLY THREE TIMES A DAY NOT-TAKING DIFLUCAN 150 MG TABLET 1 TABLET, REPEAT IN 72 HOURS ORALLY DAILY NOT-TAKING CEFDINIR 300 MG CAPSULE DIRECTED ORALLY TWICE DAILY NOT-TAKING TOBRADEX 0.3-0.1 % OINTMENT 1 APPLICATION OPHTHALMIC BEFORE BEDTIME NOT-TAKING TROSPIUM CHLORIDE 20 MG TABLET 1 TABLET AT BEDTIME ON AN EMPTY STOMACH ORALLY BID, NOTES: [facility] NOT-TAKING PREDNISONE 10 MG TABLET 4TAB X 3DAYS, 3TABS X 3DAYS, 2TABS X 3DAYS, 1TAB X 3DAYS ORALLY ONCE A DAY NOT-TAKING TESSALON PERLES 100 MG CAPSULE 1 CAPSULE NEEDED ORALLY BEFORE BEDTIME NOT-TAKING DOXYCYCLINE MONOHYDRATE 100 MG CAPSULE 1 CAPSULE ORALLY BID NOT-TAKING PREDNISONE 20 MG TABLET 1 TABLET ORALLY BID FOR 5 DAYS, NOTES: 09-06-18 NOT-TAKING AZITHROMYCIN (5 DAY) 250 MG TABLET 2 TABLET ORALLY ONCE A DAY/ 4 DAYS, NOTES: 09-06-18 NOT-TAKING PREDNISONE TAPER 1 TAB ORAL NOT-TAKING CEFDINIR 300 MG CAPSULE DIRECTED ORALLY BID NOT-TAKING FLUOXETINE 20 MG CAPSULE 2 CAPSULE IN THE MORNING ORALLY ONCE A DAY NOT-TAKING LORATADINE 10 MG TABLET 1 TABLET ORALLY ONCE A DAY NOT-TAKING TESSALON PERLES 100 MG CAPSULE 1 CAPSULE NEEDED ORALLY THREE TIMES A DAY MEDICATION LIST REVIEWED AND RECONCILED WITH THE PATIENT PAST MEDICAL HISTORY HYPERTENSION HYPOTHYROID LUMBAR SPONDYLOSIS INTERSTIM BLADDER OAB MASTOIDECTOMY X6 MIGRAINES ASTHMA PTSD FIBROMYALGIA URINARY INCONTINENCE ENDOMETRIOSIS SEIZURES PNEUMONIA MINI STROKE ALLERGIES PENICILLIN (FOR ALLERGIES USE ONLY): ANAPHALAXIS - ALLERGY LEVAQUIN: ANAPHALAXIS - ALLERGY AMOXICILLIN: ANAPHALAXIS - ALLERGY MUSHROOMS: ANAPHALAXIS - ALLERGY BEES: ANAPHALAXIS - ALLERGY DOXYCYCLINE: RASH - ALLERGY LATEX (FOR ALLERGY USE ONLY): HIVES - ALLERGY SURGICAL HISTORY HYSTERECTOMY 2011 APENDIX OUT 2001 HEMROHDECTOMY 2011 BUNIONS REMOVED ON BOTH FEET 2013 RIGHT KNEE ARTHROSCOPY 1993 MULTIPLE LAPAROSCOPY FOR ENDOMETRIOSIS TONSILS AND ADNOIDS OUT 1979 KIDNEY STONES 08/2014 MASTOID TYPANO RECONSTRUCTION ON LEFT EAR (6TH ONE) 06/26/2019 LEFT ROTATOR CUFF REPAIR 02/2019 DORSAL COLUMN STIMULATOR INSERTED AND REMOVED FAMILY HISTORY FATHER: ALIVE, DIAGNOSED WITH HYPERTENSION, OTHER MALIGNANT NEOPLASM OF UNSPECIFIED SITE MOTHER: ALIVE, HYPERTENSION, OTHER MALIGNANT NEOPLASM OF UNSPECIFIED SITE, OTHER SPECIFIED CONDITIONS INFLUENCING HEALTH STATUS 2 SON(S) , 1 DAUGHTER(S) . SON WITH SEVERE CROHNS DISEASE AND PYLODERMA GANGERINEOSA\NDAD-PROSTATE CA\NMOM-HIGH CHOLESTEROL AND BREAST CA. SOCIAL HISTORY GENERAL: TOBACCO USE ARE YOU A:CURRENT SMOKER HOW OFTEN DO YOU SMOKE CIGARETTES?EVERY DAY HOW SOON AFTER YOU WAKE UP DO YOU SMOKE YOUR FIRST CIGARETTE?6-30 MIN HOW MANY CIGARETTES A DAY DO YOU SMOKE?6-10 ARE YOU INTERESTED IN QUITTING?NOT READY TO QUIT 10/15/19 PT. STATES HAS CUT DOWN AND IS TRYING TO QUIT BUT DUE TO STRESS IN HER LIFE SHE IS UNABLE TO AT THIS TIME PATIENT COUNSELED ON THE DANGERS OF TOBACCO USE AND URGED TO QUIT:10/15/2019 COUNSELED THE PATIENT ON SMOKING EFFECTS, EDUCATION [id number]/09/2020 VAPORNO E-CIGARETTENO LATEX QUESTIONNAIRE LATEX ALLERGY : HAVE YOU EVER DEVELOPED ANY TYPE OF REACTION AFTER HANDLING LATEX PRODUCTS SUCH RUBBER GLOVES, CONDOMS, DIAPHRAGMS, BALLOONS, SOCKS, OR UNDERWEAR?YES KNOWN LATEX ALLERGY LATEX ALLERGY : HAVE YOU EVER DEVELOPED ANY TYPE OF REACTION DURING OR AFTER DENTAL APPOINTMENT, VAGINAL/RECTAL EXAMINATION, SURGICAL PROCEDURE, OR ANY OTHER EXPOSURE?YES - PLEASE INDICATE :RUBBER GLOVES - PLEASE INDICATE :SURGICAL PROCEDURE DATE ASKED : 10/15/2019 LATEX RISK : HAVE YOU EVER HAD ANY DIFFICULTY BREATHING OR HIVES AFTER EATING OR HANDLING ANY FRUITS, OR VEGETABLES; SUCH KIWI, BANANAS, STONE FRUITS, OR CHESTNUTSNO LATEX RISK : DO YOU HAVE A PREVIOUS PERSONAL HISTORY OF MORE THAN NINE SURGERIES, SPINA BIFIDA, OR REPEATED CATHERIZATIONS? YES - PLEASE INDICATE : > 9 SURGERIES LATEX RISK : ARE YOU FREQUENTLY EXPOSED TO LATEX PRODUCTS IN YOUR OCCUPATION?NO BMI CARE GOAL FOLLOW-UP ABOVE NORMAL BMI FOLLOW-UPDIETARY MANAGEMENT EDUCATION, GUIDANCE, AND COUNSELING ALCOHOL SCREENING DID YOU HAVE A DRINK CONTAINING ALCOHOL IN THE PAST YEAR?NO POINTS0 INTERPRETATIONNEGATIVE RECREATIONAL DRUG USE DRUG USE?NO CAFFEINE CAFFEINE USE?YES HOW OFTEN AND HOW MUCH? 2 CUPS PER DAY SEXUAL HX HAD SEX IN THE LAST 12 MONTHS (VAGINAL, ORAL, OR ANAL)?YES WITHMEN ONLY USE PROTECTION?NO HAVE YOU EVER HAD AN STD?YES CHLAMYDIA?YES HIV / HEP-C SCREENING HIV TEST OFFERED TO PATIENT:YES DATE OFFERED:02/07/2019 TEST ACCEPTED:NO HEP-C TEST OFFERED TO PATIENT:NO REASON:PATIENT DECLINED BROCHURE PROVIDED TO PATIENTNO RESTORATIONISM [id number] NONE LANGUAGE LANGUAGES SPOKEN:BELARUSIAN EDUCATION LEVEL OF EDUCATION:COLLEGE LEARNING BARRIERS / SPECIAL NEEDS CHANGE FROM LAST VISIT?NO BARRIERS TO LEARNING?NO HEARING IMPAIRED?YES HEARING IMPAIRED LEFT EAR VISION IMPAIRED?YES COGNITIVELY IMPAIRED?NO :CORRECTIVE LENSES GLASSES OR CONTACTS READINESS TO LEARN?YES LEARNING PREFERENCES?NO LEARNING CAPABILITIES PRESENT?YES EMOTIONAL BARRIERS?NO SPECIAL DEVICES?YES :CANE RACING SECRETARY NEEDED?NO DOMESTIC VIOLENCE DO YOU FEEL SAFE IN YOUR ENVIRONMENT?YES OCCUPATION: RETIRED. DIET: REGULAR. EXERCISE: NO REGULAR EXERCISE. MARITAL STATUS: . OTHERS AT HOME: SPOUSE, CHILDREN. PAIN CLINIC PFS, CLERGY, PUBLIC HEALTH REFERRALS PFS REFERRAL NEEDED?NO CLERGY REFERRAL NEEDED?NO PUBLIC HEALTH REFERRAL NEEDED?NO HAS THE PATIENT BEEN EDUCATED REGARDING HIS/HER PLAN OF CARE?YES HAS THE PATIENT BEEN EDUCATED REGARDING PAIN, THE RISK FOR PAIN, THE IMPORTANCE OF EFFECTIVE PAIN MANAGEMENT, AND THE PAIN ASSESSMENT PROCESS?YES ADVANCE DIRECTIVE ADVANCE DIRECTIVE DISCUSSED WITH PATIENT:YES HAS POA, LIVING WILL, MOLDST FORM AND HCP--KEIRY FARNSWORTH [phone] HOSPITALIZATION/MAJOR DIAGNOSTIC PROCEDURE SEIZURES PNEUMONIA MINI STROKE 2009 MASTOID TYPANO RECONSTRUCTION ON LEFT EAR 1 NIGHT 06/26/2019 VITAL SIGNS WT 277.2 LBS, HT 67 IN, BMI 43.41 INDEX, BP 118/84 MM HG, HR 110 /MIN, RR 18 /MIN, TEMP 97.4 F, OXYGEN SAT % 96%, SAFE IN ENV? (Y/N) Y, NA INITIALS SC 08:57, REVIEWED BY: AD. EXAMINATION GENERAL EXAMINATION: A HISTORY AND PHYSICAL EXAM ON THE PATIENT WAS DONE ON 10/15/2019 (DATE OF ORIGINAL ASSESSMENT) IN PREPARATION OF SURGERY/PROCEDURE. I HAVE NOW REASSESSED THIS PATIENT'S HEALTH STATUS AND PERFORMED AN UPDATED EXAM TODAY. ALL CHANGES IN THE PATIENT'S HISTORY, PHYSICAL EXAM, PRE-EXISTING CONDITONS, AND INDICATIONS/CONTRAINDICATIONS TO THE PLANNED PROCEDURE AND ANESTHESIA ARE DOCUMENTED AND EVALUATED BELOW. I ATTEST TO THE ADEQUACY AND APPROPRIATENESS OF MY ASSESSMENT, AND CONFIRM THE NECESSITY FOR THE PLANNED PROCEDURE.THE PATIENT IS ALERT, ORIENTED TIMES THREE AND COOPERATIVE. HEART SHOWS REGULAR RHYTHM, NO MURMURS AND NO GALLOPS. LUNGS ARE CLEAR TO AUSCULTATION. ASSESSMENTS INTERVERTEBRAL DISC DISORDERS WITH RADICULOPATHY, LUMBAR REGION - M51.16 (PRIMARY) TREATMENT INTERVERTEBRAL DISC DISORDERS WITH RADICULOPATHY, LUMBAR REGION [facility] FLUORO GUIDE SPINE INJECTION (PAIN)[id number] MEDICATION: BENADRYL TAB 25MG ORALLY (DIPHENHYDRAMINE)NIKA CASAREZ 10/16/2019 09:15:49 AM - BEFORE SHE GOES TO THE ROOM BALA LAYNE 10/16/2019 9:36:13 AM > VERIFIED SHAVONNE SOSA 10/16/2019 9:39:03 AM > GIVEN LOT # [id number] EXP DATE 04/2022 MEDICATION: FENTANYL CITRATE 25MCG AJCLYN DHILLON RN 10/16/2019 9:55:20 AM > VERIFIED NIKA CASAREZ 10/16/2019 10:38:32 AM - SECOND DOSE ORDERED, VERIFIED BY DOCTOR SHAVONNE TIDWELL 10/16/2019 11:05:38 AM > LOT # [id number] EXP. DATE 01/2022 SHAVONNE SOSA 10/16/2019 11:09:25 AM > 1ST DOSE OF 25 MCGS GIVE @ 1034, 2ND DOSE COMBINED WITH 50MCGS ORDER(TOTAL OF 75 MCGS) GIVEN @ 1038 MEDICATION: VERSED 1MG IV (MIDAZOLAM)JACLYN URIARTE RN 10/16/2019 9:55:48 AM > VERIFIED NIKA CASAREZ 10/16/2019 10:39:53 AM - SECOND DOSE ORDER, VERIFIED WITH SHAVONNE MENDOZA 10/16/2019 11:13:38 AM > 1ST DOSE GIVEN AT 1033, 2ND DOSE GIVEN AT 1040 FOR A TOTAL OF 2 MGS FOR THE PROCEDURE SHAVONNE SOSA 10/16/2019 11:17:45 AM > LOT # [id number] EXP 11/15/2020 MEDICATION: FENTANYL CITRATE 50MCG IV NIKA CASAREZ 10/16/2019 10:43:39 AM - SECOND DOSE ORDERED, VERIFIED WITH SHAVONNE MENDOZA 10/16/2019 11:12:25 AM > COMBINED WITH 25MCGS ORDER FOR (75 MCGS FOR A TOTAL DOSE) GIVEN AT 1038, 2ND DOSE OF 50 MCGS GIVE AT 1044 FOR A TOTAL DOSE OF FENTANYL OF 150MCGS FOR THE PROCEDURE. IV AT [facility] OCONNELL 10/16/2019 09:15:30 AM - LACTATED RINGERS SHAVONNE SOSA 10/16/2019 10:05:25 AM > STARTED WITH #20G IN LEFT HAND WITHOUT INCIDENT. INFUSING WITHOUT REDNESS, SWELLING OR DRAINAGE. AD NIKA CASAREZ 10/16/2019 10:51:17 AM > 100 ML OXYGEN AT 2 LITERS PER NASAL CANNULA PROCEDURES PAIN NURSING RECORD PRE-PROCEDURE IV SITE LEFT HAND, IV STARTED # 20, IV STARTED BY: Timothy SOSA RN, IV ATTEMPTS 1, PRE-PROCEDURE ORAL MEDICATIONS BENADRYL 25 MGS PO PER ORDER PROCEDURE IN ROOM 1020, PHYSICIAN IN ROOM 1033, START 1037, FINISH 1046, PHYSICIAN OUT OF ROOM 1050, OUT OF ROOM 1057, STEROID DEPOMEDROL 80MG, O2 NC 2 LPM, ECG NORMAL SINUS, PATIENT SHIELDED YES, SAFETY STRAP YES, PREP BETADINE BY CARLOS JARVIS, IV INFUSED LACTATED RINGERS, DRESSING TEGADERM BY MD MAZARIEGOS LOC: JACLYN URIARTE RN 10/16/2019 10:28:58 AM > , 1. ALERT, ORIENTED , JACLYN URIARTE RN 10/16/2019 10:38:06 AM > , 2. DROWSY, RESPONDS APPROPRIATELY, JACLYN URIARTE RN 10/16/2019 11:04:44 AM > , 1. ALERT, ORIENTED RESP: JACLYN URIARTE RN 10/16/2019 10:29:02 AM > , 1. REGULAR, NO DYSPNEA, JACLYN URIARTE RN 10/16/2019 10:38:12 AM > , 1. REGULAR, NO DYSPNEA COLOR: JACLYN URIARTE RN 10/16/2019 10:29:05 AM > , 1. PINK SKIN: JACLYN URIARTE RN 10/16/2019 10:29:10 AM > , 1. WARM, DRY POSITION: JACLYN URIARTE RN 10/16/2019 10:29:14 AM > , 1. PRONE VITALS: JACLYN URIARTE RN 10/16/2019 10:30:20 AM > 145/81, 100, 18, 98% , JACLYN URIARTE RN 10/16/2019 10:35:05 AM > 148/80, 101, 18, 98% , JACLYN URIARTE RN 10/16/2019 10:40:28 AM > 137/79, 99, 18, 96% , JACLYN URIARTE RN 10/16/2019 10:45:25 AM > 148/78, 97, 18, 95% JACLYN URIARTE RN 10/16/2019 10:50:16 AM > 143/76, 95, 18, 93% , JACLYN URIARTE RN 10/16/2019 11:10:01 AM > 105/63, 96, 18, 96% DISCHARGE: POST PAIN 11/24, DRESSING SITE DRY AND INTACT, IV DISCONTINUED, SITE CLEAR, CATHETER INTACT, GAIT STEADY, TEACHING COMPLETED, PATIENT ACKNOWLEDGES UNDERSTANDING YES, PATIENT DISCHARGED AT 1113 PRE PROCEDURE DIAGNOSIS LUMBAR DISC DISORDER WITH RADICULOPATHY POST PROCEDURE DIAGNOSIS LUMBAR DISC DISORDER WITH RADICULOPATHY PROCEDURE LUMBAR EPIDURAL STEROID INJECTION UNDER FLUOROSCOPIC GUIDANCE SURGEON DR. KRISTINA MAZARIEGOS CERTIFIED CAREGIVER NONE ANESTHESIA LOCAL PRE PROCEDURE NOTE THE PATIENT HAS A HISTORY OF CHRONIC LOW BACK PAIN. I EVALUATED THE PATIENT AND REVIEWED THE CHART. I WENT OVER THE RISKS, ALTERNATIVES, AND BENEFITS ASSOCIATED WITH THIS PROCEDURE. I DISCUSSED THAT THE USE OF STEROIDS MAY CONTRIBUTE TO IMMUNOSUPPRESSION OF THE PATIENT'S BODY AGAINST INFECTIONS SUCH COVID-19. THE PATIENT IS AWARE OF THE POTENTIAL COMPLICATIONS ASSOCIATED WITH THIS VIRUS, INCLUDING, BUT NOT LIMITED TO, . I DISCUSSED THE USE OF DEXAMETHASONE INSTEAD OF DEPO-MEDROL; HOWEVER, THE PATIENT WOULD LIKE TO MOVE FORWARD WITH DEPO-MEDROL. THE PATIENT WOULD LIKE TO PROCEED AND GIVE CONSENT TO PERFORMED THE PROCEDURE. THE PATIENT WOULD LIKE TO MOVE FORWARD WITH IV SEDATION DUE TO DISCOMFORT, PAIN AND ANXIETY ASSOCIATED WITH THE PROCEDURE. THE PATIENT DENIES UNEXPLAINABLE WEIGHT LOSS, FEVER, CHILLS, OR NEW CHANGES IN URINARY OR BOWEL CONTROL. THE PATIENT IS COVID-19 NEGATIVE DESCRIPTION OF PROCEDURE THE PATIENT WAS BROUGHT TO THE PROCEDURE ROOM AND PLACED IN THE PRONE POSITION. THE LUMBOSACRAL AREA WAS CLEANED WITH BETADINE SOLUTION AND DRAPED ASEPTICALLY. THE PROCEDURE WAS DONE UNDER STERILE CONDITIONS. I CHECKED LATERALITY AND THE LEVEL WHERE THE PROCEDURE WAS GOING TO BE PERFORMED WITH THE PATIENT AND THE SUPPORTING STAFF AT THE MOMENT OF THE TIME OUT IN THE PROCEDURE ROOM. UNDER FLUOROSCOPIC GUIDANCE, THE TARGET POINT WAS SELECTED AT THE INTERLAMINAR LEVEL OF L4-L5. LIDOCAINE WAS USED TO NUMB THE SKIN AND THE SUBCUTANEOUS TISSUE BELOW IT. EPIDURAL TUOHY NEEDLE, 17-GAUGE, WAS ADVANCED UNDER FLUOROSCOPIC GUIDANCE AND FOLLOWING PATIENT FEEDBACK UNTIL THE EPIDURAL SPACE WAS REACHED 7 CM DEEP INTO THE SKIN BY THE LOSS OF RESISTANCE TECHNIQUE. ISOVUE M DYE 30%, 0.25 ML, WAS INJECTED SHOWING ADEQUATE SPREAD OF THE DYE. THEN, A SOLUTION OF 3 ML OF NORMAL SALINE WITH DEPO-MEDROL 60 MG WAS INJECTED SLOWLY FOLLOWING PATIENT FEEDBACK. THERE WAS NO EVIDENCE OF BLOOD, PARESTHESIA OR CEREBROSPINAL FLUID DURING THE PROCEDURE. THE PATIENT WAS SENT TO THE RECOVERY ROOM. THE PATIENT WAS MOVING THE EXTREMITIES AND DOING WELL. THERE WAS NO COMPLICATION DURING THE PROCEDURE. EBL LESS THAN 5 ML. FLUOROSCOPY TIME WAS 18 SECONDS PATIENT RECEIVED VERSED 2 MG AND FENTANYL 150 MCG IV IN DIVIDED DOSES. [id number] START TIME WAS 1033 [id number] END TIME WAS 1048 TOTAL [id number] TIME WAS 15 MINUTES POST PROCEDURE NOTE THE PATIENT WILL BE SEEN IN A FOLLOW UP IN THE NEXT FEW WEEKS. I AM LOOKING FOR LONG LASTING RELIEF FOR THE PATIENT WITH THIS INTERVENTION. INSTRUCTIONS WERE GIVEN, QUESTIONS WERE ANSWERED, AND THE PATIENT EXPRESSED UNDERSTANDING AND AGREES WITH THE PLAN. THE PATIENT IS AWARE TO STAY HOME FOR THE NEXT WEEK, IF POSSIBLE, DUE TO COVID-19. I, NIKA CASAREZ, DOCUMENTED THE ABOVE INFORMATION ACTING A SCRIBE FOR DR. MAZARIEGOS. I HAVE REVIEWED THE ABOVE DOCUMENT, WRITTEN BY NIKA CASAREZ, GENOMICS SCIENTIST, AND I VERIFY THAT IT IS ACCURATE PROCEDURE CODES 94078 LUMBAR/SACRAL W/ IMAGING 82751 MOD SED SAME PHYS/QHP 5/>YRS DISPOSITION & COMMUNICATION FOLLOW UP F/UP WITH MAINTENANCE TECHNICIAN 2ND SHIFT (REASON: POST L4-L5 LESI WITH IV SED) ELECTRONICALLY SIGNED BY KRISTINA MAZARIEGOS MD, MD ON 10/22/2019 AT 06:30 PM EDT DISCLAIMER : THIS IS A VISIT SUMMARY EXTRACTED FROM THE [employer] CHART. IT IS NOT A COPY OF THE [employer] PROGRESS NOTE. MTDD
== END ==
LOC: M PAIN 08:45
PROVIDERS: ATTEND Anesthesiology
DX: M51.16 Intervertebral disc disorders with radiculopathy, lumbar region (principal)
CPT/HCPCS: 62323; 99152; J1030; J2250; J3010; Q9967

== ENCOUNTER 2019-10-29 08:07 | Outpatient (CLI) | payer OTHER ==
[~2019-10-29] VITALS: Ht 170.2 cm; Wt 120.9 kg
[~2019-10-29 08:07] MED LIST changes: -ADV500INH; +ADV500INH INH; -ASPI81TA85 PO; +ASPI81TA86 PO; -CARI1TAB7; +CARI1TAB7 PO; -ISOVUE-M 300 61% 15ML VIAL As Ordered ONE; -LIDOCAINE 1% SDV 30ML VIAL As Ordered ONE; -MIDAZOLAM INJ 2MG/2ML VIAL (J2250 PER 1MG) As Ordered ONE; -MOVA1TAB2 PO; +NALO25TA PO; -SPIR1AER; +SPIR1AER INH; +SUMA1TAB14 PO; -TREX50TA PO; -diphenhydrAMINE 25MG CAP As Ordered ONE; -fentaNYL 100 MCG/2 ML INJECTION (J3010) As Ordered ONE; -methylPREDNISolone SUSP 40 MG/ML (DEPO-medrol) VIAL (J1030) As Ordered ONE
[2019-10-29 08:25] VITALS: BP 124/83
[2019-10-29] MEDS ORDERED: BENRALIZUMAB (FASENRA) 30MG/ML SYRINGE (J0517 PER 1MG) SC ONE (08:30)
[2019-10-29 09:00] VITALS: BP 125/78
== END 2019-10-29 09:00 | disposition home or self-care (01) ==
LOC: M INFU 08:07
PROVIDERS: ATTEND Internal Medicine Pulmonary Disease
DX: J45.40 Moderate persistent asthma, uncomplicated (principal)
CPT/HCPCS: 96372; J0517

== ENCOUNTER 2020-01-01 07:58 | Outpatient (CLI) | payer OTHER ==
[~2020-01-01] VITALS: Ht 170.2 cm; Wt 120.9 kg
[2020-01-01 08:00] VITALS: BP 123/77
[2020-01-01] MEDS ORDERED: BENRALIZUMAB (FASENRA) 30MG/ML SYRINGE (J0517 PER 1MG) SC ONE (08:00)
[2020-01-01 08:30] VITALS: BP 113/53
== END 2020-01-01 08:30 | disposition home or self-care (01) ==
LOC: M INFU 07:58
PROVIDERS: ATTEND Internal Medicine Pulmonary Disease
DX: H65.22 Chronic serous otitis media, left ear (principal)
CPT/HCPCS: 96372; J0517

== ENCOUNTER 2020-01-17 10:27 | Emergency (ER) | payer MEDICARE, OTHER ==
[~2020-01-17] VITALS: Ht 172.7 cm; Wt 124.3 kg
[2020-01-17] MEDS ORDERED: methylPREDNISolone 125MG 2ML VIAL IV ONE (11:15)
[2020-01-17] MEDS: COMBIVENT RESPIMAT 100-20MCG INHALER 4GM INH SCH (11:54)
[2020-01-17 12:02] LABS: BASO % 0.1 % (0.0-1.0); HEMATOCRIT 38.1 % (36.0-47.0); HEMOGLOBIN 12.6 g/dl (12.0-15.5); LYMPH # 0.9 10^3/uL (1.5-5.0); LYMPH % 7.4 % (24.0-44.0); MEAN CORPUSCULAR HEMOGLOBIN 30.3 pg (27.0-33.0); MEAN CORPUSCULAR HGB CONC 33.1 g/dl (32.0-36.5); MEAN CORPUSCULAR VOLUME 91.6 fl (80.0-96.0); MONO # 0.5 10^3/uL (0.0-0.8); MONO % 4.5 % (0.0-5.0); NEUTROPHILS # 10.1 10^3/uL (1.5-8.5); NEUTROPHILS % 87.5 % (36.0-66.0); PLATELET COUNT, AUTOMATED 270 10^3/uL (150-450); RED BLOOD COUNT 4.16 10^6/uL (4.00-5.40); WHITE BLOOD COUNT 11.5 10^3/uL (4.0-10.0)
[2020-01-17 12:22] LABS: ALBUMIN 3.4 GM/DL (3.2-5.2); ALT/SGPT 55 U/L (12-78); BILIRUBIN,DIRECT 0.1 MG/DL (0.0-0.2); BILIRUBIN,TOTAL 0.3 MG/DL (0.2-1.0); BLOOD UREA NITROGEN 9 MG/DL (7-18); CALCIUM LEVEL 8.8 MG/DL (8.5-10.1); CARBON DIOXIDE LEVEL 25 MEQ/L (21-32); CHLORIDE LEVEL 109 MEQ/L (98-107); CPK CREATINE PHOSPHOKINASE 269 U/L (26-192); CREATININE FOR GFR 1.02 MG/DL (0.55-1.30); GLOMERULAR FILTRATION RATE > 60.0 (>58); GLUCOSE, FASTING 118 MG/DL (70-100); MB/CK RELATIVE INDEX 1.86 (< OR =4); POTASSIUM SERUM 4.5 MEQ/L (3.5-5.1); SODIUM LEVEL 141 MEQ/L (136-145); TROPONIN I < 0.02 NG/ML (< 0.10)
--- NOTE | 2020-01-17 13:38 | REPVR ---
PROCEDURE INFORMATION: Exam: XR Chest, 1 View Exam date and time: 01/17/2020 10:48 AM Age: 39 years old Clinical indication: Cough and shortness of breath; Additional info: Dyspnea/cough TECHNIQUE: Imaging protocol: XR of the chest Views: 1 view. COMPARISON: CR Chest, 2 view PA, Lat 07/08/2019 10:27 AM FINDINGS: Lungs: Unremarkable. No consolidation. Pleural space: Unremarkable. No pleural effusion. No pneumothorax. Heart/Mediastinum: Unremarkable. No cardiomegaly. Bones/joints: Unremarkable. IMPRESSION: No acute findings. Electronically signed by: Néstor Anthony On 01/17/2020 13:38:08 PM
[2020-01-17] MEDS: IPRATROPIUM 0.5MG/ALBUTEROL 2.5MG INH SOL UD 3ML (DUONEB) NEB SCH ×3 (14:18→14:36)
[2020-01-17 16:00] VITALS: BP 121/63
[2020-01-17] MEDS ORDERED: VITA-199 PO (16:18)
[2020-01-17] MEDS ORDERED: PRED20TA PO (16:24)
--- NOTE | 2020-01-17 20:35 | ECGEPIP ---
[facility] - ED Test Date: 2020-01-17 Pat Name: PIYUSH FARNSWORTH Department: Room: - Gender: Female [employer] Operator: SUSAN : 1980 Requested By: Estevan Aguirre Order Number: [id number] Reading MD: Iram Waldrop Measurements Intervals [place] Rate: 109 P: 65 DC: 169 QRS: 63 QRSD: 93 T: 53 QT: 357 QTc: 482 Interpretive Statements SINUS TACHYCARDIA ABNORMAL RHYTHM ECG DECREASED RATE 09/05/18 Electronically Signed on 01-17-2020 20:35:22 EDT by Iram Waldrop
== END 2020-01-17 16:40 | disposition home or self-care (01) ==
LOC: M ED 10:27
DX: J45.901 Unspecified asthma with (acute) exacerbation (principal); B97.89 Other viral agents as the cause of diseases classified elsewhere; R00.0 Tachycardia, unspecified; R07.89 Other chest pain; I10 Essential (primary) hypertension; E78.9 Disorder of lipoprotein metabolism, unspecified; E07.9 Disorder of thyroid, unspecified; F43.10 Post-traumatic stress disorder, unspecified; G40.909 Epilepsy, unspecified, not intractable, without status epilepticus; Z91.040 Latex allergy status; Z91.018 Allergy to other foods; Z88.0 Allergy status to penicillin; Z88.1 Allergy status to other antibiotic agents; Z88.8 Allergy status to other drugs, medicaments and biological substances; Z91.030 Bee allergy status; Z91.048 Other nonmedicinal substance allergy status; Z79.899 Other long term (current) drug therapy; Z79.52 Long term (current) use of systemic steroids
CPT/HCPCS: 36600; 71045; 80048; 80076; 82550; 82553; 82803; 84484; 85025; 87486; 87581; 87633; 87798; 93005; 93041; 94640; 94760; 96374; 99285; G0463; J2930

== ENCOUNTER → 2020-03-23 | Outpatient (CLI) | payer OTHER, MEDICARE ==
[~2020-03-23] MED LIST changes: -MONT10TA4 PO; +MONT5TAB2 PO
--- NOTE | 2020-03-24 23:54 | ECWPNPC ---
PATIENT NAME: PIYUSH FARNSWORTH : 1980 GENDER: FEMALE VISIT DATE: 03/23/2020 DISCHARGE DATE: 03/23/20 1050 VISIT LOCKED DATE TIME: PHYSICIAN: MEHREEN DONNELLY PHYSICIAN PAGER NO: ACTIVE RESOURCE: EMHREEN DONNELLY REASON FOR APPOINTMENT 1. MED MANAGEMENT HISTORY OF PRESENT ILLNESS GENERAL: -40 YEAR OLD FEMALE IN FOR CHRONIC PAIN FOLLOW UP. SHE RATES HER PAIN AT AN 8/10 AND DESCRIBES IT ACHING, BURNING, STABBING, THROBBING, AND SHOOTING. SHE DOES ADMIT TO INCREASED PAIN ACROSS HER NECK AND SHOULDER AREA. FALL RISK SCREENING: SCREENING :ONE FALL WITHOUT INJURY IN THE PAST YEAR PAIN SCREENING: PATIENT HAS A COMPLAINT OF ACUTE OR CHRONIC PAIN :YES LOCATION OF PAIN: WHOLE BODY INTENSITY OF PAIN (SCALE OF 1 TO 10):8 WHAT DOES YOUR PAIN FEEL LIKE:ACHING, BURNING, STABBING, THROBBING, SHOOTING DURATION:CONTINOUS, CONSTANT PAIN IS INCREASED BY:ACTIVITIES PAIN IS DECREASED BY:USE OF PAIN MEDICATIONS TREATMENT/MEDICATIONS USED TO MANAGE PAIN:OPIOIDS LEVEL OF RELIEF FROM PAIN TREATMENTS IN THE PAST:50% PAIN HAS INTERFERED WITH THE FOLLOWING:BATHING/DRESSING, WALKING ABILITY, HOUSEWORK, SLEEP, TRANSPORTATION, TOILETING NURSING NOTE: -. PAIN CENTER INTAKE QUESTIONS: DO YOU HAVE A HISTORY OF MRSA? :NO DO YOU TAKE A BLOOD THINNERS? :NO DO YOU HAVE ANY BLEEDING DISORDERS? :NO ANY NEW NUMBNESS OR WEAKNESS IN YOUR LEGS OR ARMS? :YES ALL LIMBS ANY PACEMAKER,DEFIBRILLATOR, OR DORSAL COLUMN STIMULATOR? :NO DO YOU HAVE ANY RASHES OR OPEN SORES? :NO ARE YOU ALLERGIC TO IV DYE? :NO ARE YOU DIABETIC? :NO ANY NEW PROBLEMS WITH YOUR MEDICATIONS? :NO HAVE YOU RECEIVED A VACCINE IN THE PAST 30 DAYS? :NO DO YOU PLAN TO RECEIVE A VACCINE IN THE NEXT 21 DAYS? :NO DO YOU NEED ANY PRESCRIPTION? :YES PERCOSET DO YOU TAKE ANY IMMUNOSUPPRESSIVE MEDICATIONS? :NO IS THERE A CHANCE YOU COULD BE ? :NO ARE YOU BREAST FEEDING? :NO CURRENT MEDICATIONS TAKING LYRICA 150 MG CAPSULE 1 CAPSULE ORALLY THREE TIMES A DAY TAKING SYNTHROID 25 25MCG TABLET 1 CAP ORAL DAILY TAKING ALBUTEROL SULFATE (2.5 MG/3ML) 0.083% NEBULIZATION SOLUTION 3 ML INHALATION EVERY 4 HOURS NEEDED TAKING TRAZODONE HCL 100 MG TABLET 4 TABLET AT BEDTIME ORALLY ONCE A DAY TAKING SUMATRIPTAN SUCCINATE 100 MG TABLET 1 TABLET NEEDED ORALLY DIRECTED TAKING EPIPEN 0.3 MG/0.3ML (1:1000) DEVICE INTRAMUSCULAR DIRECTED TAKING FLONASE 50 MCG/DOSE INHALER 2 SPRAY IN EACH NOSTRIL NASALLY ONCE A DAY TAKING POTASSIUM CHLORIDE 20 MEQ TABLET EXTENDED RELEASE 1 CAPSULE WITH FOOD ORALLY TID TAKING IMITREX 6 MG/0.5ML SOLUTION 0.5 ML NEEDED SUBCUTANEOUS TWICE A DAY TAKING NEXIUM 40 MG CAPSULE DELAYED RELEASE 1 CAPSULE ORALLY TWICE A DAY TAKING ROSUVASTATIN CALCIUM 40 MG TABLET 1 CAP ORALLY DAILY TAKING NARCAN 4 MG/0.1ML LIQUID DIRECTED NASALLY FOR SYMPTOMS OF OVERDOSE OR RESP DEPRESSION - CALL 911 TAKING CYMBALTA 60 MG CAPSULE DELAYED RELEASE PARTICLES 1 CAPSULE ORALLY TWICE A DAY TAKING CLARITIN 10 MG TABLET 1 TABLET ORALLY ONCE A DAY TAKING HYDROXYZINE HCL 25 MG TABLET 1 TABLET ORALLY DAILY TAKING ADVAIR DISKUS 500-50 MCG/DOSE MISCELLANEOUS 1 PUFF INHALATION TWICE A DAY TAKING SPIRIVA HANDIHALER 1 CAPSULE INHALATION TWICE A DAY TAKING VITAMIN D (ERGOCALCIFEROL) 62502 UNIT CAPSULE 1 CAPSULE ORALLY WEEKLY TAKING LIDODERM 5 % PATCH 1 PATCH TO SKIN REMOVE AFTER 12 HOURS EXTERNALLY ONCE A DAY TAKING FAMOTIDINE 40 MG TABLET 1 TABLET AT BEDTIME ORALLY ONCE A DAY TAKING MUCINEX 600 MG TABLET EXTENDED RELEASE 1 TABLET NEEDED ORALLY DAILY TAKING ASMANEX 120 METERED DOSES 220 MCG/INH AEROSOL POWDER BREATH ACTIVATED 1 PUFF IN THE EVENING INHALATION BID TAKING SINGULAIR 10 MG TABLET 1 TABLET IN THE EVENING ORALLY ONCE A DAY TAKING ADVAIR DISKUS 100-50 MCG/DOSE AEROSOL POWDER BREATH ACTIVATED 1 PUFF INHALATION TWICE A DAY TAKING CELEBREX 200 MG CAPSULE 1 CAPSULE ORALLY ONCE A DAY TAKING TOPAMAX 50 MG TABLET 1 TABLET ORALLY TWICE A DAY TAKING MOVANTIK 25 MG TABLET 1 TABLET IN THE MORNING ORALLY ONCE A DAY TAKING CARISOPRODOL 350 MG TABLET 1 TABLET NEEDED ORALLY BID FOR SEVERE SPASM MDD=2 CODE D CHRONIC PAIN TAKING PERCOCET 10-325 MG TABLET 1 TABLET ORALLY EVERY 4 HRS PRN PAIN MDD = 6 NOT-TAKING FASENRA 30 MG/ML SOLUTION PREFILLED SYRINGE 1 NULL SUBCUTANEOUS Q 2 MONTHS NOT-TAKING AZITHROMYCIN 250 MG TABLET 2 TABLET ON THE FIRST DAY, THEN 1 TABLET DAILY FOR 4 DAYS ORALLY ONCE A DAY NOT-TAKING LATUDA 40 MG TABLET 1 TABLET WITH FOOD ORALLY ONCE A DAY, NOTES: 10/14 1700 NOT-TAKING RANITIDINE 1 TAB ORAL DAILY NOT-TAKING BUSPIRONE HCL 15 MG TABLET 1 TABLET ORALLY TWICE A DAY NOT-TAKING CIPRODEX 0.3-0.1 % SUSPENSION 4 DROPS INTO AFFECTED EAR OTIC THREE TIMES A DAY, NOTES: [facility] NOT-TAKING ROBITUSSIN DM 100-10 MG/5ML SYRUP 10 ML NEEDED ORALLY EVERY 4 HRS NOT-TAKING CEFDINIR 300 MG CAPSULE 1 CAP ORALLY BID NOT-TAKING TESSALON PERLES 100 MG CAPSULE 1 CAPSULE NEEDED ORALLY THREE TIMES A DAY NOT-TAKING DIFLUCAN 150 MG TABLET 1 TABLET, REPEAT IN 72 HOURS ORALLY DAILY NOT-TAKING CEFDINIR 300 MG CAPSULE DIRECTED ORALLY TWICE DAILY NOT-TAKING TOBRADEX 0.3-0.1 % OINTMENT 1 APPLICATION OPHTHALMIC BEFORE BEDTIME NOT-TAKING TROSPIUM CHLORIDE 20 MG TABLET 1 TABLET AT BEDTIME ON AN EMPTY STOMACH ORALLY BID, NOTES: [facility] NOT-TA[facility] PREDNISONE 10 MG TABLET 4TAB X 3DAYS, 3TABS X 3DAYS, 2TABS X 3DAYS, 1TAB X 3DAYS ORALLY ONCE A DAY NOT-TAKING TESSALON PERLES 100 MG CAPSULE 1 CAPSULE NEEDED ORALLY BEFORE BEDTIME NOT-TAKING DOXYCYCLINE MONOHYDRATE 100 MG CAPSULE 1 CAPSULE ORALLY BID NOT-TAKING PREDNISONE 20 MG TABLET 1 TABLET ORALLY BID FOR 5 DAYS, NOTES: 09-06-18 NOT-TAKING AZITHROMYCIN (5 DAY) 250 MG TABLET 2 TABLET ORALLY ONCE A DAY/ 4 DAYS, NOTES: 09-06-18 NOT-TAKING PREDNISONE TAPER 1 TAB ORAL NOT-TAKING CEFDINIR 300 MG CAPSULE DIRECTED ORALLY BID NOT-TAKING FLUOXETINE 20 MG CAPSULE 2 CAPSULE IN THE MORNING ORALLY ONCE A DAY NOT-TAKING LORATADINE 10 MG TABLET 1 TABLET ORALLY ONCE A DAY NOT-TAKING TESSALON PERLES 100 MG CAPSULE 1 CAPSULE NEEDED ORALLY THREE TIMES A DAY MEDICATION LIST REVIEWED AND RECONCILED WITH THE PATIENT PAST MEDICAL HISTORY HYPERTENSION HYPOTHYROID LUMBAR SPONDYLOSIS INTERSTIM BLADDER OAB MASTOIDECTOMY X6 MIGRAINES ASTHMA PTSD FIBROMYALGIA URINARY INCONTINENCE ENDOMETRIOSIS SEIZURES PNEUMONIA MINI STROKE ALLERGIES PENICILLIN (FOR ALLERGIES USE ONLY): ANAPHALAXIS - ALLERGY LEVAQUIN: ANAPHALAXIS - ALLERGY AMOXICILLIN: ANAPHALAXIS - ALLERGY MUSHROOMS: ANAPHALAXIS - ALLERGY BEES: ANAPHALAXIS - ALLERGY DOXYCYCLINE: RASH - ALLERGY LATEX (FOR ALLERGY USE ONLY): HIVES - ALLERGY SURGICAL HISTORY HYSTERECTOMY 2011 APENDIX OUT 2001 HEMROHDECTOMY 2010 BUNIONS REMOVED ON BOTH FEET 2013 RIGHT KNEE ARTHROSCOPY 1993 MULTIPLE LAPAROSCOPY FOR ENDOMETRIOSIS TONSILS AND ADNOIDS OUT 1979 KIDNEY STONES 08/2014 MASTOID TYPANO RECONSTRUCTION ON LEFT EAR (6TH ONE) 06/26/2019 LEFT ROTATOR CUFF REPAIR 02/2019 DORSAL COLUMN STIMULATOR INSERTED AND REMOVED FAMILY HISTORY FATHER: ALIVE, DIAGNOSED WITH HYPERTENSION, OTHER MALIGNANT NEOPLASM OF UNSPECIFIED SITE MOTHER: ALIVE, HYPERTENSION, OTHER MALIGNANT NEOPLASM OF UNSPECIFIED SITE, OTHER SPECIFIED CONDITIONS INFLUENCING HEALTH STATUS 2 SON(S) , 1 DAUGHTER(S) . SON WITH SEVERE CROHNS DISEASE AND PYLODERMA GANGERINEOSA\NDAD-PROSTATE CA\NMOM-HIGH CHOLESTEROL AND BREAST CA. SOCIAL HISTORY GENERAL: TOBACCO USE ARE YOU A:FORMER SMOKER HOW LONG HAS IT BEEN SINCE YOU LAST SMOKED?6-12 MONTHS VAPORNO E-CIGARETTENO LATEX QUESTIONNAIRE LATEX ALLERGY : HAVE YOU EVER DEVELOPED ANY TYPE OF REACTION AFTER HANDLING LATEX PRODUCTS SUCH RUBBER GLOVES, CONDOMS, DIAPHRAGMS, BALLOONS, SOCKS, OR UNDERWEAR?YES KNOWN LATEX ALLERGY - PLEASE INDICATE :RUBBER GLOVES LATEX ALLERGY : HAVE YOU EVER DEVELOPED ANY TYPE OF REACTION DURING OR AFTER DENTAL APPOINTMENT, VAGINAL/RECTAL EXAMINATION, SURGICAL PROCEDURE, OR ANY OTHER EXPOSURE?YES - PLEASE INDICATE :SURGICAL PROCEDURE LATEX RISK : HAVE YOU EVER HAD ANY DIFFICULTY BREATHING OR HIVES AFTER EATING OR HANDLING ANY FRUITS, OR VEGETABLES; SUCH KIWI, BANANAS, STONE FRUITS, OR CHESTNUTSNO LATEX RISK : DO YOU HAVE A PREVIOUS PERSONAL HISTORY OF MORE THAN NINE SURGERIES, SPINA BIFIDA, OR REPEATED CATHERIZATIONS? YES - PLEASE INDICATE : > 9 SURGERIES LATEX RISK : ARE YOU FREQUENTLY EXPOSED TO LATEX PRODUCTS IN YOUR OCCUPATION?NO DATE ASKED : 10/15/2019 BMI CARE GOAL FOLLOW-UP ABOVE NORMAL BMI FOLLOW-UPDIETARY MANAGEMENT EDUCATION, GUIDANCE, AND COUNSELING ALCOHOL SCREENING DID YOU HAVE A DRINK CONTAINING ALCOHOL IN THE PAST YEAR?NO POINTS0 INTERPRETATIONNEGATIVE RECREATIONAL DRUG USE DRUG USE?NO CAFFEINE CAFFEINE USE?YES HOW OFTEN AND HOW MUCH? 2 CUPS PER DAY SEXUAL HX HAD SEX IN THE LAST 12 MONTHS (VAGINAL, ORAL, OR ANAL)?YES WITHMEN ONLY USE PROTECTION?NO HAVE YOU EVER HAD AN STD?YES CHLAMYDIA?YES HIV / HEP-C SCREENING HIV TEST OFFERED TO PATIENT:YES DATE OFFERED:02/07/2019 TEST ACCEPTED:NO HEP-C TEST OFFERED TO PATIENT:NO REASON:PATIENT DECLINED BROCHURE PROVIDED TO PATIENTNO RASTAFARI [id number] NONE LANGUAGE LANGUAGES SPOKEN:SINGAPOREAN EDUCATION LEVEL OF EDUCATION:COLLEGE LEARNING BARRIERS / SPECIAL NEEDS CHANGE FROM LAST VISIT?NO BARRIERS TO LEARNING?NO HEARING IMPAIRED?YES HEARING IMPAIRED LEFT EAR VISION IMPAIRED?YES COGNITIVELY IMPAIRED?NO :CORRECTIVE LENSES GLASSES OR CONTACTS READINESS TO LEARN?YES LEARNING PREFERENCES?NO LEARNING CAPABILITIES PRESENT?YES EMOTIONAL BARRIERS?NO SPECIAL DEVICES?YES :CANE GLOVE PAIRER NEEDED?NO DOMESTIC VIOLENCE DO YOU FEEL SAFE IN YOUR ENVIRONMENT?YES OCCUPATION: RETIRED. DIET: REGULAR. EXERCISE: NO REGULAR EXERCISE. MARITAL STATUS: . OTHERS AT HOME: SPOUSE, CHILDREN. PAIN CLINIC PFS, CLERGY, PUBLIC HEALTH REFERRALS PFS REFERRAL NEEDED?NO CLERGY REFERRAL NEEDED?NO PUBLIC HEALTH REFERRAL NEEDED?NO HAS THE PATIENT BEEN EDUCATED REGARDING HIS/HER PLAN OF CARE?YES HAS THE PATIENT BEEN EDUCATED REGARDING PAIN, THE RISK FOR PAIN, THE IMPORTANCE OF EFFECTIVE PAIN MANAGEMENT, AND THE PAIN ASSESSMENT PROCESS?YES ADVANCE DIRECTIVE ADVANCE DIRECTIVE DISCUSSED WITH PATIENT:YES HAS POA, LIVING WILL, MOLDST FORM AND HCP--KEIRY FARNSWORTH [phone] HOSPITALIZATION/MAJOR DIAGNOSTIC PROCEDURE SEIZURES PNEUMONIA MINI STROKE 2008 MASTOID TYPANO RECONSTRUCTION ON LEFT EAR 1 NIGHT 06/26/2019 REVIEW OF SYSTEMS CONSTITUTIONAL: ANY RECENT FEVER NO . CHILLS NO . WEIGHT CHANGE OF UNKNOWN REASONS NO . GASTROENTEROLOGY: NEW UNEXPLAINABLE CHANGES IN BOWEL CONTROL NO . CONSTIPATION NO . GENITOURINARY: ANY NEW CHANGE IN BLADDER CONTROL? NO . NEUROLOGY: NEW ONSET DIZZINESS OR NEUROLOGICAL CHANGES NOT MENTIONED NO . NEW NUMBNESS OR PAIN PATTERNS NOT MENTIONED AND PERTINENT TO TODAY'S VISIT NO . CARDIOLOGY: NEW CHEST PRESSURE NO . NEW CHEST PAIN NO . RESPIRATORY: UNEXPLAINABLE COUGH NO . NEW SHORTNESS OF BREATH NO . VITAL SIGNS WT 267.8 LBS, HT 67 IN, BMI 41.94 INDEX, BP 125/85 MM HG, HR 123 /MIN, RR 20 /MIN, TEMP 98.2 F, OXYGEN SAT % 93%, SAFE IN ENV? (Y/N) Y, NA INITIALS CA 09:40, REVIEWED BY: EM. EXAMINATION GENERAL EXAMINATION: GENERALNO ACUTE DISTRESS, WELL NOURISHED AND HYDRATED. PSYCHAPPROPRIATE MOOD AND AFFECT . NECK:POINT TENDER ACROSS BILATERAL NECK AND SHOULDERS, SURROUNDING SKIN SHOWS NO ERYTHEMA, ECCHYMOSIS, INCREASED WARMTH, AND/OR SKIN ERUPTIONS NOTED. BANDS OF RESTRICTIVE TISSUE NOTED OVER TRIGGER POINTS . LUNGS:CLEAR TO AUSCULTATION BILATERALLY, NO WHEEZES, RHONCHI, RALES. HEART:NO MURMURS, REGULAR RATE AND RHYTHM. ASSESSMENTS OTHER CHRONIC PAIN - G89.29 (PRIMARY) MYALGIA, OTHER SITE - M79.18 TREATMENT OTHER CHRONIC PAIN PAIN PROCEDURE LOGDATE OF PROCEDURE10/16/19PROCEDURE:LUMBAR EPIDURAL L4/5AMOUNT OF PRE SEDATEBENADRYL 25MG, FENTANYL 150MCG, VERSED 2MGRESULT:HELPED X 3 MOS NOTES: 40-YEAR-OLD FEMALE IN FOR CHRONIC PAIN FOLLOW-UP. GIVEN PRESENTING SYMPTOMS AND RESULTS OF PHYSICAL EXAMINATION RECOMMENDED BILATERAL TRIGGER POINT INJECTIONS TO THE NECK AND SHOULDERS WITH POST PROCEDURAL FOLLOW-UP. PATIENT HAS EXPRESSED UNDERSTANDING OF AND WAS IN AGREEMENT WITH TREATMENT PLAN. GIVEN TIME TO ASK QUESTIONS AND EXPRESS CONCERNS. , [employer] REGISTRY REVIEWED AND DEMONSTRATES COMPLLIANCE. (REF # [id number] ) BRINGS IN MEDICATIONS WHICH IS APPROPRIATE FOR WHAT WAS DISPENSED. RECENT URINE TOXICOLOGY REVIEWED. NO UNAUTHORIZED MEDICATIONS. NO ILLICIT SUBSTANCES AND PRESCRIBED MEDICATIONS WERE PRESENT. PROCEDURE CODES FA211 ESTABILISHED PATIENT [facility] FACILITY CHARGE DISPOSITION & COMMUNICATION FOLLOW UP POSTPROCEDURE (REASON: BILATERAL NECK AND SHOULDER TRIGGER POINT INJECTIONS) ELECTRONICALLY SIGNED BY MARY CARLIN ON 03/24/2020 AT 09:20 AM EST DISCLAIMER : THIS IS A VISIT SUMMARY EXTRACTED FROM THE [employer] CHART. IT IS NOT A COPY OF THE [employer] PROGRESS NOTE. MARCIN
== END ==
LOC: M PAIN 09:30
PROVIDERS: ATTEND Family Medicine
DX: G89.29 Other chronic pain (principal); M79.18 Myalgia, other site; I10 Essential (primary) hypertension; E03.9 Hypothyroidism, unspecified; M47.816 Spondylosis without myelopathy or radiculopathy, lumbar region; N32.81 Overactive bladder; G43.909 Migraine, unspecified, not intractable, without status migrainosus; J45.909 Unspecified asthma, uncomplicated; F43.10 Post-traumatic stress disorder, unspecified; M79.7 Fibromyalgia; Z79.891 Long term (current) use of opiate analgesic; Z79.899 Other long term (current) drug therapy; Z87.891 Personal history of nicotine dependence; Z88.0 Allergy status to penicillin; Z88.1 Allergy status to other antibiotic agents; Z88.8 Allergy status to other drugs, medicaments and biological substances; Z91.040 Latex allergy status; Z91.030 Bee allergy status; Z91.018 Allergy to other foods

== ENCOUNTER → 2020-05-06 | Outpatient (CLI) | payer OTHER, MEDICARE ==
[~2020-05-06] MED LIST changes: +MONT10TA10 PO; -MONT5TAB2 PO
== END ==
LOC: M LABSMTC 09:40
PROVIDERS: ATTEND Anesthesiology
DX: Z20.828 Contact with and (suspected) exposure to other viral communicable diseases (principal)

== ENCOUNTER 2020-07-16 08:59 | Emergency (ER) | payer OTHER, MEDICARE ==
[~2020-07-16] VITALS: Ht 170.2 cm; Wt 118.2 kg
[~2020-07-16 08:59] MED LIST changes: -AMIT10TA PO; +AMIT10TA7 PO
[2020-07-16] MEDS ORDERED: ACETAMINOPHEN 500 MG TAB PO ONE (09:55)
--- NOTE | 2020-07-16 10:55 | REP ---
INDICATION: crackles LLL, wheezing COMPARISON: 01/17/2020 TECHNIQUE: Portable AP view of the chest FINDINGS: The mediastinum and cardiac silhouette are stable and within normal limits for portable technique. The lung alfaro are clear without acute consolidation, effusion, or pneumothorax. Skeletal structures are intact. IMPRESSION: No acute cardiopulmonary process appreciated. <Electronically signed by Estiven Montenegro > 07/16/20 1053
[2020-07-16] MEDS ORDERED: diphenhydrAMINE 50MG/ML VIAL (J1200) IV ONE (11:20)
[2020-07-16] MEDS ORDERED: dexameTHASONE 20MG/5ML VIAL (J1100 PER 1MG) IV ONE (11:20)
[2020-07-16 11:55] LABS: BASO # 0.1 10^3/uL (0.0-0.2); BASO % 0.8 % (0.0-1.0); EOS # 0.1 10^3/uL (0.0-0.5); EOS % 1.5 % (0.0-3.0); HEMATOCRIT 37.8 % (36.0-47.0); HEMOGLOBIN 12.6 g/dl (12.0-15.5); LYMPH # 1.8 10^3/uL (1.5-5.0); LYMPH % 28.9 % (24.0-44.0); MEAN CORPUSCULAR HEMOGLOBIN 30.4 pg (27.0-33.0); MEAN CORPUSCULAR HGB CONC 33.3 g/dl (32.0-36.5); MEAN CORPUSCULAR VOLUME 91.1 fl (80.0-96.0); MONO # 0.4 10^3/uL (0.0-0.8); MONO % 6.7 % (2.0-8.0); NEUTROPHILS # 3.8 10^3/uL (1.5-8.5); NEUTROPHILS % 61.8 % (36.0-66.0); PLATELET COUNT, AUTOMATED 259 10^3/uL (150-450); RED BLOOD COUNT 4.15 10^6/uL (4.00-5.40); WHITE BLOOD COUNT 6.1 10^3/uL (4.0-10.0)
[2020-07-16] MEDS ORDERED: IPRATROPIUM 0.5MG/ALBUTEROL 2.5MG INH SOL UD 3ML (DUONEB) NEB ONE (12:00)
[2020-07-16] MEDS ORDERED: COMBIVENT RESPIMAT 100-20MCG INHALER 4GM INH STA (12:26)
[2020-07-16 12:28] LABS: ALBUMIN 3.4 GM/DL (3.2-5.2); ALT/SGPT 28 U/L (12-78); BILIRUBIN,DIRECT < 0.1 MG/DL (0.0-0.2); BILIRUBIN,TOTAL 0.3 MG/DL (0.2-1.0); BLOOD UREA NITROGEN 8 MG/DL (7-18); CALCIUM LEVEL 8.6 MG/DL (8.5-10.1); CARBON DIOXIDE LEVEL 26 MEQ/L (21-32); CHLORIDE LEVEL 109 MEQ/L (98-107); CREATININE FOR GFR 0.95 MG/DL (0.55-1.30); GLOMERULAR FILTRATION RATE > 60.0 (>58); GLUCOSE, FASTING 124 MG/DL (70-100); POTASSIUM SERUM 3.9 MEQ/L (3.5-5.1); SODIUM LEVEL 140 MEQ/L (136-145); TOTAL PROTEIN 6.6 GM/DL (6.4-8.2)
[2020-07-16] MEDS ORDERED: MEDR4PAK PO (13:27)
[2020-07-16 13:51] VITALS: BP 124/78
[2020-07-17] MEDS ORDERED: TRAZ-257 PO (11:18)
[2020-07-17] MEDS ORDERED: LIDO5DIS41 TOP (11:18)
[2020-07-17] MEDS ORDERED: MUCI600T31 PO (11:51)
[2020-07-17] MEDS ORDERED: NEOM1SOL19 OTIC (12:55)
[2020-07-17] MEDS ORDERED: [UNRECOGNIZED DRUG - CODE] OTIC (12:55)
== END 2020-07-16 14:00 | disposition home or self-care (01) ==
LOC: M ED 08:59
DX: J20.8 Acute bronchitis due to other specified organisms (principal); B97.10 Unspecified enterovirus as the cause of diseases classified elsewhere; B97.89 Other viral agents as the cause of diseases classified elsewhere; R51.9 Headache, unspecified; R43.8 Other disturbances of smell and taste; M79.10 Myalgia, unspecified site; J45.40 Moderate persistent asthma, uncomplicated; J44.9 Chronic obstructive pulmonary disease, unspecified; Z86.718 Personal history of other venous thrombosis and embolism; Z87.891 Personal history of nicotine dependence; Z88.0 Allergy status to penicillin; Z88.8 Allergy status to other drugs, medicaments and biological substances; Z88.1 Allergy status to other antibiotic agents; Z91.040 Latex allergy status; Z91.018 Allergy to other foods; Z91.048 Other nonmedicinal substance allergy status; Z91.030 Bee allergy status; Z79.899 Other long term (current) drug therapy; Z79.51 Long term (current) use of inhaled steroids
CPT/HCPCS: 71045; 80048; 80076; 85025; 87798; 87880; 94640; 94664; 96374; 96375; 99284; J1100; J1200

== ENCOUNTER 2020-07-17 10:52 | Emergency (ER) | payer OTHER, MEDICARE ==
[~2020-07-17] VITALS: Ht 170.2 cm; Wt 118.6 kg
[~2020-07-17 10:52] MED LIST changes: +MEDR4PAK PO
[2020-07-17] MEDS ORDERED: TRAZ-257 PO (11:18)
[2020-07-17] MEDS ORDERED: LIDO5DIS41 TOP (11:18)
[2020-07-17] MEDS ORDERED: LEVALBUTEROL HFA 45MCG/ACT 15 GM INHALER INH ONE (11:40)
[2020-07-17] MEDS ORDERED: guaiFENesin ER 600 MG TAB PO ONE (11:40)
[2020-07-17] MEDS ORDERED: MUCI600T31 PO (11:51)
[2020-07-17] MEDS ORDERED: NEOM1SOL19 OTIC (12:55)
[2020-07-17] MEDS ORDERED: [UNRECOGNIZED DRUG - CODE] OTIC (12:55)
[2020-07-17 13:20] VITALS: BP 116/62
== END 2020-07-17 13:23 | disposition home or self-care (01) ==
LOC: EDBD 10:52 → M ED 10:52
DX: J06.9 Acute upper respiratory infection, unspecified (principal); H60.92 Unspecified otitis externa, left ear; J45.909 Unspecified asthma, uncomplicated; R06.02 Shortness of breath; I10 Essential (primary) hypertension; E03.9 Hypothyroidism, unspecified; E78.5 Hyperlipidemia, unspecified; M79.7 Fibromyalgia; G40.909 Epilepsy, unspecified, not intractable, without status epilepticus; Z85.41 Personal history of malignant neoplasm of cervix uteri; Z86.73 Personal history of transient ischemic attack (TIA), and cerebral infarction without residual deficits; Z86.711 Personal history of pulmonary embolism; Z88.0 Allergy status to penicillin; Z88.1 Allergy status to other antibiotic agents; Z91.040 Latex allergy status; Z91.018 Allergy to other foods; Z79.899 Other long term (current) drug therapy; Z79.51 Long term (current) use of inhaled steroids
CPT/HCPCS: 99284; G0463

== ENCOUNTER → 2020-08-04 | Outpatient (CLI) | payer OTHER ==
[~2020-08-04] MED LIST changes: +LIDO5DIS41 TOP; +MUCI600T31 PO; +NEOM1SOL19 OTIC; +TRAZ-257 PO; +[UNRECOGNIZED DRUG - CODE] OTIC
--- NOTE | 2020-08-06 02:11 | ECWPNPC ---
PATIENT NAME: PIYUSH FARNSWORTH : 1980 GENDER: FEMALE VISIT DATE: 08/04/2020 DISCHARGE DATE: 08/04/20 1152 VISIT LOCKED DATE TIME: PHYSICIAN: MEHREEN DONNELLY PHYSICIAN PAGER NO: ACTIVE RESOURCE: MEHREEN DONNELLY REASON FOR APPOINTMENT 1. MEDICATION MANAGEMENT HISTORY OF PRESENT ILLNESS DEPRESSION SCREENING: PHQ-2 (2015 EDITION) LITTLE INTEREST OR PLEASURE IN DOING THINGS?NOT AT ALL FEELING DOWN, DEPRESSED, OR HOPELESS?NOT AT ALL TOTAL SCORE0 40-YEAR-OLD FEMALE IN FOR CHRONIC PAIN FOLLOW-UP. SHE RATES HER PAIN CURRENTLY AT AN 8 OUT OF 10 AND DESCRIBES IT SHARP, STABBING, TENDER, AND SHOOTING. SHE FEELS HER MEDICATIONS ARE HELPFUL AND DENIES MED SIDE EFFECTS AT THIS TIME. GENERAL: -. FALL RISK SCREENING: SCREENING : NO FALLS REPORTED IN THE LAST YEAR. PAIN SCREENING: PATIENT HAS A COMPLAINT OF ACUTE OR CHRONIC PAIN :YES LOCATION OF PAIN:NECK, BOTH SHOULDERS, MID BACK, LOW BACK INTENSITY OF PAIN (SCALE OF 1 TO 10):8 WHAT DOES YOUR PAIN FEEL LIKE:SHARP, STABBING, TENDER, SHOOTING DURATION:CONTINOUS, CONSTANT, ALL DAY PAIN IS INCREASED BY:ACTIVITIES PAIN IS DECREASED BY:USE OF PAIN MEDICATIONS NURSING NOTE: -. PAIN CENTER INTAKE QUESTIONS: DO YOU HAVE A HISTORY OF MRSA? :YES DO YOU TAKE A BLOOD THINNERS? :NO DO YOU HAVE ANY BLEEDING DISORDERS? :NO ANY NEW NUMBNESS OR WEAKNESS IN YOUR LEGS OR ARMS? :NO ANY PACEMAKER,DEFIBRILLATOR, OR DORSAL COLUMN STIMULATOR? :NO DO YOU HAVE ANY RASHES OR OPEN SORES? :NO ARE YOU ALLERGIC TO IV DYE? :NO ARE YOU DIABETIC? :NO ANY NEW PROBLEMS WITH YOUR MEDICATIONS? :NO HAVE YOU RECEIVED A VACCINE IN THE PAST 30 DAYS? :YES 1ST COVID 07/17/2020 DO YOU PLAN TO RECEIVE A VACCINE IN THE NEXT 21 DAYS? :YES 2ND COVID 08/14/2020 DO YOU NEED ANY PRESCRIPTION? :NO DO YOU TAKE ANY IMMUNOSUPPRESSIVE MEDICATIONS? :NO DO YOU HAVE ANY KIDNEY OR LIVER DISEASE? :NO IS THERE A CHANCE YOU COULD BE ? :NO ARE YOU BREAST FEEDING? :NO CURRENT MEDICATIONS TAKING LYRICA 150 MG CAPSULE 1 CAPSULE ORALLY THREE TIMES A DAY TAKING SYNTHROID 25 25MCG TABLET 1 CAP ORAL DAILY TAKING ALBUTEROL SULFATE (2.5 MG/3ML) 0.083% NEBULIZATION SOLUTION 3 ML INHALATION EVERY 4 HOURS NEEDED TAKING TRAZODONE HCL 100 MG TABLET 1 TABLET IN THE AM, 4 TABLETS IN PM ORALLY ONCE A DAY TAKING SUMATRIPTAN SUCCINATE 100 MG TABLET 1 TABLET NEEDED ORALLY DIRECTED TAKING EPIPEN 0.3 MG/0.3ML (1:1000) DEVICE INTRAMUSCULAR DIRECTED TAKING FLONASE 50 MCG/DOSE INHALER 2 SPRAY IN EACH NOSTRIL NASALLY ONCE A DAY TAKING POTASSIUM CHLORIDE 20 MEQ TABLET EXTENDED RELEASE 1 CAPSULE WITH FOOD ORALLY TID TAKING IMITREX 6 MG/0.5ML SOLUTION 0.5 ML NEEDED SUBCUTANEOUS TWICE A DAY TAKING NEXIUM 40 MG CAPSULE DELAYED RELEASE 1 CAPSULE ORALLY TWICE A DAY TAKING ROSUVASTATIN CALCIUM 40 MG TABLET 1 CAP ORALLY DAILY TAKING NARCAN 4 MG/0.1ML LIQUID DIRECTED NASALLY FOR SYMPTOMS OF OVERDOSE OR RESP DEPRESSION - CALL 911 TAKING CYMBALTA 60 MG CAPSULE DELAYED RELEASE PARTICLES 1 CAPSULE ORALLY TWICE A DAY TAKING CLARITIN 10 MG TABLET 1 TABLET ORALLY ONCE A DAY TAKING HYDROXYZINE HCL 25 MG TABLET 1 TABLET ORALLY DAILY TAKING ADVAIR DISKUS 500-50 MCG/DOSE MISCELLANEOUS 1 PUFF INHALATION TWICE A DAY TAKING SPIRIVA HANDIHALER 1 CAPSULE INHALATION TWICE A DAY TAKING VITAMIN D (ERGOCALCIFEROL) 39076 UNIT CAPSULE 1 CAPSULE ORALLY WEEKLY TAKING LIDODERM 5 % PATCH 1 PATCH TO SKIN REMOVE AFTER 12 HOURS EXTERNALLY ONCE A DAY TAKING FAMOTIDINE 40 MG TABLET 1 TABLET AT BEDTIME ORALLY ONCE A DAY TAKING MUCINEX 600 MG TABLET EXTENDED RELEASE 1 TABLET NEEDED ORALLY DAILY TAKING ASMANEX 120 METERED DOSES 220 MCG/INH AEROSOL POWDER BREATH ACTIVATED 1 PUFF IN THE EVENING INHALATION BID TAKING SINGULAIR 10 MG TABLET 1 TABLET IN THE EVENING ORALLY ONCE A DAY TAKING ADVAIR DISKUS 100-50 MCG/DOSE AEROSOL POWDER BREATH ACTIVATED 1 PUFF INHALATION TWICE A DAY TAKING TOPAMAX 50 MG TABLET 1 TABLET ORALLY TWICE A DAY TAKING CELEBREX 200 MG CAPSULE 1 CAPSULE ORALLY ONCE A DAY TAKING CARISOPRODOL 350 MG TABLET 1 TABLET NEEDED ORALLY BID FOR SEVERE SPASM MDD=2 CODE D CHRONIC PAIN TAKING MOVANTIK 25 MG TABLET 1 TABLET IN THE MORNING ORALLY ONCE A DAY TAKING CLOBETASOL PROPIONATE 0.05 % CREAM 1 APPLICATION EXTERNALLY TWICE A DAY, NOTES: HANDS TAKING PERCOCET 10-325 MG TABLET 1 TABLET ORALLY EVERY 4 HRS PRN PAIN MDD = 6 NOT-TAKING PREDNISONE 5 MG TABLET 7 TABLETS ORALLY ONCE A DAY NOT-TAKING FASENRA 30 MG/ML SOLUTION PREFILLED SYRINGE 1 NULL SUBCUTANEOUS Q 2 MONTHS NOT-TAKING AZITHROMYCIN 250 MG TABLET 2 TABLET ON THE FIRST DAY, THEN 1 TABLET DAILY FOR 4 DAYS ORALLY ONCE A DAY NOT-TAKING LATUDA 40 MG TABLET 1 TABLET WITH FOOD ORALLY ONCE A DAY, NOTES: 10/14 1700 NOT-TAKING RANITIDINE 1 TAB ORAL DAILY NOT-TAKING BUSPIRONE HCL 15 MG TABLET 1 TABLET ORALLY TWICE A DAY NOT-TAKING CIPRODEX 0.3-0.1 % SUSPENSION 4 DROPS INTO AFFECTED EAR OTIC THREE TIMES A DAY, NOTES: [facility] NOT-TAKING ROBITUSSIN DM 100-10 MG/5ML SYRUP 10 ML NEEDED ORALLY EVERY 4 HRS NOT-TAKING CEFDINIR 300 MG CAPSULE 1 CAP ORALLY BID NOT-TAKING TESSALON PERLES 100 MG CAPSULE 1 CAPSULE NEEDED ORALLY THREE TIMES A DAY NOT-TAKING DIFLUCAN 150 MG TABLET 1 TABLET, REPEAT IN 72 HOURS ORALLY DAILY NOT-TAKING CEFDINIR 300 MG CAPSULE DIRECTED ORALLY TWICE DAILY NOT-TAKING TOBRADEX 0.3-0.1 % OINTMENT 1 APPLICATION OPHTHALMIC BEFORE BEDTIME NOT-TAKING TROSPIUM CHLORIDE 20 MG TABLET 1 TABLET AT BEDTIME ON AN EMPTY STOMACH ORALLY BID, NOTES: [facility] NOT-TAKING PREDNISONE 10 MG TABLET 4TAB X 3DAYS, 3TABS X 3DAYS, 2TABS X 3DAYS, 1TAB X 3DAYS ORALLY ONCE A DAY NOT-TAKING TESSALON PERLES 100 MG CAPSULE 1 CAPSULE NEEDED ORALLY BEFORE BEDTIME NOT-TAKING DOXYCYCLINE MONOHYDRATE 100 MG CAPSULE 1 CAPSULE ORALLY BID NOT-TAKING PREDNISONE 20 MG TABLET 1 TABLET ORALLY BID FOR 5 DAYS, NOTES: 09-06-18 NOT-TAKING AZITHROMYCIN (5 DAY) 250 MG TABLET 2 TABLET ORALLY ONCE A DAY/ 4 DAYS, NOTES: 09-06-18 NOT-TAKING PREDNISONE TAPER 1 TAB ORAL NOT-TAKING CEFDINIR 300 MG CAPSULE DIRECTED ORALLY BID NOT-TAKING FLUOXETINE 20 MG CAPSULE 2 CAPSULE IN THE MORNING ORALLY ONCE A DAY NOT-TAKING LORATADINE 10 MG TABLET 1 TABLET ORALLY ONCE A DAY NOT-TAKING TESSALON PERLES 100 MG CAPSULE 1 CAPSULE NEEDED ORALLY THREE TIMES A DAY MEDICATION LIST REVIEWED AND RECONCILED WITH THE PATIENT PAST MEDICAL HISTORY HYPERTENSION HYPOTHYROID LUMBAR SPONDYLOSIS INTERSTIM BLADDER OAB MASTOIDECTOMY X6 MIGRAINES ASTHMA PTSD FIBROMYALGIA URINARY INCONTINENCE ENDOMETRIOSIS SEIZURES PNEUMONIA MINI STROKE ALLERGIES PENICILLIN (FOR ALLERGIES USE ONLY): ANAPHALAXIS - ALLERGY LEVAQUIN: ANAPHALAXIS - ALLERGY AMOXICILLIN: ANAPHALAXIS - ALLERGY MUSHROOMS: ANAPHALAXIS - ALLERGY BEES: ANAPHALAXIS - ALLERGY DOXYCYCLINE: RASH - ALLERGY LATEX (FOR ALLERGY USE ONLY): HIVES - ALLERGY SOCIAL HISTORY GENERAL: TOBACCO USE ARE YOU A:FORMER SMOKER QUIT 4 MONTHS AGO VAPORNO E-CIGARETTENO LATEX QUESTIONNAIRE LATEX ALLERGY : HAVE YOU EVER DEVELOPED ANY TYPE OF REACTION AFTER HANDLING LATEX PRODUCTS SUCH RUBBER GLOVES, CONDOMS, DIAPHRAGMS, BALLOONS, SOCKS, OR UNDERWEAR?YES KNOWN LATEX ALLERGY - PLEASE INDICATE :RUBBER GLOVES LATEX ALLERGY : HAVE YOU EVER DEVELOPED ANY TYPE OF REACTION DURING OR AFTER DENTAL APPOINTMENT, VAGINAL/RECTAL EXAMINATION, SURGICAL PROCEDURE, OR ANY OTHER EXPOSURE?YES - PLEASE INDICATE :SURGICAL PROCEDURE LATEX RISK : HAVE YOU EVER HAD ANY DIFFICULTY BREATHING OR HIVES AFTER EATING OR HANDLING ANY FRUITS, OR VEGETABLES; SUCH KIWI, BANANAS, STONE FRUITS, OR CHESTNUTSNO LATEX RISK : DO YOU HAVE A PREVIOUS PERSONAL HISTORY OF MORE THAN NINE SURGERIES, SPINA BIFIDA, OR REPEATED CATHERIZATIONS? YES - PLEASE INDICATE : > 9 SURGERIES LATEX RISK : ARE YOU FREQUENTLY EXPOSED TO LATEX PRODUCTS IN YOUR OCCUPATION?NO DATE ASKED : 08/04/2020 ALCOHOL USE: NO. BMI CARE GOAL FOLLOW-UP ABOVE NORMAL BMI FOLLOW-UPDIETARY MANAGEMENT EDUCATION, GUIDANCE, AND COUNSELING ALCOHOL SCREENING DID YOU HAVE A DRINK CONTAINING ALCOHOL IN THE PAST YEAR?NO POINTS0 INTERPRETATIONNEGATIVE RECREATIONAL DRUG USE DRUG USE?NO CAFFEINE CAFFEINE USE?YES HOW OFTEN AND HOW MUCH? 2 CUPS PER DAY SEXUAL HX HAD SEX IN THE LAST 12 MONTHS (VAGINAL, ORAL, OR ANAL)?YES WITHMEN ONLY USE PROTECTION?NO HAVE YOU EVER HAD AN STD?YES CHLAMYDIA?YES HIV / HEP-C SCREENING HIV TEST OFFERED TO PATIENT:YES DATE OFFERED:02/07/2019 TEST ACCEPTED:NO HEP-C TEST OFFERED TO PATIENT:NO REASON:PATIENT DECLINED BROCHURE PROVIDED TO PATIENTNO BAPTISM [id number] NONE LANGUAGE LANGUAGES SPOKEN:ROMANIAN EDUCATION LEVEL OF EDUCATION:COLLEGE LEARNING BARRIERS / SPECIAL NEEDS CHANGE FROM LAST VISIT?NO BARRIERS TO LEARNING?NO HEARING IMPAIRED?YES HEARING IMPAIRED LEFT EAR VISION IMPAIRED?YES :CORRECTIVE LENSES GLASSES OR CONTACTS COGNITIVELY IMPAIRED?NO READINESS TO LEARN?YES LEARNING PREFERENCES?NO LEARNING CAPABILITIES PRESENT?YES EMOTIONAL BARRIERS?NO SPECIAL DEVICES?YES :CANE NEEDED CABLE SPLICER APPRENTICE NEEDED?NO DOMESTIC VIOLENCE DO YOU FEEL SAFE IN YOUR ENVIRONMENT?YES OCCUPATION: RETIRED. DIET: REGULAR. EXERCISE: NO REGULAR EXERCISE. MARITAL STATUS: . OTHERS AT HOME: SPOUSE, CHILDREN. - PFS REFERRAL NEEDED?NO CLERGY REFERRAL NEEDED?NO PUBLIC HEALTH REFERRAL NEEDED?NO HAS THE PATIENT BEEN EDUCATED REGARDING HIS/HER PLAN OF CARE?YES HAS THE PATIENT BEEN EDUCATED REGARDING PAIN, THE RISK FOR PAIN, THE IMPORTANCE OF EFFECTIVE PAIN MANAGEMENT, AND THE PAIN ASSESSMENT PROCESS?YES ADVANCE DIRECTIVE ADVANCE DIRECTIVE DISCUSSED WITH PATIENT:YES HAS POA, LIVING WILL, MOLDST FORM AND HCP--KEIRY FARNSWORTH [phone] REVIEW OF SYSTEMS CONSTITUTIONAL: ANY RECENT FEVER NO . CHILLS NO . WEIGHT CHANGE OF UNKNOWN REASONS NO . GASTROENTEROLOGY: NEW UNEXPLAINABLE CHANGES IN BOWEL CONTROL NO . CONSTIPATION NO . GENITOURINARY: ANY NEW CHANGE IN BLADDER CONTROL? NO . NEUROLOGY: NEW ONSET DIZZINESS OR NEUROLOGICAL CHANGES NOT MENTIONED NO . NEW NUMBNESS OR PAIN PATTERNS NOT MENTIONED AND PERTINENT TO TODAY'S VISIT NO . CARDIOLOGY: NEW CHEST PRESSURE NO . PATIENT DENIES NO . RESPIRATORY: UNEXPLAINABLE COUGH NO . NEW SHORTNESS OF BREATH NO . VITAL SIGNS WT 265 LBS, HT 67 IN, BMI 41.50 INDEX, BP 131/91 MM HG, HR 110 /MIN, RR 20 /MIN, TEMP 98.3 F, OXYGEN SAT % 92%, SAFE IN ENV? (Y/N) YES, NA INITIALS AR 11:32T.BUZZ ADAN. EXAMINATION GENERAL EXAMINATION: GENERALNO ACUTE DISTRESS, WELL NOURISHED AND HYDRATED. PSYCHAPPROPRIATE MOOD AND AFFECT . LUNGS:CLEAR TO AUSCULTATION BILATERALLY, NO WHEEZES, RHONCHI, RALES. HEART:NO MURMURS, REGULAR RATE AND RHYTHM. ASSESSMENTS POSTLAMINECTOMY SYNDROME, NOT ELSEWHERE CLASSIFIED - M96.1 (PRIMARY), RISK: (NULL) TREATMENT POSTLAMINECTOMY SYNDROME, NOT ELSEWHERE CLASSIFIED NOTES: 40-YEAR-OLD FEMALE IN FOR CHRONIC PAIN FOLLOW-UP. GIVEN PRESENTING SYMPTOMS RECOMMENDED CONTINUATION OF CURRENT MEDICATION REGIMEN WITH FOLLOW-UP IN 3 MONTHS. PATIENT HAS EXPRESSED UNDERSTANDING OF AND WAS IN AGREEMENT WITH TREATMENT PLAN. GIVEN TIME TO ASK QUESTIONS AND EXPRESS CONCERNS. ISTOP REGISTRY REVIEWED AND DEMONSTRATES COMPLLIANCE. (REF # [id number] ) BRINGS IN MEDICATIONS WHICH IS APPROPRIATE FOR WHAT WAS DISPENSED. RECENT URINE TOXICOLOGY REVIEWED. NO UNAUTHORIZED MEDICATIONS. NO ILLICIT SUBSTANCES AND PRESCRIBED MEDICATIONS WERE PRESENT. PROCEDURE CODES FA211 ESTABILISHED PATIENT [facility] CHARGE DISPOSITION & COMMUNICATION FOLLOW UP 3 MONTHS (REASON: NECK AND BACK PAIN ) ELECTRONICALLY SIGNED BY MARY CARLIN ON 08/05/2020 AT 08:55 AM EDT DISCLAIMER : THIS IS A VISIT SUMMARY EXTRACTED FROM THE [employer] CHART. IT IS NOT A COPY OF THE [employer] PROGRESS NOTE. MARCIN
== END ==
LOC: M PAIN 11:15
PROVIDERS: ATTEND Family Medicine
DX: M96.1 Postlaminectomy syndrome, not elsewhere classified (principal); I10 Essential (primary) hypertension; E03.9 Hypothyroidism, unspecified; M47.816 Spondylosis without myelopathy or radiculopathy, lumbar region; G43.909 Migraine, unspecified, not intractable, without status migrainosus; F43.10 Post-traumatic stress disorder, unspecified; M79.7 Fibromyalgia; N32.81 Overactive bladder; Z87.891 Personal history of nicotine dependence; Z79.891 Long term (current) use of opiate analgesic; Z79.899 Other long term (current) drug therapy; Z88.0 Allergy status to penicillin; Z88.1 Allergy status to other antibiotic agents; Z88.8 Allergy status to other drugs, medicaments and biological substances; Z91.040 Latex allergy status; Z91.030 Bee allergy status; Z91.018 Allergy to other foods

== ENCOUNTER → 2020-10-11 | Outpatient (CLI) | payer OTHER ==
[~2020-10-11] MED LIST changes: +BACTDSTA; -SULF1TAB93
== END ==
LOC: M LABSMTC 08:39
PROVIDERS: ATTEND Anesthesiology
DX: Z01.818 Encounter for other preprocedural examination (principal); Z11.52 Encounter for screening for COVID-19

== ENCOUNTER 2020-10-16 11:05 | Day surgery (SDC) | payer OTHER ==
[~2020-10-16] VITALS: Ht 170.2 cm; Wt 116.1 kg
[~2020-10-16 11:05] MED LIST changes: +NS 1,000 ML IV ONE
[2020-10-16] MEDS ORDERED: METF500T13 PO (11:44)
[2020-10-16] MEDS ORDERED: fentaNYL 100 MCG/2 ML INJECTION (J3010) As Ordered ONE (12:31)
--- NOTE | 2020-10-16 12:42 | ROOR ---
Patient Name: Kristin Law Procedure Date: 10/16/2020 12:30 PM Date of : 1980 Age: 40 Room: [facility] Gender: Female Note Status: Finalized Procedure: Upper GI endoscopy Indications: Heartburn, Suspected gastroparesis Providers: Lloyd Roth MD Referring MD: Cathleen BROWN Requesting Provider: Medicines: Monitored Anesthesia Care Complications: No immediate complications. Procedure: Pre-Anesthesia Assessment: - The heart rate, respiratory rate, oxygen saturations, blood pressure, adequacy of pulmonary ventilation, and response to care were monitored throughout the procedure. The Endoscope was introduced through the mouth, and advanced to the second part of duodenum. The upper GI endoscopy was accomplished without difficulty. The patient tolerated the procedure well. Findings: The esophagus was normal. The stomach was normal. The examined duodenum was normal. A small amount of food (residue) was found in the gastric body. Impression: - Normal esophagus. - Normal stomach. - Normal examined duodenum. - A small amount of food (residue) in the stomach. - No specimens collected. Recommendation: - Continue present medications. - Observe patient's clinical course. - Gastroparesis diet: - Eat smaller, more frequent meals throughout the day. - Low fat diet. - Liquid/soft foods are tolerated better than solid foods. - Low fiber/well cooked vegetables are tolerated better than high fiber/fibrous foods/raw vegetables. - Avoid medications that inhibit gastric/intestinal motility such as narcotic medications. Procedure Code(s): --- Professional --- 75320, Esophagogastroduodenoscopy, flexible, transoral; diagnostic, including collection of specimen(s) by brushing or washing, when performed (separate procedure) Diagnosis Code(s): --- Professional --- R12, Heartburn CPT copyright 2019 [employer]. All rights reserved. The codes documented in this report are preliminary and upon director of online education review may be revised to meet current compliance requirements. Lloyd Roth MD Lloyd Roth MD 10/16/2020 12:42:24 PM Electronically signed by Lloyd Roth MD Number of Addenda: 0 Note Initiated On: 10/16/2020 12:30 PM Estimated Blood Loss: Estimated blood loss: none.
--- NOTE | 2020-10-16 13:07 | ROOR ---
Patient Name: Kristin Law Procedure Date: 10/16/2020 12:30 PM Date of : 1980 Age: 40 Room: [facility] Gender: Female Note Status: Finalized Procedure: Colonoscopy Indications: Generalized abdominal pain, Change in bowel habits, Constipation Providers: Lloyd Roth MD Referring MD: Cathleen BROWN Requesting Provider: Medicines: Monitored Anesthesia Care Complications: No immediate complications. Procedure: Pre-Anesthesia Assessment: - The heart rate, respiratory rate, oxygen saturations, blood pressure, adequacy of pulmonary ventilation, and response to care were monitored throughout the procedure. The Colonoscope was introduced through the anus and advanced to the cecum, identified by appendiceal orifice and ileocecal valve. The colonoscopy was performed without difficulty. The patient tolerated the procedure well. The quality of the bowel preparation was inadequate. Findings: The perianal and digital rectal examinations were normal. Two sessile polyps were found in the rectum and sigmoid colon. The polyps were 4 to 5 mm in size. These polyps were removed with a cold snare. Resection and retrieval were complete. A few medium-mouthed diverticula were found in the sigmoid colon and descending colon. The colon (entire examined portion) was moderately redundant. The exam was otherwise without abnormality. Internal hemorrhoids were found during retroflexion. The hemorrhoids were medium-sized. Impression: - Preparation of the colon was suboptimal. - Two 4 to 5 mm polyps in the rectum and in the sigmoid colon, removed with a cold snare. Resected and retrieved. - Mild diverticulosis in the sigmoid colon and in the descending colon. - Internal hemorrhoids. - The examination was otherwise normal. Recommendation: - Repeat colonoscopy in 3 years because the bowel preparation was suboptimal. - (Rec alternate colon preparation for next colonoscopy) Procedure Code(s): --- Professional --- 79437, Colonoscopy, flexible; with removal of tumor(s), polyp(s), or other lesion(s) by snare technique Diagnosis Code(s): --- Professional --- Q43.8, Other specified congenital malformations of intestine K57.30, Diverticulosis of large intestine without perforation or abscess without bleeding K59.00, Constipation, unspecified R19.4, Change in bowel habit R10.84, Generalized abdominal pain K63.5, Polyp of colon K62.1, Rectal polyp CPT copyright 2019 [employer]. All rights reserved. The codes documented in this report are preliminary and upon clinical care leader review may be revised to meet current compliance requirements. Lloyd Roth MD Lloyd Roth MD 10/16/2020 1:07:09 PM Electronically signed by Lloyd Roth MD Number of Addenda: 0 Note Initiated On: 10/16/2020 12:30 PM Estimated Blood Loss: Estimated blood loss: none.
[2020-10-16] MEDS ORDERED: propofoL 200 MG/20 ML VIAL As Ordered ONE (13:18)
[2020-10-16] MEDS ORDERED: LIDOCAINE 2% 100MG/5ML SDV (FOR ANES.) As Ordered ONE (13:18)
[2020-10-16 13:29] VITALS: BP 152/72
== END 2020-10-16 13:38 | disposition home or self-care (01) ==
LOC: M OPP 11:05
PROVIDERS: ATTEND Internal Medicine Gastroenterology
DX: K63.5 Polyp of colon (principal); K62.1 Rectal polyp; Q43.8 Other specified congenital malformations of intestine; K59.00 Constipation, unspecified; R10.84 Generalized abdominal pain; R12 Heartburn; Z79.899 Other long term (current) drug therapy; Z88.0 Allergy status to penicillin; Z88.1 Allergy status to other antibiotic agents; Z91.018 Allergy to other foods; Z91.030 Bee allergy status; Z91.048 Other nonmedicinal substance allergy status
CPT/HCPCS: 43235; 45385; 88305; J3010

== ENCOUNTER → 2020-11-17 | Outpatient (CLI) | payer OTHER ==
[~2020-11-17] MED LIST changes: +METF500T13 PO; -NS 1,000 ML IV ONE
--- NOTE | 2020-11-20 00:31 | ECWPNPC ---
PATIENT NAME: PIYUSH FARNSWORTH : 1980 GENDER: FEMALE VISIT DATE: 11/17/2020 DISCHARGE DATE: 11/17/20 1022 VISIT LOCKED DATE TIME: PHYSICIAN: MEHREEN DONNELLY PHYSICIAN PAGER NO: ACTIVE RESOURCE: MEHREEN DONNELLY REASON FOR APPOINTMENT 1. NECK AND BACK PAIN HISTORY OF PRESENT ILLNESS GENERAL: HPI 40-YEAR-OLD FEMALE IN FOR CHRONIC PAIN FOLLOW-UP. PATIENT DOES ADMIT TO INCREASED RADICULAR SYMPTOMS IN HER UPPER AND LOWER EXTREMITIES. SHE RATES HER PAIN CURRENTLY AT AN 8 OUT OF 10 AND STATES THAT IT AVERAGES ABOUT 4-10. SHE FEELS HER MEDICATIONS ARE HELPFUL AND DENIES MED SIDE EFFECTS AT THIS TIME.. -. FALL RISK SCREENING: SCREENING : NO FALLS REPORTED IN THE LAST YEAR. PAIN SCREENING: PATIENT HAS A COMPLAINT OF ACUTE OR CHRONIC PAIN :YES LOCATION OF PAIN:NECK, UPPER BACK, MID BACK, LOW BACK INTENSITY OF PAIN (SCALE OF 1 TO 10):8 AVERAGE IS 4 WHAT DOES YOUR PAIN FEEL LIKE:ACHING, BURNING, CONTINOUS, SHARP, STABBING, TENDER, THROBBING, SORE, SHOOTING DURATION:CONTINOUS, CONSTANT, AWAKENS FROM SLEEP PAIN IS INCREASED BY:ACTIVITIES, PROLONGED STANDING PAIN IS DECREASED BY:USE OF PAIN MEDICATIONS, SITTING NURSING NOTE: -. PAIN CENTER INTAKE QUESTIONS: DO YOU HAVE A HISTORY OF MRSA? :YES DO YOU TAKE A BLOOD THINNERS? :NO DO YOU HAVE ANY BLEEDING DISORDERS? :NO ANY NEW NUMBNESS OR WEAKNESS IN YOUR LEGS OR ARMS? :YES NEW NUMBNESS AND WEAKNESS GETTING WORSE OVER THE PAST 2 WEEKS TO MONTH. ANY PACEMAKER,DEFIBRILLATOR, OR DORSAL COLUMN STIMULATOR? :NO DO YOU HAVE ANY RASHES OR OPEN SORES? :NO ARE YOU ALLERGIC TO IV DYE? :NO ARE YOU DIABETIC? :YES ANY NEW PROBLEMS WITH YOUR MEDICATIONS? :NO HAVE YOU RECEIVED A VACCINE IN THE PAST 30 DAYS? :NO 2ND COVID 08/14/2020 DO YOU PLAN TO RECEIVE A VACCINE IN THE NEXT 21 DAYS? :NO DO YOU NEED ANY PRESCRIPTION? :YES TOPAMAX DO YOU TAKE ANY IMMUNOSUPPRESSIVE MEDICATIONS? :NO DO YOU HAVE ANY KIDNEY OR LIVER DISEASE? :NO IS THERE A CHANCE YOU COULD BE ? :NO ARE YOU BREAST FEEDING? :NO CURRENT MEDICATIONS TAKING METFORMIN HCL 500 MG TABLET 1 TABLET WITH A MEAL ORALLY TWICE DAILY TAKING LYRICA 150 MG CAPSULE 1 CAPSULE ORALLY THREE TIMES A DAY TAKING SYNTHROID 25 25MCG TABLET 1 CAP ORAL DAILY TAKING ALBUTEROL SULFATE (2.5 MG/3ML) 0.083% NEBULIZATION SOLUTION 3 ML INHALATION EVERY 4 HOURS NEEDED TAKING TRAZODONE HCL 100 MG TABLET 200 MG TABLET IN THE AM, 400 MG TABLETS IN PM ORALLY ONCE A DAY TAKING SUMATRIPTAN SUCCINATE 100 MG TABLET 1 TABLET NEEDED ORALLY DIRECTED TAKING EPIPEN 0.3 MG/0.3ML (1:1000) DEVICE INTRAMUSCULAR DIRECTED TAKING FLONASE 50 MCG/DOSE INHALER 2 SPRAY IN EACH NOSTRIL NASALLY ONCE A DAY TAKING POTASSIUM CHLORIDE 20 MEQ TABLET EXTENDED RELEASE 1 CAPSULE WITH FOOD ORALLY TID TAKING IMITREX 6 MG/0.5ML SOLUTION 0.5 ML NEEDED SUBCUTANEOUS TWICE A DAY TAKING NEXIUM 40 MG CAPSULE DELAYED RELEASE 1 CAPSULE ORALLY TWICE A DAY TAKING ROSUVASTATIN CALCIUM 40 MG TABLET 1 CAP ORALLY DAILY TAKING NARCAN 4 MG/0.1ML LIQUID DIRECTED NASALLY FOR SYMPTOMS OF OVERDOSE OR RESP DEPRESSION - CALL 911 TAKING CYMBALTA 60 MG CAPSULE DELAYED RELEASE PARTICLES 90 MG IN THE AM ORALLY ONCE A DAY TAKING CLARITIN 10 MG TABLET 1 TABLET ORALLY ONCE A DAY TAKING HYDROXYZINE HCL 25 MG TABLET 1 TABLET ORALLY DAILY TAKING ADVAIR DISKUS 500-50 MCG/DOSE MISCELLANEOUS 1 PUFF INHALATION TWICE A DAY TAKING SPIRIVA HANDIHALER 1 CAPSULE INHALATION TWICE A DAY TAKING VITAMIN D (ERGOCALCIFEROL) 09772 UNIT CAPSULE 1 CAPSULE ORALLY WEEKLY TAKING FAMOTIDINE 40 MG TABLET 1 TABLET AT BEDTIME ORALLY ONCE A DAY TAKING MUCINEX 600 MG TABLET EXTENDED RELEASE 1 TABLET NEEDED ORALLY DAILY TAKING ASMANEX 120 METERED DOSES 220 MCG/INH AEROSOL POWDER BREATH ACTIVATED 1 PUFF IN THE EVENING INHALATION BID TAKING SINGULAIR 10 MG TABLET 1 TABLET IN THE EVENING ORALLY ONCE A DAY TAKING ADVAIR DISKUS 100-50 MCG/DOSE AEROSOL POWDER BREATH ACTIVATED 1 PUFF INHALATION TWICE A DAY TAKING CLOBETASOL PROPIONATE 0.05 % CREAM 1 APPLICATION EXTERNALLY TWICE A DAY, NOTES: HANDS TAKING MOVANTIK 25 MG TABLET 1 TABLET IN THE MORNING ORALLY ONCE A DAY TAKING TOPAMAX 50 MG TABLET 1 TABLET ORALLY TWICE A DAY TAKING CELEBREX 200 MG CAPSULE 1 CAPSULE ORALLY ONCE A DAY TAKING CARISOPRODOL 350 MG TABLET 1 TABLET NEEDED ORALLY BID FOR SEVERE SPASM MDD=2 CODE D CHRONIC PAIN TAKING PREDNISONE 5 MG TABLET 1 TABLET ORALLY ONCE A DAY TAKING PERCOCET 10-325 MG TABLET 1 TABLET ORALLY EVERY 4 HRS PRN PAIN MDD = 6 TAKING RANITIDINE 1 TAB ORAL DAILY TAKING TROSPIUM CHLORIDE 20 MG TABLET 1 TABLET AT BEDTIME ON AN EMPTY STOMACH ORALLY BID, NOTES: [facility] UNKNOWN LIDODERM 5 % PATCH 1 PATCH TO SKIN REMOVE AFTER 12 HOURS EXTERNALLY ONCE A DAY UNKNOWN PERCOCET 10-325 MG TABLET 1 TABLET NEEDED ORALLY EVERY 4 HRS MDD 6 UNKNOWN FASENRA 30 MG/ML SOLUTION PREFILLED SYRINGE 1 NULL SUBCUTANEOUS Q 2 MONTHS UNKNOWN AZITHROMYCIN 250 MG TABLET 2 TABLET ON THE FIRST DAY, THEN 1 TABLET DAILY FOR 4 DAYS ORALLY ONCE A DAY UNKNOWN LATUDA 40 MG TABLET 1 TABLET WITH FOOD ORALLY ONCE A DAY, NOTES: 10/14 1700 UNKNOWN BUSPIRONE HCL 15 MG TABLET 1 TABLET ORALLY TWICE A DAY UNKNOWN CIPRODEX 0.3-0.1 % SUSPENSION 4 DROPS INTO AFFECTED EAR OTIC THREE TIMES A DAY, NOTES: [facility] UNKNOWN ROBITUSSIN DM 100-10 MG/5ML SYRUP 10 ML NEEDED ORALLY EVERY 4 HRS UNKNOWN CEFDINIR 300 MG CAPSULE 1 CAP ORALLY BID UNKNOWN TESSALON PERLES 100 MG CAPSULE 1 CAPSULE NEEDED ORALLY THREE TIMES A DAY UNKNOWN DIFLUCAN 150 MG TABLET 1 TABLET, REPEAT IN 72 HOURS ORALLY DAILY UNKNOWN CEFDINIR 300 MG CAPSULE DIRECTED ORALLY TWICE DAILY UNKNOWN TOBRADEX 0.3-0.1 % OINTMENT 1 APPLICATION OPHTHALMIC BEFORE BEDTIME UNKNOWN PREDNISONE 10 MG TABLET 4TAB X 3DAYS, 3TABS X 3DAYS, 2TABS X 3DAYS, 1TAB X 3DAYS ORALLY ONCE A DAY UNKNOWN TESSALON PERLES 100 MG CAPSULE 1 CAPSULE NEEDED ORALLY BEFORE BEDTIME UNKNOWN DOXYCYCLINE MONOHYDRATE 100 MG CAPSULE 1 CAPSULE ORALLY BID UNKNOWN PREDNISONE 20 MG TABLET 1 TABLET ORALLY BID FOR 5 DAYS, NOTES: 09-06-18 UNKNOWN AZITHROMYCIN (5 DAY) 250 MG TABLET 2 TABLET ORALLY ONCE A DAY/ 4 DAYS, NOTES: 09-06-18 UNKNOWN PREDNISONE TAPER 1 TAB ORAL UNKNOWN CEFDINIR 300 MG CAPSULE DIRECTED ORALLY BID UNKNOWN FLUOXETINE 20 MG CAPSULE 2 CAPSULE IN THE MORNING ORALLY ONCE A DAY UNKNOWN LORATADINE 10 MG TABLET 1 TABLET ORALLY ONCE A DAY UNKNOWN TESSALON PERLES 100 MG CAPSULE 1 CAPSULE NEEDED ORALLY THREE TIMES A DAY MEDICATION LIST REVIEWED AND RECONCILED WITH THE PATIENT PAST MEDICAL HISTORY HYPERTENSION HYPOTHYROID LUMBAR SPONDYLOSIS INTERSTIM BLADDER OAB MASTOIDECTOMY X6 MIGRAINES ASTHMA PTSD FIBROMYALGIA URINARY INCONTINENCE ENDOMETRIOSIS SEIZURES PNEUMONIA MINI STROKE DM TYPE II ALLERGIES PENICILLIN (FOR ALLERGIES USE ONLY): ANAPHALAXIS - ALLERGY LEVAQUIN: ANAPHALAXIS - ALLERGY AMOXICILLIN: ANAPHALAXIS - ALLERGY MUSHROOMS: ANAPHALAXIS - ALLERGY BEES: ANAPHALAXIS - ALLERGY DOXYCYCLINE: RASH - ALLERGY LATEX (FOR ALLERGY USE ONLY): HIVES - ALLERGY SOCIAL HISTORY GENERAL: TOBACCO USE ARE YOU A:CURRENT SMOKER ARE YOU INTERESTED IN QUITTING?NOT READY TO QUIT PATIENT COUNSELED ON THE DANGERS OF TOBACCO USE AND URGED TO QUIT:11/17/2020 VAPORNO E-CIGARETTENO LATEX QUESTIONNAIRE LATEX ALLERGY : HAVE YOU EVER DEVELOPED ANY TYPE OF REACTION AFTER HANDLING LATEX PRODUCTS SUCH RUBBER GLOVES, CONDOMS, DIAPHRAGMS, BALLOONS, SOCKS, OR UNDERWEAR?YES KNOWN LATEX ALLERGY - PLEASE INDICATE :RUBBER GLOVES LATEX ALLERGY : HAVE YOU EVER DEVELOPED ANY TYPE OF REACTION DURING OR AFTER DENTAL APPOINTMENT, VAGINAL/RECTAL EXAMINATION, SURGICAL PROCEDURE, OR ANY OTHER EXPOSURE?YES - PLEASE INDICATE :SURGICAL PROCEDURE LATEX RISK : HAVE YOU EVER HAD ANY DIFFICULTY BREATHING OR HIVES AFTER EATING OR HANDLING ANY FRUITS, OR VEGETABLES; SUCH KIWI, BANANAS, STONE FRUITS, OR CHESTNUTSNO LATEX RISK : DO YOU HAVE A PREVIOUS PERSONAL HISTORY OF MORE THAN NINE SURGERIES, SPINA BIFIDA, OR REPEATED CATHERIZATIONS? YES - PLEASE INDICATE : > 9 SURGERIES LATEX RISK : ARE YOU FREQUENTLY EXPOSED TO LATEX PRODUCTS IN YOUR OCCUPATION?NO DATE ASKED : 11/17/2020 ALCOHOL USE: NO. BMI CARE GOAL FOLLOW-UP ABOVE NORMAL BMI FOLLOW-UPDIETARY MANAGEMENT EDUCATION, GUIDANCE, AND COUNSELING ALCOHOL SCREENING DID YOU HAVE A DRINK CONTAINING ALCOHOL IN THE PAST YEAR?NO POINTS0 INTERPRETATIONNEGATIVE RECREATIONAL DRUG USE DRUG USE?NO CAFFEINE CAFFEINE USE?YES HOW OFTEN AND HOW MUCH? 2 CUPS PER DAY SEXUAL HX HAD SEX IN THE LAST 12 MONTHS (VAGINAL, ORAL, OR ANAL)?YES WITHMEN ONLY USE PROTECTION?NO HAVE YOU EVER HAD AN STD?YES CHLAMYDIA?YES HIV / HEP-C SCREENING HIV TEST OFFERED TO PATIENT:YES DATE OFFERED:02/07/2019 TEST ACCEPTED:NO REASON:PATIENT DECLINED BROCHURE PROVIDED TO PATIENTNO HEP-C TEST OFFERED TO PATIENT:NO HINDU [id number] NONE LANGUAGE LANGUAGES SPOKEN:JAPANESE EDUCATION LEVEL OF EDUCATION:COLLEGE LEARNING BARRIERS / SPECIAL NEEDS CHANGE FROM LAST VISIT?NO BARRIERS TO LEARNING?NO HEARING IMPAIRED?YES HEARING IMPAIRED LEFT EAR VISION IMPAIRED?YES :CORRECTIVE LENSES GLASSES OR CONTACTS COGNITIVELY IMPAIRED?NO READINESS TO LEARN?YES LEARNING PREFERENCES?NO LEARNING CAPABILITIES PRESENT?YES EMOTIONAL BARRIERS?NO SPECIAL DEVICES?YES :CANE NEEDED UNIVERSITY TUTOR NEEDED?NO DOMESTIC VIOLENCE DO YOU FEEL SAFE IN YOUR ENVIRONMENT?YES OCCUPATION: RETIRED. DIET: REGULAR. EXERCISE: NO REGULAR EXERCISE. MARITAL STATUS: . OTHERS AT HOME: SPOUSE, CHILDREN. - PFS REFERRAL NEEDED?NO CLERGY REFERRAL NEEDED?NO PUBLIC HEALTH REFERRAL NEEDED?NO HAS THE PATIENT BEEN EDUCATED REGARDING HIS/HER PLAN OF CARE?YES HAS THE PATIENT BEEN EDUCATED REGARDING PAIN, THE RISK FOR PAIN, THE IMPORTANCE OF EFFECTIVE PAIN MANAGEMENT, AND THE PAIN ASSESSMENT PROCESS?YES ADVANCE DIRECTIVE ADVANCE DIRECTIVE DISCUSSED WITH PATIENT:YES HAS POA, LIVING WILL, MOLDST FORM AND HCP--KEIRY FARNSWORTH [phone] REVIEW OF SYSTEMS CONSTITUTIONAL: ANY RECENT FEVER NO . CHILLS NO . WEIGHT CHANGE OF UNKNOWN REASONS NO . GASTROENTEROLOGY: NEW UNEXPLAINABLE CHANGES IN BOWEL CONTROL NO . CONSTIPATION NO . GENITOURINARY: ANY NEW CHANGE IN BLADDER CONTROL? NO . NEUROLOGY: NEW ONSET DIZZINESS OR NEUROLOGICAL CHANGES NOT MENTIONED NO . NEW NUMBNESS OR PAIN PATTERNS NOT MENTIONED AND PERTINENT TO TODAY'S VISIT NO . CARDIOLOGY: NEW CHEST PRESSURE NO . PATIENT DENIES NO . RESPIRATORY: UNEXPLAINABLE COUGH NO . NEW SHORTNESS OF BREATH NO . VITAL SIGNS WT 250.0 LBS, WT-KG 113.4 KG, HT 67 IN, BMI 39.15 INDEX, BP 115/70 MM HG, HR 127 /MIN, RR 18 /MIN, TEMP 96.9 F, OXYGEN SAT % 97%, SAFE IN ENV? (Y/N) YES, NA INITIALS AW 0938, REVIEWED BY: HAWA STEPHENS MA. EXAMINATION GENERAL EXAMINATION: GENERALNO ACUTE DISTRESS, WELL NOURISHED AND HYDRATED. PSYCHAPPROPRIATE MOOD AND AFFECT . LUNGS:CLEAR TO AUSCULTATION BILATERALLY, NO WHEEZES, RHONCHI, RALES. HEART:NO MURMURS, REGULAR RATE AND RHYTHM. ASSESSMENTS CERVICAL DISC DISORDER WITH RADICULOPATHY, MID-CERVICAL REGION - M50.12 CHRONIC PRESCRIPTION OPIATE USE - Z79.891 LUMBAR DISC DISPLACEMENT WITHOUT MYELOPATHY - M51.26 TREATMENT CERVICAL DISC DISORDER WITH RADICULOPATHY, MID-CERVICAL REGION [facility] CT SPINE,CERVICAL W/O [id number] NOTES: 40-YEAR-OLD FEMALE IN FOR CHRONIC PAIN FOLLOW-UP. GIVEN PRESENTING SYMPTOMS RECOMMEND GETTING AN UPDATED CT OF THE CERVICAL AND LUMBAR SPINE WITH FOLLOW-UP POST IMAGING. PATIENT HAS EXPRESSED UNDERSTANDING OF AND WAS IN AGREEMENT WITH TREATMENT PLAN. GIVEN TIME TO ASK QUESTIONS AND EXPRESS CONCERNS. ISTOP REGISTRY REVIEWED AND DEMONSTRATES COMPLLIANCE. (REF # ) BRINGS IN MEDICATIONS WHICH IS APPROPRIATE FOR WHAT WAS DISPENSED. RECENT URINE TOXICOLOGY REVIEWED. NO UNAUTHORIZED MEDICATIONS. NO ILLICIT SUBSTANCES AND PRESCRIBED MEDICATIONS WERE PRESENT. CHRONIC PRESCRIPTION OPIATE USE LAB: URINE TEST GROUP NITESH STEPHENS 11/17/2020 10:19:35 AM > LAST DOSE: OXYCODONE 11/17/2020 AT 0400 LUMBAR DISC DISPLACEMENT WITHOUT MYELOPATHY [facility] CT SPINE, LUMBAR W/O [id number] PROCEDURE CODES FA211 ESTABILISHED PATIENT [facility] CHARGE DISPOSITION & COMMUNICATION FOLLOW UP POST IMAGING (REASON: CT OF THE CERVICAL AND LUMBAR SPINE WITHOUT CONTRAST) ELECTRONICALLY SIGNED BY MARY CARLIN ON 11/19/2020 AT 07:45 AM EDT DISCLAIMER : THIS IS A VISIT SUMMARY EXTRACTED FROM THE [facility] [facility] CHART. IT IS NOT A COPY OF THE [facility] PROGRESS NOTE. MARCIN
== END ==
LOC: M PAIN 09:30
PROVIDERS: ATTEND Family Medicine
DX: M50.120 Mid-cervical disc disorder, unspecified level (principal); Z79.891 Long term (current) use of opiate analgesic; M51.26 Other intervertebral disc displacement, lumbar region; I10 Essential (primary) hypertension; E03.9 Hypothyroidism, unspecified; M47.816 Spondylosis without myelopathy or radiculopathy, lumbar region; N32.81 Overactive bladder; G43.909 Migraine, unspecified, not intractable, without status migrainosus; J45.909 Unspecified asthma, uncomplicated; F43.10 Post-traumatic stress disorder, unspecified; M79.7 Fibromyalgia; R32 Unspecified urinary incontinence; E11.9 Type 2 diabetes mellitus without complications; F17.210 Nicotine dependence, cigarettes, uncomplicated; Z86.73 Personal history of transient ischemic attack (TIA), and cerebral infarction without residual deficits; Z79.84 Long term (current) use of oral hypoglycemic drugs; Z79.899 Other long term (current) drug therapy; Z79.52 Long term (current) use of systemic steroids; Z88.0 Allergy status to penicillin; Z88.1 Allergy status to other antibiotic agents; Z91.030 Bee allergy status; Z91.040 Latex allergy status

== ENCOUNTER → 2020-11-23 | Outpatient (CLI) | payer OTHER ==
--- NOTE | 2020-11-23 14:22 | REPVR ---
PROCEDURE INFORMATION: Exam: CT Cervical Spine Without Contrast Exam date and time: 11/23/2020 1:28 PM Age: 40 years old Clinical indication: Pain; Cervicalgia; Additional info: Disc disorder, dis displacement TECHNIQUE: Imaging protocol: Computed tomography images of the cervical spine without contrast. Radiation optimization: All CT scans at this facility use at least one of these dose optimization techniques: automated exposure control; mA and/or kV adjustment per patient size (includes targeted exams where dose is matched to clinical indication); or iterative reconstruction. COMPARISON: CT Spine,cervical w/o contrast 05/05/2014 2:32 PM FINDINGS: Vertebrae: Slight dextroconvex scoliosis. No acute fracture seen. Focal, sclerotic lesion in the right aspect of the T1 vertebral body may represent a bone island. Wpds-zv-mkerkvyw disc height loss and spondylosis at C4-C5 and C5-C6, mildly progressive since prior. C2-C3: No significant disc protrusion. No severe spinal canal stenosis. No significant neural foraminal narrowing. C3-C4: No significant interval change. Mild facet arthropathy and left uncovertebral osteophyte without contribution to stenoses. C4-C5: Disc osteophyte complex does not contribute to significant central spinal canal stenosis. Progressive uncovertebral arthropathy causing mild right neural foraminal stenosis. No significant left neural foraminal narrowing. C5-C6: Disc osteophyte complex does not contribute to significant central spinal canal stenosis. Uncovertebral and facet arthropathy causing new oqob-tk-yseilimd right and mild left neural foraminal stenoses. C6-C7: No significant disc protrusion. No severe spinal canal stenosis. No significant neural foraminal narrowing. C7-T1: No significant disc protrusion. No severe spinal canal stenosis. No significant neural foraminal narrowing. Soft tissues: Unremarkable. Lungs: The lung apices demonstrate air trapping. IMPRESSION: Mildly progressive, jror-mt-uqzgjxce degenerative disc disease at C4-C5 and C5-C6. Electronically signed by: Safia Goode On 11/23/2020 14:22:27 PM
--- NOTE | 2020-11-23 14:37 | REPVR ---
PROCEDURE INFORMATION: Exam: CT Lumbar Spine Without Contrast Exam date and time: 11/23/2020 1:28 PM Age: 40 years old Clinical indication: Low back pain; Additional info: Disc disorder, dis displacement TECHNIQUE: Imaging protocol: Computed tomography images of the lumbar spine without contrast. Radiation optimization: All CT scans at this facility use at least one of these dose optimization techniques: automated exposure control; mA and/or kV adjustment per patient size (includes targeted exams where dose is matched to clinical indication); or iterative reconstruction. COMPARISON: CT Spine, lumbar w/o contrast 08/28/2019 3:51 PM FINDINGS: Tubes, catheters and devices: There is a right presacral metallic lead. Vertebrae: Prior T9 laminectomy. T11 and T12 posterior neural arch defects could be postsurgical or congenital. Exaggeration of the lumbar lordosis. Slight degenerative retrolisthesis of L5 on S1. No acute fracture seen. Mild posterior disc height loss with endplate osteophytic ridging at L5-S1, as before. L1-L2: No significant disc protrusion. No severe spinal canal stenosis. No significant neural foraminal narrowing. L2-L3: No significant disc protrusion. No severe spinal canal stenosis. No significant neural foraminal narrowing. L3-L4: Disc bulge versus disc protrusion as well as mild facet arthropathy and ligamentum flavum buckling. Central spinal canal stenosis is mild. No significant neural foraminal stenoses. L4-L5: Vzfu-xa-wqhieovu facet arthropathy and ligamentum flavum buckling. No stenoses. L5-S1: Trace retrolisthesis. Mild disc osteophyte complex and stwc-ja-evdletpi facet arthropathy. No stenoses. Vasculature: Embolization coils are again demonstrated. Soft tissues: Unremarkable. IMPRESSION: No significant interval change in degenerative changes from L3-L4 through L5-S1. Electronically signed by: Safia Goode On 11/23/2020 14:36:41 PM
== END ==
LOC: M RAD 13:17
PROVIDERS: ATTEND Family Medicine
DX: M51.26 Other intervertebral disc displacement, lumbar region (principal); M50.30 Other cervical disc degeneration, unspecified cervical region

== ENCOUNTER → 2021-02-12 | Outpatient (CLI) | payer OTHER | LOC: M PAIN 08:45 | PROVIDERS: ATTEND Anesthesiology | DX: M54.2 Cervicalgia (principal); M79.18 Myalgia, other site; M51.16 Intervertebral disc disorders with radiculopathy, lumbar region; I10 Essential (primary) hypertension; E03.9 Hypothyroidism, unspecified; M47.816 Spondylosis without myelopathy or radiculopathy, lumbar region; N32.81 Overactive bladder; G43.909 Migraine, unspecified, not intractable, without status migrainosus; J45.909 Unspecified asthma, uncomplicated; F43.10 Post-traumatic stress disorder, unspecified; M79.7 Fibromyalgia; E11.9 Type 2 diabetes mellitus without complications; Z79.84 Long term (current) use of oral hypoglycemic drugs; Z79.52 Long term (current) use of systemic steroids; Z79.899 Other long term (current) drug therapy; F17.210 Nicotine dependence, cigarettes, uncomplicated; Z88.0 Allergy status to penicillin; Z88.1 Allergy status to other antibiotic agents; Z88.8 Allergy status to other drugs, medicaments and biological substances; Z91.030 Bee allergy status; Z91.040 Latex allergy status; Z91.018 Allergy to other foods ==

== ENCOUNTER → 2021-03-18 | Outpatient (CLI) | payer OTHER ==
[~2021-03-18] MED LIST changes: -MONT10TA10 PO; +MONT10TA97 PO; +POTA-151 PO; -POTA20TA6 PO
== END ==
LOC: M LABSMTC 11:34
PROVIDERS: ATTEND Anesthesiology
DX: Z11.52 Encounter for screening for COVID-19 (principal)

== ENCOUNTER → 2021-03-23 | Outpatient (CLI) | payer OTHER ==
[~2021-03-23] MED LIST changes: +BUPIVACAINE HCL 0.25% 10ML VIAL As Ordered ONE; +BUPIVACAINE HCL 0.25% 30ML VIAL As Ordered ONE; +TRIAMCINOLONE ACETONIDE SUSP 40 MG/ML VIAL (J3301) As Ordered ONE; +diazePAM 5MG TABLET As Ordered ONE; +oxyCODONE 5MG TAB As Ordered ONE
== END ==
LOC: M PAIN 13:20
PROVIDERS: ATTEND Anesthesiology
DX: M79.18 Myalgia, other site (principal); I10 Essential (primary) hypertension; E03.9 Hypothyroidism, unspecified; M47.816 Spondylosis without myelopathy or radiculopathy, lumbar region; N32.81 Overactive bladder; G43.909 Migraine, unspecified, not intractable, without status migrainosus; J45.909 Unspecified asthma, uncomplicated; F43.10 Post-traumatic stress disorder, unspecified; M79.7 Fibromyalgia; R32 Unspecified urinary incontinence; E11.9 Type 2 diabetes mellitus without complications; Z86.73 Personal history of transient ischemic attack (TIA), and cerebral infarction without residual deficits; F17.210 Nicotine dependence, cigarettes, uncomplicated; Z88.0 Allergy status to penicillin; Z88.1 Allergy status to other antibiotic agents; Z88.8 Allergy status to other drugs, medicaments and biological substances; Z91.030 Bee allergy status; Z91.040 Latex allergy status; Z91.018 Allergy to other foods
CPT/HCPCS: 20553; 82948; J3301

== ENCOUNTER → 2021-03-26 | Outpatient (CLI) | payer OTHER ==
[~2021-03-26] MED LIST changes: -BUPIVACAINE HCL 0.25% 10ML VIAL As Ordered ONE; -BUPIVACAINE HCL 0.25% 30ML VIAL As Ordered ONE; -TRIAMCINOLONE ACETONIDE SUSP 40 MG/ML VIAL (J3301) As Ordered ONE; -diazePAM 5MG TABLET As Ordered ONE; -oxyCODONE 5MG TAB As Ordered ONE
== END ==
LOC: M PAIN 10:15
PROVIDERS: ATTEND Anesthesiology
DX: M51.16 Intervertebral disc disorders with radiculopathy, lumbar region (principal); I10 Essential (primary) hypertension; E03.9 Hypothyroidism, unspecified; M47.816 Spondylosis without myelopathy or radiculopathy, lumbar region; N32.81 Overactive bladder; G43.909 Migraine, unspecified, not intractable, without status migrainosus; J45.909 Unspecified asthma, uncomplicated; F43.10 Post-traumatic stress disorder, unspecified; M79.7 Fibromyalgia; R32 Unspecified urinary incontinence; E11.9 Type 2 diabetes mellitus without complications; F17.210 Nicotine dependence, cigarettes, uncomplicated; Z79.84 Long term (current) use of oral hypoglycemic drugs; Z79.891 Long term (current) use of opiate analgesic; Z79.899 Other long term (current) drug therapy; Z88.0 Allergy status to penicillin; Z88.1 Allergy status to other antibiotic agents; Z88.8 Allergy status to other drugs, medicaments and biological substances; Z91.030 Bee allergy status; Z91.040 Latex allergy status; Z91.018 Allergy to other foods

== ENCOUNTER 2021-05-14 02:09 | Emergency (ER) | payer OTHER ==
[~2021-05-14] VITALS: Ht 167.6 cm; Wt 104.5 kg
[2021-05-14 02:09] VITALS: BP 162/98
== END 2021-05-14 06:27 | disposition left against medical advice (07) ==
LOC: M ED 02:09
DX: Z53.21 Procedure and treatment not carried out due to patient leaving prior to being seen by health care provider (principal)

== ENCOUNTER → 2021-06-02 | Outpatient (CLI) | payer OTHER | LOC: M WUC 15:13 | PROVIDERS: ATTEND Family Medicine | DX: J45.901 Unspecified asthma with (acute) exacerbation (principal) ==

== ENCOUNTER → 2021-09-09 | Outpatient (CLI) | payer OTHER ==
[~2021-09-09] MED LIST changes: +FEXO-117 PO; -ZONI100C17 PO; +ZONI100C67 PO
== END ==
LOC: M PAIN 11:45
PROVIDERS: ATTEND Anesthesiology
DX: M51.16 Intervertebral disc disorders with radiculopathy, lumbar region (principal); M54.6 Pain in thoracic spine; D36.10 Benign neoplasm of peripheral nerves and autonomic nervous system, unspecified; I10 Essential (primary) hypertension; E03.9 Hypothyroidism, unspecified; M47.816 Spondylosis without myelopathy or radiculopathy, lumbar region; N32.81 Overactive bladder; G43.909 Migraine, unspecified, not intractable, without status migrainosus; J45.909 Unspecified asthma, uncomplicated; F43.10 Post-traumatic stress disorder, unspecified; M79.7 Fibromyalgia; R32 Unspecified urinary incontinence; E11.9 Type 2 diabetes mellitus without complications; F17.210 Nicotine dependence, cigarettes, uncomplicated; Z79.84 Long term (current) use of oral hypoglycemic drugs; Z79.891 Long term (current) use of opiate analgesic; Z79.899 Other long term (current) drug therapy; Z88.0 Allergy status to penicillin; Z88.1 Allergy status to other antibiotic agents; Z91.018 Allergy to other foods; Z91.030 Bee allergy status; Z91.040 Latex allergy status

== ENCOUNTER → 2021-09-16 | Outpatient (CLI) | payer OTHER ==
[~2021-09-16] MED LIST changes: +ALBU2.5V10 INH; -ALBU83IN INH
== END ==
LOC: M PAIN 08:30
PROVIDERS: ATTEND Anesthesiology
DX: M51.16 Intervertebral disc disorders with radiculopathy, lumbar region (principal); D36.10 Benign neoplasm of peripheral nerves and autonomic nervous system, unspecified; I10 Essential (primary) hypertension; E03.9 Hypothyroidism, unspecified; M47.816 Spondylosis without myelopathy or radiculopathy, lumbar region; N32.81 Overactive bladder; G43.909 Migraine, unspecified, not intractable, without status migrainosus; R32 Unspecified urinary incontinence; J45.909 Unspecified asthma, uncomplicated; F43.10 Post-traumatic stress disorder, unspecified; M79.7 Fibromyalgia; E11.9 Type 2 diabetes mellitus without complications; Z79.891 Long term (current) use of opiate analgesic; Z86.73 Personal history of transient ischemic attack (TIA), and cerebral infarction without residual deficits; Z79.84 Long term (current) use of oral hypoglycemic drugs; Z79.899 Other long term (current) drug therapy; Z88.0 Allergy status to penicillin; Z88.1 Allergy status to other antibiotic agents; Z91.018 Allergy to other foods; Z91.030 Bee allergy status

== ENCOUNTER → 2021-09-21 | Outpatient (CLI) | payer OTHER | LOC: M RAD 15:01 | PROVIDERS: ATTEND Anesthesiology | DX: M54.6 Pain in thoracic spine (principal) ==

== ENCOUNTER → 2021-09-23 | Outpatient (CLI) | payer OTHER | LOC: M PAIN 09:30 | PROVIDERS: ATTEND Anesthesiology | DX: D36.10 Benign neoplasm of peripheral nerves and autonomic nervous system, unspecified (principal); M54.6 Pain in thoracic spine; I10 Essential (primary) hypertension; E03.9 Hypothyroidism, unspecified; M47.816 Spondylosis without myelopathy or radiculopathy, lumbar region; N32.81 Overactive bladder; G43.909 Migraine, unspecified, not intractable, without status migrainosus; J45.909 Unspecified asthma, uncomplicated; F43.10 Post-traumatic stress disorder, unspecified; M79.7 Fibromyalgia; R32 Unspecified urinary incontinence; Z86.73 Personal history of transient ischemic attack (TIA), and cerebral infarction without residual deficits; E11.9 Type 2 diabetes mellitus without complications; F17.210 Nicotine dependence, cigarettes, uncomplicated; Z79.891 Long term (current) use of opiate analgesic; Z79.899 Other long term (current) drug therapy; Z88.0 Allergy status to penicillin; Z88.1 Allergy status to other antibiotic agents; Z91.018 Allergy to other foods; Z91.030 Bee allergy status; Z91.040 Latex allergy status ==

== ENCOUNTER → 2021-10-27 | Outpatient (CLI) | payer OTHER ==
[~2021-10-27] MED LIST changes: +AZEL1SPR3 NARES; +CALC500T68 PO; +CYCL-707 PO; +DOXE25CA PO; +JARD1TAB3 PO; +TIZA2TA; +VITA100093 PO
== END ==
LOC: M EKG 11:45
PROVIDERS: ATTEND Anesthesiology
DX: Z01.818 Encounter for other preprocedural examination (principal)

== ENCOUNTER → 2021-11-01 | Outpatient (CLI) | payer OTHER | LOC: M PAIN 08:30 | PROVIDERS: ATTEND Anesthesiology | DX: M51.16 Intervertebral disc disorders with radiculopathy, lumbar region (principal); I10 Essential (primary) hypertension; E03.9 Hypothyroidism, unspecified; M47.816 Spondylosis without myelopathy or radiculopathy, lumbar region; N32.81 Overactive bladder; G43.909 Migraine, unspecified, not intractable, without status migrainosus; J45.909 Unspecified asthma, uncomplicated; F43.10 Post-traumatic stress disorder, unspecified; M79.7 Fibromyalgia; R32 Unspecified urinary incontinence; E11.9 Type 2 diabetes mellitus without complications; Z86.73 Personal history of transient ischemic attack (TIA), and cerebral infarction without residual deficits; F17.210 Nicotine dependence, cigarettes, uncomplicated; Z79.84 Long term (current) use of oral hypoglycemic drugs; Z79.891 Long term (current) use of opiate analgesic; Z79.899 Other long term (current) drug therapy; Z88.0 Allergy status to penicillin; Z88.1 Allergy status to other antibiotic agents; Z91.030 Bee allergy status; Z91.040 Latex allergy status; Z91.018 Allergy to other foods ==

== ENCOUNTER → 2021-11-03 | Outpatient (CLI) | payer OTHER | LOC: M LABSMTC 09:23 | PROVIDERS: ATTEND Anesthesiology | DX: Z01.818 Encounter for other preprocedural examination (principal); Z11.52 Encounter for screening for COVID-19 ==

== ENCOUNTER 2021-11-08 11:17 | Day surgery (SDC) | payer OTHER ==
[~2021-11-08] VITALS: Ht 170.2 cm; Wt 105.2 kg
[2021-11-08] MEDS ORDERED: LR 1,000 ML IV SCH (11:25)
[2021-11-08] MEDS ORDERED: MIDAZOLAM INJ 2MG/2ML VIAL (J2250 PER 1MG) As Ordered ONE (14:03)
[2021-11-08] MEDS ORDERED: fentaNYL 100 MCG/2 ML INJECTION As Ordered ONE ×2 (14:03→15:03)
[2021-11-08] MEDS ORDERED: LIDOCAINE 1% SDV 30ML VIAL As Ordered ONE (14:11)
[2021-11-08] MEDS ORDERED: TRIAMCINOLONE ACETONIDE SUSP 40 MG/ML VIAL (J3301) As Ordered ONE (14:11)
[2021-11-08] MEDS ORDERED: BUPIVACAINE HCL 0.25% 30ML VIAL As Ordered ONE (14:12)
[2021-11-08] MEDS ORDERED: methylPREDNISolone SUSP 40MG/ML 1ML VIAL (DEPO MEDROL) As Ordered ONE (14:50)
[2021-11-08] MEDS ORDERED: dexameTHASONE 10MG/1ML VIAL PRES.FREE (J1100 PER 1MG) As Ordered ONE (14:54)
[2021-11-08] MEDS ORDERED: ONDANSETRON 4MG 2ML VIAL As Ordered ONE (15:19)
[2021-11-08 15:50] VITALS: BP 139/84
== END 2021-11-08 15:58 | disposition home or self-care (01) ==
LOC: M SDC 11:17
PROVIDERS: ATTEND Anesthesiology
DX: M51.16 Intervertebral disc disorders with radiculopathy, lumbar region (principal)
CPT/HCPCS: 64483; 76000; J1100; J2250; J2405; J3010

== ENCOUNTER → 2022-01-14 | Outpatient (CLI) | payer MEDICARE, OTHER | LOC: M PAIN 13:15 → M TMPAIN 13:15 | PROVIDERS: ATTEND Anesthesiology | DX: M51.16 Intervertebral disc disorders with radiculopathy, lumbar region (principal); G89.29 Other chronic pain; E11.9 Type 2 diabetes mellitus without complications; I10 Essential (primary) hypertension; E03.9 Hypothyroidism, unspecified; G43.909 Migraine, unspecified, not intractable, without status migrainosus; J45.909 Unspecified asthma, uncomplicated; M79.7 Fibromyalgia; F17.200 Nicotine dependence, unspecified, uncomplicated; Z86.59 Personal history of other mental and behavioral disorders; Z88.0 Allergy status to penicillin; Z88.1 Allergy status to other antibiotic agents; Z88.8 Allergy status to other drugs, medicaments and biological substances; Z91.018 Allergy to other foods; Z91.030 Bee allergy status; Z91.040 Latex allergy status; Z79.84 Long term (current) use of oral hypoglycemic drugs; Z79.890 Hormone replacement therapy; Z79.899 Other long term (current) drug therapy ==

== ENCOUNTER → 2022-02-11 | Outpatient (CLI) | payer OTHER | LOC: M PAIN 09:15 | PROVIDERS: ATTEND Anesthesiology | DX: M51.16 Intervertebral disc disorders with radiculopathy, lumbar region (principal); M54.2 Cervicalgia; M54.50 Low back pain, unspecified; I10 Essential (primary) hypertension; E03.9 Hypothyroidism, unspecified; M47.816 Spondylosis without myelopathy or radiculopathy, lumbar region; N32.81 Overactive bladder; G43.909 Migraine, unspecified, not intractable, without status migrainosus; J45.909 Unspecified asthma, uncomplicated; F43.10 Post-traumatic stress disorder, unspecified; M79.7 Fibromyalgia; R32 Unspecified urinary incontinence; E11.9 Type 2 diabetes mellitus without complications; Z86.73 Personal history of transient ischemic attack (TIA), and cerebral infarction without residual deficits; F17.210 Nicotine dependence, cigarettes, uncomplicated; Z79.84 Long term (current) use of oral hypoglycemic drugs; Z79.899 Other long term (current) drug therapy; Z88.0 Allergy status to penicillin; Z88.1 Allergy status to other antibiotic agents; Z91.030 Bee allergy status; Z91.040 Latex allergy status ==

== ENCOUNTER → 2022-03-07 | Outpatient (CLI) | payer OTHER | LOC: M PAIN 15:30 | PROVIDERS: ATTEND Anesthesiology | DX: Z53.29 Procedure and treatment not carried out because of patient's decision for other reasons (principal) ==

== ENCOUNTER → 2022-03-22 | Outpatient (CLI) | payer OTHER | LOC: M PAIN 08:45 | PROVIDERS: ATTEND Anesthesiology | DX: M51.16 Intervertebral disc disorders with radiculopathy, lumbar region (principal); M54.50 Low back pain, unspecified; I10 Essential (primary) hypertension; E03.9 Hypothyroidism, unspecified; M47.816 Spondylosis without myelopathy or radiculopathy, lumbar region; N32.81 Overactive bladder; G43.909 Migraine, unspecified, not intractable, without status migrainosus; J45.909 Unspecified asthma, uncomplicated; F43.10 Post-traumatic stress disorder, unspecified; R32 Unspecified urinary incontinence; E11.49 Type 2 diabetes mellitus with other diabetic neurological complication; Z86.73 Personal history of transient ischemic attack (TIA), and cerebral infarction without residual deficits; Z79.84 Long term (current) use of oral hypoglycemic drugs; Z79.890 Hormone replacement therapy; Z79.899 Other long term (current) drug therapy; F17.200 Nicotine dependence, unspecified, uncomplicated; Z88.0 Allergy status to penicillin; Z88.1 Allergy status to other antibiotic agents; Z91.018 Allergy to other foods; Z91.030 Bee allergy status; Z91.040 Latex allergy status ==